=== PATIENT | female | born 1940 ===

== ENCOUNTER 2021-07-23 13:13 | Inpatient (IN) | payer MEDICARE ==
[~2021-07-23] VITALS: Ht 152.4 cm; Wt 72.7 kg
[2021-07-23] MEDS ORDERED: DOCU100C37 PO (14:04)
[2021-07-23] MEDS ORDERED: POLY17PO6 PO (14:04)
[2021-07-23] MEDS ORDERED: RT-ALBUINH IH (14:04)
[2021-07-23] MEDS ORDERED: GABA-486 PO (14:04)
[2021-07-23] MEDS ORDERED: LORA10TA7 PO (14:04)
[2021-07-23] MEDS ORDERED: CALC1TAB PO (14:04)
[2021-07-23] MEDS ORDERED: CHOL400C9 PO (14:04)
[2021-07-23] MEDS ORDERED: MOME17SP11 NSEACH (14:04)
[2021-07-23] MEDS ORDERED: LEVO125T6 PO (14:04)
[2021-07-23] MEDS ORDERED: LISI20TA26 PO (14:04)
[2021-07-23] MEDS ORDERED: SULF500T PO (14:04)
[2021-07-23] MEDS ORDERED: BUDE0.5A IH (14:04)
[2021-07-23] MEDS ORDERED: AMLO-251 PO (14:04)
[2021-07-23] MEDS ORDERED: TRAM50TA3 PO (14:04)
[2021-07-23] MEDS ORDERED: PANT40TA52 PO (14:04)
[2021-07-23] MEDS ORDERED: ALB0.5V INH (14:04)
[2021-07-23] MEDS ORDERED: VIT1CAPS44 PO (14:04)
[2021-07-23] MEDS ORDERED: CARB1DRO5 OU (14:04)
[2021-07-23] MEDS ORDERED: SENN-234 PO (14:04)
[2021-07-23] MEDS ORDERED: CITA10TA9 PO (14:04)
[2021-07-23] MEDS ORDERED: diphenhydrAMINE 25 MG TAB (BENADRYL) PO PRN (14:15)
[2021-07-23] MEDS ORDERED: FLEET ENEMA ADULT 1 EA BTL PR PRN (14:15)
[2021-07-23] MEDS ORDERED: DOCUSATE SODIUM 100 MG (COLACE) CAP PO PRN (14:15)
[2021-07-23] MEDS ORDERED: LACTULOSE SYRUP 10GM/15ML (ENULOSE) 30ML UDC PO PRN (14:15)
[2021-07-23] MEDS ORDERED: ONDANSETRON 4 MG (ZOFRAN) ORAL DISSOLVE TAB PO PRN (14:15)
[2021-07-23] MEDS ORDERED: ACETAMINOPHEN 500 MG TAB (TYLENOL) PO PRN (14:15)
[2021-07-23] MEDS ORDERED: guaiFENesin/CODEINE (ROBITUSSIN AC) 10ML UDC PO PRN (14:15)
[2021-07-23] MEDS ORDERED: ALPRAZolam 0.25 MG (XANAX) TAB PO PRN (14:15)
[2021-07-23] MEDS ORDERED: MELATONIN 3 MG TABLET PO PRN (14:15)
[2021-07-23] MEDS ORDERED: LOPERAMIDE 2 MG (IMODIUM) TABLET PO PRN (14:15)
[2021-07-23] MEDS ORDERED: BISACODYL 10 MG SUPP (DULCOLAX) PR PRN (14:15)
--- NOTE | 2021-07-23 15:43 | Physical Therapy Evaluation ---
PT Evaluation-General Medical Diagnosis Admission Date Jul 23, 2021 at 15:11 Medical Diagnosis: left ankle fx Onset Date: Jul 23, 2021 Therapy Diagnosis Therapy Diagnosis: impaired mobility, strength, endurance Weight Bear Status Left Lower Extremity: Left Weight Bearing/Tolerated WBAT when wearing the cam boot Referral Physician: Apoorva Castro DO Reason for Referral: Evaluation/Treatment Medical History Pertinent Medical History: HTN Reviewed History: Yes Social History Home: Single Level Current Living Status: Children Entry Into Home: Stairs Without Railing Patient has 2 steps on one entrance and about 5 on another Prior Prior Level of Function SCALE: Activities may be completed with or without assistive devices. 9-Pgayxqegua-vxllpwr completes the activity by him/herself with no assistance from a helper. 5-Set-up or Clean-up Assistance-helper sets up or cleans up; patient completes activity. [place] assists only prior to or following the activity. 4-Supervision or Touching Assistance-helper provides verbal cues and/or touching/steadying and/or contact guard assistance as patient completes activity. Assistance may be provided throughout the activity or intermittently. 3-Partial/Moderate Assistance-helper does LESS THAN HALF the effort. [place] lifts, holds or supports trunk or limbs, but provides less than half the effort. 2-Substantial/Maximal Assistance-helper does MORE THAN HALF the effort. [place] lifts or holds trunk or limbs and provides more than half the effort. 8-Gwodhhdzl-oxitmd does ALL the effort. Patient does none of the effort to complete the activity. Or, the assistance of 2 or more helpers is required for the patient to complete the activity. If activity was not attempted, code reason: 7-Patient Refused. 9-Not Applicable-not attempted and the patient did not perform the activity before the current illness, exacerbation or injury. 10-Not Attempted due to Environmental Limitations-(lack of equipment, weather restraints, etc.). 88-Not Attempted due to Medical Conditions or Safety Concerns. Bed Mobility: 6 Transfers (B,C,W/C): 6 Gait: 6 Stairs: 6 Indoor Mobility (Ambulation): Independent Stairs: Independent Patient used a SPC PT Evaluation-Current Subjective Patient in WC pre tx, agrees to PT, has 9/10 pain in left ankle, nurse notified. Pt/Family Goals to be independent at home Objective Patient Orientation: Person, Place, Situation cam boot ROM/Strength ROM Lower Extremities WNL, left ankle not tested Sensory Hearing: Functional Transfers Roll Left & Right (QC): 3 Sit to Lying (QC): 3 Lying to Sitting/Side of Bed(Q: 3 Sit to Stand (QC): 3 Chair/Wnv-fz-Pslfj Xfer(QC): 3 Toilet Transfer (QC): 3 Car Transfer (QC): 3 Patient performs rolling with min assist, supine to sit mod assist, sit to supine mod assist, sit <-> stand min assist, stand pivot transfer min assist, car transfer mod assist. Patient cannot perform a transfer wearing her shoe because she cannot tolerate any weight on her left foot and she cannot twist her foot to turn with the shoe on. She can do this wearing a hospital sock. Gait Walk 10 feet (QC): 88 Walk 50 ft with 2 Turns(QC): 88 Walk 150 ft (QC): 88 Walking 10ft/uneven surface-QC: 88 Wheelchair Training Wheel 50 ft with 2 turns (QC): 3 Wheel 150 ft (QC): 7 Type of Wheelchair: Manual Stairs 1 Step (curb) (QC): 88 4 Steps (QC): 88 12 Steps (QC): 88 Balance Sitting Static: Normal Sitting Dynamic: Normal Standing Static: Fair Standing Dynamic: Fair Picking up an Object (QC): 88 Treatment Toileted patient with assist from an OT who helped clean and get her brief on. Assessment/Needs Patient in bed post tx with nurse call, phone, tray, all needs met. Patient has impaired mobility, strength, endurance. Patient cannot ambulate at this time because she cannot bear weight on her left foot due to the pain. Rehab Potential: Guarded PT Short Term Goals Short Term Goals Time Frame: Jul 30, 2021 Roll Left & Right: 6 Sit to lyin Lying to sitting on side of be: 3 Sit to stand: 4 Chair/knx-ts-xyiix transfer: 4 Walk 10 feet: 3 PT Care Home Goals Senior Business Manager Goals PT Care Home Goals Time Frame: Aug 13, 2021 Roll Left & Right (QC): 6 Sit to Lying (QC): 6 Lying-Sitting on Side/Bed(QC): 6 Sit to Stand (QC): 4 Chair/Wlj-kq-Ikapb Xfer(QC): 4 Toilet Transfer (QC): 4 Car Transfer (QC): 4 Does the Patient Walk: Yes Walk 10 feet (QC): 4 Walk 50ft with 2 Turns (QC): 4 Walk 150 ft (QC): 88 Walking 10ft on Uneven Surface: 4 1 Step (curb) (QC): 4 4 Steps (QC): 4 12 Steps (QC): 88 Picking up an Object (QC): 4 Wheel 50 feet with 2 turns (QC: 9 Wheel 150 feet: 9 PT Plan Problem List Problem List: Activity Tolerance, Functional Strength, Safety, Balance, Gait, Transfer, Bed Mobility, ROM Treatment/Plan Treatment Plan: Continue Plan of Care Treatment Plan: Bed Mobility, Education, Functional Activity Dorothea, Functional Strength, Group Therapy, Gait, Safety, Therapeutic Exercise, Transfers Treatment Duration: Aug 13, 2021 Frequency: At least 5 of 7 days/Wk (IRF) Estimated Hrs Per Day: 1.5 hours per day Patient and/or Family Agrees t: Yes Safety Risks/Education Patient Education: Transfer Techniques, Reviewed Precautions, Correct Positioning, W/C Management, Safety Issues Teaching Recipient: Patient Teaching Methods: Demonstration, Discussion Response to Teaching: Reinforcement Needed Discharge Recommendations Plan Patient performed bed mobility and transfer training, balance and endurance training, functional strengthening, stair training, gait training, and education, to improve functional mobility and independence at home. Therapy Discharge Recommendati: Scheduled Assistance, Home & Family, Post Acute PT Time/GCodes Time In: 1511 Time Out: 1540 Total Billed Treatment Time: 29 Total Billed Treatment 1 visit VIDAL 15' FA 14' DAMIEN ANEDRSON PT Jul 23, 2021 15:43
--- NOTE | 2021-07-23 16:19 | PM&R Post Admission Assessment ---
PM&R Date of Visit: Jul 23, 2021 Time of Visit: 16:20 History of Present Illness Chief complaint: Left ankle fracture History present illness: This is an 81-year-old patient of Dr. 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 She uses a cane at home. Patient was placed in a posterior stirrup fiberglass splint and is nonweightbearing. She reports her bowels just moved today and she has no urinary complaints. Past Gybqkeh-Gxaugc-Korwgw Hx Past Med/Social Hx: Reviewed Nursing Past Med/Soc Hx, Reviewed and Corrections made Patient Social History Marrital Status: single Employed/Student: retired Smoking Status: Never a Smoker Past Medical History Surgeries: Orthopedic Respiratory: Pneumonia, Pulmonary Fibrosis (Lifetime non-smoker from environmental exposure of soldering at [employer] for 34 years) Cardiac: High Cholesterol, Hypertension Genitourinary: Bladder Infection, Renal Failure Musculoskeletal: Osteoporosis, Arthritis, Rheumatoid Arthritis Endocrine: Hypothyroidsim Prior Level of Function Bed Mobility: 6 Transfers: 6 Gait: 6 Stairs: 6 Indoor Mobility (Ambulation): Independent Stairs: Independent Current Level of Fuctioning Roll Left to Right: 3 Sit to Lyin Lying to Sitting/Side of Bed: 3 Sit to Stand: 3 Chair/Plk-hl-Gztwj Xfer: 3 Car Transfer: 3 Walk 10 feet: 88 Walk 50 ft with 2 Turns: 88 Walk 150 ft: 88 Walking 10ft on uneven surface: 88 Wheel 50 ft with 2 turns: 3 Wheel 150 ft: 7 Type of Wheelchair: Manual 1 Step (curb): 88 4 Steps: 88 12 Steps: 88 Picking up an Object: 88 PM&R Allergy/Meds/Data Review Allergies Coded Allergies: adhesive tape (Verified Allergy, Unknown, 07/23/21) latex (Verified Allergy, Unknown, 07/23/21) morphine (Verified Allergy, Unknown, 07/23/21) moxifloxacin (Verified Allergy, Unknown, 07/23/21) Home Medications Scheduled Amlodipine Besylate (Amlodipine Besylate), 10 MG PO DAILY, (Reported) Budesonide (Budesonide), 0.5 MG IH BID, (Reported) Calcium Carbonate/Vitamin D3 (Caltrate 600 + D Tablet), 1 EACH PO BID WITH MEALS, (Reported) Cholecalciferol (Vitamin D3) (Vitamin D3), 10 MCG PO DAILY, (Reported) Citalopram Hydrobromide (Citalopram HBr), 10 MG PO DAILY, (Reported) Docusate Sodium (Docusate Sodium), 100 MG PO BID, (Reported) Gabapentin (Gabapentin), 100 MG PO TID, (Reported) Levothyroxine Sodium (Levothyroxine Sodium), 125 MCG PO DAILY, (Reported) Lisinopril (Lisinopril), 20 MG PO BID, (Reported) Mometasone Furoate (Mometasone Furoate), 2 SPRAYS NSEACH DAILY, (Reported) Pantoprazole Sodium (Pantoprazole Sodium), 40 MG PO DAILY, (Reported) Polyethylene Glycol 3350 (Miralax), 17 GM PO DAILY, (Reported) Sennosides (Senna), 8.6 MG PO DAILY, (Reported) Sulfasalazine (Azulfidine), 500 MG PO BID, (Reported) Vit C/E/Zn/Coppr/Lutein/Zeaxan (Preservision Areds 2 Softgel), 1 EACH PO BID, (Reported) Scheduled PRN Albuterol Sulfate (Proair Hfa), 2 PUFF IH Q6H PRN for SHORTNESS OF BREATH, (Reported) Albuterol Sulfate (Albuterol Sulfate), 1.25 MG INH Q4H PRN for SHORTNESS OF BREATH, (Reported) Carboxymethylcellulose Sodium (Refresh Celluvisc), 1 DROP OU UD PRN for DRY EYES, (Reported) Loratadine (Loratadine), 10 MG PO DAILY PRN for ALLERGY SYMPTOMS, (Reported) Tramadol HCl (Tramadol HCl), 50 MG PO Q6H PRN for PAIN-MODERATE (5-7), (Reported) Current Medications Current Medications Reviewed Review of Systems Constitutional: see HPI EENTM: no symptoms reported Respiratory: short of breath Cardiovascular: no symptoms reported Gastrointestinal: no symptoms reported Genitourinary: no symptoms reported Musculoskeletal: back pain, joint pain Skin: no symptoms reported Psychiatric/Neurological: Emotional Problems All Other Systems Reviewed Negative Unless Noted: Yes Physical Exam Physical Exam Vital Signs Capillary Refill : Height, Weight, BMI Height: '" Weight: lbs. oz. kg; BMI Method: General Appearance: No Apparent Distress, WD/WN, Chronically ill, Thin, Other (Frail) Eyes: Bilateral Eye Normal Inspection, Bilateral Eye PERRL HEENT: PERRL/EOMI, Normal ENT Inspection, Pharynx Normal Neck: Full Range of Motion, Normal Inspection, Non Tender, Supple, Carotid Bruit Respiratory: Chest Non Tender, Lungs Clear, Normal Breath Sounds, No Accessory Muscle Use, No Respiratory Distress, Decreased Breath Sounds Cardiovascular: Regular Rate, Rhythm, No Edema, No Gallop, No JVD, No Murmur, Normal Peripheral Pulses Gastrointestinal: Normal Bowel Sounds, No Organomegaly, No Pulsatile Mass, Non Tender, Soft Back: Normal Inspection, No CVA Tenderness, No Vertebral Tenderness Extremity: Normal Capillary Refill, Normal Inspection, Normal Range of Motion, Non Tender, No Calf Tenderness, No Pedal Edema Neurologic/Psychiatric: Alert, Oriented x3, No Motor/Sensory Deficits, Normal Mood/Affect, automotive glass installer II-XII Norm as Tested, Abnormal Gait (Nonweightbearing on the left), Motor Weakness (Generalized decreased strength 4/5) Skin: Normal Color, Warm/Dry Lymphatic: No Adenopathy PM&R Medical Assessment & Plan REHAB/MEDICAL ASSESSMENT AND PLAN: REHAB IMPAIRMENT GROUP: Left ankle fracture nonweightbearing ETIOLOGIC DIAGNOSIS: Left ankle fracture nonweightbearing The comorbidities that impact the patients function and/or functional outcome by: Pulmonary fibrosis, osteoporosis, rheumatoid arthritis, advanced age REHAB PLAN: The patient is being admitted to our comprehensive inpatient rehabilitation facility and can tolerate the intensity of service consisting of at least: 180 minutes of therapy a day, 5 out of 7 days a week Rehab treatment will consist of: PT and OT will focus on the use of assistive devices in order to ambulate and increase independence in ADL's in order to return to independent living The patient/family has a good understanding of our discharge process and will be nefit from an interdisciplinary inpatient rehabilitation program. The patient has potential to make improvement and is in need of at least two of the following multidisciplinary therapies including but not limited to physical, occupational, speech, and prosthetics and orthotics. Additionally the patient will need services from respiratory, nutritional services, wound care, psychol ogy, etc. (Customize this to each patient). Given the patients complex condition and risk of further medical complications, rehabilitation services cannot be safely or effectively provided at a lower level of care such as a nursing home facility. BARRIERS TO DISCHARGE: Nonweightbearing on left ESTIMATED LOS: 14 days DISPOSITION: Home RELEVANT CHANGES SINCE PREADMISSION SCREENING: I have compared the patients medical and functional status at the time of the preadmission screening and there are: No changes PROGNOSIS: Fair REHABILITATION GOALS: 1. PT and OT will focus on the use of assistive devices in order to ambulate and increase independence in ADL's in order to return to independent living All the above goals were reviewed with the patient and he/she is in agreement. By signing this document, I acknowledge that I have personally performed a full physical examination on this patient within 24 hours of admission to this inpatient rehabilitation facility and have determined the patient to be able to tolerate the above course of treatment at an intensive level for a reasonable period of time. I will be completing a detailed individualized Plan of Care for this patient by day #4 of the patients stay based upon the Preadmission Screen, the Post-Admission Evaluation, and the therapy evaluations. Admission Dx/Comorbidities: (1) Ankle fracture, left ICD Codes: S82.892A - Other fracture of left lower leg, initial encounter for closed fracture (2) Pulmonary fibrosis ICD Codes: J84.10 - Pulmonary fibrosis, unspecified (3) Rheumatoid arthritis ICD Codes: M06.9 - Rheumatoid arthritis, unspecified (4) Hypothyroidism ICD Codes: E03.9 - Hypothyroidism, unspecified (5) Hypertension ICD Codes: I10 - Essential (primary) hypertension (6) Advanced age ICD Codes: R54 - Age-related physical debility (7) Frail elderly ICD Codes: R54 - Age-related physical debility (8) Risk for falls ICD Codes: Z91.81 - History of falling Assessment/Plan Assessment and Plan Assess & Plan/Chief Complaint Assessment: Left ankle fracture nonweightbearing Advanced age Pulmonary fibrosis 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 [employer] 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 lifetime non-smoker Hypothyroidism Rheumatoid arthritis Seasonal allergies History of GI bleed History pneumonia Osteoporosis Plan: Inpatient rehab protocol Bowel regimen Pain control KYLAH DELGADILLO DO Jul 23, 2021 16:19
[2021-07-23] MEDS ORDERED: RT-ALBUTEROL SULF 2.5 MG/3 ML PRE-MIX VIAL IH PRN (16:30)
[2021-07-23] MEDS ORDERED: LORATADINE (CLARITIN) 10 MG TAB PO PRN (16:30)
[2021-07-23] MEDS ORDERED: CARBOXYMETHYLCELLULOSE SODIUM OU PRN (16:30)
[2021-07-23] MEDS ORDERED: RT-ALBUTEROL SULF 2.5 MG/3 ML PRE-MIX VIAL INH PRN ×2 (16:30→17:35)
[2021-07-23 16:35] VITALS: BP 119/58
[2021-07-23] MEDS ORDERED: ARTIFICAL TEARS 0.4 ML UNIT DOSE (REFRESH PLUS) OU PRN (16:45)
[2021-07-23 17:25] VITALS: BP 119/58
[2021-07-23] MEDS: CALCIUM CARB + VIT D 600 MG (CALCARB + D) TAB PO SCH (17:41)
[2021-07-23] MEDS ORDERED: NON-FORMULARY MEDICATION 1 EA EA (Calcium Carbonate/Vitamin D3 (Caltrate 600 + D Tablet) 1 PO SCH (18:00)
[2021-07-23 20:00] VITALS: BP 114/71
[2021-07-23] MEDS ORDERED: SENNA W/DOCUSATE (SENOKOT S) TABLET PO SCH (21:00)
[2021-07-23] MEDS ORDERED: DOCUSATE SODIUM 100 MG (COLACE) CAP PO SCH (21:00)
[2021-07-23] MEDS ORDERED: polyethylene glycoL POWDER 17 GM (MIRALAX) PACK PO SCH (21:00)
[2021-07-23] MEDS: RT-BUDESONIDE NEBS 0.5 MG/2ML (PULMICORT) AMP IH SCH (21:16)
[2021-07-23] MEDS: RT-ALBUTEROL SULF 2.5 MG/3 ML PRE-MIX VIAL INH SCH (21:16)
[2021-07-23] MEDS: sulfaSALAzine 500 MG (AZULFIDINE) TAB PO SCH (21:36)
[2021-07-23] MEDS: lisINopril 20 MG (PRINIVIL) TABLET PO SCH (21:36)
[2021-07-23] MEDS: GABAPENTIN 100 MG (NEURONTIN) CAP PO SCH (21:36)
[2021-07-23] MEDS: DOCUSATE SODIUM 100 MG (COLACE) CAP PO SCH (21:36)
[2021-07-24] MEDS: RT-ALBUTEROL SULF 2.5 MG/3 ML PRE-MIX VIAL INH SCH ×4 (03:15→21:24)
[2021-07-24] MEDS: LEVOTHYROXINE 125 MCG (LEVOTHROID) TABLET PO SCH (06:32)
[2021-07-24 07:01] LABS: BASOPHILS % (AUTO) 0 % (0-10); EOSINOPHILS % (AUTO) 0 % (0-10); HEMATOCRIT 34 % (35-52); HEMOGLOBIN 11.1 g/dL (11.5-16.0); LYMPHOCYTES # (AUTO) 1.2 10^3/uL (1.0-4.0); LYMPHOCYTES % (AUTO) 25 % (12-44); MEAN CORPUSCULAR HEMOGLOBIN 31 pg (25-34); MEAN CORPUSCULAR HGB CONC 33 g/dL (32-36); MEAN CORPUSCULAR VOLUME 93 fL (80-99); MEAN PLATELET VOLUME 8.6 fL (9.0-12.2); MONOCYTES # (AUTO) 0.7 10^3/uL (0.0-1.0); MONOCYTES % (AUTO) 15 % (0-12); NEUTROPHILS # (AUTO) 2.8 10^3/uL (1.8-7.8); NEUTROPHILS % (AUTO) 60 % (42-75); PLATELET COUNT 194 10^3/uL (130-400); WHITE BLOOD COUNT 4.6 10^3/uL (4.3-11.0)
[2021-07-24 07:21] LABS: ALBUMIN 2.9 GM/DL (3.2-4.5); BILIRUBIN,TOTAL 0.5 MG/DL (0.1-1.0); CALCIUM 8.2 MG/DL (8.5-10.1); CREATININE SERUM 0.64 MG/DL (0.60-1.30); POTASSIUM 4.4 MMOL/L (3.6-5.0); TOTAL PROTEIN 5.8 GM/DL (6.4-8.2)
[2021-07-24 07:30] VITALS: BP 127/61
--- NOTE | 2021-07-24 08:34 | Occupational Therapy Eval ---
OT Evaluation-General/PLF Medical Diagnosis Admission Date Jul 23, 2021 at 15:11 Medical Diagnosis: left ankle fx Onset Date: Jul 23, 2021 Therapy Diagnosis Therapy Diagnosis: Impaired adls, iadls, mobility, transfers, balance, endurance, strength Precautions Precautions/Isolations: Fall Prevention, Standard Precautions Weight Bear Status LLE: WBAT with cam boot Referral Physician: Apoorva Castro DO Referral Reason: Evaluation/Treatment Medical History Pertinent Medical History: HTN Current History Pt admitted from [facility]. She reports she was trying to get up the steps of her porch when she slipped and fell resulting in L fibula fx. Pt is WBAT with cam boot. She verbalizes living with her son but he is unable to provide any physical assistance due to his own medical issues. Prior to fall, she was using a cane. She was indep with adls and has a capacity manager 1x/week that assists with laundry, cleaning, and sometimes meals. She no longer cooks and eats microwavable or simple meals. Reviewed History: Yes Social History Home: Single Level Current Living Status: Children Entry Into Home: Stairs Without Railing ADL-Prior Level of Function SCALE: Activities may be completed with or without assistive devices. 9-Jgovzzroqj-acsveda completes the activity by him/herself with no assistance from a helper. 5-Set-up or Clean-up Assistance-helper sets up or cleans up; patient completes activity. [place] assists only prior to or following the activity. 4-Supervision or Touching Assistance-helper provides verbal cues and/or touching/steadying and/or contact guard assistance as patient completes activ ity. Assistance may be provided throughout the activity or intermittently. 3-Partial/Moderate Assistance-helper does LESS THAN HALF the effort. [place] lifts, holds or supports trunk or limbs, but provides less than half the effort. 2-Substantial/Maximal Assistance-helper does MORE THAN HALF the effort. [place] lifts or holds trunk or limbs and provides more than half the effort. 7-Tbsymutxi-oaafmn does ALL the effort. Patient does none of the effort to complete the activity. Or, the assistance of 2 or more helpers is required for the patient to complete the activity. If activity was not attempted, code reason: 7-Patient Refused. 9-Not Applicable-not attempted and the patient did not perform the activity before the current illness, exacerbation or injury. 10-Not Attempted due to Environmental Limitations-(lack of equipment, weather restraints, etc.). 88-Not Attempted due to Medical Conditions or Safety Concerns. Self Care: Independent Functional Cognition: Independent DME/Equipment: Bath Chair, Grab Bars, Shower Drive Self: Yes OT Current Status Subjective Pt reports 9/10 with any movement. Initially reports cam boot too tight. OT assisted in loosening, pt reports feeling much better. Appearance Returned to supine in bed, all needs within reach. RN in room at end of session. Mental Status/Objective Patient Orientation: Person, Time, Situation Attachments: IV Current Upper Extremity ROM Impaired bilaterally. Pt reports due to arthritis and old rotator cuff injury. [place] shoulder AROM: ~45 degrees. ADL-Treatment Eating (QC): 5 Oral Hygiene (QC): 3 Shower/Bathe Self (QC): 3 Upper Body Dressing (QC): 3 Lower Body Dressing (QC): 3 On/Off Footwear (QC): 2 Toileting Hygiene (QC): 3 Pt resting in bed at therapist arrival, agreeable to eval. She verbalizes incontinence of urine secondary to being in too much pain to get to the commode. Supine>sit: Min a to transition LLE off edge of bed. Posterior pelvic tilt at EOB, difficulty sitting upright. She reports due to arthritic spine. Stand pivot from bed to commode with Min A. Pt shuffling/sliding R foot on floor due to increased pain in L foot when bearing weight (cam boot on). Kyphotic posture in standing. Extra time to manage clothing below hips with cue to alternate one hand on walker at a time. Continent BM. [place] care completed in sitting, min a for thoroughness in standing. Sponge bath performed sitting EOB. She was able to wash upper body, thighs, and down to R ankle without assist. Min a for balance as she stood to wash [place] area, single UE support on walker. Assist to wash backside and back of legs to ensure thorough cleaning from urine incontinence. Assist needed to fasten 1/5 clasps on bra due to inability to line up first clasp. (bra fastened in front). Due to impaired shoulder ROM, assist needed to pull shirt down in back, extra effort to bring overhead. She was able to bend at waist to thread BLE's into brief/pants, min-mod a for clothing management secondary to fatigue with prolong standing. Max a to don cam boot (prior to standing). Pt demonstrates difficulty with velcro straps due to weakness and arthritis. Modifications to straps will be beneficial in future sessions. With exertion, pt reports dizziness and SOA. Vitals checked, WNL. Assist to lift LLE into bed, dep x2 to supine scoot to HOB. Education OT Patient Education: Correct positioning, Energy conservation, Modified ADL techniques, Progress toward Goal/Update tx plan, Purpose of tx/functional activities, Reviewed precautions, Rehab process, Safety issues, Transfer techniques Teaching Recipient: Patient Teaching Methods: Demonstration, Discussion Response to Teaching: Verbalize Understanding, Return Demonstration, Reinforcement Needed OT Short Term Goals Short Term Goals Time Frame: Aug 04, 2021 Eatin Oral hygiene: 4 Toileting hygiene: 4 Shower/bathe self: 4 Upper body dressin Lower body dressin Putting on/taking off footwear: 3 OT Electric Motor Tester Assembler Goals Electric Motor Tester Assembler Goals Time Frame: Aug 14, 2021 Eating (QC): 5 Oral Hygiene (QC): 5 Toileting Hygiene (QC): 6 Shower/Bathe Self (QC): 5 Upper Body Dressing (QC): 5 Lower Body Dressing (QC): 5 On/Off Footwear (QC): 4 1=Demonstrate adherence to instructed precautions during ADL tasks. 2=Patient will verbalize/demonstrate understanding of assistive devices/modifications for ADL. 3=Patient will improve strength/tolerance for activity to enable patient to perform ADL's. OT Education/Plan Problem List/Assessment Assessment: Decreased Activ Tolerance, Decreased UE Strength, Impaired Coordination, Impaired Funct Balance, Impaired I ADL's, Impaired Self-Care Skills, Restricted Funct UE ROM Discharge Recommendations Plan/Recommendations: Continue POC Comment ongoing assessment Treatment Plan/Plan of Care Treatment,Training & Education: Yes Patient would benefit from OT for education, treatment and training to promote independence in ADL's, mobility, safety and/or upper extremity function for ADL's. Plan of Care: ADL Retraining, Functional Mobility, Group Exercise/Act as Ind, Orthotic Fitting/Training, UE Funct Exercise/Act Treatment Duration: Aug 14, 2021 Frequency: At least 5 of 7 days/Wk (IRF) Estimated Hrs Per Day: 1.5 hours per day Agreement: Yes Rehab Potential: Guarded Time/GCodes Start Time: 07:55 Stop Time: 09:25 Total Time Billed (hr/min): 90 Billed Treatment Time 1 visit EVM (10 min) ADL x5 (80 min) Chrissy Cutler OT Jul 24, 2021 08:34
[2021-07-24] MEDS ORDERED: NON-FORMULARY MEDICATION 1 EA EA (Cholecalciferol (Vitamin D3) (Vitamin D3) 10 MCG) PO SCH (09:00)
[2021-07-24] MEDS ORDERED: MOMETASONE FUROATE NSEACH SCH (09:00)
[2021-07-24] MEDS: CALCIUM CARB + VIT D 600 MG (CALCARB + D) TAB PO SCH ×2 (09:26→17:13)
[2021-07-24] MEDS: sulfaSALAzine 500 MG (AZULFIDINE) TAB PO SCH ×2 (09:26→21:33)
[2021-07-24] MEDS: lisINopril 20 MG (PRINIVIL) TABLET PO SCH ×2 (09:26→21:33)
[2021-07-24] MEDS: amLODIPine 10 MG (NORVASC) TAB PO SCH ×2 (09:26→09:42)
[2021-07-24] MEDS: VITAMIN D3 10 MCG (400 UNITS) TABLET PO SCH (09:26)
[2021-07-24] MEDS: DOCUSATE SODIUM 100 MG (COLACE) CAP PO SCH ×2 (09:26→21:33)
[2021-07-24] MEDS: GABAPENTIN 100 MG (NEURONTIN) CAP PO SCH ×3 (09:27→21:33)
[2021-07-24] MEDS: PANTOPRAZOLE 40 MG (PROTONIX) TAB PO SCH (09:27)
[2021-07-24] MEDS: FLUTICASONE NASAL SPRAY (FLONASE) 16 GM BTL NS SCH (09:29)
[2021-07-24 09:35] VITALS: BP 133/61
[2021-07-24] MEDS: RT-BUDESONIDE NEBS 0.5 MG/2ML (PULMICORT) AMP IH SCH ×2 (09:39→21:24)
[2021-07-24] MEDS: SENNOSIDES 8.6 MG (SENOKOT) TAB PO SCH (09:42)
[2021-07-24] MEDS: polyethylene glycoL POWDER 17 GM (MIRALAX) PACK PO SCH (09:42)
--- NOTE | 2021-07-24 10:14 | Physical Therapy Daily Note ---
PT Daily Note-Current Subjective Pt denies pain upon arrival. Pt receiving Breathing treatment, agreeable to PT. Pt coughing up phlegm due to breathing treatment per pt. Pt rates pain 5/10 (L) ankle with movement of (R) LE and (L) SAQ. Pt reports she got up to the toilet this am. Pt reports she did well. Pt requests commode during treatment. Mental Status Patient Orientation: Person, Place, Situation Transfers SCALE: Activities may be completed with or without assistive devices. 2-Njxkmzbdsq-tsigknk completes the activity by him/herself with no assistance from a helper. 5-Set-up or Clean-up Assistance-helper sets up or cleans up; patient completes activity. [place] assists only prior to or following the activity. 4-Supervision or Touching Assistance-helper provides verbal cues and/or touching/steadying and/or contact guard assistance as patient completes activity. Assistance may be provided throughout the activity or intermittently. 3-Partial/Moderate Assistance-helper does LESS THAN HALF the effort. [place] lifts, holds or supports trunk or limbs, but provides less than half the effort. 2-Substantial/Maximal Assistance-helper does MORE THAN HALF the effort. [place] lifts or holds trunk or limbs and provides more than half the effort. 4-Rdbolvhuy-heykge does ALL the effort. Patient does none of the effort to complete the activity. Or, the assistance of 2 or more helpers is required for the patient to complete the activity. If activity was not attempted, code reason: 7-Patient Refused. 9-Not Applicable-not attempted and the patient did not perform the activity before the current illness, exacerbation or injury. 10-Not Attempted due to Environmental Limitations-(lack of equipment, weather restraints, etc.). 88-Not Attempted due to Medical Conditions or Safety Concerns. SPT bed-> commode-> bed. SPT bed ->w/c->bed with CGA and vc's for sequencing. Weight Bearing Left Lower Extremity: Left Weight Bearing/Tolerated WBAT when wearing the cam boot Exercises Supine Ex: Bridging, Ankle pumps, Quad Set, Glut sets, Heel Slides, Short Arc Quads, Straight leg raise, Hip abd/add Supine Reps: 30 Seated Therapy Exercises: Long arc quads, Hip flexion Seated Reps: 30 Treatments Pt toileted at bedside commode requiring assist with donning and doffing pants. Pt wiped self. Pt practiced w/c mobility into bathroom. Pt brushed teeth and hair at sink from w/c. W/c mobility in common area x 200ft. Pt pushed to gym: pt stood at //bars 3 x 30sec with CGA. Pt back to bed with CGA. Pt transfered self into bed. (L) LE elevated on pilllow. PT WBAT for all standing. Pt with call light and all needs met. Assessment Current Status: Good Progress Pt demonstrates ability to SPT inching and turning on (R) foot, no steps. Pt WB AT (R) foot. Pain increased with activity but gabi well with rest breaks as needed. Pt resting with call light and all needs met. PT Short Term Goals Short Term Goals Time Frame: Jul 30, 2021 Roll Left & Right: 6 Sit to lyin Lying to sitting on side of be: 3 Sit to stand: 4 Chair/vtw-vp-jwfql transfer: 4 Walk 10 feet: 3 PT Washery Engineer Goals Washery Engineer Goals PT Washery Engineer Goals Time Frame: Aug 13, 2021 Roll Left & Right (QC): 6 Sit to Lying (QC): 6 Lying-Sitting on Side/Bed(QC): 6 Sit to Stand (QC): 4 Chair/Vpr-vp-Zbsbb Xfer(QC): 4 Toilet Transfer (QC): 4 Car Transfer (QC): 4 Does the Patient Walk: Yes Walk 10 feet (QC): 4 Walk 50ft with 2 Turns (QC): 4 Walk 150 ft (QC): 88 Walking 10ft on Uneven Surface: 4 1 Step (curb) (QC): 4 4 Steps (QC): 4 12 Steps (QC): 88 Picking up an Object (QC): 4 Wheel 50 feet with 2 turns (QC: 9 Wheel 150 feet: 9 PT Plan Treatment/Plan Treatment Plan: Continue Plan of Care Treatment Plan: Bed Mobility, Education, Functional Activity Dorothea, Functional Strength, Group Therapy, Gait, Safety, Therapeutic Exercise, Transfers Treatment Duration: Aug 13, 2021 Frequency: At least 5 of 7 days/Wk (IRF) Estimated Hrs Per Day: 1.5 hours per day Patient and/or Family Agrees t: Yes Time/GCodes Time In: 930 Time Out: 1100 Total Billed Treatment Time: 90 Total Billed Treatment 1, Ex x 30', FA x 45', w/c mobility x 15' [facility] Jul 24, 2021 10:14
--- NOTE | 2021-07-24 13:09 | Individualized Plan of Care ---
Individualized Plan of Care Rehab Nursing IPOC Order Admission Date Jul 23, 2021 at 15:11 Current Orders Orders Admission Order(Inpt,Obs,Sdc) (07/23/21 14:14) Vital Signs: Per Unit Policy ( ,16,00 (07/23/21 14:14) Dirk Jones (07/23/21 14:14) Sequential Compression Device (07/23/21 14:14) Riding Teacher-Inpt Rehab Con (07/23/21 14:14) Rehab Nursing Orders-Ipoc (07/23/21 14:14) Physical Therapy Rehab Orders (07/23/21 14:14) Occupational Therapy Rehab Ord (07/23/21 14:14) Speech Therapy Rehab Orders (07/23/21 14:14) Cbc With Automated Diff (07/24/21 06:00) Comprehensive Metabolic Panel (07/24/21 06:00) Precautions (Aru) (07/23/21 14:14) Rehab-Intensity Of Therapy (07/23/21 14:14) Initiate Admission Nursing Pro .admission (07/23/21 14:14) Alprazolam Tablet (Xanax Tablet) (07/23/21 14:15) Calcium Carbonate Chew Tablet (Antacid C (07/23/21 14:15) Diphenhydramine Tablet (Benadryl Tablet) (07/23/21 14:15) Docusate Sodium Capsule (Colace Capsule) (07/23/21 21:00) Docusate Sodium Capsule (Colace Capsule) (07/23/21 14:15) Bisacodyl Suppository (Dulcolax Supposit (07/23/21 14:15) Lactulose Oral Solution (Enulose Oral So (07/23/21 14:15) Na Phos/Na Biphos Enema (Fleet Enema [place] (07/23/21 14:15) Guaifenesin/Codeine Syrup (Robitussin Ac (07/23/21 14:15) Loperamide Tablet (Imodium Tablet) (07/23/21 14:15) Melatonin Tablet (Melatonin Tablet) (07/23/21 14:15) Polyethylene Glycol Powder Pkt (Miralax (07/23/21 21:00) Ondansetron Oral Dissolve Tab (Zofran (07/23/21 14:15) Senna S Tablet (Senokot S Tablet) (07/23/21 21:00) Acetaminophen Tablet (Tylenol Tablet) (07/23/21 14:15) Code/Resuscitation (07/23/21 14:14) Initiate Admission Nursing Pro .admission (07/23/21 14:14) Admission Arrival Bed Request (07/23/21 15:13) Acetaminophen Tablet/Caplet (Tylenol T (07/23/21 15:45) Patient Visit (07/23/21 ) Pt Eval Moderate Complexity (07/23/21 ) Functional Activities, Ea 15 (07/23/21 ) Albuterol Pre-Mix Nebs (Rt) (Proventil (07/23/21 16:30) Albuterol Pre-Mix Nebs (Rt) (Proventil (07/23/21 16:30) Amlodipine Tablet (Norvasc Tablet) (07/24/21 09:00) Budesonide Inhalation Solution (Pulmicor (07/23/21 21:00) Citalopram Tablet (Celexa Tablet) (07/24/21 09:00) Docusate Sodium Capsule (Colace Capsule) (07/23/21 21:00) Gabapentin Capsule/Tablet (Neurontin Cap (07/23/21 21:00) Levothyroxine Tablet (Synthroid Tablet) (07/24/21 06:30) Lisinopril Tablet (Zestril Tablet) (07/23/21 21:00) Loratadine Tablet (Claritin Tablet) (07/23/21 16:30) Pantoprazole Tablet (Protonix Tablet) (07/24/21 09:00) Polyethylene Glycol Powder Pkt (Miralax (07/24/21 09:00) Sennosides Tablet (Senokot Tablet) (07/24/21 09:00) Sulfasalazine Tablet (Azulfidine Tablet) (07/23/21 21:00) Rx-Tramadol Hcl (Rx-Ultram) (07/23/21 16:30) (Nf) Calcium Carbonate/Vitamin D3 (Caltr (07/23/21 18:00) (Nf) Carboxymethylcellulose Sodium (Refr (07/23/21 16:30) (Nf) Cholecalciferol (Vitamin D3) (Vitam (07/24/21 09:00) (Nf) Mometasone Furoate (07/24/21 09:00) (Nf) Vit C/E/Zn/Coppr/Lutein/Zeaxan (Pre (07/23/21 21:00) Svn Small Volume Nebulizer (07/23/21 16:17) Calcium Carbonate W/Vitamin D3 (Calcarb (07/23/21 18:00) Tramadol Tablet (Ultram Tablet) (07/23/21 16:30) Fluticasone Nasal [place] (Flonase Nasal S (07/24/21 09:00) Cholecalciferol Capsule/Tablet (Vitamin (07/24/21 09:00) Carboxymethylcell Ophth Soln (Refresh Pl (07/23/21 16:45) Mat Initiate Protocol (07/23/21 17:18) Albuterol Pre-Mix Nebs (Rt) (Proventil (07/23/21 21:00) Albuterol Pre-Mix Nebs (Rt) (Proventil (07/23/21 17:35) General/Regular (07/23/21 Dinner) Patient Visit (07/24/21 ) Exercise Therap, Ea 15 Min (07/24/21 ) Functional Activities, Ea 15 (07/24/21 ) Wheelchair Mgmt/Propulsn 15min (07/24/21 ) Loratadine Tablet (Claritin Tablet) (07/25/21 09:00) Albuterol Pre-Mix Nebs (Rt) (Proventil (07/25/21 09:00) Rehab Nursing Orders: Ongoing Assess. of Cognitive Status, Ongoing Assess. of Function Status, Bladder Management, Bladder Scan, Bladder Training, Bowel Management, Bowel Training, Disease Management & Educaiton, DVT Prophylaxis, Fall Prevention, Fluid/Electrolyte/Nutrition Mgmt, Infection Prevention, Medication Management & Education, Management of Risks & Complications, Management of Skin Intergrity, Nutrition Management, Pain Management, Patient/Family Support, Safety Management Intensity of Therapy to be met Patient to be seen: Min.3h per day/5 of 7d PT IPOC Problem List: Activity Tolerance, Functional Strength, Safety, Balance, Gait, Transfer, Bed Mobility, ROM Treatment Plan: Continue Plan of Care Bed Mobility, Education, Functional Activity Dorothea, Functional Strength, Group Therapy, Gait, Safety, Therapeutic Exercise, Transfers Treatment Duration: Aug 13, 2021 Frequency: At least 5 of 7 days/Wk (IRF) Estimated Hrs Per Day: 1.5 hours per day OT IPOC Problems: Decreased Activ Tolerance, Decreased UE Strength, Impaired Coordination, Impaired Funct Balance, Impaired I ADL's, Impaired Self-Care Skills, Restricted Funct UE ROM OT Treatment, Training and Edu: Yes Plan of Care: ADL Retraining, Functional Mobility, Group Exercise/Act as Ind, Orthotic Fitting/Training, UE Funct Exercise/Act Treatment Duration: Aug 14, 2021 Frequency: At least 5 of 7 days/Wk (IRF) Estimated Hrs Per Day: 1.[address] IPOC Speech Therapy Treatment Plan: Discontinue ST Treatment Duration: Jul 23, 2021 Frequency: Modified Program (IRF) Estimated Hrs Per Day: Other Riding Teacher/Case Mgmt Riding Teacher/Case Managemen: Discharge Planning Dietitian/Global Consumer [employer] Vice President Dietitian/Global Consumer Sector Vice President to monitor nutritional status and make changes and/or recommendations as needed and work with speech pathology on dietary upgrades as the occur. Physician IPOC Medical Issues being managed closely and that require the 24 hour availability of a physician: Recent fall with history of pulmonary fibrosis high risk for respiratory decompensation Medical Issues: Bowel/Bladder Function, DVT Prophylaxis, Falls Precautions, Flu id/Electrolyte/Nutrition Balance, Infection Protection, Pain Management, Weight Bearing Precautions Brief Synthesis of Preadmission Screen, Post-Admission Evaluation, and Therapy Evaluations: PT and OT will focus on use of assistive devices to manage weightbearing precautions in addition to helping regain independence in ADLs in order to return back to independent living Medical Prognosis: Good Anticipated Length of Stay: 10 days KYLAH DELGADILLO DO Jul 24, 2021 13:09
--- NOTE | 2021-07-24 13:09 | PM&R Progress Note ---
Subjective HPI/CC On Admission Date Seen by Provider: Jul 24, 2021 Time Seen by Provider: 13:15 Subjective/Events-last exam 07/24/2021: Patient doing very well Bowels are moving Change Claritin to daily since she takes it that way at home Pain is well controlled Participating in therapy Review of Systems General: Fatigue, Malaise Pulmonary: Dyspnea Musculoskeletal: leg pain Objective Exam Vital Signs Vital Signs Date Time Temp Pulse Resp B/P (MAP) Pulse Ox O2 Delivery O2 Flow Rate FiO2 07/24/21 21:24 91 Room Air 07/24/21 20:00 37.7 92 16 114/56 (75) 07/23/21 21:16 21 Capillary Refill : General Appearance: No Apparent Distress, WD/WN, Chronically ill, Thin, Other (Frail) HEENT: PERRL/EOMI, Normal ENT Inspection, Pharynx Normal Neck: Full Range of Motion, Normal Inspection, Non Tender, Supple, Carotid Bruit Respiratory: Chest Non Tender, Lungs Clear, Normal Breath Sounds, No Accessory Muscle Use, No Respiratory Distress, Decreased Breath Sounds Cardiovascular: Regular Rate, Rhythm, No Edema, No Gallop, No JVD, No Murmur, Normal Peripheral Pulses Gastrointestinal: Normal Bowel Sounds, No Organomegaly, No Pulsatile Mass, Non Tender, Soft Back: Normal Inspection, No CVA Tenderness, No Vertebral Tenderness Extremity: Normal Capillary Refill, Normal Inspection, Normal Range of Motion, Non Tender, No Calf Tenderness, No Pedal Edema Neurologic/Psychiatric: Alert, Oriented x3, No Motor/Sensory Deficits, Normal Mood/Affect, pattern maker programer II-XII Norm as Tested, Abnormal Gait (Nonweightbearing on the left), Motor Weakness (Generalized decreased strength 4/5) Skin: Normal Color, Warm/Dry Lymphatic: No Adenopathy Results/Procedures Lab Laboratory Tests 07/24/21 06:40 Patient resulted labs reviewed. FIM Transfers Therapy Code Descriptions/Definitions Functional [place] Measure: 0=Not Assessed/NA 4=Minimal Assistance 1=Total Assistance 5=Supervision or Setup 2=Maximal Assistance 6=Modified [place] 3=Moderate Assistance 7=Complete IndependenceSCALE: Activities may be completed with or without assistive devices. 2-Ioenbkydny-gwinzqw completes the activity by him/herself with no assistance from a helper. 5-Set-up or Clean-up Assistance-helper sets up or cleans up; patient completes activity. [place] assists only prior to or following the activity. 4-Supervision or Touching Assistance-helper provides verbal cues and/or touch ing/steadying and/or contact guard assistance as patient completes activity. Assistance may be provided throughout the activity or intermittently. 3-Partial/Moderate Assistance-helper does LESS THAN HALF the effort. [place] lifts, holds or supports trunk or limbs, but provides less than half the effort. 2-Substantial/Maximal Assistance-helper does MORE THAN HALF the effort. [place] lifts or holds trunk or limbs and provides more than half the effort. 8-Dkojqlzsx-tzkgap does ALL the effort. Patient does none of the effort to complete the activity. Or, the assistance of 2 or more helpers is required for the patient to complete the activity. If activity was not attempted, code reason: 7-Patient Refused. 9-Not Applicable-not attempted and the patient did not perform the activity bef ore the current illness, exacerbation or injury. 10-Not Attempted due to Environmental Limitations-(lack of equipment, weather restraints, etc.). 88-Not Attempted due to Medical Conditions or Safety Concerns. Roll Left to Right (QC): 3 Sit to Lying (QC): 3 Sit to Stand (QC): 3 Chair/Rfo-zx-Rekkm Xfer(QC): 3 Car Transfer (QC): 3 Gait Training Walk 10 feet (QC): 88 Walk 50 ft with 2 Turns(QC): 88 Walk 150 ft (QC): 88 Walking 10ft/uneven surface-QC: 88 Wheelchair Training Wheel 50 ft with 2 turns (QC): 3 Wheel 150 ft (QC): 7 Type of Wheelchair: Manual Stair Training 1 Step (curb) (QC): 88 4 Steps (QC): 88 12 Steps (QC): 88 Balance Picking up an Object (QC): 88 ADL-Treatment Eating (QC): 5 Oral Hygiene (QC): 3 Shower/Bathe Self (QC): 3 Upper Body Dressing (QC): 3 Lower Body Dressing (QC): 3 On/Off Footwear (QC): 2 Toileting Hygiene (QC): 3 Assessment/Plan Assessment and Plan Assess & Plan/Chief Complaint Assessment: Left ankle fracture nonweightbearing Advanced age Pulmonary fibrosis 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
[2021-07-24 20:00] VITALS: BP 114/56
[2021-07-25] MEDS: LEVOTHYROXINE 125 MCG (LEVOTHROID) TABLET PO SCH (06:29)
[2021-07-25 07:30] VITALS: BP 162/75
[2021-07-25] MEDS: PANTOPRAZOLE 40 MG (PROTONIX) TAB PO SCH ×3 (09:00→09:41)
[2021-07-25] MEDS: lisINopril 20 MG (PRINIVIL) TABLET PO SCH ×2 (09:03→21:09)
[2021-07-25] MEDS: CALCIUM CARB + VIT D 600 MG (CALCARB + D) TAB PO SCH ×2 (09:03→19:24)
[2021-07-25] MEDS: sulfaSALAzine 500 MG (AZULFIDINE) TAB PO SCH ×2 (09:03→21:09)
[2021-07-25] MEDS: GABAPENTIN 100 MG (NEURONTIN) CAP PO SCH ×3 (09:03→21:09)
[2021-07-25] MEDS: FLUTICASONE NASAL SPRAY (FLONASE) 16 GM BTL NS SCH (09:04)
[2021-07-25] MEDS: LORATADINE (CLARITIN) 10 MG TAB PO SCH (09:04)
[2021-07-25] MEDS: amLODIPine 10 MG (NORVASC) TAB PO SCH (09:04)
[2021-07-25] MEDS: VITAMIN D3 10 MCG (400 UNITS) TABLET PO SCH (09:08)
[2021-07-25] MEDS: DOCUSATE SODIUM 100 MG (COLACE) CAP PO SCH ×2 (09:11→21:10)
[2021-07-25] MEDS: polyethylene glycoL POWDER 17 GM (MIRALAX) PACK PO SCH (09:38)
[2021-07-25] MEDS: SENNOSIDES 8.6 MG (SENOKOT) TAB PO SCH (09:39)
[2021-07-25] MEDS: RT-ALBUTEROL SULF 2.5 MG/3 ML PRE-MIX VIAL INH SCH ×2 (09:59→22:49)
[2021-07-25] MEDS: RT-BUDESONIDE NEBS 0.5 MG/2ML (PULMICORT) AMP IH SCH ×2 (09:59→22:49)
--- NOTE | 2021-07-25 12:16 | PM&R Progress Note ---
Subjective HPI/CC On Admission Date Seen by Provider: Jul 25, 2021 Time Seen by Provider: 12:20 Subjective/Events-last exam 07/25/2021: Patient doing well Think she has a bladder infection Urinalysis and in and out cath ordered Transferring pretty well Pain is well controlled 07/24/2021: Patient doing very well Bowels are moving Change Claritin to daily since she takes it that way at home Pain is well controlled Participating in therapy Review of Systems General: Fatigue Genitourinary: Incontinence Objective Exam Vital Signs Vital Signs Date Time Temp Pulse Resp B/P (MAP) Pulse Ox O2 Delivery O2 Flow Rate FiO2 07/25/21 10:00 94 Room Air 07/25/21 07:30 37.2 76 20 162/75 (104) 07/23/21 21:16 21 Capillary Refill : General Appearance: No Apparent Distress, WD/WN, Chronically ill, Thin, Other (Frail) HEENT: PERRL/EOMI, Normal ENT Inspection, Pharynx Normal Neck: Full Range of Motion, Normal Inspection, Non Tender, Supple, Carotid Bruit Respiratory: Chest Non Tender, Lungs Clear, Normal Breath Sounds, No Accessory Muscle Use, No Respiratory Distress, Decreased Breath Sounds Cardiovascular: Regular Rate, Rhythm, No Edema, No Gallop, No JVD, No Murmur, Normal Peripheral Pulses Gastrointestinal: Normal Bowel Sounds, No Organomegaly, No Pulsatile Mass, Non Tender, Soft Back: Normal Inspection, No CVA Tenderness, No Vertebral Tenderness Extremity: Normal Capillary Refill, Normal Inspection, Normal Range of Motion, Non Tender, No Calf Tenderness, No Pedal Edema Neurologic/Psychiatric: Alert, Oriented x3, No Motor/Sensory Deficits, Normal Mood/Affect, medicine tech II-XII Norm as Tested, Abnormal Gait (Nonweightbearing on the left), Motor Weakness (Generalized decreased strength 4/5) Skin: Normal Color, Warm/Dry Lymphatic: No Adenopathy Results/Procedures Lab Patient resulted labs reviewed. FIM Transfers Therapy Code Descriptions/Definitions Functional [place] Measure: 0=Not Assessed/NA 4=Minimal Assistance 1=Total Assistance 5=Supervision or Setup 2=Maximal Assistance 6=Modified [place] 3=Moderate Assistance 7=Complete IndependenceSCALE: Activities may be completed with or without assistive devices. 9-Hqbbhixovm-ivqnzkt completes the activity by him/herself with no assistance from a helper. 5-Set-up or Clean-up Assistance-helper sets up or cleans up; patient completes activity. [place] assists only prior to or following the activity. 4-Supervision or Touching Assistance-helper provides verbal cues and/or anish giacomo/steadying and/or contact guard assistance as patient completes activity. Assistance may be provided throughout the activity or intermittently. 3-Partial/Moderate Assistance-helper does LESS THAN HALF the effort. [place] lifts, holds or supports trunk or limbs, but provides less than half the effort. 2-Substantial/Maximal Assistance-helper does MORE THAN HALF the effort. [place] lifts or holds trunk or limbs and provides more than half the effort. 2-Sedftofws-nghijj does ALL the effort. Patient does none of the effort to complete the activity. Or, the assistance of 2 or more helpers is required for the patient to complete the activity. If activity was not attempted, code reason: 7-Patient Refused. 9-Not Applicable-not attempted and the patient did not perform the activity before the current illness, exacerbation or injury. 10-Not Attempted due to Environmental Limitations-(lack of equipment, weather restraints, etc.). 88-Not Attempted due to Medical Conditions or Safety Concerns. Roll Left to Right (QC): 3 Sit to Lying (QC): 3 Sit to Stand (QC): 3 Chair/Hhc-hj-Wxepu Xfer(QC): 3 Car Transfer (QC): 3 Gait Training Walk 10 feet (QC): 88 Walk 50 ft with 2 Turns(QC): 88 Walk 150 ft (QC): 88 Walking 10ft/uneven surface-QC: 88 Wheelchair Training Wheel 50 ft with 2 turns (QC): 3 Wheel 150 ft (QC): 7 Type of Wheelchair: Manual Stair Training 1 Step (curb) (QC): 88 4 Steps (QC): 88 12 Steps (QC): 88 Balance Picking up an Object (QC): 88 ADL-Treatment Eating (QC): 5 Oral Hygiene (QC): 3 Shower/Bathe Self (QC): 3 Upper Body Dressing (QC): 3 Lower Body Dressing (QC): 3 On/Off Footwear (QC): 2 Toileting Hygiene (QC): 3 Assessment/Plan Assessment and Plan Assess & Plan/Chief Complaint Assessment: Left ankle fracture nonweightbearing Advanced age Pulmonary fibrosis 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
[2021-07-25 13:40] LABS: BILIRUBIN,URINE NEGATIVE (NEGATIVE); CLARITY,URINE CLEAR; COLOR,URINE YELLOW; GLUCOSE, URINE (UA) NEGATIVE (NEGATIVE); KETONES,URINE NEGATIVE (NEGATIVE); LEUKOCYTE ESTERASE ,URINE NEGATIVE (NEGATIVE); NITRITE,URINE NEGATIVE (NEGATIVE); PH,URINE 6.5 (5-9); PROTEIN,URINE NEGATIVE (NEGATIVE)
[2021-07-25 13:54] LABS: BACTERIA,URINE NEGATIVE /HPF; SQUAMOUS EPITHELIAL CELL,UR 0-2 /HPF; WBC,URINE 0-2 /HPF
[2021-07-25 19:52] VITALS: BP 143/61
[2021-07-26] MEDS: PANTOPRAZOLE 40 MG (PROTONIX) TAB PO SCH (05:36)
[2021-07-26] MEDS: LEVOTHYROXINE 125 MCG (LEVOTHROID) TABLET PO SCH (05:36)
--- NOTE | 2021-07-26 05:47 | PM&R Progress Note ---
Subjective HPI/CC On Admission Date Seen by Provider: Jul 26, 2021 Time Seen by Provider: 10:00 Subjective/Events-last exam 07/26/2021: Patient doing well Feels like her ears are muffled Otoscope exam revealed no significant abnormality Patient doing well otherwise Labs reviewed 07/25/2021: Patient doing well Think she has a bladder infection Urinalysis and in and out cath ordered Transferring pretty well Pain is well controlled 07/24/2021: Patient doing very well Bowels are moving Change Claritin to daily since she takes it that way at home Pain is well controlled Participating in therapy Review of Systems General: Fatigue, Malaise Musculoskeletal: leg pain Objective Exam Vital Signs Vital Signs Date Time Temp Pulse Resp B/P (MAP) Pulse Ox O2 Delivery O2 Flow Rate FiO2 07/26/21 20:00 Room Air 07/26/21 20:00 37.0 85 24 132/62 (85) 96 07/23/21 21:16 21 Capillary Refill : General Appearance: No Apparent Distress, WD/WN, Chronically ill, Thin, Other (Frail) HEENT: PERRL/EOMI, Normal ENT Inspection, Pharynx Normal Neck: Full Range of Motion, Normal Inspection, Non Tender, Supple, Carotid Bruit Respiratory: Chest Non Tender, Lungs Clear, Normal Breath Sounds, No Accessory Muscle Use, No Respiratory Distress, Decreased Breath Sounds Cardiovascular: Regular Rate, Rhythm, No Edema, No Gallop, No JVD, No Murmur, Normal Peripheral Pulses Gastrointestinal: Normal Bowel Sounds, No Organomegaly, No Pulsatile Mass, Non Tender, Soft Back: Normal Inspection, No CVA Tenderness, No Vertebral Tenderness Extremity: Normal Capillary Refill, Normal Inspection, Normal Range of Motion, Non Tender, No Calf Tenderness, No Pedal Edema Neurologic/Psychiatric: Alert, Oriented x3, No Motor/Sensory Deficits, Normal Mood/Affect, senior technical business analyst II-XII Norm as Tested, Abnormal Gait (Nonweightbearing on the left), Motor Weakness (Generalized decreased strength 4/5) Skin: Normal Color, Warm/Dry Lymphatic: No Adenopathy Results/Procedures Lab Laboratory Tests 07/26/21 06:41 Patient resulted labs reviewed. FIM Transfers Therapy Code Descriptions/Definitions Functional [place] Measure: 0=Not Assessed/NA 4=Minimal Assistance 1=Total Assistance 5=Supervision or Setup 2=Maximal Assistance 6=Modified [place] 3=Moderate Assistance 7=Complete IndependenceSCALE: Activities may be completed with or without assistive devices. 4-Ebrszhhwrq-bdjdqis completes the activity by him/herself with no assistance from a helper. 5-Set-up or Clean-up Assistance-helper sets up or cleans up; patient completes activity. [place] assists only prior to or following the activity. 4-Supervision or Touching Assistance-helper provides verbal cues and/or touching/steadying and/or contact guard assistance as patient completes activity. Assistance may be provided throughout the activity or intermittently. 3-Partial/Moderate Assistance-helper does LESS THAN HALF the effort. [place] lifts, holds or supports trunk or limbs, but provides less than half the effort. 2-Substantial/Maximal Assistance-helper does MORE THAN HALF the effort. [place] lifts or holds trunk or limbs and provides more than half the effort. 0-Pytigwaid-yxwhzq does ALL the effort. Patient does none of the effort to complete the activity. Or, the assistance of 2 or more helpers is required for the patient to complete the activity. If activity was not attempted, code reason: 7-Patient Refused. 9-Not Applicable-not attempted and the patient did not perform the activity before the current illness, exacerbation or injury. 10-Not Attempted due to Environmental Limitations-(lack of equipment, weather restraints, etc.). 88-Not Attempted due to Medical Conditions or Safety Concerns. Roll Left to Right (QC): 3 Sit to Lying (QC): 3 Sit to Stand (QC): 3 Chair/Xlv-wg-Bgjou Xfer(QC): 3 Car Transfer (QC): 3 Gait Training Walk 10 feet (QC): 88 Walk 50 ft with 2 Turns(QC): 88 Walk 150 ft (QC): 88 Walking 10ft/uneven surface-QC: 88 Wheelchair Training Wheel 50 ft with 2 turns (QC): 3 Wheel 150 ft (QC): 7 Type of Wheelchair: Manual Stair Training 1 Step (curb) (QC): 88 4 Steps (QC): 88 12 Steps (QC): 88 Balance Picking up an Object (QC): 88 ADL-Treatment Eating (QC): 5 Oral Hygiene (QC): 3 Shower/Bathe Self (QC): 3 Upper Body Dressing (QC): 3 Lower Body Dressing (QC): 3 On/Off Footwear (QC): 2 Toileting Hygiene (QC): 3 Assessment/Plan Assessment and Plan Assess & Plan/Chief Complaint Assessment: Left ankle fracture nonweightbearing Advanced age Pulmonary fibrosis 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 [employer] and [place] 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 lifetime non-smoker Hypothyroidism Rheumatoid arthritis Seasonal allergies History of GI bleed History pneumonia Osteoporosis Plan: Inpatient rehab protocol Bowel regimen Pain control 07/24/2021: Continue pain control Aggressive rehab 07/25/2021: Check urinalysis Supportive care Pain control 07/26/2021: Ear exam normal Aggressive therapy (1) Ankle fracture, left (2) Pulmonary fibrosis (3) Rheumatoid arthritis (4) Hypothyroidism (5) Hypertension (6) Advanced age (7) Frail elderly (8) Risk for falls KYLAH DELGADILLO DO Jul 26, 2021 05:47
[2021-07-26] MEDS: RT-BUDESONIDE NEBS 0.5 MG/2ML (PULMICORT) AMP IH SCH ×2 (06:55→18:36)
[2021-07-26] MEDS: RT-ALBUTEROL SULF 2.5 MG/3 ML PRE-MIX VIAL INH SCH ×2 (06:55→18:36)
[2021-07-26 07:00] LABS: BASOPHILS % (AUTO) 0 % (0-10); EOSINOPHILS # (AUTO) 0.2 10^3/uL (0.0-0.3); EOSINOPHILS % (AUTO) 3 % (0-10); HEMATOCRIT 36 % (35-52); HEMOGLOBIN 11.8 g/dL (11.5-16.0); LYMPHOCYTES # (AUTO) 1.2 10^3/uL (1.0-4.0); LYMPHOCYTES % (AUTO) 20 % (12-44); MEAN CORPUSCULAR HEMOGLOBIN 31 pg (25-34); MEAN CORPUSCULAR HGB CONC 33 g/dL (32-36); MEAN CORPUSCULAR VOLUME 92 fL (80-99); MEAN PLATELET VOLUME 8.2 fL (9.0-12.2); MONOCYTES # (AUTO) 0.8 10^3/uL (0.0-1.0); MONOCYTES % (AUTO) 13 % (0-12); NEUTROPHILS # (AUTO) 3.8 10^3/uL (1.8-7.8); NEUTROPHILS % (AUTO) 65 % (42-75); PLATELET COUNT 210 10^3/uL (130-400); WHITE BLOOD COUNT 5.9 10^3/uL (4.3-11.0)
[2021-07-26 07:23] LABS: BILIRUBIN,TOTAL 0.7 MG/DL (0.1-1.0); CALCIUM 8.7 MG/DL (8.5-10.1); CREATININE SERUM 0.68 MG/DL (0.60-1.30); POTASSIUM 4.4 MMOL/L (3.6-5.0); TOTAL PROTEIN 6.4 GM/DL (6.4-8.2)
[2021-07-26 08:00] VITALS: BP 121/58
[2021-07-26 08:40] VITALS: BP 119/72
[2021-07-26] MEDS: LORATADINE (CLARITIN) 10 MG TAB PO SCH (08:43)
[2021-07-26] MEDS: sulfaSALAzine 500 MG (AZULFIDINE) TAB PO SCH ×2 (08:43→20:11)
[2021-07-26] MEDS: SENNOSIDES 8.6 MG (SENOKOT) TAB PO SCH (08:44)
[2021-07-26] MEDS: CALCIUM CARB + VIT D 600 MG (CALCARB + D) TAB PO SCH ×2 (08:44→18:45)
[2021-07-26] MEDS: DOCUSATE SODIUM 100 MG (COLACE) CAP PO SCH ×2 (08:44→20:10)
[2021-07-26] MEDS: VITAMIN D3 10 MCG (400 UNITS) TABLET PO SCH (08:44)
[2021-07-26] MEDS: GABAPENTIN 100 MG (NEURONTIN) CAP PO SCH ×3 (08:44→20:11)
[2021-07-26] MEDS: lisINopril 20 MG (PRINIVIL) TABLET PO SCH ×2 (08:44→20:10)
[2021-07-26] MEDS: amLODIPine 10 MG (NORVASC) TAB PO SCH (08:44)
[2021-07-26] MEDS: ACETAMINOPHEN 325 MG TABLET PO PRN (08:46)
[2021-07-26] MEDS: FLUTICASONE NASAL SPRAY (FLONASE) 16 GM BTL NS SCH (08:51)
[2021-07-26] MEDS: polyethylene glycoL POWDER 17 GM (MIRALAX) PACK PO SCH (08:52)
--- NOTE | 2021-07-26 08:58 | Physical Therapy Daily Note ---
PT Daily Note-Current Subjective Pt. in bed upon entering and having breakfast which was brought late she says. Pt. explains her situation at home and that she has hired assistance but they really dont do a very good job. Pt c/o pain at 7-8/10 in left ankle/leg. Nursing was contacted for pain medication. Pt. remarks when with sitting EOB that the walker boot feels bound or restricted in several areas. The boot was half doffed and redonned twice for adjustment of these areas of c/o Pain Numeric Pain Scale: 8 Location: Left Location Body Site: Ankle Pain Description: Stabbing Mental Status Patient Orientation: Person, Place, Time, Situation, Normal For Age Attachments: Other-See Comments (walker boot left) Transfers SCALE: Activities may be completed with or without assistive devices. 2-Syrvmizeiz-bgsdecc completes the activity by him/herself with no assistance from a helper. 5-Set-up or Clean-up Assistance-helper sets up or cleans up; patient completes activity. [place] assists only prior to or following the activity. 4-Supervision or Touching Assistance-helper provides verbal cues and/or touching/steadying and/or contact guard assistance as patient completes activity. Assistance may be provided throughout the activity or intermittently. 3-Partial/Moderate Assistance-helper does LESS THAN HALF the effort. [place] lifts, holds or supports trunk or limbs, but provides less than half the effort. 2-Substantial/Maximal Assistance-helper does MORE THAN HALF the effort. [place] lifts or holds trunk or limbs and provides more than half the effort. 3-Kjqoqcazv-pknlau does ALL the effort. Patient does none of the effort to complete the activity. Or, the assistance of 2 or more helpers is required for the patient to complete the activity. If activity was not attempted, code reason: 7-Patient Refused. 9-Not Applicable-not attempted and the patient did not perform the activity before the current illness, exacerbation or injury. 10-Not Attempted due to Environmental Limitations-(lack of equipment, weather restraints, etc.). 88-Not Attempted due to Medical Conditions or Safety Concerns. Roll Left & Right (QC): 6 Lying to Sitting/Side of Bed(Q: 6 Sit to Stand (QC): 4 Chair/Xdt-zx-Thvfb Xfer(QC): 3 Weight Bearing Left Lower Extremity: Left Weight Bearing/Tolerated WBAT when wearing the cam boot Gait Training Does the Patient Walk?: Yes Gait Assistive Device: FWW pt. took only 3-4 scooting pre gait steps with FWW , cam boot and sock on right. Attempts were made to use pts shoe but she cannot scoot with it on and went back to use of socks for attempts at gait. Pt noted havihng difficulty getting any leverage on FWW as it was a bit tall, so shorter FWW was obtained and will be trialed at second Rx. Exercises Supine Ex: Ankle pumps Supine Reps: 10 Seated Therapy Exercises: Long arc quads (bilat) Seated Reps: 12 Treatments pregait wt shifting with FWW, pt. having great difficulty putting wt on FWW and relieving her LLE to take a step with right. Boot was readjusted to accommodate a c/o "bunching feeling " at lateral ankle and a sensation that her heel was not down in the boot well. After several failed trials to take a few steps , the recliner was scooted to pts bedside and SPT was done with mod to min assist. Assessment Current Status: Good Progress pt. is struggling with wt bearing and pain in left leg and ankle. Pt does give good effort and understands her situation PT Short Term Goals Short Term Goals Time Frame: Jul 30, 2021 Roll Left & Right: 6 Sit to lyin Lying to sitting on side of be: 3 Sit to stand: 4 Chair/eol-nc-hkxds transfer: 4 Walk 10 feet: 3 PT Long-Term Goals Long-Term Goals PT Raw Silk Grader Goals Time Frame: Aug 13, 2021 Roll Left & Right (QC): 6 Sit to Lying (QC): 6 Lying-Sitting on Side/Bed(QC): 6 Sit to Stand (QC): 4 Chair/Kyh-vt-Bhmnm Xfer(QC): 4 Toilet Transfer (QC): 4 Car Transfer (QC): 4 Does the Patient Walk: Yes Walk 10 feet (QC): 4 Walk 50ft with 2 Turns (QC): 4 Walk 150 ft (QC): 88 Walking 10ft on Uneven Surface: 4 1 Step (curb) (QC): 4 4 Steps (QC): 4 12 Steps (QC): 88 Picking up an Object (QC): 4 Wheel 50 feet with 2 turns (QC: 9 Wheel 150 feet: 9 PT Plan Treatment/Plan Treatment Plan: Continue Plan of Care Treatment Plan: Bed Mobility, Education, Functional Activity Dorothea, Functional Strength, Group Therapy, Gait, Safety, Therapeutic Exercise, Transfers Treatment Duration: Aug 13, 2021 Frequency: At least 5 of 7 days/Wk (IRF) Estimated Hrs Per Day: 1.5 hours per day Patient and/or Family Agrees t: Yes Safety Risks/Education Patient Education: Gait Training (pre giat activity), Correct Positioning, Disease Process, Safety Issues Teaching Recipient: Patient Teaching Methods: Demonstration, Discussion Response to Teaching: Verbalize Understanding, Return Demonstration, Reinforcement Needed Time/GCodes Time In: 800 Time Out: 900 Total Billed Treatment Time: 60 Total Billed Treatment 1,FA40m,GT20m GIGI MARIE COSMETOLOGY EDUCATOR Jul 26, 2021 08:58
[2021-07-26 09:02] VITALS: BP 119/72
--- NOTE | 2021-07-26 10:45 | ST Cognitive Linguistic Eval ---
Speech Evaluation-General Medical Diagnosis left ankle fx Onset Date: Jul 23, 2021 Therapy Diagnosis Therapy Diagnosis: Cognitive-communication Referral Referring Physician: Dr. Castro Medical History Pertinent Medical History: HTN Reviewed History: Yes Social History Current Living Status: Alone Speech PLF-Current Status Prior Level of Function Patient lives home alone where she has been independent with her needs. She has a son who is nearby, however due to health needs, he is unable to assist her much. Subjective Patient was pleasant and cooperative with the cognitive assessment. She was very concerned about getting her utilities paid that were due today. She states she has no one available who can assist her with her needs. Language Eval: Auditory Comprehends Simple Yes/No Ques: Functional Indent/Objects [place]: Functional Ident/Pics in Multiple [place]: Functional Follows 1-Step Commands: Functional Follows Complex Directions: Functional Follows General Conversations: Functional Language Eval: Verbal Language Completes Spontaneous Greeting: Functional Produces Auto, Serial Info: Functional Imitates Simple Words/Phrases: Functional Word Finding: Functional Requests Basic Needs: Functional States Basic Personal Info: Functional Expresses Complex Ideas: Functional Objective Cognitive Domain Attention: WNL Memory: WNL Problem Solving: Functional Executive Functions: WNL Visuospatial Skills: WNL Composite Severity Rating: WNL Clock Drawing Severity Rating: WNL Objective Formal/Standardized Tests [facility] Mental Status ([facility]) Results 27/30, within normal range of function Oral Motor/Speech Production Within Normal Limits Impression Patient is a pleasant 81 y/o female who was admitted to the ARU s/p ankle fracture due to a fall. She lives home alone and was independent prior to her fall. Patient was given the [facility] with a score of 27/30 obtained. Patient's score is within the normal range of function and does not indicate the need for further ST services. Speech Patient Assess Expression of Ideas/Wants: Expression (4) Understanding Verbal Content: Understands (4) Brief Interview-Mental Status: Yes Repetition of Three Words: Three (3) Temporal Orientation: Year: Correct (3) Temporal Orientation: Month: Accurate within 5 days(2) Temporal Orientation: Day: Correct (1) Recall : Wear to say "Sock": Yes, no cue required (2) Recall : Color: Yes, no cue required (2) Recall : Bed: Yes,after cueing (1) Memory/Recall Ability: Current season, That he or she is in a hsp/hsp unit Speech-Plan Patient/Family Goals Patient/Family Goals: Patient plans on returning to her home where she lives alone. She will need services to assist her with her health and needs. Treatment Plan Speech Therapy Treatment Plan: Discontinue ST Treatment Duration: Jul 23, 2021 Frequency: Modified Program (IRF) Estimated Hrs Per Day: Other Rehab Potential: Guarded Barriers to Learning: None identified Pt/Family Agrees to Plan: Yes Safety Risks/Education Teaching Recipient: Patient Teaching Methods: Discussion Response to Teaching: Verbalize Understanding Education Topics Provided: Safety within her room and communication of wants/needs. Time Speech Therapy Time In: 10:00 Speech Therapy Time Out: 10:30 Total Billed Time: 30 Billed Treatment Time 1, DIAN HOGUE [address] ST Jul 26, 2021 10:45
--- NOTE | 2021-07-26 11:43 | Progress Note ---
SOURAV CHARLES 07/26/21 1143: Progress Note 07/19/2021 - Presented to [facility] ED due to pain from her left ankle associated with a fall. 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 Diffuse osteopenia with degenerative changes was also noted. The Orthopedic plan for treatment was entered by BOY Fisher on 07/21/2021, which includes non-surgical treatment 1. CAM bootfrom splints and WBAT LLE 2. DVT prophylaxsis 3. [place] control 4. Regular Diet 5. PT and OT 6. Weight bearing status: WBAT LLE 7. Consult Case mngmt for assistance with discharge 07/23/2021 Patient was admitted to room 228 at [facility] 07/24/2021 PT&OT was started with patient and continues through 07/26/2021 APOORVA DELGADILLO DO 07/27/21 0521: Supervisory-Addendum Brief Verification & Attestation Participated in pt care: history, MDM, physical Personally performed: exam, history, MDM, supervision of care Care discussed with: Medical Student Procedures: n/a Results interpretation: Verified all documentation Verification and Attestation of Medical Student E/M Service A medical student performed and documented this service in my presence. I reviewed and verified all information documented by the medical student and made modifications to such information, when appropriate. I personally performed the physical exam and medical decision making. Apoorva Delgadillo Jul 27, 2021,05:20 SOURAV CHARLES Jul 26, 2021 11:43 APOORVA DELGADILLO DO Jul 27, 2021 05:21
--- NOTE | 2021-07-26 12:20 | Physical Therapy Daily Note ---
PT Daily Note-Current Subjective Co Rx PT OT secondary to poor activity tolerance and weakness. Pt. completing shower upon entry. Pt. expresses numerous times that she wants many details taken care of for her. PT and OT educate pt. that we hope to guide her toward indep with these tasks vs having them all done for her. ( Pt. wants someone to style her hair and apply lotions to areas she can reach) Pain Numeric Pain Scale: 5-Moderate Pain Location: Left Location Body Site: Ankle Pain Description: Ache Mental Status Patient Orientation: Normal For Age Transfers SCALE: Activities may be completed with or without assistive devices. 7-Cdtioxmehf-bszxujq completes the activity by him/herself with no assistance from a helper. 5-Set-up or Clean-up Assistance-helper sets up or cleans up; patient completes activity. [place] assists only prior to or following the activity. 4-Supervision or Touching Assistance-helper provides verbal cues and/or touching/steadying and/or contact guard assistance as patient completes activity. Assistance may be provided throughout the activity or intermittently. 3-Partial/Moderate Assistance-helper does LESS THAN HALF the effort. [place] lifts, holds or supports trunk or limbs, but provides less than half the effort. 2-Substantial/Maximal Assistance-helper does MORE THAN HALF the effort. [place] lifts or holds trunk or limbs and provides more than half the effort. 2-Vqzbufacb-oexple does ALL the effort. Patient does none of the effort to complete the activity. Or, the assistance of 2 or more helpers is required for the patient to complete the activity. If activity was not attempted, code reason: 7-Patient Refused. 9-Not Applicable-not attempted and the patient did not perform the activity before the current illness, exacerbation or injury. 10-Not Attempted due to Environmental Limitations-(lack of equipment, weather restraints, etc.). 88-Not Attempted due to Medical Conditions or Safety Concerns. SPT from shower to w/c PT guiding sit to stand wt bearing while OT instructs in drying and pulling pants and slacks up. pt. sat in w/c then moved closer to recliner sit to stand with min assist then more attempts to wt bear through hands on FWW and try clearing RLE off floor for pre gait. Pt. contd to shuffle/scoot Weight Bearing Left Lower Extremity: Left Weight Bearing/Tolerated WBAT when wearing the cam boot Gait Training Gait Assistive Device: FWW see above in TRFs for gait description Wheelchair Training Type of Wheelchair: Manual pt. required some education for brakes on w/c and lifting and managing her leg during w/c transport Exercises Supine Ex: Quad Set, Glut sets, Heel Slides, Straight leg raise Supine Reps: 12 Treatments PT OT co Rx for end of shower and TRFs to recliner as well s lunch set up and combing / drying hair (hairdryer) Assessment Current Status: Good Progress pt. needs encouraged to attempt to do things herself before requesting assist PT Short Term Goals Short Term Goals Time Frame: Jul 30, 2021 Roll Left & Right: 6 Sit to lyin Lying to sitting on side of be: 3 Sit to stand: 4 Chair/rqf-qd-dporw transfer: 4 Walk 10 feet: 3 PT Drupal Programmer Goals Prison Goals PT Drupal Programmer Goals Time Frame: Aug 13, 2021 Roll Left & Right (QC): 6 Sit to Lying (QC): 6 Lying-Sitting on Side/Bed(QC): 6 Sit to Stand (QC): 4 Chair/Rgu-cl-Giiew Xfer(QC): 4 Toilet Transfer (QC): 4 Car Transfer (QC): 4 Does the Patient Walk: Yes Walk 10 feet (QC): 4 Walk 50ft with 2 Turns (QC): 4 Walk 150 ft (QC): 88 Walking 10ft on Uneven Surface: 4 1 Step (curb) (QC): 4 4 Steps (QC): 4 12 Steps (QC): 88 Picking up an Object (QC): 4 Wheel 50 feet with 2 turns (QC: 9 Wheel 150 feet: 9 PT Plan Treatment/Plan Treatment Plan: Continue Plan of Care Treatment Plan: Bed Mobility, Education, Functional Activity Dorothea, Functional Strength, Group Therapy, Gait, Safety, Therapeutic Exercise, Transfers Treatment Duration: Aug 13, 2021 Frequency: At least 5 of 7 days/Wk (IRF) Estimated Hrs Per Day: 1.5 hours per day Patient and/or Family Agrees t: Yes Safety Risks/Education Patient Education: Transfer Techniques, Correct Positioning, Disease Process, Safety Issues Teaching Recipient: Patient Teaching Methods: Demonstration, Discussion Response to Teaching: Verbalize Understanding, Return Demonstration, Reinforcement Needed Time/GCodes Time In: 1135 Time Out: 1205 Total Billed Treatment Time: 30 Total Billed Treatment 1,FA30m GIGI MARIE TEXTILE BROKER Jul 26, 2021 12:20
--- NOTE | 2021-07-26 12:40 | Occupational Ther Daily Note ---
OT Current Status-Daily Note Subjective Pt sitting in recliner, alert. No c/o pain. Pt agrees to therapy. Mental Status/Objective Patient Orientation: Person, Place, Time, Situation Attachments: Other-See Comments (Colby hernandez) ADL-Treatment Pt agrees to shower. Pt sit->stand using FWW CGA from recliner. Pt pivot transfer to w/c using FWW for stabilization CGA. Pt transferred to shower bench using grabbars CGA from w/c. Self-limiting behavior noted, attempted to educate pt on working towards independence. PT/OT co-treat ([id number]), 2 clinicians required for skilled treatment to decrease fall risk, increase mobility, and activity tolerance for ADLs. PT focused on transfers and mobility while OT focused on ADL performance and safety. See PT notes on transfers. Pt engaged in combing hair and using blow dryer while seated in recliner. After session, Pt left with call light/phone within reach. All needs met in room. Therapy Code Descriptions/Definitions Functional [place] Measure: 0=Not Assessed/NA 4=Minimal Assistance 1=Total Assistance 5=Supervision or Setup 2=Maximal Assistance 6=Modified [place] 3=Moderate Assistance 7=Complete IndependenceSCALE: Activities may be completed with or without assistive devices. 3-Jyvujopirs-bepqsvy completes the activity by him/herself with no assistance from a helper. 5-Set-up or Clean-up Assistance-helper sets up or cleans up; patient completes activity. [place] assists only prior to or following the activity. 4-Supervision or Touching Assistance-helper provides verbal cues and/or touching/steadying and/or contact guard assistance as patient completes activity. Assistance may be provided throughout the activity or intermittently. 3-Partial/Moderate Assistance-helper does LESS THAN HALF the effort. [place] lifts, holds or supports trunk or limbs, but provides less than half the effort. 2-Substantial/Maximal Assistance-helper does MORE THAN HALF the effort. [place] lifts or holds trunk or limbs and provides more than half the effort. 6-Gtoauibwx-qxjops does ALL the effort. Patient does none of the effort to complete the activity. Or, the assistance of 2 or more helpers is required for the patient to complete the activity. If activity was not attempted, code reason: 7-Patient Refused. 9-Not Applicable-not attempted and the patient did not perform the activity before the current illness, exacerbation or injury. 10-Not Attempted due to Environmental Limitations-(lack of equipment, weather restraints, etc.). 88-Not Attempted due to Medical Conditions or Safety Concerns. Bathing Location: L Upper Leg, R Upper Leg, Chest, Abdomen Shower/Bathe Self (QC): 2 ( Pt able to bath B upper legs, chest and abdomen. Assist to bathe arms, buttocks, perineal area while standing CGA using grabbars for stability due to decreased UE ROM.) Upper Body Dressing (QC): 2 (Pt needs assist with donning UB clothing of brassierre and shirt while seated.) Lower Body Dressing (QC): 2 (Max A to thread brief and pants over ankles while seated, Max A to hike over hips while standing using grabbars for stability.) On/Off Footwear: 2 (Max A to don/dof sock while seated.) OT Short Term Goals Short Term Goals Time Frame: Aug 04, 2021 Eatin Oral hygiene: 4 Toileting hygiene: 4 Shower/bathe self: 4 Upper body dressin Lower body dressin Putting on/taking off footwear: 3 OT Detention Goals Detention Goals Time Frame: Aug 14, 2021 Eating (QC): 5 Oral Hygiene (QC): 5 Toileting Hygiene (QC): 6 Shower/Bathe Self (QC): 5 Upper Body Dressing (QC): 5 Lower Body Dressing (QC): 5 On/Off Footwear (QC): 4 1=Demonstrate adherence to instructed precautions during ADL tasks. 2=Patient will verbalize/demonstrate understanding of assistive devices/modifications for ADL. 3=Patient will improve strength/tolerance for activity to enable patient to perform ADL's. OT Education/Plan Problem List/Assessment Assessment: Decreased Activ Tolerance, Impaired Coordination, Impaired Funct Balance, Impaired Self-Care Skills, Restricted Funct UE ROM Discharge Recommendations Plan/Recommendations: Continue POC Treatment Plan/Plan of Care Patient would benefit from OT for education, treatment and training to promote independence in ADL's, mobility, safety and/or upper extremity function for ADL's. Plan of Care: ADL Retraining, Functional Mobility, Group Exercise/Act as Ind, Orthotic Fitting/Training, UE Funct Exercise/Act Treatment Duration: Aug 14, 2021 Frequency: At least 5 of 7 days/Wk (IRF) Estimated Hrs Per Day: 1.5 hours per day Agreement: Yes Rehab Potential: Guarded Time/GCodes Start Time: 11:00 Stop Time: 12:15 Total Time Billed (hr/min): 75 Billed Treatment Time 1 Visit- ADL 5 (75 min) Co-treat with PT (0127-2030) Individual ([id number], [id number]) SANTOS NOLASCO Jul 26, 2021 12:40
[2021-07-26 20:00] VITALS: BP 132/62
[2021-07-27] MEDS: LEVOTHYROXINE 125 MCG (LEVOTHROID) TABLET PO SCH (06:31)
[2021-07-27] MEDS: MULTIVIT W/MINERALS TAB (THERAGRAN M) PO SCH (06:31)
[2021-07-27] MEDS: PANTOPRAZOLE 40 MG (PROTONIX) TAB PO SCH (06:31)
[2021-07-27] MEDS: ENOXAPARIN 40 MG/0.4 ML (LOVENOX) SYR SC SCH (06:31)
[2021-07-27] MEDS: RT-ALBUTEROL SULF 2.5 MG/3 ML PRE-MIX VIAL INH SCH ×2 (07:02→20:09)
[2021-07-27] MEDS: RT-BUDESONIDE NEBS 0.5 MG/2ML (PULMICORT) AMP IH SCH ×2 (07:03→20:09)
[2021-07-27 07:34] VITALS: BP 156/70
[2021-07-27] MEDS: SENNOSIDES 8.6 MG (SENOKOT) TAB PO SCH (08:20)
[2021-07-27] MEDS: GABAPENTIN 100 MG (NEURONTIN) CAP PO SCH ×3 (08:20→21:00)
[2021-07-27] MEDS: VITAMIN D3 10 MCG (400 UNITS) TABLET PO SCH (08:20)
[2021-07-27] MEDS: LORATADINE (CLARITIN) 10 MG TAB PO SCH (08:20)
[2021-07-27] MEDS: polyethylene glycoL POWDER 17 GM (MIRALAX) PACK PO SCH (08:20)
[2021-07-27] MEDS: DOCUSATE SODIUM 100 MG (COLACE) CAP PO SCH ×2 (08:20→21:00)
[2021-07-27] MEDS: CALCIUM CARB + VIT D 600 MG (CALCARB + D) TAB PO SCH ×2 (08:20→17:04)
[2021-07-27] MEDS: sulfaSALAzine 500 MG (AZULFIDINE) TAB PO SCH ×2 (08:21→20:59)
[2021-07-27] MEDS: lisINopril 20 MG (PRINIVIL) TABLET PO SCH ×2 (08:21→21:00)
[2021-07-27] MEDS: amLODIPine 10 MG (NORVASC) TAB PO SCH (08:21)
[2021-07-27] MEDS: FLUTICASONE NASAL SPRAY (FLONASE) 16 GM BTL NS SCH (08:22)
[2021-07-27 08:23] VITALS: BP 117/57
--- NOTE | 2021-07-27 08:55 | PM&R Progress Note ---
Subjective HPI/CC On Admission Date Seen by Provider: Jul 27, 2021 Time Seen by Provider: 08:40 Subjective/Events-last exam 07/27/2021: Pt doing well No major issues Lisinopril given but not Norvasc due to hypotension Med alert will be needed when she goes home 07/26/2021: Patient doing well Feels like her ears are muffled Otoscope exam revealed no significant abnormality Patient doing well otherwise Labs reviewed 07/25/2021: Patient doing well Think she has a bladder infection Urinalysis and in and out cath ordered Transferring pretty well Pain is well controlled 07/24/2021: Patient doing very well Bowels are moving Change Claritin to daily since she takes it that way at home Pain is well controlled Participating in therapy Review of Systems General: Fatigue, Malaise Musculoskeletal: leg pain Objective Exam Vital Signs Vital Signs Date Time Temp Pulse Resp B/P (MAP) Pulse Ox O2 Delivery O2 Flow Rate FiO2 07/27/21 21:03 Room Air 07/27/21 20:09 97 07/27/21 20:00 35.6 80 18 114/59 (77) 07/23/21 21:16 21 Capillary Refill : General Appearance: No Apparent Distress, WD/WN, Chronically ill, Thin, Other (Frail) HEENT: PERRL/EOMI, Normal ENT Inspection, Pharynx Normal Neck: Full Range of Motion, Normal Inspection, Non Tender, Supple, Carotid Bruit Respiratory: Chest Non Tender, Lungs Clear, Normal Breath Sounds, No Accessory Muscle Use, No Respiratory Distress, Decreased Breath Sounds Cardiovascular: Regular Rate, Rhythm, No Edema, No Gallop, No JVD, No Murmur, Normal Peripheral Pulses Gastrointestinal: Normal Bowel Sounds, No Organomegaly, No Pulsatile Mass, Non Tender, Soft Back: Normal Inspection, No CVA Tenderness, No Vertebral Tenderness Extremity: Normal Capillary Refill, Normal Inspection, Normal Range of Motion, Non Tender, No Calf Tenderness, No Pedal Edema Neurologic/Psychiatric: Alert, Oriented x3, No Motor/Sensory Deficits, Normal M ood/Affect, harness builder II-XII Norm as Tested, Abnormal Gait (Nonweightbearing on the left), Motor Weakness (Generalized decreased strength 4/5) Skin: Normal Color, Warm/Dry Lymphatic: No Adenopathy Results/Procedures Lab Patient resulted labs reviewed. FIM Transfers Therapy Code Descriptions/Definitions Functional [place] Measure: 0=Not Assessed/NA 4=Minimal Assistance 1=Total Assistance 5=Supervision or Setup 2=Maximal Assistance 6=Modified [place] 3=Moderate Assistance 7=Complete IndependenceSCALE: Activities may be completed with or without assistive devices. 1-Ydqnkwwtng-juwencb completes the activity by him/herself with no assistance from a helper. 5-Set-up or Clean-up Assistance-helper sets up or cleans up; patient completes activity. [place] assists only prior to or following the activity. 4-Supervision or Touching Assistance-helper provides verbal cues and/or touching/steadying and/or contact guard assistance as patient completes activity. Assistance may be provided throughout the activity or intermittently. 3-Partial/Moderate Assistance-helper does LESS THAN HALF the effort. [place] lifts, holds or supports trunk or limbs, but provides less than half the effort. 2-Substantial/Maximal Assistance-helper does MORE THAN HALF the effort. [place] lifts or holds trunk or limbs and provides more than half the effort. 9-Gbscpovhs-zxuqgu does ALL the effort. Patient does none of the effort to complete the activity. Or, the assistance of 2 or more helpers is required for the patient to complete the activity. If activity was not attempted, code reason: 7-Patient Refused. 9-Not Applicable-not attempted and the patient did not perform the activity before the current illness, exacerbation or injury. 10-Not Attempted due to Environmental Limitations-(lack of equipment, weather restraints, etc.). 88-Not Attempted due to Medical Conditions or Safety Concerns. Roll Left to Right (QC): 6 Sit to Lying (QC): 3 Sit to Stand (QC): 4 Chair/Ktu-af-Ebhqf Xfer(QC): 3 Car Transfer (QC): 3 Gait Training Does the Patient Walk?: Yes Walk 10 feet (QC): 88 Walk 50 ft with 2 Turns(QC): 88 Walk 150 ft (QC): 88 Walking 10ft/uneven surface-QC: 88 Gait Assistive Device: FWW Wheelchair Training Wheel 50 ft with 2 turns (QC): 3 Wheel 150 ft (QC): 7 Type of Wheelchair: Manual Stair Training 1 Step (curb) (QC): 88 4 Steps (QC): 88 12 Steps (QC): 88 Balance Picking up an Object (QC): 88 ADL-Treatment Eating (QC): 5 Oral Hygiene (QC): 3 Bathing Location: L Upper Leg, R Upper Leg, Chest, Abdomen Shower/Bathe Self (QC): 2 ( Pt able to bath B upper legs, chest and abdomen. Assist to bathe arms, buttocks, perineal area while standing CGA using grabbars for stability due to decreased UE ROM.) Upper Body Dressing (QC): 2 (Pt needs assist with donning UB clothing of brassierre and shirt while seated.) Lower Body Dressing (QC): 2 (Max A to thread brief and pants over ankles while seated, Max A to hike over hips while standing using grabbars for stability.) On/Off Footwear (QC): 2 (Max A to don/dof sock while seated.) Toileting Hygiene (QC): 3 Assessment/Plan Assessment and Plan Assess & Plan/Chief Complaint Assessment: Left ankle fracture nonweightbearing Advanced age Pulmonary fibrosis 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
[2021-07-27] MEDS: DICLOFENAC 1% GEL 100 GM (VOLTAREN) TUBE TOP SCH ×4 (09:21→21:00)
--- NOTE | 2021-07-27 10:00 | Occupational Ther Daily Note ---
OT Current Status-Daily Note Subjective Pt supine in bed, alert. No c/o pain. Pt agrees to therapy. Mental Status/Objective Patient Orientation: Person, Place, Time, Situation Attachments: Other-See Comments (Colby hernandez) ADL-Treatment Session 1 ([id number]) Pt refused to change clothing. Pt EOB sit->stand CGA using FWW for stability, transfer to w/c using FWW for stability CGA. Pt propelled to bathroom sink. Pt required assist to set up oral care and turn on faucet due to self limiting. Pt brushed hair and applied hair spray with supplies gathered. Pt transferred to toilet using grabbars and BSC over toilet for stability CGA. Pt required assist to hike pants over hips, completed hygiene by self while seated on BSC over toilet. Pt transferred from w/c to recliner CGA using FWW for support. After session, pt sitting in recliner with phone/call light within reach. All needs met in room. Pt exhibits self limiting behaviors. Therapy Code Descriptions/Definitions Functional [place] Measure: 0=Not Assessed/NA 4=Minimal Assistance 1=Total Assistance 5=Supervision or Setup 2=Maximal Assistance 6=Modified [place] 3=Moderate Assistance 7=Complete IndependenceSCALE: Activities may be completed with or without assistive devices. 4-[place]-jlfjtwj completes the activity by him/herself with no assistance from a helper. 5-Set-up or Clean-up Assistance-helper sets up or cleans up; patient completes activity. [place] assists only prior to or following the activity. 4-Supervision or Touching Assistance-helper provides verbal cues and/or touching/steadying and/or contact guard assistance as patient completes activity. Assistance may be provided throughout the activity or intermittently. 3-Partial/Moderate Assistance-helper does LESS THAN HALF the effort. [place] lifts, holds or supports trunk or limbs, but provides less than half the effort. 2-Substantial/Maximal Assistance-helper does MORE THAN HALF the effort. [place] lifts or holds trunk or limbs and provides more than half the effort. 1-Mtozacwkz-vqhqog does ALL the effort. Patient does none of the effort to complete the activity. Or, the assistance of 2 or more helpers is required for the patient to complete the activity. If activity was not attempted, code reason: 7-Patient Refused. 9-Not Applicable-not attempted and the patient did not perform the activity before the current illness, exacerbation or injury. 10-Not Attempted due to Environmental Limitations-(lack of equipment, weather restraints, etc.). 88-Not Attempted due to Medical Conditions or Safety Concerns. Oral Hygiene (QC): 5 (Set up) Toileting Hygiene (QC): 2 (Pt required assist managing clothing. ) Toilet Transfer (QC): 4 (CGA) Other Treatment Session 2- ([id number]) Pt participated in therapeutic exercise using yellow theraband (light) for resistance to increase B UE strength and activity tolerance for ADLs. Skilled instruction for correct technique for theraband exercises. Pt completed B bicep curls 10 reps 2 sets, B tricep curls 10 reps, and B external rotation 10 reps, pt fatigues quickly and modified amount of exercises completed. After session, pt seated in recliner with call light/phone within reach and all needs met in room. Education OT Patient Education: Exercise program Teaching Recipient: Patient Teaching Methods: Demonstration, Handout, Discussion Response to Teaching: Verbalize Understanding, Return Demonstration, Reinforcement Needed OT Short Term Goals Short Term Goals Time Frame: Aug 04, 2021 Eatin Oral hygiene: 4 Toileting hygiene: 4 Shower/bathe self: 4 Upper body dressin Lower body dressin Putting on/taking off footwear: 3 OT Tax Assistant Goals Alf Goals Time Frame: Aug 14, 2021 Eating (QC): 5 Oral Hygiene (QC): 5 Toileting Hygiene (QC): 6 Shower/Bathe Self (QC): 5 Upper Body Dressing (QC): 5 Lower Body Dressing (QC): 5 On/Off Footwear (QC): 4 1=Demonstrate adherence to instructed precautions during ADL tasks. 2=Patient will verbalize/demonstrate understanding of assistive devices/modifications for ADL. 3=Patient will improve strength/tolerance for activity to enable patient to perform ADL's. OT Education/Plan Problem List/Assessment Assessment: Decreased Safety Aware, Decreased UE Strength, Impaired Funct Balance, Impaired Self-Care Skills, Restricted Funct UE ROM Discharge Recommendations Plan/Recommendations: Continue POC Treatment Plan/Plan of Care Patient would benefit from OT for education, treatment and training to promote independence in ADL's, mobility, safety and/or upper extremity function for ADL's. Plan of Care: ADL Retraining, Functional Mobility, Group Exercise/Act as Ind, Orthotic Fitting/Training, UE Funct Exercise/Act Treatment Duration: Aug 14, 2021 Frequency: At least 5 of 7 days/Wk (IRF) Estimated Hrs Per Day: 1.5 hours per day Agreement: Yes Rehab Potential: Guarded Time/GCodes Start Time: 09:00 (1100) Stop Time: 10:00 (1130) Total Time Billed (hr/min): 90 Billed Treatment Time 1 Visit- ([id number]) ADL 4 (60 min) 1 Visit- ([id number]) EX 2 (30 min) SANTOS NOLASCO Jul 27, 2021 10:00
--- NOTE | 2021-07-27 11:51 | Physical Therapy Daily Note ---
PT Daily Note-Current Subjective Pt sitting in recliner upon arrival. Pt reports pain in L distal ankle and asked for boot and LOIS wrap to be removed for short time. Pain Numeric Pain Scale: 6 Location: Left, Distal Location Body Site: Ankle Pain Description: Ache, Tightness Mental Status Patient Orientation: Person, Place, Time, Situation Attachments: Other-See Comments (CAM boot and LOIS wrap for L LE) Transfers SCALE: Activities may be completed with or without assistive devices. 5-Necicfplhs-nirkzkx completes the activity by him/herself with no assistance from a helper. 5-Set-up or Clean-up Assistance-helper sets up or cleans up; patient completes activity. [place] assists only prior to or following the activity. 4-Supervision or Touching Assistance-helper provides verbal cues and/or touching/steadying and/or contact guard assistance as patient completes activity. Assistance may be provided throughout the activity or intermittently. 3-Partial/Moderate Assistance-helper does LESS THAN HALF the effort. [place] lifts, holds or supports trunk or limbs, but provides less than half the effort. 2-Substantial/Maximal Assistance-helper does MORE THAN HALF the effort. [place] lifts or holds trunk or limbs and provides more than half the effort. 2-Mwswbmuvs-wswoyc does ALL the effort. Patient does none of the effort to complete the activity. Or, the assistance of 2 or more helpers is required for the patient to complete the activity. If activity was not attempted, code reason: 7-Patient Refused. 9-Not Applicable-not attempted and the patient did not perform the activity before the current illness, exacerbation or injury. 10-Not Attempted due to Environmental Limitations-(lack of equipment, weather restraints, etc.). 88-Not Attempted due to Medical Conditions or Safety Concerns. Weight Bearing Left Lower Extremity: Left Weight Bearing/Tolerated WBAT when wearing the cam boot Exercises Supine Ex: Ankle pumps, Quad Set, Glut sets, Straight leg raise, Hip abd/add Supine Reps: 15 (2 sets of 15 reps on all but GS & AB/ADD) Treatments Pt asked for boot and LOIS wrap to be removed and lotion applied. TECHNOLOGIST DEVELOPMENT complied and pt reported pain decrease w/LOIS wrap removed. Pt completes Supine EX (see EX section). Pt rests at end of tx with all needs met, call light in hand. LOIS wrap and boot left off until OT arrives for 2nd session, OT advised. Assessment Current Status: Fair Progress Pt tolerated tx well after LOIS wrap and boot were removed. TECHNOLOGIST DEVELOPMENT & Nurse advised pt of importance of prevention of DVT and how compression garments or SCDs help. PT Short Term Goals Short Term Goals Time Frame: Jul 30, 2021 Roll Left & Right: 6 Sit to lyin Lying to sitting on side of be: 3 Sit to stand: 4 Chair/fbl-da-gxphg transfer: 4 Walk 10 feet: 3 PT Gore Stitcher Goals Mcc Goals PT Mcc Goals Time Frame: Aug 13, 2021 Roll Left & Right (QC): 6 Sit to Lying (QC): 6 Lying-Sitting on Side/Bed(QC): 6 Sit to Stand (QC): 4 Chair/Cxa-vq-Fljfd Xfer(QC): 4 Toilet Transfer (QC): 4 Car Transfer (QC): 4 Does the Patient Walk: Yes Walk 10 feet (QC): 4 Walk 50ft with 2 Turns (QC): 4 Walk 150 ft (QC): 88 Walking 10ft on Uneven Surface: 4 1 Step (curb) (QC): 4 4 Steps (QC): 4 12 Steps (QC): 88 Picking up an Object (QC): 4 Wheel 50 feet with 2 turns (QC: 9 Wheel 150 feet: 9 PT Plan Problem List Problem List: Activity Tolerance, Functional Strength Treatment/Plan Treatment Plan: Continue Plan of Care Treatment Plan: Bed Mobility, Education, Functional Activity [place], Functional Strength, Group Therapy, Gait, Safety, Therapeutic Exercise, Transfers Treatment Duration: Aug 13, 2021 Frequency: At least 5 of 7 days/Wk (IRF) Estimated Hrs Per Day: 1.5 hours per day Patient and/or Family Agrees t: Yes Safety Risks/Education Patient Education: Correct Positioning, Disease Process Teaching Recipient: Patient Teaching Methods: Discussion Response to Teaching: Verbalize Understanding Time/GCodes Time In: 1000 Time Out: 1045 Total Billed Treatment Time: 45 Total Billed Treatment 1, FA (15m) & EX x2 (30m) JEFF GUSTAFSON TECHNOLOGIST DEVELOPMENT Jul 27, 2021 11:51
--- NOTE | 2021-07-27 13:40 | Physical Therapy Daily Note ---
PT Daily Note-Current Subjective Pt sitting in recliner upon arrival. Pt agrees to PT and asks to use BSC to start tx. Pain Location: Left Location Body Site: Ankle Pain Description: Ache, Tightness Mental Status Patient Orientation: Person, Place, Situation Attachments: Other-See Comments (L LE ) Transfers SCALE: Activities may be completed with or without assistive devices. 2-Trhelhumav-mtgwzrj completes the activity by him/herself with no assistance from a helper. 5-Set-up or Clean-up Assistance-helper sets up or cleans up; patient completes activity. [place] assists only prior to or following the activity. 4-Supervision or Touching Assistance-helper provides verbal cues and/or touching/steadying and/or contact guard assistance as patient completes activity. Assistance may be provided throughout the activity or intermittently. 3-Partial/Moderate Assistance-helper does LESS THAN HALF the effort. [place] lifts, holds or supports trunk or limbs, but provides less than half the effort. 2-Substantial/Maximal Assistance-helper does MORE THAN HALF the effort. [place] lifts or holds trunk or limbs and provides more than half the effort. 4-Rykhwvhtb-dhngrg does ALL the effort. Patient does none of the effort to complete the activity. Or, the assistance of 2 or more helpers is required for the patient to complete the activity. If activity was not attempted, code reason: 7-Patient Refused. 9-Not Applicable-not attempted and the patient did not perform the activity before the current illness, exacerbation or injury. 10-Not Attempted due to Environmental Limitations-(lack of equipment, weather restraints, etc.). 88-Not Attempted due to Medical Conditions or Safety Concerns. Sit to Stand (QC): 3 Toilet Transfer (QC): 3 Weight Bearing Left Lower Extremity: Left Weight Bearing/Tolerated WBAT when wearing the cam boot Gait Training Does the Patient Walk?: Yes Distance: 2' Gait Persons Needed: 1 Gait Assistive Device: FWW Pt is nervous about WB through L LE and even with encouragement pt declines to advance further. Pt walks at TTWB. Wheelchair Training Does the Pt Use a Wheelchair?: Yes Wheel 50 ft with 2 turns (QC): 5 Wheel 150 ft (QC): 5 Type of Wheelchair: Manual Treatments TF to standing and SPT to BSC. ANALYSIS CONSULTANT assists with tomasa care and donning collins ef/pants. Pt TF to [facility] to amb in hallway. Pt attempts 2' then returns to [facility]. Pt propels [facility] in hallway with a couple RB before returning to room. Pt returns to recliner to rest with all needs met, call light in hand. Assessment Current Status: Fair Progress Pt self limits and needs encouragement to push self for progress. PT Short Term Goals Short Term Goals Time Frame: Jul 30, 2021 Roll Left & Right: 6 Sit to lyin Lying to sitting on side of be: 3 Sit to stand: 4 Chair/esz-he-ufzbd transfer: 4 Walk 10 feet: 3 PT Fpc Goals Fpc Goals PT Fpc Goals Time Frame: Aug 13, 2021 Roll Left & Right (QC): 6 Sit to Lying (QC): 6 Lying-Sitting on Side/Bed(QC): 6 Sit to Stand (QC): 4 Chair/Zwy-nh-Mudhn Xfer(QC): 4 Toilet Transfer (QC): 4 Car Transfer (QC): 4 Does the Patient Walk: Yes Walk 10 feet (QC): 4 Walk 50ft with 2 Turns (QC): 4 Walk 150 ft (QC): 88 Walking 10ft on Uneven Surface: 4 1 Step (curb) (QC): 4 4 Steps (QC): 4 12 Steps (QC): 88 Picking up an Object (QC): 4 Wheel 50 feet with 2 turns (QC: 9 Wheel 150 feet: 9 PT Plan Problem List Problem List: Activity Tolerance, Functional Strength, Gait, Transfer Treatment/Plan Treatment Plan: Continue Plan of Care Treatment Plan: Bed Mobility, Education, Functional Activity Dorothea, Functional Strength, Group Therapy, Gait, Safety, Therapeutic Exercise, Transfers Treatment Duration: Aug 13, 2021 Frequency: At least 5 of 7 days/Wk (IRF) Estimated Hrs Per Day: 1.5 hours per day Patient and/or Family Agrees t: Yes Safety Risks/Education Patient Education: Gait Training, Transfer Techniques, Correct Positioning Teaching Recipient: Patient Teaching Methods: Demonstration, Discussion Response to Teaching: Verbalize Understanding, Reinforcement Needed Time/GCodes Time In: 1300 Time Out: 1345 Total Billed Treatment Time: 45 Total Billed Treatment 1, FA (20m), WC (15m) & GT (10m) JEFF GUSTAFSON ANALYSIS CONSULTANT Jul 27, 2021 13:40
[2021-07-27 20:00] VITALS: BP 114/59
[2021-07-28] MEDS: LEVOTHYROXINE 125 MCG (LEVOTHROID) TABLET PO SCH (06:28)
[2021-07-28] MEDS: PANTOPRAZOLE 40 MG (PROTONIX) TAB PO SCH (06:28)
[2021-07-28] MEDS: MULTIVIT W/MINERALS TAB (THERAGRAN M) PO SCH (06:28)
[2021-07-28] MEDS: ENOXAPARIN 40 MG/0.4 ML (LOVENOX) SYR SC SCH (06:28)
--- NOTE | 2021-07-28 07:00 | PM&R Progress Note ---
Subjective HPI/CC On Admission Date Seen by Provider: Jul 28, 2021 Time Seen by Provider: 11:45 Subjective/Events-last exam 07/28/21: Pt doing really well Incontinence will require urology consult Pt doing very well but self limiting 07/27/2021: Pt doing well No major issues Lisinopril given but not Norvasc due to hypotension Med alert will be needed when she goes home 07/26/2021: Patient doing well Feels like her ears are muffled Otoscope exam revealed no significant abnormality Patient doing well otherwise Labs reviewed 07/25/2021: Patient doing well Think she has a bladder infection Urinalysis and in and out cath ordered Transferring pretty well Pain is well controlled 07/24/2021: Patient doing very well Bowels are moving Change Claritin to daily since she takes it that way at home Pain is well controlled Participating in therapy Review of Systems General: Fatigue, Malaise Musculoskeletal: back pain, leg pain Objective Exam Vital Signs Vital Signs Date Time Temp Pulse Resp B/P (MAP) Pulse Ox O2 Delivery O2 Flow Rate FiO2 07/28/21 21:00 Room Air 07/28/21 20:48 94 07/28/21 20:34 36.9 07/28/21 20:00 75 20 143/65 (91) 07/23/21 21:16 21 Capillary Refill : General Appearance: No Apparent Distress, WD/WN, Chronically ill, Thin, Other (Frail) HEENT: PERRL/EOMI, Normal ENT Inspection, Pharynx Normal Neck: Full Range of Motion, Normal Inspection, Non Tender, Supple, Carotid Bruit Respiratory: Chest Non Tender, Lungs Clear, Normal Breath Sounds, No Accessory Muscle Use, No Respiratory Distress, Decreased Breath Sounds Cardiovascular: Regular Rate, Rhythm, No Edema, No Gallop, No JVD, No Murmur, Normal Peripheral Pulses Gastrointestinal: Normal Bowel Sounds, No Organomegaly, No Pulsatile Mass, Non Tender, Soft Back: Normal Inspection, No CVA Tenderness, No Vertebral Tenderness Extremity: Normal Capillary Refill, Normal Inspection, Normal Range of Motion, Non Tender, No Calf Tenderness, No Pedal Edema Neurologic/Psychiatric: Alert, Oriented x3, No Motor/Sensory Deficits, Normal Mood/Affect, biofuels processing technician II-XII Norm as Tested, Abnormal Gait (Nonweightbearing on the left), Motor Weakness (Generalized decreased strength 4/5) Skin: Normal Color, Warm/Dry Lymphatic: No Adenopathy Results/Procedures Lab Patient resulted labs reviewed. FIM Transfers Therapy Code Descriptions/Definitions Functional [place] Measure: 0=Not Assessed/NA 4=Minimal Assistance 1=Total Assistance 5=Supervision or Setup 2=Maximal Assistance 6=Modified [place] 3=Moderate Assistance 7=Complete IndependenceSCALE: Activities may be completed with or without assistive devices. 2-Cxcldjfwzo-rjfdhlx completes the activity by him/herself with no assistance from a helper. 5-Set-up or Clean-up Assistance-helper sets up or cleans up; patient completes activity. [place] assists only prior to or following the activity. 4-Supervision or Touching Assistance-helper provides verbal cues and/or touching/steadying and/or contact guard assistance as patient completes activity. Assistance may be provided throughout the activity or intermittently. 3-Partial/Moderate Assistance-helper does LESS THAN HALF the effort. [place] lifts, holds or supports trunk or limbs, but provides less than half the effort. 2-Substantial/Maximal Assistance-helper does MORE THAN HALF the effort. [place] lifts or holds trunk or limbs and provides more than half the effort. 8-Tselldbvz-spoozt does ALL the effort. Patient does none of the effort to complete the activity. Or, the assistance of 2 or more helpers is required for the patient to complete the activity. If activity was not attempted, code reason: 7-Patient Refused. 9-Not Applicable-not attempted and the patient did not perform the activity bef ore the current illness, exacerbation or injury. 10-Not Attempted due to Environmental Limitations-(lack of equipment, weather r estraints, etc.). 88-Not Attempted due to Medical Conditions or Safety Concerns. Roll Left to Right (QC): 6 Sit to Lying (QC): 3 Sit to Stand (QC): 3 Chair/Ugk-yk-Kkpwm Xfer(QC): 3 Car Transfer (QC): 3 Gait Training Does the Patient Walk?: Yes Distance: 2' Walk 10 feet (QC): 88 Walk 50 ft with 2 Turns(QC): 88 Walk 150 ft (QC): 88 Walking 10ft/uneven surface-QC: 88 Gait Persons Needed: 1 Gait Assistive Device: FWW Wheelchair Training Does the Pt Use a Wheelchair?: Yes Wheel 50 ft with 2 turns (QC): 5 Wheel 150 ft (QC): 5 Type of Wheelchair: Manual Stair Training 1 Step (curb) (QC): 88 4 Steps (QC): 88 12 Steps (QC): 88 Balance Picking up an Object (QC): 88 ADL-Treatment Eating (QC): 5 Oral Hygiene (QC): 5 (Set up) Bathing Location: L Upper Leg, R Upper Leg, Chest, Abdomen Shower/Bathe Self (QC): 2 ( Pt able to bath B upper legs, chest and abdomen. Assist to bathe arms, buttocks, perineal area while standing CGA using grabbars for stability due to decreased UE ROM.) Upper Body Dressing (QC): 2 (Pt needs assist with donning UB clothing of brassierre and shirt while seated.) Lower Body Dressing (QC): 2 (Max A to thread brief and pants over ankles while seated, Max A to hike over hips while standing using grabbars for stability.) On/Off Footwear (QC): 2 (Max A to don/dof sock while seated.) Toileting Hygiene (QC): 2 (Pt required assist managing clothing. 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 lifetime non-smoker Hypothyroidism Rheumatoid arthritis Seasonal allergies History of GI bleed History pneumonia Osteoporosis Plan: Inpatient rehab protocol Bowel regimen Pain control 07/24/2021: Continue pain control Aggressive rehab 07/25/2021: Check urinalysis Supportive care Pain control 07/26/2021: Ear exam normal Aggressive therapy 07/27/2021: Supportive care Pain control 07/28/21: Supportive care Pain control (1) Ankle fracture, left (2) Pulmonary fibrosis (3) Rheumatoid arthritis (4) Hypothyroidism (5) Hypertension (6) Advanced age (7) Frail elderly (8) Risk for falls KYLAH DELGADILLO DO Jul 28, 2021 07:00
[2021-07-28] MEDS: SENNOSIDES 8.6 MG (SENOKOT) TAB PO SCH (07:24)
[2021-07-28] MEDS: polyethylene glycoL POWDER 17 GM (MIRALAX) PACK PO SCH (07:24)
[2021-07-28] MEDS: DOCUSATE SODIUM 100 MG (COLACE) CAP PO SCH ×2 (07:24→20:01)
[2021-07-28] MEDS: amLODIPine 10 MG (NORVASC) TAB PO SCH (07:26)
[2021-07-28] MEDS: RT-BUDESONIDE NEBS 0.5 MG/2ML (PULMICORT) AMP IH SCH ×2 (07:41→20:48)
[2021-07-28] MEDS: RT-ALBUTEROL SULF 2.5 MG/3 ML PRE-MIX VIAL INH SCH ×2 (07:42→20:48)
[2021-07-28 08:00] VITALS: BP 117/59
[2021-07-28] MEDS: lisINopril 20 MG (PRINIVIL) TABLET PO SCH ×2 (08:13→20:01)
[2021-07-28] MEDS: VITAMIN D3 10 MCG (400 UNITS) TABLET PO SCH (08:13)
[2021-07-28] MEDS: sulfaSALAzine 500 MG (AZULFIDINE) TAB PO SCH ×2 (08:14→20:01)
[2021-07-28] MEDS: GABAPENTIN 100 MG (NEURONTIN) CAP PO SCH ×3 (08:14→20:01)
[2021-07-28] MEDS: LORATADINE (CLARITIN) 10 MG TAB PO SCH (08:14)
[2021-07-28] MEDS: DICLOFENAC 1% GEL 100 GM (VOLTAREN) TUBE TOP SCH ×4 (08:15→20:04)
[2021-07-28] MEDS: CALCIUM CARB + VIT D 600 MG (CALCARB + D) TAB PO SCH ×2 (08:15→17:12)
[2021-07-28] MEDS: FLUTICASONE NASAL SPRAY (FLONASE) 16 GM BTL NS SCH (08:15)
--- NOTE | 2021-07-28 09:19 | Physical Therapy Daily Note ---
PT Daily Note-Current Subjective Pt. agrees to Rx. Has had her breakfast and is finishing up some bills and paperwork. Requests BSC and states she has been having problems with incont and urgency. Pt. expresses hesitance to try wt bearing on affected limb and also expresses that she has new pain in the right hip which she says she fell on originally Pain Numeric Pain Scale: 7 Location: Left Location Body Site: Ankle Pain Description: Ache Appearance right hip area where pt c/o pain was observed with no discoloration or swelling. Mental Status Patient Orientation: Person, Place, Time, Situation, Normal For Age Attachments: Other-See Comments (boot L ankle) Transfers SCALE: Activities may be completed with or without assistive devices. 8-Zdpdaulplu-lzlbrlr completes the activity by him/herself with no assistance from a helper. 5-Set-up or Clean-up Assistance-helper sets up or cleans up; patient completes activity. [place] assists only prior to or following the activity. 4-Supervision or Touching Assistance-helper provides verbal cues and/or touching/steadying and/or contact guard assistance as patient completes activ ity. Assistance may be provided throughout the activity or intermittently. 3-Partial/Moderate Assistance-helper does LESS THAN HALF the effort. [place] lifts, holds or supports trunk or limbs, but provides less than half the effort. 2-Substantial/Maximal Assistance-helper does MORE THAN HALF the effort. [place] lifts or holds trunk or limbs and provides more than half the effort. 4-Bhvpyaych-qfffcl does ALL the effort. Patient does none of the effort to complete the activity. Or, the assistance of 2 or more helpers is required for the patient to complete the activity. If activity was not attempted, code reason: 7-Patient Refused. 9-Not Applicable-not attempted and the patient did not perform the activity before the current illness, exacerbation or injury. 10-Not Attempted due to Environmental Limitations-(lack of equipment, weather restraints, etc.). 88-Not Attempted due to Medical Conditions or Safety Concerns. Roll Left & Right (QC): 6 Lying to Sitting/Side of Bed(Q: 6 Sit to Stand (QC): 5 Chair/Zor-pr-Galfr Xfer(QC): 4 Toilet Transfer (QC): 4 many SPTs BSC to w/c and w/c to chair etc moving both directions with CGA to min assist Weight Bearing Left Lower Extremity: Left Weight Bearing/Tolerated WBAT when wearing the cam boot Gait Training Does the Patient Walk?: Yes Gait Persons Needed: 1 Gait Assistive Device: Parallel Bars initial trial on // bars with good success walking approx 7 feet with min assist and step by step wt bearing instruction on hands and sequence. Pt. was encouraged by her progress but began c/o pain in her right hip/SI area. This was addressed with rest from gait and ice applied to the area which pt. states helps the discomfort Wheelchair Training Does the Pt Use a Wheelchair?: Yes Wheel 50 ft with 2 turns (QC): 5 Wheel 150 ft (QC): 5 Type of Wheelchair: Manual needs help only with leg rest on off Exercises Seated Therapy Exercises: Ankle pumps, Sit to stand, Long arc quads Seated Reps: 15 NuStep Minutes: 10 NuStep Workload: 1 Treatments Much time in Rx spent on BSC TRFs , assist doffing and donning clean brief and SPT left and right to w/c. as well as gait in // bars and nustep which pt. found very helpful Assessment Current Status: Good Progress pt. made progress in // bars with gait as she actually lifted right foot from floor clearing it to advance it. Pt. was more motivated and seemed encouraged by the Nustep stating it felt like walking sitting down and felt it helped her PT Short Term Goals Short Term Goals Time Frame: Jul 30, 2021 Roll Left & Right: 6 Sit to lyin Lying to sitting on side of be: 3 Sit to stand: 4 Chair/wqi-ce-xoihw transfer: 4 Walk 10 feet: 3 PT Production Staff Worker Goals Production Staff Worker Goals PT Production Staff Worker Goals Time Frame: Aug 13, 2021 Roll Left & Right (QC): 6 Sit to Lying (QC): 6 Lying-Sitting on Side/Bed(QC): 6 Sit to Stand (QC): 4 Chair/Ull-ds-Udabg Xfer(QC): 4 Toilet Transfer (QC): 4 Car Transfer (QC): 4 Does the Patient Walk: Yes Walk 10 feet (QC): 4 Walk 50ft with 2 Turns (QC): 4 Walk 150 ft (QC): 88 Walking 10ft on Uneven Surface: 4 1 Step (curb) (QC): 4 4 Steps (QC): 4 12 Steps (QC): 88 Picking up an Object (QC): 4 Wheel 50 feet with 2 turns (QC: 9 Wheel 150 feet: 9 PT Plan Treatment/Plan Treatment Plan: Continue Plan of Care Treatment Plan: Bed Mobility, Education, Functional Activity Dorothea, Functional Strength, Group Therapy, Gait, Safety, Therapeutic Exercise, Transfers Treatment Duration: Aug 13, 2021 Frequency: At least 5 of 7 days/Wk (IRF) Estimated Hrs Per Day: 1.5 hours per day Patient and/or Family Agrees t: Yes Safety Risks/Education Patient Education: Gait Training, Transfer Techniques, Correct Positioning, W/C Management, Disease Process, Safety Issues Teaching Recipient: Patient Teaching Methods: Demonstration, Discussion Response to Teaching: Verbalize Understanding, Return Demonstration, Reinforcement Needed Time/GCodes Time In: 800 Time Out: 900 Total Billed Treatment Time: 60 Total Billed Treatment 1,FA15m,GT15m,WC15m,EX15m GIGI MARIE CANDY BAR ATTENDANT Jul 28, 2021 09:19
--- NOTE | 2021-07-28 12:46 | Occupational Ther Daily Note ---
OT Current Status-Daily Note Subjective Pt sitting in recliner, alert. No c/o pain. Pt agrees to therapy. Mental Status/Objective Patient Orientation: Person, Place, Time, Situation Attachments: Other-See Comments (Cam Boot) ADL-Treatment Pt agrees to shower. Pt transfer recliner->w/c using FWW for stability CGA. Pt propelled to sink for oral care. Pt demonstrates self limiting behavior throughout session. Pt transfer w/c<-> shower bench CGA using grabbars for stability. After session, pt sitting in recliner with phone/call light within reach. All needs met in room. Therapy Code Descriptions/Definitions Functional [place] Measure: 0=Not Assessed/NA 4=Minimal Assistance 1=Total Assistance 5=Supervision or Setup 2=Maximal Assistance 6=Modified [place] 3=Moderate Assistance 7=Complete IndependenceSCALE: Activities may be completed with or without assistive devices. 8-Wcfisndgrx-dukrwaq completes the activity by him/herself with no assistance from a helper. 5-Set-up or Clean-up Assistance-helper sets up or cleans up; patient completes activity. [place] assists only prior to or following the activity. 4-Supervision or Touching Assistance-helper provides verbal cues and/or touching/steadying and/or contact guard assistance as patient completes activity. Assistance may be provided throughout the activity or intermittently. 3-Partial/Moderate Assistance-helper does LESS THAN HALF the effort. [place] lifts, holds or supports trunk or limbs, but provides less than half the effort. 2-Substantial/Maximal Assistance-helper does MORE THAN HALF the effort. [place] lifts or holds trunk or limbs and provides more than half the effort. 8-Fxtrlvfgz-xqhamc does ALL the effort. Patient does none of the effort to complete the activity. Or, the assistance of 2 or more helpers is required for the patient to complete the activity. If activity was not attempted, code reason: 7-Patient Refused. 9-Not Applicable-not attempted and the patient did not perform the activity before the current illness, exacerbation or injury. 10-Not Attempted due to Environmental Limitations-(lack of equipment, weather restraints, etc.). 88-Not Attempted due to Medical Conditions or Safety Concerns. Oral Hygiene (QC): 5 (Pt inconsistent with setting up task due to self limiting behavior.) Bathing Location: L Arm, R Arm, L Upper Leg, R Upper Leg, L Lower Leg (including foot) (Due to CAM boot pt unable to wash), Chest, Abdomen, Buttocks, Perineal Area Shower/Bathe Self (QC): 3 (Pt cleansed all areas except lower legs/feet while seated on shower bench. Assist given to cleanse lower legs and feet due to cam boot and low activity tolerance.) Upper Body Dressing (QC): 5 (Pt don/doff shirt with supplies gathered while seated.) Lower Body Dressing (QC): 2 (Pt Min A threading over ankles and cam boot while seated, Min A hiking pants over hips while standing using grabbars for stability.) On/Off Footwear: 2 (Max A don/doffing R sock while seated due to low activity tolerance. Max A for CAM boot.) Toileting Hygiene (QC): 3 (Pt required Min assist hiking pants over hips while standing using grabbars for stability. Pt able to cleanse self while seated on BSC over toilet.) Toilet Transfer (QC): 4 (CGA from w/c to BSC over toilet using grabbars for stability) OT Short Term Goals Short Term Goals Time Frame: Aug 04, 2021 Eatin Oral hygiene: 4 Toileting hygiene: 4 Shower/bathe self: 4 Upper body dressin Lower body dressin Putting on/taking off footwear: 3 OT Mcc Goals Mcc Goals Time Frame: Aug 14, 2021 Eating (QC): 5 Oral Hygiene (QC): 5 Toileting Hygiene (QC): 6 Shower/Bathe Self (QC): 5 Upper Body Dressing (QC): 5 Lower Body Dressing (QC): 5 On/Off Footwear (QC): 4 1=Demonstrate adherence to instructed precautions during ADL tasks. 2=Patient will verbalize/demonstrate understanding of assistive devices/modifications for ADL. 3=Patient will improve strength/tolerance for activity to enable patient to perform ADL's. OT Education/Plan Problem List/Assessment Assessment: Decreased Activ Tolerance, Impaired Funct Balance, Impaired Self- Care Skills, Restricted Funct UE ROM Discharge Recommendations Plan/Recommendations: Continue POC Treatment Plan/Plan of Care Patient would benefit from OT for education, treatment and training to promote independence in ADL's, mobility, safety and/or upper extremity function for ADL's. Plan of Care: ADL Retraining, Functional Mobility, Group Exercise/Act as Ind, Orthotic Fitting/Training, UE Funct Exercise/Act Treatment Duration: Aug 14, 2021 Frequency: At least 5 of 7 days/Wk (IRF) Estimated Hrs Per Day: 1.5 hours per day Agreement: Yes Rehab Potential: Guarded Time/GCodes Start Time: 09:00 Stop Time: 10:30 Total Time Billed (hr/min): 90 Billed Treatment Time 1 Visit- ADL 6 (90 min) SANTOS NOLASCO Jul 28, 2021 12:46
--- NOTE | 2021-07-28 13:42 | Physical Therapy Daily Note ---
PT Daily Note-Current Subjective Pt. agrees to Rx. States she needs to use BSC . During Rx pt. c/o pain back pain that escalated with activity to 10/10 level. Pt. requested ice pack, pain meds ad voltaren cream to back. Nurse assisted with these requests Pain Numeric Pain Scale: 10-Worst Possible Pain Location: Medial Location Body Site: Back Pain Description: Stabbing Mental Status Patient Orientation: Normal For Age Attachments: Other-See Comments (boot left) Transfers SCALE: Activities may be completed with or without assistive devices. 1-Zfhrjrmekc-zyxjgny completes the activity by him/herself with no assistance from a helper. 5-Set-up or Clean-up Assistance-helper sets up or cleans up; patient completes activity. [place] assists only prior to or following the activity. 4-Supervision or Touching Assistance-helper provides verbal cues and/or touching/steadying and/or contact guard assistance as patient completes activity. Assistance may be provided throughout the activity or intermittently. 3-Partial/Moderate Assistance-helper does LESS THAN HALF the effort. [place] lifts, holds or supports trunk or limbs, but provides less than half the effort. 2-Substantial/Maximal Assistance-helper does MORE THAN HALF the effort. [place] lifts or holds trunk or limbs and provides more than half the effort. 9-Dgdizkimy-mmkepn does ALL the effort. Patient does none of the effort to complete the activity. Or, the assistance of 2 or more helpers is required for the patient to complete the activity. If activity was not attempted, code reason: 7-Patient Refused. 9-Not Applicable-not attempted and the patient did not perform the activity before the current illness, exacerbation or injury. 10-Not Attempted due to Environmental Limitations-(lack of equipment, weather restraints, etc.). 88-Not Attempted due to Medical Conditions or Safety Concerns. Roll Left & Right (QC): 6 Sit to Lying (QC): 4 Sit to Stand (QC): 4 Chair/Bjn-kd-Ivhtv Xfer(QC): 4 Toilet Transfer (QC): 4 Weight Bearing Left Lower Extremity: Left Weight Bearing/Tolerated WBAT when wearing the cam boot Gait Training Gait Assistive Device: Parallel Bars pt. was taken to gym via w/c to attempt gait as in AM Rx but was only able to take 3 steps when she declined further Rx secondary to low back pain. pt. was transported back to room , assisted min assist to bed and ice pack was applied to low back. pillows for comfort and call valdez etc Exercises Seated Therapy Exercises: Ankle pumps, Sit to stand, Long arc quads Seated Reps: 8 Assessment Current Status: Good Progress pain limits Rx this PM PT Short Term Goals Short Term Goals Time Frame: Jul 30, 2021 Roll Left & Right: 6 Sit to lyin Lying to sitting on side of be: 3 Sit to stand: 4 Chair/yhf-bo-zyczn transfer: 4 Walk 10 feet: 3 PT Customs Broker Goals Customs Broker Goals PT Customs Broker Goals Time Frame: Aug 13, 2021 Roll Left & Right (QC): 6 Sit to Lying (QC): 6 Lying-Sitting on Side/Bed(QC): 6 Sit to Stand (QC): 4 Chair/Zjm-ge-Hrkqq Xfer(QC): 4 Toilet Transfer (QC): 4 Car Transfer (QC): 4 Does the Patient Walk: Yes Walk 10 feet (QC): 4 Walk 50ft with 2 Turns (QC): 4 Walk 150 ft (QC): 88 Walking 10ft on Uneven Surface: 4 1 Step (curb) (QC): 4 4 Steps (QC): 4 12 Steps (QC): 88 Picking up an Object (QC): 4 Wheel 50 feet with 2 turns (QC: 9 Wheel 150 feet: 9 PT Plan Treatment/Plan Treatment Plan: Continue Plan of Care Treatment Plan: Bed Mobility, Education, Functional Activity Dorothea, Functional Strength, Group Therapy, Gait, Safety, Therapeutic Exercise, Transfers Treatment Duration: Aug 13, 2021 Frequency: At least 5 of 7 days/Wk (IRF) Estimated Hrs Per Day: 1.5 hours per day Patient and/or Family Agrees t: Yes Safety Risks/Education Patient Education: Gait Training, Transfer Techniques, Correct Positioning, Disease Process, Safety Issues Teaching Recipient: Patient Teaching Methods: Demonstration, Discussion Response to Teaching: Verbalize Understanding, Return Demonstration, Reinforcement Needed Time/GCodes Time In: 1300 Time Out: 1330 Total Billed Treatment Time: 30 Total Billed Treatment 1,FA30m GIGI MARIE ELECTROSTATIC POWDER COATING TECHNICIAN Jul 28, 2021 13:42
--- NOTE | 2021-07-28 14:19 | CONSULTATION REPORT ---
DATE OF SERVICE: 07/28/2021 ATTENDING PHYSICIAN: Dr. Castro. SUMMARY: After reviewing the patient's record and interviewing her, this is an 81-year-old pleasant lady that was admitted after a left ankle fracture for rehab and she was complaining of urinary incontinence and mostly in the form of urgency incontinence, mild stress incontinence. She wears a pad or two a day. This started 6 months ago. Back in the late , she had a hysterectomy and bladder suspension and was doing well after that until recently started wetting. She denies any voiding symptoms otherwise and is not on any treatment for it. I reviewed her admission history and physical and there was no change. IMPRESSION: Wet overactive bladder. PLAN: 1. Check postvoid residual. 2. Start her on Detrol-LA 4 mg daily. We will manage accordingly. She was also complaining of her vagina to be stenotic, so we will go ahead and start her on Premarin vaginal cream half a gram at bedtime for now. Later on, if she needs a workup, we will do it after she is discharged home and does not respond to the treatment. Job ID: [id number] DocumentID: [id number] Dictated Date: 07/28/2021 13:22:26 Vegetable I Farmworker Date: 07/28/2021 14:18:07 Dictated By: HIGINIO MOY MD
[2021-07-28 20:00] VITALS: BP 143/65
[2021-07-28] MEDS: TOLTERODINE LA 4 MG (DETROL) CAP PO SCH (20:01)
[2021-07-28] MEDS: ESTROGENS CONJ. CREAM 30 GM (PREMARIN) TUBE VG SCH (20:02)
[2021-07-29] MEDS: PANTOPRAZOLE 40 MG (PROTONIX) TAB PO SCH (06:17)
[2021-07-29] MEDS: LEVOTHYROXINE 125 MCG (LEVOTHROID) TABLET PO SCH (06:17)
[2021-07-29] MEDS: MULTIVIT W/MINERALS TAB (THERAGRAN M) PO SCH (06:18)
[2021-07-29] MEDS: ENOXAPARIN 40 MG/0.4 ML (LOVENOX) SYR SC SCH (06:18)
[2021-07-29 07:29] VITALS: BP 131/62
--- NOTE | 2021-07-29 08:38 | Progress Note - Urology ---
Progress Note-Urology Progress Notes/Assess & Plan Progress/Assessment & Plan DETROL LA HELPING. NO AE Final Diagnosis WET OAB HIGINIO MOY MD Jul 29, 2021 08:38
[2021-07-29] MEDS: RT-BUDESONIDE NEBS 0.5 MG/2ML (PULMICORT) AMP IH SCH ×2 (08:55→21:10)
[2021-07-29] MEDS: RT-ALBUTEROL SULF 2.5 MG/3 ML PRE-MIX VIAL INH SCH ×2 (08:56→21:10)
--- NOTE | 2021-07-29 09:36 | Occupational Ther Daily Note ---
OT Current Status-Daily Note Subjective Pt sitting on BSC in room. Pt is alert, report of pain in lower back, ointment applied to area. Nrsg notified. Pt agrees to therapy. Mental Status/Objective Patient Orientation: Person, Place, Time, Situation Attachments: Other-See Comments (L CAM boot) ADL-Treatment Pt declined shower. Rested to use BSC. BSC<-->w/c using FWW for stability CGA. Pt unsteady during transfer due to leg length discrepancy from CAM boot. Pt propelled w/c to therapy gym taking multiple breaks due to low activity tolerance. Therapy Code Descriptions/Definitions Functional [place] Measure: 0=Not Assessed/NA 4=Minimal Assistance 1=Total Assistance 5=Supervision or Setup 2=Maximal Assistance 6=Modified [place] 3=Moderate Assistance 7=Complete IndependenceSCALE: Activities may be completed with or without assistive devices. 5-Ncknjmddbi-flozgvh completes the activity by him/herself with no assistance from a helper. 5-Set-up or Clean-up Assistance-helper sets up or cleans up; patient completes activity. [place] assists only prior to or following the activity. 4-Supervision or Touching Assistance-helper provides verbal cues and/or touching/steadying and/or contact guard assistance as patient completes activity. Assistance may be provided throughout the activity or intermittently. 3-Partial/Moderate Assistance-helper does LESS THAN HALF the effort. [place] lifts, holds or supports trunk or limbs, but provides less than half the effort. 2-Substantial/Maximal Assistance-helper does MORE THAN HALF the effort. [place] lifts or holds trunk or limbs and provides more than half the effort. 3-Sbvbbqpob-xhemyq does ALL the effort. Patient does none of the effort to complete the activity. Or, the assistance of 2 or more helpers is required for the patient to complete the activity. If activity was not attempted, code reason: 7-Patient Refused. 9-Not Applicable-not attempted and the patient did not perform the activity before the current illness, exacerbation or injury. 10-Not Attempted due to Environmental Limitations-(lack of equipment, weather restraints, etc.). 88-Not Attempted due to Medical Conditions or Safety Concerns. Oral Hygiene (QC): 5 (Pt rinsed dentures while seated on BSC, supplies gathered.) Toileting Hygiene (QC): 3 (Min A to hike LB dressing over hips while using FWW for stability when standing. Pt able to complete hygiene with supplies gathered while seated on BSC.) Toilet Transfer (QC): 4 (CGA ) Other Treatment Pt completed arm bike for 8 min with minimal resistance to strengthen B UE and increase activity tolerance for ADL tasks, recovery breaks x3 during exercises. PT/OT co-treated ([id number]), 2 clinicians required for skilled treatment to increase activity tolerance, strengthen LE/UE, and functional mobility. PT focused on LE strengthening while OT focused on B UE strengthening and increasing activity tolerance. Pt completed 1 set of B UE exercises and then began to discuss about pain in back and previous medical issues with back. Medical student making rounds and asking questions of pt's pain. Discussed how to decrease pt's leg length discrepancy that is caused by the CAM boot. See PT notes on mobility and LE strengthening. After session, pt left in care of PT. OT Short Term Goals Short Term Goals Time Frame: Aug 04, 2021 Eatin Oral hygiene: 4 Toileting hygiene: 4 Shower/bathe self: 4 Upper body dressin Lower body dressin Putting on/taking off footwear: 3 OT Fluorescent Solution Mixer Goals Nursing Home Goals Time Frame: Aug 14, 2021 Eating (QC): 5 Oral Hygiene (QC): 5 Toileting Hygiene (QC): 6 Shower/Bathe Self (QC): 5 Upper Body Dressing (QC): 5 Lower Body Dressing (QC): 5 On/Off Footwear (QC): 4 1=Demonstrate adherence to instructed precautions during ADL tasks. 2=Patient will verbalize/demonstrate understanding of assistive devices/modifications for ADL. 3=Patient will improve strength/tolerance for activity to enable patient to perform ADL's. OT Education/Plan Problem List/Assessment Assessment: Decreased Activ Tolerance, Decreased UE Strength, Impaired Funct Balance, Impaired Self-Care Skills, Restricted Funct UE ROM Discharge Recommendations Plan/Recommendations: Continue POC Treatment Plan/Plan of Care Patient would benefit from OT for education, treatment and training to promote independence in ADL's, mobility, safety and/or upper extremity function for ADL's. Plan of Care: ADL Retraining, Functional Mobility, Group Exercise/Act as Ind, Orthotic Fitting/Training, UE Funct Exercise/Act Treatment Duration: Aug 14, 2021 Frequency: At least 5 of 7 days/Wk (IRF) Estimated Hrs Per Day: 1.5 hours per day Agreement: Yes Rehab Potential: Guarded Time/GCodes Start Time: 08:30 Stop Time: 09:30 Total Time Billed (hr/min): 60 Billed Treatment Time 1 Visit- ADL 2 (30 min) FA 2 (30 min) [place] with PT [id number] individual 0830- 0900 SANTOS NOLASCO Jul 29, 2021 09:36
--- NOTE | 2021-07-29 09:56 | Physical Therapy Daily Note ---
PT Daily Note-Current Subjective PT OT co Rx 30 min secondary to low activity tolerance and high pain level c/o with TRFs and attempts at gait. Pt. , this BIOLOGY FACULTY MEMBER as well as CASAREZ concur that the height difference in patients LEs adds to her LBP reji in wt bearing. Pt. agrees to trials of stance with attempts to even the surface by layering items under RLE/foot. Pt. feels the more even surface helped decrease the pain however we need a boot or shoe approx the height of the standing surface that was created with folded blankets etc Pt. c/o back pain at 8/10 with activity Pain Numeric Pain Scale: 7 Location: Medial Location Body Site: Back Pain Description: Ache Mental Status Patient Orientation: Normal For Age Attachments: Other-See Comments (boot LLE) Transfers SCALE: Activities may be completed with or without assistive devices. 6-Salvbfkntu-hjkkvwe completes the activity by him/herself with no assistance from a helper. 5-Set-up or Clean-up Assistance-helper sets up or cleans up; patient completes activity. [place] assists only prior to or following the activity. 4-Supervision or Touching Assistance-helper provides verbal cues and/or touching /steadying and/or contact guard assistance as patient completes activity. Assistance may be provided throughout the activity or intermittently. 3-Partial/Moderate Assistance-helper does LESS THAN HALF the effort. [place] lifts, holds or supports trunk or limbs, but provides less than half the effort. 2-Substantial/Maximal Assistance-helper does MORE THAN HALF the effort. [place] lifts or holds trunk or limbs and provides more than half the effort. 3-Xzjamiffy-yvcgtk does ALL the effort. Patient does none of the effort to complete the activity. Or, the assistance of 2 or more helpers is required for the patient to complete the activity. If activity was not attempted, code reason: 7-Patient Refused. 9-Not Applicable-not attempted and the patient did not perform the activity before the current illness, exacerbation or injury. 10-Not Attempted due to Environmental Limitations-(lack of equipment, weather restraints, etc.). 88-Not Attempted due to Medical Conditions or Safety Concerns. Sit to Stand (QC): 4 Chair/Kmg-tj-Wchyc Xfer(QC): 4 Weight Bearing Left Lower Extremity: Left Weight Bearing/Tolerated WBAT when wearing the cam boot Gait Training Gait Assistive Device: FWW attempted gait in // bars with immediate increased LBP c/o so this was discontinued Exercises Seated Therapy Exercises: Ankle pumps, Sit to stand, Long arc quads, Hip flexion, Hip abd/add Seated Reps: 10 some seated UE ther ex coordinating with OT Treatments PT OT co Rx secondary to poor act gabi and confab of pain relief methods Assessment Current Status: Fair Progress limited by pain with upright activity PT Short Term Goals Short Term Goals Time Frame: Jul 30, 2021 Roll Left & Right: 6 Sit to lyin Lying to sitting on side of be: 3 Sit to stand: 4 Chair/pjy-qg-kpjfn transfer: 4 Walk 10 feet: 3 PT Jail Goals Cell Changer Goals PT Jail Goals Time Frame: Aug 13, 2021 Roll Left & Right (QC): 6 Sit to Lying (QC): 6 Lying-Sitting on Side/Bed(QC): 6 Sit to Stand (QC): 4 Chair/Hyj-pk-Uldzb Xfer(QC): 4 Toilet Transfer (QC): 4 Car Transfer (QC): 4 Does the Patient Walk: Yes Walk 10 feet (QC): 4 Walk 50ft with 2 Turns (QC): 4 Walk 150 ft (QC): 88 Walking 10ft on Uneven Surface: 4 1 Step (curb) (QC): 4 4 Steps (QC): 4 12 Steps (QC): 88 Picking up an Object (QC): 4 Wheel 50 feet with 2 turns (QC: 9 Wheel 150 feet: 9 PT Plan Treatment/Plan Treatment Plan: Continue Plan of Care Treatment Plan: Bed Mobility, Education, Functional Activity Dorothea, Functional Strength, Group Therapy, Gait, Safety, Therapeutic Exercise, Transfers Treatment Duration: Aug 13, 2021 Frequency: At least 5 of 7 days/Wk (IRF) Estimated Hrs Per Day: 1.5 hours per day Patient and/or Family Agrees t: Yes Safety Risks/Education Patient Education: Transfer Techniques, Correct Positioning, Disease Process, Safety Issues Teaching Recipient: Patient Teaching Methods: Demonstration, Discussion Response to Teaching: Verbalize Understanding, Return Demonstration, Reinforcement Needed Time/GCodes Time In: 900 Time Out: 1000 Total Billed Treatment Time: 60 Total Billed Treatment 1, EX10m,FA50m (PT OT co Rx [phone]) GIGI MARIE BIOLOGY FACULTY MEMBER Jul 29, 2021 09:56
[2021-07-29] MEDS: polyethylene glycoL POWDER 17 GM (MIRALAX) PACK PO SCH (10:09)
[2021-07-29] MEDS: CALCIUM CARB + VIT D 600 MG (CALCARB + D) TAB PO SCH ×2 (10:09→18:15)
[2021-07-29] MEDS: VITAMIN D3 10 MCG (400 UNITS) TABLET PO SCH (10:09)
[2021-07-29] MEDS: LORATADINE (CLARITIN) 10 MG TAB PO SCH (10:09)
[2021-07-29] MEDS: DOCUSATE SODIUM 100 MG (COLACE) CAP PO SCH ×2 (10:09→21:39)
[2021-07-29] MEDS: sulfaSALAzine 500 MG (AZULFIDINE) TAB PO SCH ×2 (10:09→21:39)
[2021-07-29] MEDS: lisINopril 20 MG (PRINIVIL) TABLET PO SCH ×2 (10:09→21:39)
[2021-07-29] MEDS: SENNOSIDES 8.6 MG (SENOKOT) TAB PO SCH (10:09)
[2021-07-29] MEDS: DICLOFENAC 1% GEL 100 GM (VOLTAREN) TUBE TOP SCH ×4 (10:10→21:40)
[2021-07-29 10:31] VITALS: BP 140/87
[2021-07-29] MEDS: amLODIPine 10 MG (NORVASC) TAB PO SCH (10:31)
[2021-07-29] MEDS: GABAPENTIN 100 MG (NEURONTIN) CAP PO SCH ×3 (10:31→21:39)
[2021-07-29] MEDS: FLUTICASONE NASAL SPRAY (FLONASE) 16 GM BTL NS SCH (10:32)
--- NOTE | 2021-07-29 11:18 | PM&R Progress Note ---
Subjective HPI/CC On Admission Date Seen by Provider: Jul 29, 2021 Time Seen by Provider: 11:15 Subjective/Events-last exam 07/29/2021: Patient doing well Having a lot of pain in her back after therapy She did report compression fractures 6 weeks ago so we will get x-rays K pad and diclofenac gel will be considered Patient very well may require senior living placement due to now limiting back pain and left leg issue Patient did say they did discuss kyphoplasty at that time 07/28/21: Pt doing really well Incontinence will require urology consult Pt doing very well but self limiting 07/27/2021: Pt doing well No major issues Lisinopril given but not Norvasc due to hypotension Med alert will be needed when she goes home 07/26/2021: Patient doing well Feels like her ears are muffled Otoscope exam revealed no significant abnormality Patient doing well otherwise Labs reviewed 07/25/2021: Patient doing well Think she has a bladder infection Urinalysis and in and out cath ordered Transferring pretty well Pain is well controlled 07/24/2021: Patient doing very well Bowels are moving Change Claritin to daily since she takes it that way at home Pain is well controlled Participating in therapy Review of Systems General: Fatigue, Malaise Musculoskeletal: back pain, leg pain Objective Exam Vital Signs Vital Signs Date Time Temp Pulse Resp B/P (MAP) Pulse Ox O2 Delivery O2 Flow Rate FiO2 07/29/21 21:11 96 Room Air 07/29/21 20:00 37.0 76 16 108/56 (73) Capillary Refill : General Appearance: No Apparent Distress, WD/WN, Chronically ill, Thin, Other (Frail) HEENT: PERRL/EOMI, Normal ENT Inspection, Pharynx Normal Neck: Full Range of Motion, Normal Inspection, Non Tender, Supple, Carotid Bruit Respiratory: Chest Non Tender, Lungs Clear, Normal Breath Sounds, No Accessory Muscle Use, No Respiratory Distress, Decreased Breath Sounds Cardiovascular: Regular Rate, Rhythm, No Edema, No Gallop, No JVD, No Murmur, Normal Peripheral Pulses Gastrointestinal: Normal Bowel Sounds, No Organomegaly, No Pulsatile Mass, Non Tender, Soft Back: Normal Inspection, No CVA Tenderness, No Vertebral Tenderness Extremity: Normal Capillary Refill, Normal Inspection, Normal Range of Motion, Non Tender, No Calf Tenderness, No Pedal Edema Neurologic/Psychiatric: Alert, Oriented x3, No Motor/Sensory Deficits, Normal Mood/Affect, nurse manager II-XII Norm as Tested, Abnormal Gait (Nonweightbearing on the left), Motor Weakness (Generalized decreased strength 4/5) Skin: Normal Color, Warm/Dry Lymphatic: No Adenopathy Results/Procedures Lab Patient resulted labs reviewed. FIM Transfers Therapy Code Descriptions/Definitions Functional [place] Measure: 0=Not Assessed/NA 4=Minimal Assistance 1=Total Assistance 5=Supervision or Setup 2=Maximal Assistance 6=Modified [place] 3=Moderate Assistance 7=Complete IndependenceSCALE: Activities may be completed with or without assistive devices. 8-Huyvyffcnj-msarhvw completes the activity by him/herself with no assistance from a helper. 5-Set-up or Clean-up Assistance-helper sets up or cleans up; patient completes activity. [place] assists only prior to or following the activity. 4-Supervision or Touching Assistance-helper provides verbal cues and/or touching/steadying and/or contact guard assistance as patient completes activity. Assistance may be provided throughout the activity or intermittently. 3-Partial/Moderate Assistance-helper does LESS THAN HALF the effort. [place] lifts, holds or supports trunk or limbs, but provides less than half the effort. 2-Substantial/Maximal Assistance-helper does MORE THAN HALF the effort. [place] lifts or holds trunk or limbs and provides more than half the effort. 0-Lcmgsuwzk-wulfrs does ALL the effort. Patient does none of the effort to complete the activity. Or, the assistance of 2 or more helpers is required for the patient to complete the activity. If activity was not attempted, code reason: 7-Patient Refused. 9-Not Applicable-not attempted and the patient did not perform the activity before the current illness, exacerbation or injury. 10-Not Attempted due to Environmental Limitations-(lack of equipment, weather restraints, etc.). 88-Not Attempted due to Medical Conditions or Safety Concerns. Roll Left to Right (QC): 6 Sit to Lying (QC): 4 Sit to Stand (QC): 4 Chair/Drk-cg-Hpqrg Xfer(QC): 4 Car Transfer (QC): 3 Gait Training Does the Patient Walk?: Yes Distance: 2' Walk 10 feet (QC): 88 Walk 50 ft with 2 Turns(QC): 88 Walk 150 ft (QC): 88 Walking 10ft/uneven surface-QC: 88 Gait Persons Needed: 1 Gait Assistive Device: FWW Wheelchair Training Does the Pt Use a Wheelchair?: Yes Wheel 50 ft with 2 turns (QC): 5 Wheel 150 ft (QC): 5 Type of Wheelchair: Manual Stair Training 1 Step (curb) (QC): 88 4 Steps (QC): 88 12 Steps (QC): 88 Balance Picking up an Object (QC): 88 ADL-Treatment Eating (QC): 5 Oral Hygiene (QC): 5 (Pt rinsed dentures while seated on BSC, supplies gathered.) Bathing Location: L Arm, R Arm, L Upper Leg, R Upper Leg, L Lower Leg (including foot) (Due to CAM boot pt unable to wash), Chest, Abdomen, Buttocks, Perineal Area Shower/Bathe Self (QC): 3 (Pt cleansed all areas except lower legs/feet while seated on shower bench. Assist given to cleanse lower legs and feet due to cam boot and low activity tolerance.) Upper Body Dressing (QC): 5 (Pt don/doff shirt with supplies gathered while seated.) Lower Body Dressing (QC): 2 (Pt Min A threading over ankles and cam boot while seated, Min A hiking pants over hips while standing using grabbars for stabil ity.) On/Off Footwear (QC): 2 (Max A don/doffing R sock while seated due to low activity tolerance. 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 lifetime non-smoker Hypothyroidism Rheumatoid arthritis Seasonal allergies History of GI bleed History pneumonia Osteoporosis Recent compression fractures and new x-rays could confirm acute on chronic fractures Plan: Inpatient rehab protocol Bowel regimen Pain control 07/24/2021: Continue pain control Aggressive rehab 07/25/2021: Check urinalysis Supportive care Pain control 07/26/2021: Ear exam normal Aggressive therapy 07/27/2021: Supportive care Pain control 07/28/21: Supportive care Pain control 07/29/2021: Spine x-rays reviewed Slow recovery (1) Ankle fracture, left (2) Pulmonary fibrosis (3) Rheumatoid arthritis (4) Hypothyroidism (5) Hypertension (6) Advanced age (7) Frail elderly (8) Risk for falls KYLAH DELGADILLO DO Jul 29, 2021 11:18
--- NOTE | 2021-07-29 12:10 | Diagnostic Imaging Report ---
INDICATION: Injury, back pain. FINDINGS: There is reciprocal S-type thoracolumbar scoliotic curvature, convex to the right, in the mid T spine. There is predominantly superior endplate compression deformity of T12 of uncertain acuity. The remaining thoracic statures are unremarkable. There is elevation to the right hemidiaphragm. No appreciable pleural fluid or pneumothorax. IMPRESSION: Reciprocal scoliosis, spondylosis, and an acuity-indeterminate T12 likely osteoporotic compression fracture. If this correlates with the level of pain, follow-up with MRI through that level recommended to see if marrow edema is present and if this would be a candidate for kyphoplasty treatment. Dictated by: Dictated on workstation # [id number]
--- NOTE | 2021-07-29 12:12 | Diagnostic Imaging Report ---
INDICATION: Injury, with back pain. COMPARISON: No relevant comparison. FINDINGS: There is T12 predominantly superior endplate wedge compression deformity of uncertain acuity; correlate with the level of pain. As warranted, MRI through that level would be recommended if treatment such as kyphoplasty would be considered for a recent edematous fracture. The lumbar vertebral bodies themselves are maintained. There is leftward convexity degenerative rotoscoliotic curvature. Radiographically, the bone mineral density appears diminished, and underlying osteoporosis is suspected. IMPRESSION: Acuity-indeterminate T12 likely osteoporotic compression. Consider MRI if this corresponds to the level of pain. There is degenerative rotoscoliotic curvature as a chronic finding. Dictated by: Dictated on workstation # [id number]
[2021-07-29] MEDS ORDERED: AMLO-250 PO (13:30)
[2021-07-29] MEDS ORDERED: FLUT9.9S NSEACH (13:31)
--- NOTE | 2021-07-29 14:25 | Therapy Group Daily Note ---
Therapy Daily Group Note Patient Education Topic Other List Below Exercises LE Seated Exercise, UE Exercise Session Ratio (pt:therapist): 4:1 Goal of Session: Education on AZU Expectations, UE/LE Strengthing, Safety with Transfers, Use of Adaptive Equipment Goal Met for this Session: Yes Pt Benefit of Group: Contributions to Others, F/U Use of Strategies @Home, Increased Functional Safety, Increased Functional Strength, Improved Cognition, Recognition of Peers, Socialization Other/Notes Pt transported via w/c to [facility] for OT group. Group consisted of introductions(name, place living, random questions), socialization, seated B UE/LE exercises lead by therapist/peers and educational topics of bed mobility, use of hospital bed and tub transfers (SC,tub transfer bench). Pt introduced self appropriately and actively listened to peers. Pt able to complete B UE exercises, limited AROM with B LE's. Pt acknowledged understanding of educational topics by actively listening and nodding head in affirmation. After session, pt sitting in recliner with call light/phone in reach. All needs met in room. Start Time: 13:00 Stop Time: 14:00 Total Billed Treatment Time: 60 Total Billed Treatment 1-GRP SANTOS NOLASCO Jul 29, 2021 14:25
[2021-07-29 20:00] VITALS: BP 108/56
[2021-07-29] MEDS: TOLTERODINE LA 4 MG (DETROL) CAP PO SCH (21:39)
[2021-07-29] MEDS: ESTROGENS CONJ. CREAM 30 GM (PREMARIN) TUBE VG SCH (21:40)
--- NOTE | 2021-07-30 05:56 | PM&R Progress Note ---
Subjective HPI/CC On Admission Date Seen by Provider: Jul 30, 2021 Time Seen by Provider: 11:30 Subjective/Events-last exam 07/30/21: Patient feels better Moving more Back pain is less Told her compression fractures are still present and likely her increased activity has flared her old fractures No issues 07/29/2021: Patient doing well Having a lot of pain in her back after therapy She did report compression fractures 6 weeks ago so we will get x-rays K pad and diclofenac gel will be considered Patient very well may require detention placement due to now limiting back pain and left leg issue Patient did say they did discuss kyphoplasty at that time 07/28/21: Pt doing really well Incontinence will require urology consult Pt doing very well but self limiting 07/27/2021: Pt doing well No major issues Lisinopril given but not Norvasc due to hypotension Med alert will be needed when she goes home 07/26/2021: Patient doing well Feels like her ears are muffled Otoscope exam revealed no significant abnormality Patient doing well otherwise Labs reviewed 07/25/2021: Patient doing well Think she has a bladder infection Urinalysis and in and out cath ordered Transferring pretty well Pain is well controlled 07/24/2021: Patient doing very well Bowels are moving Change Claritin to daily since she takes it that way at home Pain is well controlled Participating in therapy Review of Systems General: Fatigue, Malaise Musculoskeletal: back pain, leg pain Objective Exam Vital Signs Vital Signs Date Time Temp Pulse Resp B/P (MAP) Pulse Ox O2 Delivery O2 Flow Rate FiO2 07/30/21 20:34 37.2 75 25 137/69 (91) 95 Room Air 07/30/21 11:06 21 Capillary Refill : General Appearance: No Apparent Distress, WD/WN, Chronically ill, Thin, Other (Frail) HEENT: PERRL/EOMI, Normal ENT Inspection, Pharynx Normal Neck: Full Range of Motion, Normal Inspection, Non Tender, Supple, Carotid Bruit Respiratory: Chest Non Tender, Lungs Clear, Normal Breath Sounds, No Accessory Muscle Use, No Respiratory Distress, Decreased Breath Sounds Cardiovascular: Regular Rate, Rhythm, No Edema, No Gallop, No JVD, No Murmur, Normal Peripheral Pulses Gastrointestinal: Normal Bowel Sounds, No Organomegaly, No Pulsatile Mass, Non Tender, Soft Back: Normal Inspection, No CVA Tenderness, No Vertebral Tenderness Extremity: Normal Capillary Refill, Normal Inspection, Normal Range of Motion, Non Tender, No Calf Tenderness, No Pedal Edema Neurologic/Psychiatric: Alert, Oriented x3, No Motor/Sensory Deficits, Normal Mood/Affect, nursing informatics clinical analyst II-XII Norm as Tested, Abnormal Gait (Nonweightbearing on the left), Motor Weakness (Generalized decreased strength 4/5) Skin: Normal Color, Warm/Dry Lymphatic: No Adenopathy Results/Procedures Lab Patient resulted labs reviewed. FIM Transfers Therapy Code Descriptions/Definitions Functional [place] Measure: 0=Not Assessed/NA 4=Minimal Assistance 1=Total Assistance 5=Supervision or Setup 2=Maximal Assistance 6=Modified [place] 3=Moderate Assistance 7=Complete IndependenceSCALE: Activities may be completed with or without assistive devices. 5-Blbsnwdymz-vnwgccz completes the activity by him/herself with no assistance from a helper. 5-Set-up or Clean-up Assistance-helper sets up or cleans up; patient completes activity. [place] assists only prior to or following the activity. 4-Supervision or Touching Assistance-helper provides verbal cues and/or touching/steadying and/or contact guard assistance as patient completes activity. Assistance may be provided throughout the activity or intermittently. 3-Partial/Moderate Assistance-helper does LESS THAN HALF the effort. [place] lifts, holds or supports trunk or limbs, but provides less than half the effort. 2-Substantial/Maximal Assistance-helper does MORE THAN HALF the effort. [place] lifts or holds trunk or limbs and provides more than half the effort. 5-Lwoujkwob-olyyeh does ALL the effort. Patient does none of the effort to complete the activity. Or, the assistance of 2 or more helpers is required for the patient to complete the activity. If activity was not attempted, code reason: 7-Patient Refused. 9-Not Applicable-not attempted and the patient did not perform the activity before the current illness, exacerbation or injury. 10-Not Attempted due to Environmental Limitations-(lack of equipment, weather restraints, etc.). 88-Not Attempted due to Medical Conditions or Safety Concerns. Roll Left to Right (QC): 6 Sit to Lying (QC): 4 Sit to Stand (QC): 4 Chair/Yas-ix-Kfgry Xfer(QC): 4 Car Transfer (QC): 3 Gait Training Does the Patient Walk?: Yes Distance: 2' Walk 10 feet (QC): 88 Walk 50 ft with 2 Turns(QC): 88 Walk 150 ft (QC): 88 Walking 10ft/uneven surface-QC: 88 Gait Persons Needed: 1 Gait Assistive Device: FWW Wheelchair Training Does the Pt Use a Wheelchair?: Yes Wheel 50 ft with 2 turns (QC): 5 Wheel 150 ft (QC): 5 Type of Wheelchair: Manual Stair Training 1 Step (curb) (QC): 88 4 Steps (QC): 88 12 Steps (QC): 88 Balance Picking up an Object (QC): 88 ADL-Treatment Eating (QC): 5 Oral Hygiene (QC): 5 (Pt rinsed dentures while seated on BSC, supplies gathered.) Bathing Location: L Arm, R Arm, L Upper Leg, R Upper Leg, L Lower Leg (including foot) (Due to CAM boot pt unable to wash), Chest, Abdomen, Buttocks, Perineal Area Shower/Bathe Self (QC): 3 (Pt cleansed all areas except lower legs/feet while seated on shower bench. Assist given to cleanse lower legs and feet due to cam boot and low activity tolerance.) Upper Body Dressing (QC): 5 (Pt don/doff shirt with supplies gathered while seated.) Lower Body Dressing (QC): 2 (Pt Min A threading over ankles and cam boot while seated, Min A hiking pants over hips while standing using grabbars for stability.) On/Off Footwear (QC): 2 (Max A don/doffing R sock while seated due to low activity tolerance. Max A for CAM boot.) Toileting Hygiene (QC): 3 (Min A to hike LB dressing over hips while using FWW for stability when standing. 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 lifetime non-smoker Hypothyroidism Rheumatoid arthritis Seasonal allergies History of GI bleed History pneumonia Osteoporosis Recent compression fractures and new x-rays could confirm acute on chronic fractures Plan: Inpatient rehab protocol Bowel regimen Pain control 07/24/2021: Continue pain control Aggressive rehab 07/25/2021: Check urinalysis Supportive care Pain control 07/26/2021: Ear exam normal Aggressive therapy 07/27/2021: Supportive care Pain control 07/28/21: Supportive care Pain control 07/29/2021: Spine x-rays reviewed Slow recovery 07/30/21: Monitor pain Kpad Diclofenac gel (1) Ankle fracture, left (2) Pulmonary fibrosis (3) Rheumatoid arthritis (4) Hypothyroidism (5) Hypertension (6) Advanced age (7) Frail elderly (8) Risk for falls KYLHA DELGADILLO DO Jul 30, 2021 05:56
[2021-07-30] MEDS: LEVOTHYROXINE 125 MCG (LEVOTHROID) TABLET PO SCH (06:43)
[2021-07-30] MEDS: MULTIVIT W/MINERALS TAB (THERAGRAN M) PO SCH (06:43)
[2021-07-30] MEDS: PANTOPRAZOLE 40 MG (PROTONIX) TAB PO SCH (06:43)
[2021-07-30] MEDS: ENOXAPARIN 40 MG/0.4 ML (LOVENOX) SYR SC SCH (06:44)
--- NOTE | 2021-07-30 07:46 | Progress Note - Urology ---
Progress Note-Urology Progress Notes/Assess & Plan Progress/Assessment & Plan CONTINUES WELL ON DETROL LA AND PREMARIN VAG CREAM KEEP ON THEM BUT DECREASE CREAM TO TWICE A WEEK ON MONDAY Final Diagnosis INCONTINENCE AND OAB HIGINIO MOY MD Jul 30, 2021 07:45
[2021-07-30] MEDS: polyethylene glycoL POWDER 17 GM (MIRALAX) PACK PO SCH (07:52)
[2021-07-30] MEDS: DOCUSATE SODIUM 100 MG (COLACE) CAP PO SCH ×2 (07:52→20:34)
[2021-07-30] MEDS: LORATADINE (CLARITIN) 10 MG TAB PO SCH (07:52)
[2021-07-30] MEDS: GABAPENTIN 100 MG (NEURONTIN) CAP PO SCH ×3 (07:52→20:29)
[2021-07-30] MEDS: sulfaSALAzine 500 MG (AZULFIDINE) TAB PO SCH ×2 (07:53→20:28)
[2021-07-30] MEDS: SENNOSIDES 8.6 MG (SENOKOT) TAB PO SCH (07:53)
[2021-07-30] MEDS: lisINopril 20 MG (PRINIVIL) TABLET PO SCH ×2 (07:53→20:34)
[2021-07-30] MEDS: DICLOFENAC 1% GEL 100 GM (VOLTAREN) TUBE TOP SCH ×4 (07:53→20:29)
[2021-07-30] MEDS: amLODIPine 10 MG (NORVASC) TAB PO SCH (07:53)
[2021-07-30] MEDS: VITAMIN D3 10 MCG (400 UNITS) TABLET PO SCH (07:53)
[2021-07-30] MEDS: FLUTICASONE NASAL SPRAY (FLONASE) 16 GM BTL NS SCH (07:54)
[2021-07-30] MEDS: CALCIUM CARB + VIT D 600 MG (CALCARB + D) TAB PO SCH ×2 (07:54→17:55)
[2021-07-30 07:57] VITALS: BP 116/55
[2021-07-30] MEDS: RT-BUDESONIDE NEBS 0.5 MG/2ML (PULMICORT) AMP IH SCH ×2 (09:51→21:35)
[2021-07-30] MEDS: RT-ALBUTEROL SULF 2.5 MG/3 ML PRE-MIX VIAL INH SCH (09:51)
--- NOTE | 2021-07-30 09:58 | Physical Therapy Daily Note ---
PT Daily Note-Current Subjective Patient in recliner pre tx, agrees to PT after some encouragement, nurse aide has to get patient dressed because she doesn't want a male to help her. Has unrated pain in pelvis and low back. Appearance Patient in recliner post tx with nurse call, phone, tray, all needs met. Mental Status Patient Orientation: Person, Place, Situation Transfers SCALE: Activities may be completed with or without assistive devices. 2-Fgwetrriva-rnedeqs completes the activity by him/herself with no assistance from a helper. 5-Set-up or Clean-up Assistance-helper sets up or cleans up; patient completes activity. [place] assists only prior to or following the activity. 4-Supervision or Touching Assistance-helper provides verbal cues and/or touching /steadying and/or contact guard assistance as patient completes activity. Assistance may be provided throughout the activity or intermittently. 3-Partial/Moderate Assistance-helper does LESS THAN HALF the effort. [place] lifts, holds or supports trunk or limbs, but provides less than half the effort. 2-Substantial/Maximal Assistance-helper does MORE THAN HALF the effort. [place] lifts or holds trunk or limbs and provides more than half the effort. 3-Cwepzsxej-lpnhmg does ALL the effort. Patient does none of the effort to complete the activity. Or, the assistance of 2 or more helpers is required for the patient to complete the activity. If activity was not attempted, code reason: 7-Patient Refused. 9-Not Applicable-not attempted and the patient did not perform the activity before the current illness, exacerbation or injury. 10-Not Attempted due to Environmental Limitations-(lack of equipment, weather restraints, etc.). 88-Not Attempted due to Medical Conditions or Safety Concerns. Sit to Stand (QC): 3 Chair/Spr-ar-Efjua Xfer(QC): 4 Min assist for sit to stand, patient continues despite cues to pivot on right foot and slide it across the floor to perform transfers. Weight Bearing Left Lower Extremity: Left Weight Bearing/Tolerated WBAT when wearing the cam boot Gait Training Distance: 3'x3 Gait Assistive Device: Parallel Bars CGA, patient encouraged to clear right foot and start taking real steps, she does 3 steps each side x3, rest breaks between Wheelchair Training Does the Pt Use a Wheelchair?: Yes Wheel 50 ft with 2 turns (QC): 4 Wheel 150 ft (QC): 4 Type of Wheelchair: Manual 150'x2 Exercises NuStep Minutes: 10 NuStep Workload: 5 Treatments transfers, ambulation, functional strengthening, WC mobility Assessment Current Status: Fair Progress patient is actually taking some steps now but needs to be ambulating with a walker. PT Short Term Goals Short Term Goals Time Frame: Jul 30, 2021 Roll Left & Right: 6 Sit to lyin Lying to sitting on side of be: 3 Sit to stand: 4 Chair/wvs-vw-hihqe transfer: 4 Walk 10 feet: 3 PT Mechanical Research Engineer Goals [facility] Goals PT Mechanical Research Engineer Goals Time Frame: Aug 13, 2021 Roll Left & Right (QC): 6 Sit to Lying (QC): 6 Lying-Sitting on Side/Bed(QC): 6 Sit to Stand (QC): 4 Chair/Gpa-cv-Eqopo Xfer(QC): 4 Toilet Transfer (QC): 4 Car Transfer (QC): 4 Does the Patient Walk: Yes Walk 10 feet (QC): 4 Walk 50ft with 2 Turns (QC): 4 Walk 150 ft (QC): 88 Walking 10ft on Uneven Surface: 4 1 Step (curb) (QC): 4 4 Steps (QC): 4 12 Steps (QC): 88 Picking up an Object (QC): 4 Wheel 50 feet with 2 turns (QC: 9 Wheel 150 feet: 9 PT Plan Problem List Problem List: Activity Tolerance, Functional Strength, Safety, Balance, Gait, Transfer, Bed Mobility, ROM Treatment/Plan Treatment Plan: Continue Plan of Care Treatment Plan: Bed Mobility, Education, Functional Activity Dorothea, Functional Strength, Group Therapy, Gait, Safety, Therapeutic Exercise, Transfers Treatment Duration: Aug 13, 2021 Frequency: At least 5 of 7 days/Wk (IRF) Estimated Hrs Per Day: 1.5 hours per day Patient and/or Family Agrees t: Yes Safety Risks/Education Patient Education: Gait Training, Transfer Techniques, Correct Positioning, W/C Management, Safety Issues Teaching Recipient: Patient Teaching Methods: Demonstration, Discussion Response to Teaching: Reinforcement Needed Time/GCodes Time In: 0900 Time Out: 1000 Total Billed Treatment Time: 60 Total Billed Treatment 1 visit EX 10' FA 50' DAMIEN ANDERSON PT Jul 30, 2021 09:58
--- NOTE | 2021-07-30 12:22 | Occupational Ther Daily Note ---
OT Current Status-Daily Note Subjective Pt sitting in recliner, alert. Pt complained of minor back pain. Pt agrees to therapy. Mental Status/Objective Patient Orientation: Person, Place, Time, Situation Attachments: Other-See Comments (Colby hernandez) ADL-Treatment Pt agrees to shower. Min A transferring recliner->w/c using FWW for stability due to low activity tolerance. Pt propelled to toilet. VC given to set brakes on w/c, Min A to pivot transfer from w/c <->toilet using grabbars for stability. Pt CGA for w/c <->shower bench using grabbars for stability. After session, pt left in recliner with call light/phone within reach. All needs met in room. Therapy Code Descriptions/Definitions Functional [place] Measure: 0=Not Assessed/NA 4=Minimal Assistance 1=Total Assistance 5=Supervision or Setup 2=Maximal Assistance 6=Modified [place] 3=Moderate Assistance 7=Complete IndependenceSCALE: Activities may be completed with or without assistive devices. 4-Upoujkyqvk-luxfkbx completes the activity by him/herself with no assistance from a helper. 5-Set-up or Clean-up Assistance-helper sets up or cleans up; patient completes activity. [place] assists only prior to or following the activity. 4-Supervision or Touching Assistance-helper provides verbal cues and/or touching/steadying and/or contact guard assistance as patient completes activity. Assistance may be provided throughout the activity or intermittently. 3-Partial/Moderate Assistance-helper does LESS THAN HALF the effort. [place] lifts, holds or supports trunk or limbs, but provides less than half the effort. 2-Substantial/Maximal Assistance-helper does MORE THAN HALF the effort. [place] lifts or holds trunk or limbs and provides more than half the effort. 3-Pufitrdlw-ehgmjx does ALL the effort. Patient does none of the effort to complete the activity. Or, the assistance of 2 or more helpers is required for the patient to complete the activity. If activity was not attempted, code reason: 7-Patient Refused. 9-Not Applicable-not attempted and the patient did not perform the activity before the current illness, exacerbation or injury. 10-Not Attempted due to Environmental Limitations-(lack of equipment, weather restraints, etc.). 88-Not Attempted due to Medical Conditions or Safety Concerns. Eating (QC): 5 (Pt required set up in opening containers due to self limiting behaviors, able to eat using regular utensils.) Oral Hygiene (QC): 5 (Supplies gathered then pt able to complete by self sitting at sink.) Bathing Location: L Arm, R Arm, L Upper Leg, R Upper Leg, L Lower Leg (including foot) (unable to wash because of CAM), R Lower Leg (including foot), Chest, Abdomen, Buttocks, Perineal Area Shower/Bathe Self (QC): 5 (After set up, pt sitting on shower bench using hand held shower, grabbars. CAM boot covered for shower.) Upper Body Dressing (QC): 5 (Set up) Lower Body Dressing (QC): 2 (Assist to thread over ankles while seated due to CAM boot assist to hike over hips in standing using grabbars for stability. ) On/Off Footwear: 2 (Max A don/doffing R sock and shoe due to self limiting behavior. ) Toileting Hygiene (QC): 3 (Min A managing clothing, pt able to cleanse tomasa area/buttock in sitting.) Toilet Transfer (QC): 3 (Min A using grabbars for stability) OT Short Term Goals Short Term Goals Time Frame: Aug 04, 2021 Eatin Oral hygiene: 4 Toileting hygiene: 4 Shower/bathe self: 4 Upper body dressin Lower body dressin Putting on/taking off footwear: 3 OT Cargo Service Agent Goals Cargo Service Agent Goals Time Frame: Aug 14, 2021 Eating (QC): 5 Oral Hygiene (QC): 5 Toileting Hygiene (QC): 6 Shower/Bathe Self (QC): 5 Upper Body Dressing (QC): 5 Lower Body Dressing (QC): 5 On/Off Footwear (QC): 4 1=Demonstrate adherence to instructed precautions during ADL tasks. 2=Patient will verbalize/demonstrate understanding of assistive devices/modifications for ADL. 3=Patient will improve strength/tolerance for activity to enable patient to perform ADL's. OT Education/Plan Problem List/Assessment Assessment: Decreased Activ Tolerance, Decreased Safety Aware, Impaired Funct Balance, Impaired Self-Care Skills Discharge Recommendations Plan/Recommendations: Continue POC Treatment Plan/Plan of Care Patient would benefit from OT for education, treatment and training to promote independence in ADL's, mobility, safety and/or upper extremity function for ADL's. Plan of Care: ADL Retraining, Functional Mobility, Group Exercise/Act as Ind, Orthotic Fitting/Training, UE Funct Exercise/Act Treatment Duration: Aug 14, 2021 Frequency: At least 5 of 7 days/Wk (IRF) Estimated Hrs Per Day: 1.5 hours per day Agreement: Yes Rehab Potential: Guarded Time/GCodes Start Time: 11:00 Stop Time: 12:30 Total Time Billed (hr/min): 90 Billed Treatment Time 1 Visit- ADL 6 (90 min) SANTOS NOLASCO Jul 30, 2021 12:22
[2021-07-30] MEDS ORDERED: RT-ALBUTEROL SULF 2.5 MG/3 ML PRE-MIX VIAL INH PRN (13:00)
--- NOTE | 2021-07-30 13:31 | Physical Therapy Daily Note ---
PT Daily Note-Current Subjective Patient in recliner pre tx, agrees to PT, has 10/10 low back pain with activity, nurse notified. Appearance Patient in recliner post tx with nurse call, phone, tray, all needs met. Mental Status Patient Orientation: Person, Place, Situation Transfers SCALE: Activities may be completed with or without assistive devices. 1-Xnprsgehcd-wnoibba completes the activity by him/herself with no assistance from a helper. 5-Set-up or Clean-up Assistance-helper sets up or cleans up; patient completes activity. [place] assists only prior to or following the activity. 4-Supervision or Touching Assistance-helper provides verbal cues and/or touching/steadying and/or contact guard assistance as patient completes activity. Assistance may be provided throughout the activity or intermittently. 3-Partial/Moderate Assistance-helper does LESS THAN HALF the effort. [place] lifts, holds or supports trunk or limbs, but provides less than half the effort. 2-Substantial/Maximal Assistance-helper does MORE THAN HALF the effort. [place] lifts or holds trunk or limbs and provides more than half the effort. 9-Bbyncfpcl-dxzgzz does ALL the effort. Patient does none of the effort to complete the activity. Or, the assistance of 2 or more helpers is required for the patient to complete the activity. If activity was not attempted, code reason: 7-Patient Refused. 9-Not Applicable-not attempted and the patient did not perform the activity before the current illness, exacerbation or injury. 10-Not Attempted due to Environmental Limitations-(lack of equipment, weather restraints, etc.). 88-Not Attempted due to Medical Conditions or Safety Concerns. Sit to Stand (QC): 3 Chair/Pid-js-Wvmbv Xfer(QC): 4 Weight Bearing Left Lower Extremity: Left Weight Bearing/Tolerated WBAT when wearing the cam boot Gait Training Patient took 4 steps in the parallel bars but back pain became too much to continue with that per patient Wheelchair Training Does the Pt Use a Wheelchair?: Yes Wheel 50 ft with 2 turns (QC): 4 Type of Wheelchair: Manual 120'x2 Exercises Seated Therapy Exercises: Ankle pumps (on RLE, toe flex/ext on left side), Long arc quads, Hip flexion, Hip abd/add (with ball and RTB) Treatments LE strengthening, ambulation, WC mobility, transfers Assessment Current Status: Poor Progress more low back pain PT Short Term Goals Short Term Goals Time Frame: Jul 30, 2021 Roll Left & Right: 6 Sit to lyin Lying to sitting on side of be: 3 Sit to stand: 4 Chair/svz-bd-dchee transfer: 4 Walk 10 feet: 3 PT Halfway Goals Halfway Goals PT Halfway Goals Time Frame: Aug 13, 2021 Roll Left & Right (QC): 6 Sit to Lying (QC): 6 Lying-Sitting on Side/Bed(QC): 6 Sit to Stand (QC): 4 Chair/Fid-wi-Kenfe Xfer(QC): 4 Toilet Transfer (QC): 4 Car Transfer (QC): 4 Does the Patient Walk: Yes Walk 10 feet (QC): 4 Walk 50ft with 2 Turns (QC): 4 Walk 150 ft (QC): 88 Walking 10ft on Uneven Surface: 4 1 Step (curb) (QC): 4 4 Steps (QC): 4 12 Steps (QC): 88 Picking up an Object (QC): 4 Wheel 50 feet with 2 turns (QC: 9 Wheel 150 feet: 9 PT Plan Problem List Problem List: Activity Tolerance, Functional Strength, Safety, Balance, Gait, Transfer, Bed Mobility, ROM Treatment/Plan Treatment Plan: Continue Plan of Care Treatment Plan: Bed Mobility, Education, Functional Activity Dorothea, Functional Strength, Group Therapy, Gait, Safety, Therapeutic Exercise, Transfers Treatment Duration: Aug 13, 2021 Frequency: At least 5 of 7 days/Wk (IRF) Estimated Hrs Per Day: 1.5 hours per day Patient and/or Family Agrees t: Yes Safety Risks/Education Patient Education: Transfer Techniques, Correct Positioning, W/C Management, Safety Issues Teaching Recipient: Patient Teaching Methods: Demonstration, Discussion Response to Teaching: Reinforcement Needed Time/GCodes Time In: 1300 Time Out: 1330 Total Billed Treatment Time: 30 Total Billed Treatment 1 visit EX 15' FA 15' DAMIEN ANDERSON PT Jul 30, 2021 13:31
[2021-07-30] MEDS: TOLTERODINE LA 4 MG (DETROL) CAP PO SCH (20:28)
[2021-07-30] MEDS: CALCIUM CARBONATE 500 MG (TUMS) TAB.CHEW PO PRN (20:28)
[2021-07-30] MEDS: ESTROGENS CONJ. CREAM 30 GM (PREMARIN) TUBE VG SCH (20:29)
[2021-07-30 20:34] VITALS: BP 137/69
[2021-07-31] MEDS: MULTIVIT W/MINERALS TAB (THERAGRAN M) PO SCH (06:54)
[2021-07-31] MEDS: ENOXAPARIN 40 MG/0.4 ML (LOVENOX) SYR SC SCH (06:55)
[2021-07-31] MEDS: PANTOPRAZOLE 40 MG (PROTONIX) TAB PO SCH (06:55)
[2021-07-31] MEDS: LEVOTHYROXINE 125 MCG (LEVOTHROID) TABLET PO SCH (06:55)
[2021-07-31 07:30] VITALS: BP 133/63
[2021-07-31] MEDS: SENNOSIDES 8.6 MG (SENOKOT) TAB PO SCH (08:22)
[2021-07-31] MEDS: VITAMIN D3 10 MCG (400 UNITS) TABLET PO SCH (08:23)
[2021-07-31] MEDS: CALCIUM CARB + VIT D 600 MG (CALCARB + D) TAB PO SCH ×2 (08:23→17:04)
[2021-07-31] MEDS: DOCUSATE SODIUM 100 MG (COLACE) CAP PO SCH ×2 (08:23→20:56)
[2021-07-31] MEDS: GABAPENTIN 100 MG (NEURONTIN) CAP PO SCH ×3 (08:23→20:56)
[2021-07-31] MEDS: LORATADINE (CLARITIN) 10 MG TAB PO SCH (08:23)
[2021-07-31] MEDS: lisINopril 20 MG (PRINIVIL) TABLET PO SCH ×2 (08:23→21:05)
[2021-07-31] MEDS: sulfaSALAzine 500 MG (AZULFIDINE) TAB PO SCH ×2 (08:23→20:56)
[2021-07-31] MEDS: FLUTICASONE NASAL SPRAY (FLONASE) 16 GM BTL NS SCH (08:24)
[2021-07-31] MEDS: polyethylene glycoL POWDER 17 GM (MIRALAX) PACK PO SCH (08:24)
[2021-07-31] MEDS: amLODIPine 10 MG (NORVASC) TAB PO SCH (08:24)
[2021-07-31] MEDS: DICLOFENAC 1% GEL 100 GM (VOLTAREN) TUBE TOP SCH ×4 (08:25→20:58)
[2021-07-31] MEDS: RT-BUDESONIDE NEBS 0.5 MG/2ML (PULMICORT) AMP IH SCH ×2 (10:02→19:17)
--- NOTE | 2021-07-31 10:02 | Physical Therapy Daily Note ---
PT Daily Note-Current Subjective Pt laying Supine in bed upon arrival. Pt reluctantly agrees to PT. Pain Location: Lower Location Body Site: Back Pain Description: Ache, Tightness Comment: Reports but doesn't rate Mental Status Patient Orientation: Person, Confused, Place Attachments: Other-See Comments (CAM boot for L LE) Transfers SCALE: Activities may be completed with or without assistive devices. 7-Ljvqzwxaha-ltyyetk completes the activity by him/herself with no assistance from a helper. 5-Set-up or Clean-up Assistance-helper sets up or cleans up; patient completes activity. [place] assists only prior to or following the activity. 4-Supervision or Touching Assistance-helper provides verbal cues and/or touching/steadying and/or contact guard assistance as patient completes activity. Assistance may be provided throughout the activity or intermittently. 3-Partial/Moderate Assistance-helper does LESS THAN HALF the effort. [place] lifts, holds or supports trunk or limbs, but provides less than half the effort. 2-Substantial/Maximal Assistance-helper does MORE THAN HALF the effort. [place] lifts or holds trunk or limbs and provides more than half the effort. 4-Pkhoilnqo-yiyhfa does ALL the effort. Patient does none of the effort to complete the activity. Or, the assistance of 2 or more helpers is required for the patient to complete the activity. If activity was not attempted, code reason: 7-Patient Refused. 9-Not Applicable-not attempted and the patient did not perform the activity before the current illness, exacerbation or injury. 10-Not Attempted due to Environmental Limitations-(lack of equipment, weather restraints, etc.). 88-Not Attempted due to Medical Conditions or Safety Concerns. Lying to Sitting/Side of Bed(Q: 5 Sit to Stand (QC): 4 Chair/Jnm-yx-Nzqek Xfer(QC): 4 Weight Bearing Left Lower Extremity: Left Weight Bearing/Tolerated WBAT when wearing the cam boot Gait Training Does the Patient Walk?: Yes Distance: 2' Gait Persons Needed: 1 Gait Assistive Device: FWW Treatments TF to EOB then SPT to BSC. After using BSC, pt able to complete pericare. Pt stands and able to don brief and pants. Pt attempts ambulation but reports too much pain in back as CAM boot is higher then R foot and not able to WBAT to advance R foot. Pt transfers to recliner and is repositioned to comfort. Pt reports fatigue. All needs met, call light in hand. Assessment Current Status: Poor Progress Pt self limits but also reports pain limiting ambulation. PT Short Term Goals Short Term Goals Time Frame: Jul 30, 2021 Roll Left & Right: 6 Sit to lyin Lying to sitting on side of be: 3 Sit to stand: 4 Chair/mey-kp-mvlcu transfer: 4 Walk 10 feet: 3 PT Jail Goals Hem Inspector Goals PT Hem Inspector Goals Time Frame: Aug 13, 2021 Roll Left & Right (QC): 6 Sit to Lying (QC): 6 Lying-Sitting on Side/Bed(QC): 6 Sit to Stand (QC): 4 Chair/Vwj-xw-Ropyg Xfer(QC): 4 Toilet Transfer (QC): 4 Car Transfer (QC): 4 Does the Patient Walk: Yes Walk 10 feet (QC): 4 Walk 50ft with 2 Turns (QC): 4 Walk 150 ft (QC): 88 Walking 10ft on Uneven Surface: 4 1 Step (curb) (QC): 4 4 Steps (QC): 4 12 Steps (QC): 88 Picking up an Object (QC): 4 Wheel 50 feet with 2 turns (QC: 9 Wheel 150 feet: 9 PT Plan Problem List Problem List: Activity Tolerance, Functional Strength, Gait Treatment/Plan Treatment Plan: Continue Plan of Care Treatment Plan: Bed Mobility, Education, Functional Activity [place], Functional Strength, Group Therapy, Gait, Safety, Therapeutic Exercise, Transfers Treatment Duration: Aug 13, 2021 Frequency: At least 5 of 7 days/Wk (IRF) Estimated Hrs Per Day: 1.5 hours per day Patient and/or Family Agrees t: Yes Safety Risks/Education Patient Education: Gait Training, Correct Positioning Teaching Recipient: Patient Teaching Methods: Discussion Response to Teaching: Reinforcement Needed Time/GCodes Time In: 900 Time Out: 935 Total Billed Treatment Time: 35 Total Billed Treatment 1, FA (20m) & GT (15m) JEFF GUSTAFSON CASTING MACHINE OPERATOR HELPER Jul 31, 2021 10:02
--- NOTE | 2021-07-31 10:59 | PM&R Progress Note ---
Subjective HPI/CC On Admission Date Seen by Provider: Jul 31, 2021 Time Seen by Provider: 11:00 Subjective/Events-last exam 07/31/21: No major issues Pain reported "everywhere" Kyphoplasty not an option since she is mobilizing well 07/30/21: Patient feels better Moving more Back pain is less Told her compression fractures are still present and likely her increased activity has flared her old fractures No issues 07/29/2021: Patient doing well Having a lot of pain in her back after therapy She did report compression fractures 6 weeks ago so we will get x-rays K pad and diclofenac gel will be considered Patient very well may require intermediate placement due to now limiting back pain and left leg issue Patient did say they did discuss kyphoplasty at that time 07/28/21: Pt doing really well Incontinence will require urology consult Pt doing very well but self limiting 07/27/2021: Pt doing well No major issues Lisinopril given but not Norvasc due to hypotension Med alert will be needed when she goes home 07/26/2021: Patient doing well Feels like her ears are muffled Otoscope exam revealed no significant abnormality Patient doing well otherwise Labs reviewed 07/25/2021: Patient doing well Think she has a bladder infection Urinalysis and in and out cath ordered Transferring pretty well Pain is well controlled 07/24/2021: Patient doing very well Bowels are moving Change Claritin to daily since she takes it that way at home Pain is well controlled Participating in therapy Review of Systems General: Fatigue, Malaise Musculoskeletal: back pain, hand pain, leg pain, foot pain Objective Exam Vital Signs Vital Signs Date Time Temp Pulse Resp B/P (MAP) Pulse Ox O2 Delivery O2 Flow Rate FiO2 08/01/21 07:19 36.8 75 20 131/64 (86) 93 Room Air 07/30/21 11:06 21 Capillary Refill : General Appearance: No Apparent Distress, WD/WN, Chronically ill, Thin, Other (Frail) HEENT: PERRL/EOMI, Normal ENT Inspection, Pharynx Normal Neck: Full Range of Motion, Normal Inspection, Non Tender, Supple, Carotid Bruit Respiratory: Chest Non Tender, Lungs Clear, Normal Breath Sounds, No Accessory Muscle Use, No Respiratory Distress, Decreased Breath Sounds Cardiovascular: Regular Rate, Rhythm, No Edema, No Gallop, No JVD, No Murmur, Normal Peripheral Pulses Gastrointestinal: Normal Bowel Sounds, No Organomegaly, No Pulsatile Mass, Non Tender, Soft Back: Normal Inspection, No CVA Tenderness, No Vertebral Tenderness Extremity: Normal Capillary Refill, Normal Inspection, Normal Range of Motion, Non Tender, No Calf Tenderness, No Pedal Edema Neurologic/Psychiatric: Alert, Oriented x3, No Motor/Sensory Deficits, Normal Mood/Affect, country singer II-XII Norm as Tested, Abnormal Gait (Nonweightbearing on the left), Motor Weakness (Generalized decreased strength 4/5) Skin: Normal Color, Warm/Dry Lymphatic: No Adenopathy Results/Procedures Lab Patient resulted labs reviewed. FIM Transfers Therapy Code Descriptions/Definitions Functional [place] Measure: 0=Not Assessed/NA 4=Minimal Assistance 1=Total Assistance 5=Supervision or Setup 2=Maximal Assistance 6=Modified [place] 3=Moderate Assistance 7=Complete IndependenceSCALE: Activities may be completed with or without assistive devices. 8-Alrrnvtqlc-gsghsvo completes the activity by him/herself with no assistance from a helper. 5-Set-up or Clean-up Assistance-helper sets up or cleans up; patient completes activity. [place] assists only prior to or following the activity. 4-Supervision or Touching Assistance-helper provides verbal cues and/or touching/steadying and/or contact guard assistance as patient completes activi ty. Assistance may be provided throughout the activity or intermittently. 3-Partial/Moderate Assistance-helper does LESS THAN HALF the effort. [place] lifts, holds or supports trunk or limbs, but provides less than half the effort. 2-Substantial/Maximal Assistance-helper does MORE THAN HALF the effort. [place] lifts or holds trunk or limbs and provides more than half the effort. 1-Kkewqzevo-drqvsz does ALL the effort. Patient does none of the effort to complete the activity. Or, the assistance of 2 or more helpers is required for the patient to complete the activity. If activity was not attempted, code reason: 7-Patient Refused. 9-Not Applicable-not attempted and the patient did not perform the activity before the current illness, exacerbation or injury. 10-Not Attempted due to Environmental Limitations-(lack of equipment, weather restraints, etc.). 88-Not Attempted due to Medical Conditions or Safety Concerns. Roll Left to Right (QC): 6 Sit to Lying (QC): 4 Sit to Stand (QC): 4 Chair/Uqb-by-Demnb Xfer(QC): 4 Car Transfer (QC): 3 Gait Training Does the Patient Walk?: Yes Distance: 2' Walk 10 feet (QC): 88 Walk 50 ft with 2 Turns(QC): 88 Walk 150 ft (QC): 88 Walking 10ft/uneven surface-QC: 88 Gait Persons Needed: 1 Gait Assistive Device: FWW Wheelchair Training Does the Pt Use a Wheelchair?: Yes Wheel 50 ft with 2 turns (QC): 4 Wheel 150 ft (QC): 4 Type of Wheelchair: Manual Stair Training 1 Step (curb) (QC): 88 4 Steps (QC): 88 12 Steps (QC): 88 Balance Picking up an Object (QC): 88 ADL-Treatment Eating (QC): 5 (Pt required set up in opening containers due to self limiting behaviors, able to eat using regular utensils.) Oral Hygiene (QC): 5 (Supplies gathered then pt able to complete by self sittin g at sink.) Bathing Location: L Arm, R Arm, L Upper Leg, R Upper Leg, L Lower Leg (including foot) (unable to wash because of CAM), R Lower Leg (including foot), Chest, Abdomen, Buttocks, Perineal Area Shower/Bathe Self (QC): 5 (After set up, pt sitting on shower bench using hand held shower, grabbars. CAM boot covered for shower.) Upper Body Dressing (QC): 5 (Set up) Lower Body Dressing (QC): 2 (Assist to thread over ankles while seated due to CAM boot assist to hike over hips in standing using grabbars for stability. ) On/Off Footwear (QC): 2 (Max A don/doffing R sock and shoe due to self limiting behavior. 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 lifetime non-smoker Hypothyroidism Rheumatoid arthritis Seasonal allergies History of GI bleed History pneumonia Osteoporosis Recent compression fractures and new x-rays could confirm acute on chronic fractures Plan: Inpatient rehab protocol Bowel regimen Pain control 07/24/2021: Continue pain control Aggressive rehab 07/25/2021: Check urinalysis Supportive care Pain control 07/26/2021: Ear exam normal Aggressive therapy 07/27/2021: Supportive care Pain control 07/28/21: Supportive care Pain control 07/29/2021: Spine x-rays reviewed Slow recovery 07/30/21: Monitor pain Kpad Diclofenac gel 07/31/21: Monitor closely Pain management (1) Ankle fracture, left (2) Pulmonary fibrosis (3) Rheumatoid arthritis (4) Hypothyroidism (5) Hypertension (6) Advanced age (7) Frail elderly (8) Risk for falls KYLAH DELGADILLO DO Jul 31, 2021 10:59
[2021-07-31] MEDS: ACETAMINOPHEN 325 MG TABLET PO PRN (17:04)
[2021-07-31 19:30] VITALS: BP 122/58
[2021-07-31] MEDS: TOLTERODINE LA 4 MG (DETROL) CAP PO SCH (20:56)
[2021-07-31] MEDS: ESTROGENS CONJ. CREAM 30 GM (PREMARIN) TUBE VG SCH (20:57)
[2021-08-01] MEDS: ENOXAPARIN 40 MG/0.4 ML (LOVENOX) SYR SC SCH (06:38)
[2021-08-01] MEDS: PANTOPRAZOLE 40 MG (PROTONIX) TAB PO SCH (06:38)
[2021-08-01] MEDS: LEVOTHYROXINE 125 MCG (LEVOTHROID) TABLET PO SCH (06:38)
[2021-08-01] MEDS: MULTIVIT W/MINERALS TAB (THERAGRAN M) PO SCH (06:38)
[2021-08-01] MEDS: RT-BUDESONIDE NEBS 0.5 MG/2ML (PULMICORT) AMP IH SCH ×2 (07:08→21:03)
[2021-08-01 07:19] VITALS: BP 131/64
--- NOTE | 2021-08-01 07:45 | PM&R Progress Note ---
Subjective HPI/CC On Admission Date Seen by Provider: Aug 01, 2021 Time Seen by Provider: 14:45 Subjective/Events-last exam 08/01/21: Patient doing well No new pain issues Talked about kyphoplasty again her request Checked meds and labs 07/31/21: No major issues Pain reported "everywhere" Kyphoplasty not an option since she is mobilizing well 07/30/21: Patient feels better Moving more Back pain is less Told her compression fractures are still present and likely her increased activity has flared her old fractures No issues 07/29/2021: Patient doing well Having a lot of pain in her back after therapy She did report compression fractures 6 weeks ago so we will get x-rays K pad and diclofenac gel will be considered Patient very well may require fci placement due to now limiting back pa in and left leg issue Patient did say they did discuss kyphoplasty at that time 07/28/21: Pt doing really well Incontinence will require urology consult Pt doing very well but self limiting 07/27/2021: Pt doing well No major issues Lisinopril given but not Norvasc due to hypotension Med alert will be needed when she goes home 07/26/2021: Patient doing well Feels like her ears are muffled Otoscope exam revealed no significant abnormality Patient doing well otherwise Labs reviewed 07/25/2021: Patient doing well Think she has a bladder infection Urinalysis and in and out cath ordered Transferring pretty well Pain is well controlled 07/24/2021: Patient doing very well Bowels are moving Change Claritin to daily since she takes it that way at home Pain is well controlled Participating in therapy Review of Systems General: Fatigue, Malaise Musculoskeletal: back pain, leg pain Objective Exam Vital Signs Vital Signs Date Time Temp Pulse Resp B/P (MAP) Pulse Ox O2 Delivery O2 Flow Rate FiO2 08/01/21 21:03 96 Room Air 08/01/21 20:12 37.0 71 20 120/59 (79) 07/30/21 11:06 21 Capillary Refill : General Appearance: No Apparent Distress, WD/WN, Chronically ill, Thin, Other (Frail) HEENT: PERRL/EOMI, Normal ENT Inspection, Pharynx Normal Neck: Full Range of Motion, Normal Inspection, Non Tender, Supple, Carotid Bruit Respiratory: Chest Non Tender, Lungs Clear, Normal Breath Sounds, No Accessory Muscle Use, No Respiratory Distress, Decreased Breath Sounds Cardiovascular: Regular Rate, Rhythm, No Edema, No Gallop, No JVD, No Murmur, Normal Peripheral Pulses Gastrointestinal: Normal Bowel Sounds, No Organomegaly, No Pulsatile Mass, Non Tender, Soft Back: Normal Inspection, No CVA Tenderness, No Vertebral Tenderness Extremity: Normal Capillary Refill, Normal Inspection, Normal Range of Motion, Non Tender, No Calf Tenderness, No Pedal Edema Neurologic/Psychiatric: Alert, Oriented x3, No Motor/Sensory Deficits, Normal Mood/Affect, microbiology coordinator II-XII Norm as Tested, Abnormal Gait (Nonweightbearing on the left), Motor Weakness (Generalized decreased strength 4/5) Skin: Normal Color, Warm/Dry Lymphatic: No Adenopathy Results/Procedures Lab Patient resulted labs reviewed. FIM Transfers Therapy Code Descriptions/Definitions Functional [place] Measure: 0=Not Assessed/NA 4=Minimal Assistance 1=Total Assistance 5=Supervision or Setup 2=Maximal Assistance 6=Modified [place] 3=Moderate Assistance 7=Complete IndependenceSCALE: Activities may be completed with or without assistive devices. 4-Vzzordnqev-kjbmvmz completes the activity by him/herself with no assistance from a helper. 5-Set-up or Clean-up Assistance-helper sets up or cleans up; patient completes activity. [place] assists only prior to or following the activity. 4-Supervision or Touching Assistance-helper provides verbal cues and/or touching/steadying and/or contact guard assistance as patient completes activity. Assistance may be provided throughout the activity or intermittently. 3-Partial/Moderate Assistance-helper does LESS THAN HALF the effort. [place] lifts, holds or supports trunk or limbs, but provides less than half the effort. 2-Substantial/Maximal Assistance-helper does MORE THAN HALF the effort. [place] lifts or holds trunk or limbs and provides more than half the effort. 6-Rvqtjaogq-kbjefe does ALL the effort. Patient does none of the effort to complete the activity. Or, the assistance of 2 or more helpers is required for the patient to complete the activity. If activity was not attempted, code reason: 7-Patient Refused. 9-Not Applicable-not attempted and the patient did not perform the activity before the current illness, exacerbation or injury. 10-Not Attempted due to Environmental Limitations-(lack of equipment, weather restraints, etc.). 88-Not Attempted due to Medical Conditions or Safety Concerns. Roll Left to Right (QC): 6 Sit to Lying (QC): 4 Sit to Stand (QC): 4 Chair/Est-nu-Geghy Xfer(QC): 4 Car Transfer (QC): 3 Gait Training Does the Patient Walk?: Yes Distance: 2' Walk 10 feet (QC): 88 Walk 50 ft with 2 Turns(QC): 88 Walk 150 ft (QC): 88 Walking 10ft/uneven surface-QC: 88 Gait Persons Needed: 1 Gait Assistive Device: FWW Wheelchair Training Does the Pt Use a Wheelchair?: Yes Wheel 50 ft with 2 turns (QC): 4 Wheel 150 ft (QC): 4 Type of Wheelchair: Manual Stair Training 1 Step (curb) (QC): 88 4 Steps (QC): 88 12 Steps (QC): 88 Balance Picking up an Object (QC): 88 ADL-Treatment Eating (QC): 5 (Pt required set up in opening containers due to self limiting behaviors, able to eat using regular utensils.) Oral Hygiene (QC): 5 (Supplies gathered then pt able to complete by self sitting at sink.) Bathing Location: L Arm, R Arm, L Upper Leg, R Upper Leg, L Lower Leg (including foot) (unable to wash because of CAM), R Lower Leg (including foot), Chest, Abdomen, Buttocks, Perineal Area Shower/Bathe Self (QC): 5 (After set up, pt sitting on shower bench using hand held shower, grabbars. CAM boot covered for shower.) Upper Body Dressing (QC): 5 (Set up) Lower Body Dressing (QC): 2 (Assist to thread over ankles while seated due to CAM boot assist to hike over hips in standing using grabbars for stability. ) On/Off Footwear (QC): 2 (Max A don/doffing R sock and shoe due to self limiting behavior. 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 lifetime non-smoker Hypothyroidism Rheumatoid arthritis Seasonal allergies History of GI bleed History pneumonia Osteoporosis Recent compression fractures and new x-rays could confirm acute on chronic fractures Plan: Inpatient rehab protocol Bowel regimen Pain control 07/24/2021: Continue pain control Aggressive rehab 07/25/2021: Check urinalysis Supportive care Pain control 07/26/2021: Ear exam normal Aggressive therapy 07/27/2021: Supportive care Pain control 07/28/21: Supportive care Pain control 07/29/2021: Spine x-rays reviewed Slow recovery 07/30/21: Monitor pain Kpad Diclofenac gel 07/31/21: Monitor closely Pain management 08/01/21: Improved transfers Monitor closely (1) Ankle fracture, left (2) Pulmonary fibrosis (3) Rheumatoid arthritis (4) Hypothyroidism (5) Hypertension (6) Advanced age (7) Frail elderly (8) Risk for falls KYLAH DELGADILLO DO Aug 01, 2021 07:45
[2021-08-01] MEDS: SENNOSIDES 8.6 MG (SENOKOT) TAB PO SCH (07:50)
[2021-08-01] MEDS: sulfaSALAzine 500 MG (AZULFIDINE) TAB PO SCH ×2 (07:50→20:16)
[2021-08-01] MEDS: VITAMIN D3 10 MCG (400 UNITS) TABLET PO SCH (07:50)
[2021-08-01] MEDS: GABAPENTIN 100 MG (NEURONTIN) CAP PO SCH ×3 (07:50→20:16)
[2021-08-01] MEDS: lisINopril 20 MG (PRINIVIL) TABLET PO SCH ×2 (07:50→20:17)
[2021-08-01] MEDS: DOCUSATE SODIUM 100 MG (COLACE) CAP PO SCH ×2 (07:50→19:25)
[2021-08-01] MEDS: CALCIUM CARB + VIT D 600 MG (CALCARB + D) TAB PO SCH ×2 (07:50→17:00)
[2021-08-01] MEDS: LORATADINE (CLARITIN) 10 MG TAB PO SCH (07:50)
[2021-08-01] MEDS: polyethylene glycoL POWDER 17 GM (MIRALAX) PACK PO SCH (07:52)
[2021-08-01] MEDS: amLODIPine 10 MG (NORVASC) TAB PO SCH (07:52)
[2021-08-01] MEDS: FLUTICASONE NASAL SPRAY (FLONASE) 16 GM BTL NS SCH (07:52)
[2021-08-01] MEDS: DICLOFENAC 1% GEL 100 GM (VOLTAREN) TUBE TOP SCH ×4 (07:52→20:18)
[2021-08-01 20:12] VITALS: BP 120/59
[2021-08-01] MEDS: TOLTERODINE LA 4 MG (DETROL) CAP PO SCH (20:16)
[2021-08-01] MEDS: ESTROGENS CONJ. CREAM 30 GM (PREMARIN) TUBE VG SCH (20:21)
[2021-08-02 05:50] LABS: BASOPHILS % (AUTO) 0 % (0-10); EOSINOPHILS % (AUTO) 0 % (0-10); HEMATOCRIT 34 % (35-52); HEMOGLOBIN 11.2 g/dL (11.5-16.0); LYMPHOCYTES % (AUTO) 22 % (12-44); MEAN CORPUSCULAR HEMOGLOBIN 30 pg (25-34); MEAN CORPUSCULAR HGB CONC 33 g/dL (32-36); MEAN CORPUSCULAR VOLUME 93 fL (80-99); MEAN PLATELET VOLUME 8.2 fL (9.0-12.2); MONOCYTES # (AUTO) 0.7 10^3/uL (0.0-1.0); MONOCYTES % (AUTO) 15 % (0-12); NEUTROPHILS # (AUTO) 2.8 10^3/uL (1.8-7.8); NEUTROPHILS % (AUTO) 62 % (42-75); PLATELET COUNT 272 10^3/uL (130-400); WHITE BLOOD COUNT 4.5 10^3/uL (4.3-11.0)
[2021-08-02 06:03] LABS: ALBUMIN 3.1 GM/DL (3.2-4.5); POTASSIUM 4.9 MMOL/L (3.6-5.0)
[2021-08-02 06:04] LABS: CALCIUM 8.4 MG/DL (8.5-10.1)
[2021-08-02 06:06] LABS: TOTAL PROTEIN 6.2 GM/DL (6.4-8.2)
[2021-08-02 06:07] LABS: BILIRUBIN,TOTAL 0.3 MG/DL (0.1-1.0)
[2021-08-02 06:09] LABS: CREATININE SERUM 0.71 MG/DL (0.60-1.30)
[2021-08-02] MEDS: LEVOTHYROXINE 125 MCG (LEVOTHROID) TABLET PO SCH (06:15)
[2021-08-02] MEDS: ENOXAPARIN 40 MG/0.4 ML (LOVENOX) SYR SC SCH (06:16)
[2021-08-02] MEDS: MULTIVIT W/MINERALS TAB (THERAGRAN M) PO SCH (06:16)
[2021-08-02] MEDS: PANTOPRAZOLE 40 MG (PROTONIX) TAB PO SCH (06:16)
--- NOTE | 2021-08-02 06:44 | PM&R Progress Note ---
Subjective HPI/CC On Admission Date Seen by Provider: Aug 02, 2021 Time Seen by Provider: 09:00 Subjective/Events-last exam 08/02/2021: No major issues Pain is pretty well controlled Crackles from pulmonary fibrosis noted Nebulizer treatments ordered prn Checked meds and labs 08/01/21: Patient doing well No new pain issues Talked about kyphoplasty again her request Checked meds and labs 07/31/21: No major issues Pain reported "everywhere" Kyphoplasty not an option since she is mobilizing well 07/30/21: Patient feels better Moving more Back pain is less Told her compression fractures are still present and likely her increased activity has flared her old fractures No issues 07/29/2021: Patient doing well Having a lot of pain in her back after therapy She did report compression fractures 6 weeks ago so we will get x-rays K pad and diclofenac gel will be considered Patient very well may require chcf placement due to now limiting back pain and left leg issue Patient did say they did discuss kyphoplasty at that time 07/28/21: Pt doing really well Incontinence will require urology consult Pt doing very well but self limiting 07/27/2021: Pt doing well No major issues Lisinopril given but not Norvasc due to hypotension Med alert will be needed when she goes home 07/26/2021: Patient doing well Feels like her ears are muffled Otoscope exam revealed no significant abnormality Patient doing well otherwise Labs reviewed 07/25/2021: Patient doing well Think she has a bladder infection Urinalysis and in and out cath ordered Transferring pretty well Pain is well controlled 07/24/2021: Patient doing very well Bowels are moving Change Claritin to daily since she takes it that way at home Pain is well controlled Participating in therapy Review of Systems General: Fatigue, Malaise Pulmonary: Dyspnea Musculoskeletal: back pain, leg pain Objective Exam Vital Signs Vital Signs Date Time Temp Pulse Resp B/P (MAP) Pulse Ox O2 Delivery O2 Flow Rate FiO2 08/02/21 21:30 Room Air 08/02/21 20:42 36.8 78 19 128/60 (82) 93 07/30/21 11:06 21 Capillary Refill : General Appearance: No Apparent Distress, WD/WN, Chronically ill, Thin, Other (Frail) HEENT: PERRL/EOMI, Normal ENT Inspection, Pharynx Normal Neck: Full Range of Motion, Normal Inspection, Non Tender, Supple, Carotid Bruit Respiratory: Chest Non Tender, Lungs Clear, Normal Breath Sounds, No Accessory Muscle Use, No Respiratory Distress, Decreased Breath Sounds Cardiovascular: Regular Rate, Rhythm, No Edema, No Gallop, No JVD, No Murmur, Normal Peripheral Pulses Gastrointestinal: Normal Bowel Sounds, No Organomegaly, No Pulsatile Mass, Non Tender, Soft Back: Normal Inspection, No CVA Tenderness, No Vertebral Tenderness Extremity: Normal Capillary Refill, Normal Inspection, Normal Range of Motion, Non Tender, No Calf Tenderness, No Pedal Edema Neurologic/Psychiatric: Alert, Oriented x3, No Motor/Sensory Deficits, Normal Mood/Affect, patternmaker all around II-XII Norm as Tested, Abnormal Gait (Nonweightbearing on the left), Motor Weakness (Generalized decreased strength 4/5) Skin: Normal Color, Warm/Dry Lymphatic: No Adenopathy Results/Procedures Lab Laboratory Tests 08/02/21 05:25 Patient resulted labs reviewed. FIM Transfers Therapy Code Descriptions/Definitions Functional [place] Measure: 0=Not Assessed/NA 4=Minimal Assistance 1=Total Assistance 5=Supervision or Setup 2=Maximal Assistance 6=Modified [place] 3=Moderate Assistance 7=Complete IndependenceSCALE: Activities may be completed with or without assistive devices. 8-Pscybhliqq-ahhwzex completes the activity by him/herself with no assistance from a helper. 5-Set-up or Clean-up Assistance-helper sets up or cleans up; patient completes activity. [place] assists only prior to or following the activity. 4-Supervision or Touching Assistance-helper provides verbal cues and/or to uching/steadying and/or contact guard assistance as patient completes activity. Assistance may be provided throughout the activity or intermittently. 3-Partial/Moderate Assistance-helper does LESS THAN HALF the effort. [place] lifts, holds or supports trunk or limbs, but provides less than half the effort. 2-Substantial/Maximal Assistance-helper does MORE THAN HALF the effort. [place] lifts or holds trunk or limbs and provides more than half the effort. 0-Ckmsjfcwu-eeoxpm does ALL the effort. Patient does none of the effort to complete the activity. Or, the assistance of 2 or more helpers is required for the patient to complete the activity. If activity was not attempted, code reason: 7-Patient Refused. 9-Not Applicable-not attempted and the patient did not perform the activity before the current illness, exacerbation or injury. 10-Not Attempted due to Environmental Limitations-(lack of equipment, weather restraints, etc.). 88-Not Attempted due to Medical Conditions or Safety Concerns. Roll Left to Right (QC): 6 Sit to Lying (QC): 4 Sit to Stand (QC): 4 Chair/Wuk-zn-Tdoeu Xfer(QC): 4 Car Transfer (QC): 3 Gait Training Does the Patient Walk?: Yes Distance: 2' Walk 10 feet (QC): 88 Walk 50 ft with 2 Turns(QC): 88 Walk 150 ft (QC): 88 Walking 10ft/uneven surface-QC: 88 Gait Persons Needed: 1 Gait Assistive Device: FWW Wheelchair Training Does the Pt Use a Wheelchair?: Yes Wheel 50 ft with 2 turns (QC): 4 Wheel 150 ft (QC): 4 Type of Wheelchair: Manual Stair Training 1 Step (curb) (QC): 88 4 Steps (QC): 88 12 Steps (QC): 88 Balance Picking up an Object (QC): 88 ADL-Treatment Eating (QC): 5 (Pt required set up in opening containers due to self limiting behaviors, able to eat using regular utensils.) Oral Hygiene (QC): 5 (Supplies gathered then pt able to complete by self sitting at sink.) Bathing Location: L Arm, R Arm, L Upper Leg, R Upper Leg, L Lower Leg (including foot) (unable to wash because of CAM), R Lower Leg (including foot), Chest, Abdomen, Buttocks, Perineal Area Shower/Bathe Self (QC): 5 (After set up, pt sitting on shower bench using hand held shower, grabbars. CAM boot covered for shower.) Upper Body Dressing (QC): 5 (Set up) Lower Body Dressing (QC): 2 (Assist to thread over ankles while seated due to CAM boot assist to hike over hips in standing using grabbars for stability. ) On/Off Footwear (QC): 2 (Max A don/doffing R sock and shoe due to self limiting behavior. 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 Conject 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 lifetime non-smoker Hypothyroidism Rheumatoid arthritis Seasonal allergies History of GI bleed History pneumonia Osteoporosis Recent compression fractures and new x-rays could confirm acute on chronic fractures Plan: Inpatient rehab protocol Bowel regimen Pain control 07/24/2021: Continue pain control Aggressive rehab 07/25/2021: Check urinalysis Supportive care Pain control 07/26/2021: Ear exam normal Aggressive therapy 07/27/2021: Supportive care Pain control 07/28/21: Supportive care Pain control 07/29/2021: Spine x-rays reviewed Slow recovery 07/30/21: Monitor pain Kpad Diclofenac gel 07/31/21: Monitor closely Pain management 08/01/21: Improved transfers Monitor closely 08/02/2021: Improved status Evaluate disposition (1) Ankle fracture, left (2) Pulmonary fibrosis (3) Rheumatoid arthritis (4) Hypothyroidism (5) Hypertension (6) Advanced age (7) Frail elderly (8) Risk for falls KYLAH DELGADILLO DO Aug 02, 2021 06:44
[2021-08-02 07:34] VITALS: BP 131/62
[2021-08-02] MEDS: CALCIUM CARB + VIT D 600 MG (CALCARB + D) TAB PO SCH ×2 (07:53→17:11)
[2021-08-02] MEDS: GABAPENTIN 100 MG (NEURONTIN) CAP PO SCH ×3 (07:53→21:25)
[2021-08-02] MEDS: sulfaSALAzine 500 MG (AZULFIDINE) TAB PO SCH ×2 (07:53→21:25)
[2021-08-02] MEDS: amLODIPine 10 MG (NORVASC) TAB PO SCH (07:53)
[2021-08-02] MEDS: DOCUSATE SODIUM 100 MG (COLACE) CAP PO SCH ×2 (07:53→21:25)
[2021-08-02] MEDS: VITAMIN D3 10 MCG (400 UNITS) TABLET PO SCH (07:53)
[2021-08-02] MEDS: DICLOFENAC 1% GEL 100 GM (VOLTAREN) TUBE TOP SCH ×4 (07:53→21:26)
[2021-08-02] MEDS: LORATADINE (CLARITIN) 10 MG TAB PO SCH (07:53)
[2021-08-02] MEDS: lisINopril 20 MG (PRINIVIL) TABLET PO SCH ×2 (07:53→21:25)
[2021-08-02] MEDS: FLUTICASONE NASAL SPRAY (FLONASE) 16 GM BTL NS SCH (07:54)
[2021-08-02] MEDS: SENNOSIDES 8.6 MG (SENOKOT) TAB PO SCH (08:08)
[2021-08-02] MEDS: polyethylene glycoL POWDER 17 GM (MIRALAX) PACK PO SCH (08:08)
--- NOTE | 2021-08-02 09:10 | Progress Note - Urology ---
Progress Note-Urology Progress Notes/Assess & Plan Progress/Assessment & Plan STABLE STEWART. PLAN DECREASE PREMARIN VAG CREAM TO 3 TIMES A WEEK Final Diagnosis INCONTINENCE, OAB, AND VAGINITIS HIGINIO MOY MD Aug 02, 2021 09:10
--- NOTE | 2021-08-02 09:11 | Progress Note - Urology ---
Progress Note-Urology Progress Notes/Assess & Plan Progress/Assessment & Plan PLEASE KEEP PATIENT ON DETROL LA 4 DAILY WHEN DISCHARGED. WE WILL SEE PRN Final Diagnosis INCONTINENCE HIGINIO MOY MD Aug 02, 2021 09:11
[2021-08-02] MEDS: RT-BUDESONIDE NEBS 0.5 MG/2ML (PULMICORT) AMP IH SCH ×2 (10:18→18:29)
--- NOTE | 2021-08-02 12:18 | Occupational Ther Daily Note ---
OT Current Status-Daily Note Subjective Pt EOB eating breakfast. Reports minor back pain. Nrsg administered medication. Pt agrees to therapy. Mental Status/Objective Patient Orientation: Person, Place, Time, Situation Attachments: Other-See Comments (CAM) ADL-Treatment Pt agrees to shower. EOB->w/c with FWW for stability CGA. Pt w/c<->shower bench using grabbars CGA. CAM boot covered during shower. Assist given to don R sock due to time constraints. After sssion, pt seated in recliner with call light/phone within reach. All needs met in room. Therapy Code Descriptions/Definitions Functional [place] Measure: 0=Not Assessed/NA 4=Minimal Assistance 1=Total Assistance 5=Supervision or Setup 2=Maximal Assistance 6=Modified [place] 3=Moderate Assistance 7=Complete IndependenceSCALE: Activities may be completed with or without assistive devices. 6-Gazosviqhr-fzqaahs completes the activity by him/herself with no assistance fr om a helper. 5-Set-up or Clean-up Assistance-helper sets up or cleans up; patient completes activity. [place] assists only prior to or following the activity. 4-Supervision or Touching Assistance-helper provides verbal cues and/or touching/steadying and/or contact guard assistance as patient completes activity. Assistance may be provided throughout the activity or intermittently. 3-Partial/Moderate Assistance-helper does LESS THAN HALF the effort. [place] lifts, holds or supports trunk or limbs, but provides less than half the effort. 2-Substantial/Maximal Assistance-helper does MORE THAN HALF the effort. [place] lifts or holds trunk or limbs and provides more than half the effort. 5-Iizlvxugi-yzbtgr does ALL the effort. Patient does none of the effort to complete the activity. Or, the assistance of 2 or more helpers is required for the patient to complete the activity. If activity was not attempted, code reason: 7-Patient Refused. 9-Not Applicable-not attempted and the patient did not perform the activity before the current illness, exacerbation or injury. 10-Not Attempted due to Environmental Limitations-(lack of equipment, weather restraints, etc.). 88-Not Attempted due to Medical Conditions or Safety Concerns. Eating (QC): 6 (Pt opens containers and uses regular utensils by self.) Oral Hygiene (QC): 6 (Pt completes seated in w/c by sink by self.) Bathing Location: L Arm, R Arm, L Upper Leg, R Upper Leg, R Lower Leg (including foot), Chest, Abdomen, Buttocks, Perineal Area Shower/Bathe Self (QC): 5 (Pt completes all but lower L leg, due to CAM boot, with LHS and handheld shower with set up on turning water on.) Upper Body Dressing (QC): 5 (Pt able to don/dof UB clothing with supplies gathered.) Lower Body Dressing (QC): 3 (Pt threads over right foot, assist for threading over CAM while seated. Pt able to pull pants up and hike over hips using grabbars while standing CGA.) Toileting Hygiene (QC): 4 (Pt able to manage clothing while standing using grabbars for stability CGA, and complete cleansing tomasa area and buttock while seated.) Toilet Transfer (QC): 4 (CGA) OT Short Term Goals Short Term Goals Time Frame: Aug 04, 2021 Eatin Oral hygiene: 4 Toileting hygiene: 4 Shower/bathe self: 4 Upper body dressin Lower body dressin Putting on/taking off footwear: 3 OT Hvac Sales Engineer Goals Hvac Sales Engineer Goals Time Frame: Aug 14, 2021 Eating (QC): 5 Oral Hygiene (QC): 5 Toileting Hygiene (QC): 6 Shower/Bathe Self (QC): 5 Upper Body Dressing (QC): 5 Lower Body Dressing (QC): 5 On/Off Footwear (QC): 4 1=Demonstrate adherence to instructed precautions during ADL tasks. 2=Patient will verbalize/demonstrate understanding of assistive devices/modifications for ADL. 3=Patient will improve strength/tolerance for activity to enable patient to perform ADL's. OT Education/Plan Problem List/Assessment Assessment: Decreased Activ Tolerance, Impaired Funct Balance, Impaired Self- Care Skills Discharge Recommendations Plan/Recommendations: Continue POC Treatment Plan/Plan of Care Patient would benefit from OT for education, treatment and training to promote independence in ADL's, mobility, safety and/or upper extremity function for ADL's. Plan of Care: ADL Retraining, Functional Mobility, Group Exercise/Act as Ind, Orthotic Fitting/Training, UE Funct Exercise/Act Treatment Duration: Aug 14, 2021 Frequency: At least 5 of 7 days/Wk (IRF) Estimated Hrs Per Day: 1.5 hours per day Agreement: Yes Rehab Potential: Guarded Time/GCodes Start Time: 07:30 Stop Time: 09:00 Total Time Billed (hr/min): 90 Billed Treatment Time 1 visit-ADL 6 (90 min) SANTOS NOLASCO Aug 02, 2021 12:18
--- NOTE | 2021-08-02 12:24 | Physical Therapy Daily Note ---
PT Daily Note-Current Subjective Pt sitting in recliner upon arrival. Pt agrees to PT. Pain Location: Lower Location Body Site: Back Pain Description: Ache Comment: Reports back pain but doesn't rate Mental Status Patient Orientation: Person, Place, Time, Situation Attachments: Other-See Comments (CAM boot) Transfers SCALE: Activities may be completed with or without assistive devices. 9-Yextishslj-mpkdvpf completes the activity by him/herself with no assistance from a helper. 5-Set-up or Clean-up Assistance-helper sets up or cleans up; patient completes activity. [place] assists only prior to or following the activity. 4-Supervision or Touching Assistance-helper provides verbal cues and/or touching/steadying and/or contact guard assistance as patient completes activity. Assistance may be provided throughout the activity or intermittently. 3-Partial/Moderate Assistance-helper does LESS THAN HALF the effort. [place] lifts, holds or supports trunk or limbs, but provides less than half the effort. 2-Substantial/Maximal Assistance-helper does MORE THAN HALF the effort. [place] lifts or holds trunk or limbs and provides more than half the effort. 4-Wnxraboif-fouuop does ALL the effort. Patient does none of the effort to complete the activity. Or, the assistance of 2 or more helpers is required for the patient to complete the activity. If activity was not attempted, code reason: 7-Patient Refused. 9-Not Applicable-not attempted and the patient did not perform the activity before the current illness, exacerbation or injury. 10-Not Attempted due to Environmental Limitations-(lack of equipment, weather restraints, etc.). 88-Not Attempted due to Medical Conditions or Safety Concerns. Sit to Stand (QC): 4 Weight Bearing Left Lower Extremity: Left Weight Bearing/Tolerated WBAT when wearing the cam boot Gait Training Does the Patient Walk?: Yes Distance: 5' Gait Persons Needed: 1 Gait Assistive Device: FWW VC for advancing FWW before stepping forward to avoid walking against FWW as well as hand placement on FWW but pt doesn't comply reporting it is more comfortable to walk as she is. Wheelchair Training Does the Pt Use a Wheelchair?: Yes Wheel 50 ft with 2 turns (QC): 5 Wheel 150 ft (QC): 5 Type of Wheelchair: Manual Exercises Supine Ex: Ankle pumps, Quad Set, Glut sets, Heel Slides, Straight leg raise, Hip abd/add Supine Reps: 15 Seated Therapy Exercises: Ankle pumps, Long arc quads, Hip flexion, Glut set Seated Reps: 10 Treatments [id number]: Pt completes Supine & Seated EX with RB as needed. Pt then transfers to standing using FWW. Pt amb. ~ 5' then asks to transfer to [facility] due to pain in back. Pt propels [facility] in hallway before taking RB. Pt returns to room to rest in recliner with all needs met, call light in hand. Pt asks for CAM boot and LOIS wrap off for short time while sitting in recliner. Nurse is notified. [id number]: Pt completed Supine & Seated Ex w/2# ankle weight for resistance. Pt takes RB as needed. Pt repositioned to comfort. All needs met, call light in hand. Assessment Current Status: Fair Progress [id number]: Pt self limits due to pain in back. Pt is WBAT but won't WB for than PWB to advance R LE. [id number]: Back pain again limits participation in EX. PT Short Term Goals Short Term Goals Time Frame: Jul 30, 2021 Roll Left & Right: 6 Sit to lyin Lying to sitting on side of be: 3 Sit to stand: 4 Chair/zvh-rm-qqzoz transfer: 4 Walk 10 feet: 3 PT Flat Bed Operator Goals Senior Care Goals PT Senior Care Goals Time Frame: Aug 13, 2021 Roll Left & Right (QC): 6 Sit to Lying (QC): 6 Lying-Sitting on Side/Bed(QC): 6 Sit to Stand (QC): 4 Chair/Acv-ds-Kgkfi Xfer(QC): 4 Toilet Transfer (QC): 4 Car Transfer (QC): 4 Does the Patient Walk: Yes Walk 10 feet (QC): 4 Walk 50ft with 2 Turns (QC): 4 Walk 150 ft (QC): 88 Walking 10ft on Uneven Surface: 4 1 Step (curb) (QC): 4 4 Steps (QC): 4 12 Steps (QC): 88 Picking up an Object (QC): 4 Wheel 50 feet with 2 turns (QC: 9 Wheel 150 feet: 9 PT Plan Problem List Problem List: Activity Tolerance, Functional Strength, Safety, Balance, Gait Treatment/Plan Treatment Plan: Continue Plan of Care Treatment Plan: Bed Mobility, Education, Functional Activity Dorothea, Functional Strength, Group Therapy, Gait, Safety, Therapeutic Exercise, Transfers Treatment Duration: Aug 13, 2021 Frequency: At least 5 of 7 days/Wk (IRF) Estimated Hrs Per Day: 1.5 hours per day Patient and/or Family Agrees t: Yes Safety Risks/Education Patient Education: Gait Training, Transfer Techniques, Correct Positioning, W/C Management, Safety Issues Teaching Recipient: Patient Teaching Methods: Discussion Response to Teaching: Verbalize Understanding, Reinforcement Needed Time/GCodes Time In: 1045 Time Out: 1145 Total Billed Treatment Time: 60 Total Billed Treatment [id number]: 1, [facility] x2 (25m), EX (20m) & FA (15m) [id number]: 1, EX x2 (30m) JEFF GUSTAFSON CORN BREEDER Aug 02, 2021 12:23
[2021-08-02 13:36] VITALS: BP 131/62
[2021-08-02 20:42] VITALS: BP 128/60
[2021-08-02] MEDS: TOLTERODINE LA 4 MG (DETROL) CAP PO SCH (21:25)
[2021-08-03] MEDS: LEVOTHYROXINE 125 MCG (LEVOTHROID) TABLET PO SCH (06:18)
[2021-08-03] MEDS: MULTIVIT W/MINERALS TAB (THERAGRAN M) PO SCH (06:18)
[2021-08-03] MEDS: ENOXAPARIN 40 MG/0.4 ML (LOVENOX) SYR SC SCH (06:18)
[2021-08-03] MEDS: PANTOPRAZOLE 40 MG (PROTONIX) TAB PO SCH (06:18)
[2021-08-03 07:32] VITALS: BP 141/63
[2021-08-03] MEDS: GABAPENTIN 100 MG (NEURONTIN) CAP PO SCH ×3 (08:14→20:51)
[2021-08-03] MEDS: DOCUSATE SODIUM 100 MG (COLACE) CAP PO SCH ×2 (08:14→20:51)
[2021-08-03] MEDS: DICLOFENAC 1% GEL 100 GM (VOLTAREN) TUBE TOP SCH ×4 (08:14→20:52)
[2021-08-03] MEDS: CALCIUM CARB + VIT D 600 MG (CALCARB + D) TAB PO SCH ×2 (08:14→18:08)
[2021-08-03] MEDS: amLODIPine 10 MG (NORVASC) TAB PO SCH (08:15)
[2021-08-03] MEDS: VITAMIN D3 10 MCG (400 UNITS) TABLET PO SCH (08:15)
[2021-08-03] MEDS: lisINopril 20 MG (PRINIVIL) TABLET PO SCH ×2 (08:15→20:58)
[2021-08-03] MEDS: LORATADINE (CLARITIN) 10 MG TAB PO SCH (08:15)
[2021-08-03] MEDS: SENNOSIDES 8.6 MG (SENOKOT) TAB PO SCH (08:15)
[2021-08-03] MEDS: sulfaSALAzine 500 MG (AZULFIDINE) TAB PO SCH ×2 (08:15→20:51)
[2021-08-03] MEDS: FLUTICASONE NASAL SPRAY (FLONASE) 16 GM BTL NS SCH (08:16)
--- NOTE | 2021-08-03 08:52 | PM&R Progress Note ---
Subjective HPI/CC On Admission Date Seen by Provider: Aug 03, 2021 Time Seen by Provider: 08:50 Subjective/Events-last exam 08/03/2021: Pt doing very well Podiatry consult requested Constipation will be resolved 08/02/2021: No major issues Pain is pretty well controlled Crackles from pulmonary fibrosis noted Nebulizer treatments ordered prn Checked meds and labs 08/01/21: Patient doing well No new pain issues Talked about kyphoplasty again her request Checked meds and labs 07/31/21: No major issues Pain reported "everywhere" Kyphoplasty not an option since she is mobilizing well 07/30/21: Patient feels better Moving more Back pain is less Told her compression fractures are still present and likely her increased activity has flared her old fractures No issues 07/29/2021: Patient doing well Having a lot of pain in her back after therapy She did report compression fractures 6 weeks ago so we will get x-rays K pad and diclofenac gel will be considered Patient very well may require retirement placement due to now limiting back pain and left leg issue Patient did say they did discuss kyphoplasty at that time 07/28/21: Pt doing really well Incontinence will require urology consult Pt doing very well but self limiting 07/27/2021: Pt doing well No major issues Lisinopril given but not Norvasc due to hypotension Med alert will be needed when she goes home 07/26/2021: Patient doing well Feels like her ears are muffled Otoscope exam revealed no significant abnormality Patient doing well otherwise Labs reviewed 07/25/2021: Patient doing well Think she has a bladder infection Urinalysis and in and out cath ordered Transferring pretty well Pain is well controlled 07/24/2021: Patient doing very well Bowels are moving Change Claritin to daily since she takes it that way at home Pain is well controlled Participating in therapy Review of Systems General: Fatigue, Malaise Gastrointestinal: Constipation Musculoskeletal: foot pain Objective Exam Vital Signs Vital Signs Date Time Temp Pulse Resp B/P (MAP) Pulse Ox O2 Delivery O2 Flow Rate FiO2 08/03/21 21:15 Room Air 08/03/21 20:15 37.0 76 20 126/78 (94) 92 07/30/21 11:06 21 Capillary Refill : General Appearance: No Apparent Distress, WD/WN, Chronically ill, Thin, Other (Frail) HEENT: PERRL/EOMI, Normal ENT Inspection, Pharynx Normal Neck: Full Range of Motion, Normal Inspection, Non Tender, Supple, Carotid Bruit Respiratory: Chest Non Tender, Lungs Clear, Normal Breath Sounds, No Accessory Muscle Use, No Respiratory Distress, Decreased Breath Sounds Cardiovascular: Regular Rate, Rhythm, No Edema, No Gallop, No JVD, No Murmur, Normal Peripheral Pulses Gastrointestinal: Normal Bowel Sounds, No Organomegaly, No Pulsatile Mass, Non Tender, Soft Back: Normal Inspection, No CVA Tenderness, No Vertebral Tenderness Extremity: Normal Capillary Refill, Normal Inspection, Normal Range of Motion, Non Tender, No Calf Tenderness, No Pedal Edema Neurologic/Psychiatric: Alert, Oriented x3, No Motor/Sensory Deficits, Normal Mood/Affect, carbonizer tester II-XII Norm as Tested, Abnormal Gait (Nonweightbearing on the left), Motor Weakness (Generalized decreased strength 4/5) Skin: Normal Color, Warm/Dry Lymphatic: No Adenopathy Results/Procedures Lab Patient resulted labs reviewed. FIM Transfers Therapy Code Descriptions/Definitions Functional [place] Measure: 0=Not Assessed/NA 4=Minimal Assistance 1=Total Assistance 5=Supervision or Setup 2=Maximal Assistance 6=Modified [place] 3=Moderate Assistance 7=Complete IndependenceSCALE: Activities may be completed with or without assistive devices. 0-Onpiuesavu-cetmjds completes the activity by him/herself with no assistance from a helper. 5-Set-up or Clean-up Assistance-helper sets up or cleans up; patient completes activity. [place] assists only prior to or following the activity. 4-Supervision or Touching Assistance-helper provides verbal cues and/or touching/steadying and/or contact guard assistance as patient completes activity. Assistance may be provided throughout the activity or intermittently. 3-Partial/Moderate Assistance-helper does LESS THAN HALF the effort. [place] lifts, holds or supports trunk or limbs, but provides less than half the effort. 2-Substantial/Maximal Assistance-helper does MORE THAN HALF the effort. [place] lifts or holds trunk or limbs and provides more than half the effort. 4-Yzteemhzk-xeajbw does ALL the effort. Patient does none of the effort to complete the activity. Or, the assistance of 2 or more helpers is required for the patient to complete the activity. If activity was not attempted, code reason: 7-Patient Refused. 9-Not Applicable-not attempted and the patient did not perform the activity before the current illness, exacerbation or injury. 10-Not Attempted due to Environmental Limitations-(lack of equipment, weather restraints, etc.). 88-Not Attempted due to Medical Conditions or Safety Concerns. Roll Left to Right (QC): 6 Sit to Lying (QC): 4 Sit to Stand (QC): 4 Chair/Wfb-zs-Gtsal Xfer(QC): 4 Car Transfer (QC): 3 Gait Training Does the Patient Walk?: Yes Distance: 5' Walk 10 feet (QC): 88 Walk 50 ft with 2 Turns(QC): 88 Walk 150 ft (QC): 88 Walking 10ft/uneven surface-QC: 88 Gait Persons Needed: 1 Gait Assistive Device: FWW Wheelchair Training Does the Pt Use a Wheelchair?: Yes Wheel 50 ft with 2 turns (QC): 5 Wheel 150 ft (QC): 5 Type of Wheelchair: Manual Stair Training 1 Step (curb) (QC): 88 4 Steps (QC): 88 12 Steps (QC): 88 Balance Picking up an Object (QC): 88 ADL-Treatment Eating (QC): 6 (Pt opens containers and uses regular utensils by self.) Oral Hygiene (QC): 6 (Pt completes seated in w/c by sink by self.) Bathing Location: L Arm, R Arm, L Upper Leg, R Upper Leg, R Lower Leg (including foot), Chest, Abdomen, Buttocks, Perineal Area Shower/Bathe Self (QC): 5 (Pt completes all but lower L leg, due to CAM boot, with LHS and handheld shower with set up on turning water on.) Upper Body Dressing (QC): 5 (Pt able to don/dof UB clothing with supplies gathered.) Lower Body Dressing (QC): 3 (Pt threads over right foot, assist for threading over CAM while seated. Pt able to pull pants up and hike over hips using grabbars while standing CGA.) Toileting Hygiene (QC): 4 (Pt able to manage clothing while standing using grabbars for stability CGA, and complete cleansing tomasa area and buttock while seated.) Toilet Transfer (QC): 4 (CGA) Assessment/Plan Assessment and Plan Assess & Plan/Chief Complaint Assessment: Left ankle fracture nonweightbearing Advanced age Pulmonary fibrosis 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 in[employer] and [employer] 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 lifetime non-smoker Hypothyroidism Rheumatoid arthritis Seasonal allergies History of GI bleed History pneumonia Osteoporosis Recent compression fractures and new x-rays could confirm acute on chronic fractures Plan: Inpatient rehab protocol Bowel regimen Pain control 07/24/2021: Continue pain control Aggressive rehab 07/25/2021: Check urinalysis Supportive care Pain control 07/26/2021: Ear exam normal Aggressive therapy 07/27/2021: Supportive care Pain control 07/28/21: Supportive care Pain control 07/29/2021: Spine x-rays reviewed Slow recovery 07/30/21: Monitor pain Kpad Diclofenac gel 07/31/21: Monitor closely Pain management 08/01/21: Improved transfers Monitor closely 08/02/2021: Improved status Evaluate disposition 08/03/2021: Supportive care Podiatry consult Constipation management (1) Ankle fracture, left (2) Pulmonary fibrosis (3) Rheumatoid arthritis (4) Hypothyroidism (5) Hypertension (6) Advanced age (7) Frail elderly (8) Risk for falls KYLAH DELGADILLO DO Aug 03, 2021 08:52
[2021-08-03] MEDS: polyethylene glycoL POWDER 17 GM (MIRALAX) PACK PO SCH (09:29)
--- NOTE | 2021-08-03 09:57 | Progress Note - Urology ---
Progress Note-Urology Progress Notes/Assess & Plan Progress/Assessment & Plan STATUS QUO STEWART Final Diagnosis INCONTINENCE, OAB, AND VAGINITIS HIGINIO MOY MD Aug 03, 2021 09:57
--- NOTE | 2021-08-03 09:58 | Occupational Ther Daily Note ---
OT Current Status-Daily Note Subjective Pt supine in bed. 4/10 pain reported in back and side. Nrsg notified and medication given. Pt agrees to therapy. Mental Status/Objective Patient Orientation: Person, Place, Time, Situation Attachments: Other-See Comments (CAM) ADL-Treatment Pt EOB->BSC using FWW CGA. After toileting, Pt propelled in w/c to bathroom sink to do oral care/grooming. Skilled instruction given on use of dressing stick and sock aide with pt demonstrating good return on skilled instruction. w/c<->BSC over toilet CGA using grabbars for stability. Pt able to manage clothing and cleanse buttocks by self. After session, pt sitting in w/c with phone/call light within reach. All needs met. Therapy Code Descriptions/Definitions Functional [place] Measure: 0=Not Assessed/NA 4=Minimal Assistance 1=Total Assistance 5=Supervision or Setup 2=Maximal Assistance 6=Modified [place] 3=Moderate Assistance 7=Complete IndependenceSCALE: Activities may be completed with or without assistive devices. 5-Ankuzknumr-dclsbak completes the activity by him/herself with no assistance from a helper. 5-Set-up or Clean-up Assistance-helper sets up or cleans up; patient completes activity. [place] assists only prior to or following the activity. 4-Supervision or Touching Assistance-helper provides verbal cues and/or touching/steadying and/or contact guard assistance as patient completes activity. Assistance may be provided throughout the activity or intermittently. 3-Partial/Moderate Assistance-helper does LESS THAN HALF the effort. [place] lifts, holds or supports trunk or limbs, but provides less than half the effort. 2-Substantial/Maximal Assistance-helper does MORE THAN HALF the effort. [place] lifts or holds trunk or limbs and provides more than half the effort. 0-Bvmqzhgoe-jxadkg does ALL the effort. Patient does none of the effort to complete the activity. Or, the assistance of 2 or more helpers is required for the patient to complete the activity. If activity was not attempted, code reason: 7-Patient Refused. 9-Not Applicable-not attempted and the patient did not perform the activity before the current illness, exacerbation or injury. 10-Not Attempted due to Environmental Limitations-(lack of equipment, weather restraints, etc.). 88-Not Attempted due to Medical Conditions or Safety Concerns. Oral Hygiene (QC): 5 (Set up, pt needed water turned on to complete oral care/grooming.) Toileting Hygiene (QC): 5 (Pt manages clothing, cleansing done with supplies gathered for BSC near bed.) Toilet Transfer (QC): 4 (CGA using FWW for stability to transfer from EOB to BSC.) Other Treatment Pt propelled to therapy gym to participate in therapeutic exercise to strengthen B UE and increase activity tolerance. 1 lb hand weights were used for B bicep curls 15 sets x2 reps, B internal rotation 15 sets x2 reps, and modified shoulder flexion to 45* 10 sets x2 reps. Pt propelled back to bathroom in room. Education OT Patient Education: Use of adapted equipment Teaching Recipient: Patient Teaching Methods: Demonstration, Discussion Response to Teaching: Verbalize Understanding, Return Demonstration OT Short Term Goals Short Term Goals Time Frame: Aug 04, 2021 Eatin Oral hygiene: 4 Toileting hygiene: 4 Shower/bathe self: 4 Upper body dressin Lower body dressin Putting on/taking off footwear: 3 OT Workers Compensation Claims Supervisor Goals [facility] Goals Time Frame: Aug 14, 2021 Eating (QC): 5 Oral Hygiene (QC): 5 Toileting Hygiene (QC): 6 Shower/Bathe Self (QC): 5 Upper Body Dressing (QC): 5 Lower Body Dressing (QC): 5 On/Off Footwear (QC): 4 1=Demonstrate adherence to instructed precautions during ADL tasks. 2=Patient will verbalize/demonstrate understanding of assistive devices/modifications for ADL. 3=Patient will improve strength/tolerance for activity to enable patient to perform ADL's. OT Education/Plan Problem List/Assessment Assessment: Decreased Activ Tolerance, Decreased UE Strength, Impaired Funct Balance, Impaired Self-Care Skills Discharge Recommendations Plan/Recommendations: Continue POC Treatment Plan/Plan of Care Patient would benefit from OT for education, treatment and training to promote independence in ADL's, mobility, safety and/or upper extremity function for ADL's. Plan of Care: ADL Retraining, Functional Mobility, Group Exercise/Act as Ind, Orthotic Fitting/Training, UE Funct Exercise/Act Treatment Duration: Aug 14, 2021 Frequency: At least 5 of 7 days/Wk (IRF) Estimated Hrs Per Day: 1.5 hours per day Agreement: Yes Rehab Potential: Guarded Time/GCodes Start Time: 07:30 Stop Time: 09:00 Total Time Billed (hr/min): 90 Billed Treatment Time 1 Visit-ADL 4 ( 60 min) EX 1 (15 min) FA 1 (15 min) SANTOS NOLASCO Aug 03, 2021 09:58
[2021-08-03] MEDS: RT-BUDESONIDE NEBS 0.5 MG/2ML (PULMICORT) AMP IH SCH (10:03)
--- NOTE | 2021-08-03 11:01 | Physical Therapy Daily Note ---
PT Daily Note-Current Subjective Pt sitting in [facility] in room upon arrival. Pt agrees to PT. Pain Location: Lower Location Body Site: Back Pain Description: Ache Comment: Reports buy doesn't rate pain in low back w/walking Mental Status Patient Orientation: Person, Place, Situation Transfers SCALE: Activities may be completed with or without assistive devices. 5-Rsfhnjmhrx-dlsiasl completes the activity by him/herself with no assistance from a helper. 5-Set-up or Clean-up Assistance-helper sets up or cleans up; patient completes activity. [place] assists only prior to or following the activity. 4-Supervision or Touching Assistance-helper provides verbal cues and/or touching/steadying and/or contact guard assistance as patient completes activity. Assistance may be provided throughout the activity or intermittently. 3-Partial/Moderate Assistance-helper does LESS THAN HALF the effort. [place] lifts, holds or supports trunk or limbs, but provides less than half the effort. 2-Substantial/Maximal Assistance-helper does MORE THAN HALF the effort. [place] lifts or holds trunk or limbs and provides more than half the effort. 9-Hvbokniiq-fplwkw does ALL the effort. Patient does none of the effort to complete the activity. Or, the assistance of 2 or more helpers is required for the patient to complete the activity. If activity was not attempted, code reason: 7-Patient Refused. 9-Not Applicable-not attempted and the patient did not perform the activity before the current illness, exacerbation or injury. 10-Not Attempted due to Environmental Limitations-(lack of equipment, weather restraints, etc.). 88-Not Attempted due to Medical Conditions or Safety Concerns. Sit to Stand (QC): 4 Toilet Transfer (QC): 4 Weight Bearing Left Lower Extremity: Left Weight Bearing/Tolerated WBAT when wearing the cam boot Gait Training Does the Patient Walk?: Yes Distance: 2' Gait Persons Needed: 1 Gait Assistive Device: FWW Wheelchair Training Does the Pt Use a Wheelchair?: Yes Wheel 50 ft with 2 turns (QC): 5 Wheel 150 ft (QC): 5 Type of Wheelchair: Manual Exercises Seated Therapy Exercises: Ankle pumps, Long arc quads, Hip flexion, Hip abd/add, Glut set Seated Reps: 10 NuStep Minutes: 15 NuStep Workload: 4 Treatments Propelled [facility] in hallway & to Therapy Gym. Pt completes Seated EX then uses N uStep for 15m at WL 4. Pt takes RB before attempting amb. Pt is only able to amb. 2' before stating it is too difficult to walk and needs to sit. Pt propels WCH in hallway and returns to room t o rest in recliner. All needs met, call light in hand. Assessment Current Status: Poor Progress Pt self limits due to pain in low back. PT Short Term Goals Short Term Goals Time Frame: Jul 30, 2021 Roll Left & Right: 6 Sit to lyin Lying to sitting on side of be: 3 Sit to stand: 4 Chair/wjx-pl-dakvb transfer: 4 Walk 10 feet: 3 PT [place] Goals [facility] Goals PT [place] Goals Time Frame: Aug 13, 2021 Roll Left & Right (QC): 6 Sit to Lying (QC): 6 Lying-Sitting on Side/Bed(QC): 6 Sit to Stand (QC): 4 Chair/Qvc-ly-Essrr Xfer(QC): 4 Toilet Transfer (QC): 4 Car Transfer (QC): 4 Does the Patient Walk: Yes Walk 10 feet (QC): 4 Walk 50ft with 2 Turns (QC): 4 Walk 150 ft (QC): 88 Walking 10ft on Uneven Surface: 4 1 Step (curb) (QC): 4 4 Steps (QC): 4 12 Steps (QC): 88 Picking up an Object (QC): 4 Wheel 50 feet with 2 turns (QC: 9 Wheel 150 feet: 9 PT Plan Problem List Problem List: Activity Tolerance, Functional Strength, Safety, Gait Treatment/Plan Treatment Plan: Continue Plan of Care Treatment Plan: Bed Mobility, Education, Functional Activity [place]othe[place], Functional Strength, Group Therapy, Gait, Safety, Therapeutic Exercise, Transfers Treatment Duration: Aug 13, 2021 Frequency: At least 5 of 7 days/Wk (IRF) Estimated Hrs Per Day: 1.5 hours per day Patient and/or Family Agrees t: Yes Safety Risks/Education Patient Education: Gait Training, Correct Positioning, Safety Issues Teaching Recipient: Patient Teaching Methods: Discussion Response to Teaching: Reinforcement Needed Time/GCodes Time In: 900 Time Out: 1000 Total Billed Treatment Time: 60 Total Billed Treatment 1, EX x2 (30m), WCH (15m) & FA (15m) JEFF GUSTAFSON BIAS CUTTING MACHINE OPERATOR VERTICAL Aug 03, 2021 11:01
--- NOTE | 2021-08-03 15:35 | Physical Therapy Daily Note ---
PT Daily Note-Current Subjective Pt sitting in recliner upon arrival. Pt agrees to PT. COAL GETTER highly encourages pt to push self reji. with ambulation to show pt is capable vs alternative of SNF. Pain Location: Lower Location Body Site: Back Pain Description: Ache Comment: Reports but doesn't rate low back and ankle pain while walking Mental Status Patient Orientation: Person, Place, Situation Attachments: Other-See Comments (CAM boot on L LE) Transfers SCALE: Activities may be completed with or without assistive devices. 1-Wgladiqqcc-vfsurvm completes the activity by him/herself with no assistance from a helper. 5-Set-up or Clean-up Assistance-helper sets up or cleans up; patient completes activity. [place] assists only prior to or following the activity. 4-Supervision or Touching Assistance-helper provides verbal cues and/or touching/steadying and/or contact guard assistance as patient completes activity. Assistance may be provided throughout the activity or intermittently. 3-Partial/Moderate Assistance-helper does LESS THAN HALF the effort. [place] lifts, holds or supports trunk or limbs, but provides less than half the effort. 2-Substantial/Maximal Assistance-helper does MORE THAN HALF the effort. [place] lifts or holds trunk or limbs and provides more than half the effort. 4-Byzkcvqfm-hrativ does ALL the effort. Patient does none of the effort to complete the activity. Or, the assistance of 2 or more helpers is required for the patient to complete the activity. If activity was not attempted, code reason: 7-Patient Refused. 9-Not Applicable-not attempted and the patient did not perform the activity before the current illness, exacerbation or injury. 10-Not Attempted due to Environmental Limitations-(lack of equipment, weather restraints, etc.). 88-Not Attempted due to Medical Conditions or Safety Concerns. Sit to Stand (QC): 4 Toilet Transfer (QC): 4 Weight Bearing Left Lower Extremity: Left Weight Bearing/Tolerated WBAT when wearing the cam boot Gait Training Does the Patient Walk?: Yes Distance: 20' Walk 10 feet (QC): 4 Gait Persons Needed: 1 Gait Assistive Device: FWW After encouragement from COAL GETTER, pt WB more like WBAT instead of previous TTWB. Pt is able to walk farther but still reports pain in low back and L ankle. Wheelchair Training Does the Pt Use a Wheelchair?: Yes Wheel 50 ft with 2 turns (QC): 5 Wheel 150 ft (QC): 5 Type of Wheelchair: Manual Treatments TF to standing and amb. short distance before stating she needs to use BSC bef ore having an accident. Pt uses BSC then amb. into hallway. Pt reports pain and needing to sit to rest. Pt propels WCH in hallway then returns to room to rest in recliner. All needs met, call light in hand. Assessment Current Status: Fair Progress Pt still reports pain with ambulation and needs increased amount of encouragement to push self with walking. PT Short Term Goals Short Term Goals Time Frame: Jul 30, 2021 Roll Left & Right: 6 Sit to lyin Lying to sitting on side of be: 3 Sit to stand: 4 Chair/slv-ox-psvql transfer: 4 Walk 10 feet: 3 PT Rotoformer Backtender Goals [facility] Goals PT Rotoformer Backtender Goals Time Frame: Aug 13, 2021 Roll Left & Right (QC): 6 Sit to Lying (QC): 6 Lying-Sitting on Side/Bed(QC): 6 Sit to Stand (QC): 4 Chair/Edu-da-Jvowy Xfer(QC): 4 Toilet Transfer (QC): 4 Car Transfer (QC): 4 Does the Patient Walk: Yes Walk 10 feet (QC): 4 Walk 50ft with 2 Turns (QC): 4 Walk 150 ft (QC): 88 Walking 10ft on Uneven Surface: 4 1 Step (curb) (QC): 4 4 Steps (QC): 4 12 Steps (QC): 88 Picking up an Object (QC): 4 Wheel 50 feet with 2 turns (QC: 9 Wheel 150 feet: 9 PT Plan Problem List Problem List: Activity Tolerance, Functional Strength, Gait Treatment/Plan Treatment Plan: Continue Plan of Care Treatment Plan: Bed Mobility, Education, Functional Activity [place], Functional Strength, Group Therapy, Gait, Safety, Therapeutic Exercise, Transfers Treatment Duration: Aug 13, 2021 Frequency: At least 5 of 7 days/Wk (IRF) Estimated Hrs Per Day: 1.5 hours per day Patient and/or Family Agrees t: Yes Safety Risks/Education Patient Education: Gait Training, Correct Positioning, Safety Issues Teaching Recipient: Patient Teaching Methods: Discussion Response to Teaching: Reinforcement Needed Time/GCodes Time In: 1300 Time Out: 1330 Total Billed Treatment Time: 30 Total Billed Treatment 1, GT (15m) & FA (15m) JEFF GUSTAFSON COAL GETTER Aug 03, 2021 15:35
--- NOTE | 2021-08-03 17:31 | Podiatry Progress Note ---
Standard Progress Note Progress Notes/Assess & Plan Date Seen by a Provider: Aug 03, 2021 Time Seen by a Provider: 17:30 Progress/Assessment & Plan Consultation dictated. Foot care given. Final Diagnosis Peripheral Neuropathy, Onychomycosis, Onychocryptosis, Hallux Valgus, [place], CAITLYN RUIZ DPM Aug 03, 2021 17:31
--- NOTE | 2021-08-03 18:42 | CONSULTATION REPORT ---
DATE OF SERVICE: 08/03/2021 REASON FOR CONSULTATION: Ingrown toenails and multiple foot problems. HISTORY OF PRESENT ILLNESS: The patient is an 81-year-old patient was admitted secondary to rehabilitation after a left ankle fracture, apparently she fell on 07/19/2021 and turned her left ankle. She is apparently not a candidate for surgical intervention and she has been trying to ambulate with a walking boot. Because of the limb length discrepancy with a walking boot, it is causing significant discomfort associated with her hips and back. She is also having issue with the right foot, apparently she slipped and stubbed her right forefoot today as well. The pain has subsided at this point and she reports no open wound. PAST MEDICAL HISTORY: Includes various orthopedic surgeries including a neurectomy and bone removal from the left forefoot, history of pneumonia, pulmonary fibrosis, hypercholesterolemia, hypertension, bladder infection, renal failure, osteoporosis, rheumatoid arthritis and hypothyroidism. ALLERGIES: SHE IS ALLERGIC TO ADHESIVE TAPE, LATEX, MORPHINE AND MOXIFLOXACIN. PHYSICAL EXAMINATION: LOWER EXTREMITY: The patient has 2/4 dorsalis pedis pulse, 2/4 posterior tibial pulse bilaterally. Cap refill time is less than 3 seconds to the hallux bilaterally. She has edema noted to lower extremity, left worse than right, especially around the ankle. NEUROLOGIC: The patient has intact protective sensation with 10 gram monofilament wire examination bilaterally. Diminished vibratory sensation to the forefoot bilaterally. INTEGUMENTARY: The patient has thick yellow dystrophic toenails are right 1 to 5 and left x1 to 5 digits. There is incurvated borders noted to the hallux toenail, left has just at the medial border and on the right, it is the medial and lateral borders. No erythema, edema or gross signs of bacterial infection at this time. Hyperkeratotic lesions are noted to the plantar aspect of the right first toe as well as the left first metatarsal head area. No open wounds, no gross signs of bacterial infection. MUSCULOSKELETAL FINDINGS: The patient has lateral deviation to the right hallux with contracted toes 2 through 5 on the right. She also has foreshortened to the left fourth digit presumably due to orthopedic surgical intervention. The patient does not have a significant limb length discrepancy while sit in the chair, however, when she is ambulatory with the Cam walker or orthopedic walking boot. ASSESSMENT: 1. Idiopathic neuropathy. 2. Onychomycosis. 3. Onychocryptosis bilateral hallux. 4. Hammer digit syndrome. 5. Hallux valgus, right. 6. History of contusion, right foot. 7. Hyperkeratotic lesion. PLAN: Various treatment options were discussed with the patient today. The patient's toenails were debrided today manually mechanically, Betadine applied. Since there were no gross signs of bacterial infection, I do not feel that being aggressive with an ingrown toenail as appropriate at this time. She is welcome to follow up in my clinic as necessary. Her hyperkeratotic lesions were debrided in the same location as described above. Betadine applied. I highly recommend the patient utilize an even up foot assistance on the right lower extremity to make it even between the right and left lower extremity when she is utilizing her Cam walker. The even up is a device that will adhere to her current shoe gear and I gave her the opportunity to ambulate with the hips on the same plane and less chance of hip or back discomfort. However, her ambulation of course is up to her primary care physician as well as her orthopedic surgeon. Job ID: [id number] DocumentID: [id number] Dictated Date: 08/03/2021 17:38:23 Exchange Clerk Date: 08/03/2021 18:42:06 Dictated By: CAITLYN PERRY DPM
[2021-08-03 20:15] VITALS: BP 126/78
[2021-08-03] MEDS: TOLTERODINE LA 4 MG (DETROL) CAP PO SCH (20:51)
[2021-08-03] MEDS: CALCIUM CARBONATE 500 MG (TUMS) TAB.CHEW PO PRN (20:58)
[2021-08-04] MEDS: LEVOTHYROXINE 125 MCG (LEVOTHROID) TABLET PO SCH (05:43)
[2021-08-04] MEDS: ENOXAPARIN 40 MG/0.4 ML (LOVENOX) SYR SC SCH (05:43)
[2021-08-04] MEDS: MULTIVIT W/MINERALS TAB (THERAGRAN M) PO SCH (05:43)
[2021-08-04] MEDS: PANTOPRAZOLE 40 MG (PROTONIX) TAB PO SCH (05:43)
--- NOTE | 2021-08-04 07:33 | Occupational Ther Daily Note ---
OT Current Status-Daily Note Subjective Pt sitting on BSC by bed. Pt complained of pain in R foot under toes. Swelling noted on bottom of foot by toes. Nrsg notified. Pt agrees to therapy. Mental Status/Objective Patient Orientation: Person, Place, Time, Situation Attachments: Other-See Comments (L CAM boot) ADL-Treatment Pt Min A BSC->EOB using FWW for stability. Pt eating breakfast EOB, agrees to sponge bath. Pt sitting EOB to complete sponge bath. Pt cleansed UB, tomasa area, and upper legs. Pt Max A to cleanse lower legs and buttocks. Pt performed oral care EOB after supplies gathered. Pt required Mod A x2 sit->supine in bed. Pt assisted to adjust CAM boot. After session, pt laying supine in bed with phone/call light in reach. All needs met in room. Pt required extended time due to self limiting behaviors. Per pt request to wear hospital gown due to no clean clothing. Son is bringing clothing today. Therapy Code Descriptions/Definitions Functional [place] Measure: 0=Not Assessed/NA 4=Minimal Assistance 1=Total Assistance 5=Supervision or Setup 2=Maximal Assistance 6=Modified [place] 3=Moderate Assistance 7=Complete IndependenceSCALE: Activities may be completed with or without assistive devices. 6-Ospsynookk-cipxqqd completes the activity by him/herself with no assistance from a helper. 5-Set-up or Clean-up Assistance-helper sets up or cleans up; patient completes activity. [place] assists only prior to or following the activity. 4-Supervision or Touching Assistance-helper provides verbal cues and/or touching/steadying and/or contact guard assistance as patient completes activity. Assistance may be provided throughout the activity or intermittently. 3-Partial/Moderate Assistance-helper does LESS THAN HALF the effort. [place] lifts, holds or supports trunk or limbs, but provides less than half the effort. 2-Substantial/Maximal Assistance-helper does MORE THAN HALF the effort. [place] lifts or holds trunk or limbs and provides more than half the effort. 7-Urdtmigfm-opyvqk does ALL the effort. Patient does none of the effort to complete the activity. Or, the assistance of 2 or more helpers is required for the patient to complete the activity. If activity was not attempted, code reason: 7-Patient Refused. 9-Not Applicable-not attempted and the patient did not perform the activity befo re the current illness, exacerbation or injury. 10-Not Attempted due to Environmental Limitations-(lack of equipment, weather re straints, etc.). 88-Not Attempted due to Medical Conditions or Safety Concerns. Eating (QC): 6 (Pt able to open containers and use regular utensils.) Oral Hygiene (QC): 5 (Set up) Bathing Location: L Arm, R Arm, L Upper Leg, R Upper Leg, Chest, Abdomen, Perineal Area On/Off Footwear: 2 (Max A don/dof sock.) Toileting Hygiene (QC): 5 (Set up ) OT Short Term Goals Short Term Goals Time Frame: Aug 04, 2021 Eatin Oral hygiene: 4 Toileting hygiene: 4 Shower/bathe self: 4 Upper body dressin Lower body dressin Putting on/taking off footwear: 3 OT Hand Mica Plate Layer Goals Group Home Goals Time Frame: Aug 14, 2021 Eating (QC): 5 Oral Hygiene (QC): 5 Toileting Hygiene (QC): 6 Shower/Bathe Self (QC): 5 Upper Body Dressing (QC): 5 Lower Body Dressing (QC): 5 On/Off Footwear (QC): 4 1=Demonstrate adherence to instructed precautions during ADL tasks. 2=Patient will verbalize/demonstrate understanding of assistive devices/modifications for ADL. 3=Patient will improve strength/tolerance for activity to enable patient to perf orm ADL's. OT Education/Plan Problem List/Assessment Assessment: Decreased Activ Tolerance, Impaired Funct Balance, Impaired Self- Care Skills Discharge Recommendations Plan/Recommendations: Continue POC Treatment Plan/Plan of Care Patient would benefit from OT for education, treatment and training to promote independence in ADL's, mobility, safety and/or upper extremity function for ADL's. Plan of Care: ADL Retraining, Functional Mobility, Group Exercise/Act as Ind, Orthotic Fitting/Training, UE Funct Exercise/Act Treatment Duration: Aug 14, 2021 Frequency: At least 5 of 7 days/Wk (IRF) Estimated Hrs Per Day: 1.5 hours per day Agreement: Yes Rehab Potential: Guarded Time/GCodes Start Time: 07:00 Stop Time: 08:30 Total Time Billed (hr/min): 90 Billed Treatment Time 1 Visit- ADL 6 (90 min) SANTOS NOLASCO Aug 04, 2021 07:33
[2021-08-04 07:41] VITALS: BP 130/69
[2021-08-04] MEDS: lisINopril 20 MG (PRINIVIL) TABLET PO SCH ×3 (08:08→21:10)
[2021-08-04] MEDS: LORATADINE (CLARITIN) 10 MG TAB PO SCH (08:08)
[2021-08-04] MEDS: CALCIUM CARB + VIT D 600 MG (CALCARB + D) TAB PO SCH ×2 (08:08→17:22)
[2021-08-04] MEDS: sulfaSALAzine 500 MG (AZULFIDINE) TAB PO SCH ×2 (08:08→20:57)
[2021-08-04] MEDS: VITAMIN D3 10 MCG (400 UNITS) TABLET PO SCH (08:08)
[2021-08-04] MEDS: polyethylene glycoL POWDER 17 GM (MIRALAX) PACK PO SCH (08:08)
[2021-08-04] MEDS: DOCUSATE SODIUM 100 MG (COLACE) CAP PO SCH ×2 (08:08→20:58)
[2021-08-04] MEDS: GABAPENTIN 100 MG (NEURONTIN) CAP PO SCH ×3 (08:08→20:58)
[2021-08-04] MEDS: SENNOSIDES 8.6 MG (SENOKOT) TAB PO SCH (08:08)
[2021-08-04] MEDS: amLODIPine 10 MG (NORVASC) TAB PO SCH (08:08)
[2021-08-04] MEDS: DICLOFENAC 1% GEL 100 GM (VOLTAREN) TUBE TOP SCH ×4 (08:09→20:58)
[2021-08-04] MEDS: FLUTICASONE NASAL SPRAY (FLONASE) 16 GM BTL NS SCH (08:09)
--- NOTE | 2021-08-04 10:04 | Physical Therapy Daily Note ---
PT Daily Note-Current Subjective Pt sitting up in bed upon arrival. Pt agree to PT but reports pain in bottom of foot below toes. Pain Location Body Site: Foot Pain Description: Ache, Tightness Mental Status Patient Orientation: Person, Place, Situation Attachments: Other-See Comments (CAM boot for L LE and Level Up Shoe for R LE) Transfers SCALE: Activities may be completed with or without assistive devices. 8-Ykjajlpvnt-kjitngx completes the activity by him/herself with no assistance from a helper. 5-Set-up or Clean-up Assistance-helper sets up or cleans up; patient completes activity. [place] assists only prior to or following the activity. 4-Supervision or Touching Assistance-helper provides verbal cues and/or touching/steadying and/or contact guard assistance as patient completes activity. Assistance may be provided throughout the activity or intermittently. 3-Partial/Moderate Assistance-helper does LESS THAN HALF the effort. [place] lifts, holds or supports trunk or limbs, but provides less than half the effort. 2-Substantial/Maximal Assistance-helper does MORE THAN HALF the effort. [place] lifts or holds trunk or limbs and provides more than half the effort. 6-Mnwxwrkjg-ikrkgq does ALL the effort. Patient does none of the effort to complete the activity. Or, the assistance of 2 or more helpers is required for the patient to complete the activity. If activity was not attempted, code reason: 7-Patient Refused. 9-Not Applicable-not attempted and the patient did not perform the activity before the current illness, exacerbation or injury. 10-Not Attempted due to Environmental Limitations-(lack of equipment, weather restraints, etc.). 88-Not Attempted due to Medical Conditions or Safety Concerns. Sit to Stand (QC): 4 Toilet Transfer (QC): 4 Weight Bearing Left Lower Extremity: Left Weight Bearing/Tolerated WBAT when wearing the cam boot Gait Training Does the Patient Walk?: Yes Distance: 50' Walk 10 feet (QC): 4 Walk 50 ft with 2 Turns(QC): 4 Gait Persons Needed: 1 Gait Assistive Device: FWW Pt takes 3 RBs for fatigue and discomfort with walking. Level Up shoe does feel better and looks more comfortable when walking. Wheelchair Training Does the Pt Use a Wheelchair?: Yes Wheel 50 ft with 2 turns (QC): 5 Wheel 150 ft (QC): 5 Type of Wheelchair: Manual Treatments TF from Supine to EOB to BSC. Pt dresses then amb. in room before taking RB. Pt amb. in hallway taking a couple RB as needed. Pt reports fatigue and pain so pt then propels WCH in hallway before returning to room to rest in recliner. All needs met, call light in hand. Assessment Current Status: Fair Progress Pt improves with distance walking but continues to need motivation to participate. PT Short Term Goals Short Term Goals Time Frame: Jul 30, 2021 Roll Left & Right: 6 Sit to lyin Lying to sitting on side of be: 3 Sit to stand: 4 Chair/txy-ht-yiaty transfer: 4 Walk 10 feet: 3 PT Mcfp Goals Crane Rigger Goals PT Mcfp Goals Time Frame: Aug 13, 2021 Roll Left & Right (QC): 6 Sit to Lying (QC): 6 Lying-Sitting on Side/Bed(QC): 6 Sit to Stand (QC): 4 Chair/Kif-tv-Geyrx Xfer(QC): 4 Toilet Transfer (QC): 4 Car Transfer (QC): 4 Does the Patient Walk: Yes Walk 10 feet (QC): 4 Walk 50ft with 2 Turns (QC): 4 Walk 150 ft (QC): 88 Walking 10ft on Uneven Surface: 4 1 Step (curb) (QC): 4 4 Steps (QC): 4 12 Steps (QC): 88 Picking up an Object (QC): 4 Wheel 50 feet with 2 turns (QC: 9 Wheel 150 feet: 9 PT Plan Problem List Problem List: Activity Tolerance, Functional Strength, Gait Treatment/Plan Treatment Plan: Continue Plan of Care Treatment Plan: Bed Mobility, Education, Functional Activity [place], Functional Strength, Group Therapy, Gait, Safety, Therapeutic Exercise, Transfers Treatment Duration: Aug 13, 2021 Frequency: At least 5 of 7 days/Wk (IRF) Estimated Hrs Per Day: 1.5 hours per day Patient and/or Family Agrees t: Yes Safety Risks/Education Patient Education: Gait Training, Correct Positioning Teaching Recipient: Patient Teaching Methods: Discussion Response to Teaching: Reinforcement Needed Time/GCodes Time In: 900 Time Out: 1000 Total Billed Treatment Time: 60 Total Billed Treatment 1, FA x2 (30m) & GT x2 (30m) JEFF GUSTAFSON LOANS CONSULTANT Aug 04, 2021 10:04
--- NOTE | 2021-08-04 12:31 | PM&R Progress Note ---
Subjective HPI/CC On Admission Date Seen by Provider: Aug 04, 2021 Time Seen by Provider: 12:00 Subjective/Events-last exam 08/04/2021: Pt doing well Dr. Stokes donated the shoe to help her right foot Very somatic Has a new complaint every day Needs to either go home with son or go to a residential 08/03/2021: Pt doing very well Podiatry consult requested Constipation will be resolved 08/02/2021: No major issues Pain is pretty well controlled Crackles from pulmonary fibrosis noted Nebulizer treatments ordered prn Checked meds and labs 08/01/21: Patient doing well No new pain issues Talked about kyphoplasty again her request Checked meds and labs 07/31/21: No major issues Pain reported "everywhere" Kyphoplasty not an option since she is mobilizing well 07/30/21: Patient feels better Moving more Back pain is less Told her compression fractures are still present and likely her increased activity has flared her old fractures No issues 07/29/2021: Patient doing well Having a lot of pain in her back after therapy She did report compression fractures 6 weeks ago so we will get x-rays K pad and diclofenac gel will be considered Patient very well may require residential placement due to now limiting back pain and left leg issue Patient did say they did discuss kyphoplasty at that time 07/28/21: Pt doing really well Incontinence will require urology consult Pt doing very well but self limiting 07/27/2021: Pt doing well No major issues Lisinopril given but not Norvasc due to hypotension Med alert will be needed when she goes home 07/26/2021: Patient doing well Feels like her ears are muffled Otoscope exam revealed no significant abnormality Patient doing well otherwise Labs reviewed 07/25/2021: Patient doing well Think she has a bladder infection Urinalysis and in and out cath ordered Transferring pretty well Pain is well controlled 07/24/2021: Patient doing very well Bowels are moving Change Claritin to daily since she takes it that way at home Pain is well controlled Participating in therapy Review of Systems General: Fatigue, Malaise Musculoskeletal: arm pain, back pain, leg pain, foot pain Objective Exam Vital Signs Vital Signs Date Time Temp Pulse Resp B/P (MAP) Pulse Ox O2 Delivery O2 Flow Rate FiO2 08/04/21 21:18 Room Air 08/04/21 20:42 92 08/04/21 20:00 37.2 76 20 117/52 (73) 07/30/21 11:06 21 Capillary Refill : General Appearance: No Apparent Distress, WD/WN, Chronically ill, Thin, Other (Frail) HEENT: PERRL/EOMI, Normal ENT Inspection, Pharynx Normal Neck: Full Range of Motion, Normal Inspection, Non Tender, Supple, Carotid Bruit Respiratory: Chest Non Tender, Lungs Clear, Normal Breath Sounds, No Accessory Muscle Use, No Respiratory Distress, Decreased Breath Sounds Cardiovascular: Regular Rate, Rhythm, No Edema, No Gallop, No JVD, No Murmur, Normal Peripheral Pulses Gastrointestinal: Normal Bowel Sounds, No Organomegaly, No Pulsatile Mass, Non Tender, Soft Back: Normal Inspection, No CVA Tenderness, No Vertebral Tenderness Extremity: Normal Capillary Refill, Normal Inspection, Normal Range of Motion, Non Tender, No Calf Tenderness, No Pedal Edema Neurologic/Psychiatric: Alert, Oriented x3, No Motor/Sensory Deficits, Normal Mood/Affect, manager laundry II-XII Norm as Tested, Abnormal Gait (Nonweightbearing on the left), Motor Weakness (Generalized decreased strength 4/5) Skin: Normal Color, Warm/Dry Lymphatic: No Adenopathy Results/Procedures Lab Patient resulted labs reviewed. FIM Transfers Therapy Code Descriptions/Definitions Functional [place] Measure: 0=Not Assessed/NA 4=Minimal Assistance 1=Total Assistance 5=Supervision or Setup 2=Maximal Assistance 6=Modified [place] 3=Moderate Assistance 7=Complete IndependenceSCALE: Activities may be completed with or without assistive devices. 1-Qkikddtrsy-gebsmlu completes the activity by him/herself with no assistance from a helper. 5-Set-up or Clean-up Assistance-helper sets up or cleans up; patient completes activity. [place] assists only prior to or following the activity. 4-Supervision or Touching Assistance-helper provides verbal cues and/or touching/steadying and/or contact guard assistance as patient completes activity. Assistance may be provided throughout the activity or intermittently. 3-Partial/Moderate Assistance-helper does LESS THAN HALF the effort. [place] lifts, holds or supports trunk or limbs, but provides less than half the effort. 2-Substantial/Maximal Assistance-helper does MORE THAN HALF the effort. [place] lifts or holds trunk or limbs and provides more than half the effort. 0-Ununpvcbp-dmgoub does ALL the effort. Patient does none of the effort to complete the activity. Or, the assistance of 2 or more helpers is required for the patient to complete the activity. If activity was not attempted, code reason: 7-Patient Refused. 9-Not Applicable-not attempted and the patient did not perform the activity before the current illness, exacerbation or injury. 10-Not Attempted due to Environmental Limitations-(lack of equipment, weather restraints, etc.). 88-Not Attempted due to Medical Conditions or Safety Concerns. Roll Left to Right (QC): 6 Sit to Lying (QC): 4 Sit to Stand (QC): 4 Chair/Xuu-ey-Skxpn Xfer(QC): 4 Car Transfer (QC): 3 Gait Training Does the Patient Walk?: Yes Distance: 50' Walk 10 feet (QC): 4 Walk 50 ft with 2 Turns(QC): 4 Walk 150 ft (QC): 88 Walking 10ft/uneven surface-QC: 88 Gait Persons Needed: 1 Gait Assistive Device: FWW Wheelchair Training Does the Pt Use a Wheelchair?: Yes Wheel 50 ft with 2 turns (QC): 5 Wheel 150 ft (QC): 5 Type of Wheelchair: Manual Stair Training 1 Step (curb) (QC): 88 4 Steps (QC): 88 12 Steps (QC): 88 Balance Picking up an Object (QC): 88 ADL-Treatment Eating (QC): 6 (Pt able to open containers and use regular utensils.) Oral Hygiene (QC): 5 (Set up) Bathing Location: L Arm, R Arm, L Upper Leg, R Upper Leg, Chest, Abdomen, Perineal Area Shower/Bathe Self (QC): 5 (Pt completes all but lower L leg, due to CAM boot, with LHS and handheld shower with set up on turning water on.) Upper Body Dressing (QC): 5 (Pt able to don/dof UB clothing with supplies gathered.) Lower Body Dressing (QC): 3 (Pt threads over right foot, assist for threading over CAM while seated. 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 lifetime non-smoker Hypothyroidism Rheumatoid arthritis Seasonal allergies History of GI bleed History pneumonia Osteoporosis Recent compression fractures and new x-rays could confirm acute on chronic frac tures Somatic complaints Plan: Inpatient rehab protocol Bowel regimen Pain control 07/24/2021: Continue pain control Aggressive rehab 07/25/2021: Check urinalysis Supportive care Pain control 07/26/2021: Ear exam normal Aggressive therapy 07/27/2021: Supportive care Pain control 07/28/21: Supportive care Pain control 07/29/2021: Spine x-rays reviewed Slow recovery 07/30/21: Monitor pain Kpad Diclofenac gel 07/31/21: Monitor closely Pain management 08/01/21: Improved transfers Monitor closely 08/02/2021: Improved status Evaluate disposition 08/03/2021: Supportive care Podiatry consult Constipation management 08/04/2021: Appreciate Dr. Stokes Somatic complaints Needs residential or go home with son (1) Ankle fracture, left (2) Pulmonary fibrosis (3) Rheumatoid arthritis (4) Hypothyroidism (5) Hypertension (6) Advanced age (7) Frail elderly (8) Risk for falls KYLAH DELGADILLO DO Aug 04, 2021 12:31
--- NOTE | 2021-08-04 14:33 | Therapy Group Daily Note ---
Therapy Daily Group Note Patient Education Topic Other List Below Exercises LE Seated Exercise, UE Exercise Session Ratio (pt:therapist): 7:2 Goal of Session: Education on ARU Expectations, Memory Strategies, UE/LE Strengthing Goal Met for this Session: Yes Pt Benefit of Group: Contributions to Others, F/U Use of Strategies @Home, Increased Functional Safety, Increased Functional Strength, Improved Cognition, Recognition of Peers, Socialization Other/Notes Pt transported via w/c to [facility] for OT/PT group. Group consisted of introductions (name, place living, childhood memory), socialization, B UE/LE seated exercises, educational topics of ARU description/expectations and memory. Pt introduced self appropriately and actively listened to peers. Pt able to complete B UE/LE WFL with minimal modifications due to medical issues. Pt acknowledged understanding of educational topics by nodding affirmative and giving own personal strategies. After session, pt lying in bed with call light/phone in reach. All needs met in room. Start Time: 13:00 Stop Time: 14:00 Total Billed Treatment Time: 60 Total Billed Treatment 1-GRP SANTOS NOLASCO Aug 04, 2021 14:33
[2021-08-04 20:00] VITALS: BP 117/52
[2021-08-04] MEDS: RT-BUDESONIDE NEBS 0.5 MG/2ML (PULMICORT) AMP IH SCH (20:42)
[2021-08-04] MEDS: TOLTERODINE LA 4 MG (DETROL) CAP PO SCH (20:58)
[2021-08-04] MEDS: ESTROGENS CONJ. CREAM 30 GM (PREMARIN) TUBE VG SCH (20:59)
[2021-08-05] MEDS: ENOXAPARIN 40 MG/0.4 ML (LOVENOX) SYR SC SCH (06:05)
[2021-08-05] MEDS: MULTIVIT W/MINERALS TAB (THERAGRAN M) PO SCH (06:05)
[2021-08-05] MEDS: PANTOPRAZOLE 40 MG (PROTONIX) TAB PO SCH (06:05)
[2021-08-05] MEDS: LEVOTHYROXINE 125 MCG (LEVOTHROID) TABLET PO SCH (06:05)
--- NOTE | 2021-08-05 07:21 | Occupational Ther Daily Note ---
OT Current Status-Daily Note Subjective Pt lying supine in bed, alert. No c/o pain. Pt agrees to therapy. Mental Status/Objective Patient Orientation: Person, Place, Time, Situation Attachments: Other-See Comments (SUZY mataot) ADL-Treatment Nrsg assisting pt with toileting, pt on bedpan supine in bed. Pt supine in bed with HOB raised eating breakfast. Pt opens containers and uses regular utensils. Pt refuses shower, requests to have shower tomorrow. Pt laying supine in bed with HOB raised to eat breakfast. Pt EOB, Max A donning CAM boot and shoe. EOB- >w/c using FWW for stability CGA, propelled to bathroom to do grooming/oral care. Pt able to complete byself, turning water on byself. W/c<->BSC over toilet CGA. Pt able to manage clothing using grabbars and FWW for stability, cleanses self after toileting. Pt w/c->recliner using FWW for stability CGA. Pt took increased time to complete all tasks due to self limiting behaviors. After session, pt in recliner with call light/phone within reach. All needs met in room. Therapy Code Descriptions/Definitions Functional [place] Measure: 0=Not Assessed/NA 4=Minimal Assistance 1=Total Assistance 5=Supervision or Setup 2=Maximal Assistance 6=Modified [place] 3=Moderate Assistance 7=Complete IndependenceSCALE: Activities may be completed with or without assistive devices. 1-Rcwxgeeddg-sjnukzs completes the activity by him/herself with no assistance from a helper. 5-Set-up or Clean-up Assistance-helper sets up or cleans up; patient completes activity. [place] assists only prior to or following the activity. 4-Supervision or Touching Assistance-helper provides verbal cues and/or touching/steadying and/or contact guard assistance as patient completes activity. Assistance may be provided throughout the activity or intermittently. 3-Partial/Moderate Assistance-helper does LESS THAN HALF the effort. [place] lifts, holds or supports trunk or limbs, but provides less than half the effort. 2-Substantial/Maximal Assistance-helper does MORE THAN HALF the effort. [place] lifts or holds trunk or limbs and provides more than half the effort. 9-Oshaowvec-qdafvx does ALL the effort. Patient does none of the effort to complete the activity. Or, the assistance of 2 or more helpers is required for the patient to complete the activity. If activity was not attempted, code reason: 7-Patient Refused. 9-Not Applicable-not attempted and the patient did not perform the activity before the current illness, exacerbation or injury. 10-Not Attempted due to Environmental Limitations-(lack of equipment, weather restraints, etc.). 88-Not Attempted due to Medical Conditions or Safety Concerns. Oral Hygiene (QC): 6 (Pt able to complete by self seated in w/c at sink.) On/Off Footwear: 2 (Pt Max A in donning CAM boot and shoe.) Toilet Transfer (QC): 4 (CGA) OT Short Term Goals Short Term Goals Time Frame: Aug 04, 2021 Eatin Oral hygiene: 4 Toileting hygiene: 4 Shower/bathe self: 4 Upper body dressin Lower body dressin Putting on/taking off footwear: 3 OT Senior Living Goals Bag Tester Goals Time Frame: Aug 14, 2021 Eating (QC): 5 Oral Hygiene (QC): 5 Toileting Hygiene (QC): 6 Shower/Bathe Self (QC): 5 Upper Body Dressing (QC): 5 Lower Body Dressing (QC): 5 On/Off Footwear (QC): 4 1=Demonstrate adherence to instructed precautions during ADL tasks. 2=Patient will verbalize/demonstrate understanding of assistive devices/modifications for ADL. 3=Patient will improve strength/tolerance for activity to enable patient to perform ADL's. OT Education/Plan Problem List/Assessment Assessment: Decreased Activ Tolerance, Impaired Funct Balance, Impaired Self- Care Skills Discharge Recommendations Plan/Recommendations: Continue POC Treatment Plan/Plan of Care Patient would benefit from OT for education, treatment and training to promote independence in ADL's, mobility, safety and/or upper extremity function for ADL's. Plan of Care: ADL Retraining, Functional Mobility, Group Exercise/Act as Ind, Orthotic Fitting/Training, UE Funct Exercise/Act Treatment Duration: Aug 14, 2021 Frequency: At least 5 of 7 days/Wk (IRF) Estimated Hrs Per Day: 1.5 hours per day Agreement: Yes Rehab Potential: Guarded Time/GCodes Start Time: 07:00 Stop Time: 08:30 Total Time Billed (hr/min): 90 Billed Treatment Time 1 Visit- ADL6 (90 min) SANTOS NOLASCO Aug 05, 2021 07:21
[2021-08-05 07:58] VITALS: BP 147/69
[2021-08-05] MEDS: CALCIUM CARB + VIT D 600 MG (CALCARB + D) TAB PO SCH ×2 (09:07→17:28)
[2021-08-05] MEDS: VITAMIN D3 10 MCG (400 UNITS) TABLET PO SCH (09:07)
[2021-08-05] MEDS: sulfaSALAzine 500 MG (AZULFIDINE) TAB PO SCH ×2 (09:08→21:03)
[2021-08-05] MEDS: lisINopril 20 MG (PRINIVIL) TABLET PO SCH ×2 (09:08→21:03)
[2021-08-05] MEDS: LORATADINE (CLARITIN) 10 MG TAB PO SCH (09:09)
[2021-08-05] MEDS: GABAPENTIN 100 MG (NEURONTIN) CAP PO SCH ×3 (09:09→21:03)
[2021-08-05] MEDS: amLODIPine 10 MG (NORVASC) TAB PO SCH (09:09)
[2021-08-05] MEDS: polyethylene glycoL POWDER 17 GM (MIRALAX) PACK PO SCH (09:13)
[2021-08-05 09:16] VITALS: BP 146/68
[2021-08-05] MEDS: FLUTICASONE NASAL SPRAY (FLONASE) 16 GM BTL NS SCH (09:16)
[2021-08-05] MEDS: DOCUSATE SODIUM 100 MG (COLACE) CAP PO SCH ×2 (09:20→21:25)
[2021-08-05] MEDS: SENNOSIDES 8.6 MG (SENOKOT) TAB PO SCH (09:20)
[2021-08-05] MEDS: DICLOFENAC 1% GEL 100 GM (VOLTAREN) TUBE TOP SCH ×4 (09:22→21:03)
[2021-08-05] MEDS: RT-BUDESONIDE NEBS 0.5 MG/2ML (PULMICORT) AMP IH SCH ×2 (09:55→20:22)
--- NOTE | 2021-08-05 10:03 | Progress Note - Urology ---
Progress Note-Urology Progress Notes/Assess & Plan Progress/Assessment & Plan CONTINUES WELL ON [place] LA. TOLERATES IT WELL. HAPPY. KEEP ON IT. SEE PRN Final Diagnosis INCONTINENCE (IMPROVED) HIGINIO MOY MD Aug 05, 2021 10:03
--- NOTE | 2021-08-05 12:01 | Physical Therapy Daily Note ---
PT Daily Note-Current Subjective Pt. agrees to Rx. Comments that she has really found that the "evenup" shoe lift has really helped her but she still suffers from some foot and toe pain on the right foot and needs a bunionectomy etc. Pt. c/o pain in low back area at 6/10 reji in supine position and was unable to relieve this in side lying left or ri ght. Pt. was given massage to low back at PSIS , lumbar and sacral area . After which pt. states all the pain is relieved Pain Numeric Pain Scale: 6 Location: Medial Location Body Site: Back Pain Description: Ache Mental Status Patient Orientation: Normal For Age Attachments: Other-See Comments (evenup shoe lift device) Transfers SCALE: Activities may be completed with or without assistive devices. 8-Hntfnjlzed-bpdgfgi completes the activity by him/herself with no assistance from a helper. 5-Set-up or Clean-up Assistance-helper sets up or cleans up; patient completes activity. [place] assists only prior to or following the activity. 4-Supervision or Touching Assistance-helper provides verbal cues and/or touching/steadying and/or contact guard assistance as patient completes activity. Assistance may be provided throughout the activity or intermittently. 3-Partial/Moderate Assistance-helper does LESS THAN HALF the effort. [place] lifts, holds or supports trunk or limbs, but provides less than half the effort. 2-Substantial/Maximal Assistance-helper does MORE THAN HALF the effort. [place] lifts or holds trunk or limbs and provides more than half the effort. 2-Wvjjggdxi-ytmgmu does ALL the effort. Patient does none of the effort to complete the activity. Or, the assistance of 2 or more helpers is required for the patient to complete the activity. If activity was not attempted, code reason: 7-Patient Refused. 9-Not Applicable-not attempted and the patient did not perform the activity before the current illness, exacerbation or injury. 10-Not Attempted due to Environmental Limitations-(lack of equipment, weather restraints, etc.). 88-Not Attempted due to Medical Conditions or Safety Concerns. Roll Left & Right (QC): 5 Sit to Lying (QC): 4 Lying to Sitting/Side of Bed(Q: 4 Sit to Stand (QC): 4 Chair/Mcp-yx-[place] Xfer(QC): 4 seat level of pts w/c was raised using folded blanket , pt commented and it was noted that she had easier time sit to stand with this modification. Weight Bearing Left Lower Extremity: Left Weight Bearing/Tolerated WBAT when wearing the cam boot Gait Training Does the Patient Walk?: Yes Walk 10 feet (QC): 5 Walk 50 ft with 2 Turns(QC): 5 Gait Persons Needed: 1 Gait Assistive Device: FWW pt. ambulated 75ft, 15 ft with FWW improved gait pattern but pt. had pain after this mainly in her low back and needed to rest. It is worth noting that even with use of evenup device there is still a leg length difference that may add to pts low back pain c/o Exercises Seated Therapy Exercises: Ankle pumps, Sit to stand, Long arc quads, Hip abd/add Seated Reps: 12 Treatments pt.c/o low back pain which greatly limited supine therex. To get relief pt had to sit at EOB. In sitting pt. requested massage and this was done with effluerage mod pressure to PSIS and lumbo sacral area for 10m. Pt. remarked she had great relief. This was followed by moist hot pack while pt was in recliner after Rx. Assessment Current Status: Good Progress arthritic pain in various body parts limits pts function PT Short Term Goals Short Term Goals Time Frame: Jul 30, 2021 Roll Left & Right: 6 Sit to lyin Lying to sitting on side of be: 3 Sit to stand: 4 Chair/mzf-qt-xewdy transfer: 4 Walk 10 feet: 3 PT Community Marketing Coordinator Goals Community Marketing Coordinator Goals PT Community Marketing Coordinator Goals Time Frame: Aug 13, 2021 Roll Left & Right (QC): 6 Sit to Lying (QC): 6 Lying-Sitting on Side/Bed(QC): 6 Sit to Stand (QC): 4 Chair/Sgm-yx-Ucwnn Xfer(QC): 4 Toilet Transfer (QC): 4 Car Transfer (QC): 4 Does the Patient Walk: Yes Walk 10 feet (QC): 4 Walk 50ft with 2 Turns (QC): 4 Walk 150 ft (QC): 88 Walking 10ft on Uneven Surface: 4 1 Step (curb) (QC): 4 4 Steps (QC): 4 12 Steps (QC): 88 Picking up an Object (QC): 4 Wheel 50 feet with 2 turns (QC: 9 Wheel 150 feet: 9 PT Plan Treatment/Plan Treatment Plan: Continue Plan of Care Treatment Plan: Bed Mobility, Education, Functional Activity Dorothea, Functional Strength, Group Therapy, Gait, Safety, Therapeutic Exercise, Transfers Treatment Duration: Aug 13, 2021 Frequency: At least 5 of 7 days/Wk (IRF) Estimated Hrs Per Day: 1.5 hours per day Patient and/or Family Agrees t: Yes Safety Risks/Education Patient Education: Gait Training, Transfer Techniques, Correct Positioning, Disease Process, Safety Issues Teaching Recipient: Patient Teaching Methods: Demonstration, Discussion Response to Teaching: Verbalize Understanding, Return Demonstration, Reinforcement Needed Time/GCodes Time In: 1100 Time Out: 1200 Total Billed Treatment Time: 60 Total Billed Treatment 1,EX10m,Mass 15m,GT20m,FA15m GIGI MARIE PROTOZOOLOGIST Aug 05, 2021 12:01
--- NOTE | 2021-08-05 12:22 | PM&R Progress Note ---
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 Stokes donated the shoe to help her right foot Very somatic Has a new complaint every day Needs to either go home with son or go to a senior living 08/03/2021: Pt doing very well Podiatry consult requested Constipation will be resolved 08/02/2021: No major issues Pain is pretty well controlled Crackles from pulmonary fibrosis noted Nebulizer treatments ordered prn Checked meds and labs 08/01/21: Patient doing well No new pain issues Talked about kyphoplasty again her request Checked meds and labs 07/31/21: No major issues Pain reported "everywhere" Kyphoplasty not an option since she is mobilizing well 07/30/21: Patient feels better Moving more Back pain is less Told her compression fractures are still present and likely her increased activity has flared her old fractures No issues 07/29/2021: Patient doing well Having a lot of pain in her back after therapy She did report compression fractures 6 weeks ago so we will get x-rays K pad and diclofenac gel will be considered Patient very well may require senior living placement due to now limiting back pain and left leg issue Patient did say they did discuss kyphoplasty at that time 07/28/21: Pt doing really well Incontinence will require urology consult Pt doing very well but self limiting 07/27/2021: Pt doing well No major issues Lisinopril given but not Norvasc due to hypotension Med alert will be needed when she goes home 07/26/2021: Patient doing well Feels like her ears are muffled Otoscope exam revealed no significant abnormality Patient doing well otherwise Labs reviewed 07/25/2021: Patient doing well Think she has a bladder infection Urinalysis and in and out cath ordered Transferring pretty well Pain is well controlled 07/24/2021: Patient doing very well Bowels are moving Change Claritin to daily since she takes it that way at home Pain is well controlled Participating in therapy Review of Systems General: Fatigue, Malaise Musculoskeletal: leg pain Objective Exam Vital Signs Vital Signs Date Time Temp Pulse Resp B/P (MAP) Pulse Ox O2 Delivery O2 Flow Rate FiO2 08/05/21 21:00 Room Air 08/05/21 20:22 92 08/05/21 20:00 36.4 76 20 147/69 (95) Capillary Refill : General Appearance: No Apparent Distress, WD/WN, Chronically ill, Thin, Other (Frail) HEENT: PERRL/EOMI, Normal ENT Inspection, Pharynx Normal Neck: Full Range of Motion, Normal Inspection, Non Tender, Supple, Carotid Bruit Respiratory: Chest Non Tender, Lungs Clear, Normal Breath Sounds, No Accessory Muscle Use, No Respiratory Distress, Decreased Breath Sounds Cardiovascular: Regular Rate, Rhythm, No Edema, No Gallop, No JVD, No Murmur, Normal Peripheral Pulses Gastrointestinal: Normal Bowel Sounds, No Organomegaly, No Pulsatile Mass, Non Tender, Soft Back: Normal Inspection, No CVA Tenderness, No Vertebral Tenderness Extremity: Normal Capillary Refill, Normal Inspection, Normal Range of Motion, Non Tender, No Calf Tenderness, No Pedal Edema Neurologic/Psychiatric: Alert, Oriented x3, No Motor/Sensory Deficits, Normal Mood/Affect, mis manager II-XII Norm as Tested, Abnormal Gait (Nonweightbearing on the left), Motor Weakness (Generalized decreased strength 4/5) Skin: Normal Color, Warm/Dry Lymphatic: No Adenopathy Results/Procedures Lab Patient resulted labs reviewed. FIM Transfers Therapy Code Descriptions/Definitions Functional [place] Measure: 0=Not Assessed/NA 4=Minimal Assistance 1=Total Assistance 5=Supervision or Setup 2=Maximal Assistance 6=Modified [place] 3=Moderate Assistance 7=Complete IndependenceSCALE: Activities may be completed with or without assistive devices. 3-Egpyverlpp-wixslrk completes the activity by him/herself with no assistance from a helper. 5-Set-up or Clean-up Assistance-helper sets up or cleans up; patient completes activity. [place] assists only prior to or following the activity. 4-Supervision or Touching Assistance-helper provides verbal cues and/or touching/steadying and/or contact guard assistance as patient completes activity. Assistance may be provided throughout the activity or intermittently. 3-Partial/Moderate Assistance-helper does LESS THAN HALF the effort. [place] lifts, holds or supports trunk or limbs, but provides less than half the effort. 2-Substantial/Maximal Assistance-helper does MORE THAN HALF the effort. [place] lifts or holds trunk or limbs and provides more than half the effort. 5-Covpyuldt-ercyfr does ALL the effort. Patient does none of the effort to complete the activity. Or, the assistance of 2 or more helpers is required for the patient to complete the activity. If activity was not attempted, code reason: 7-Patient Refused. 9-Not Applicable-not attempted and the patient did not perform the activity before the current illness, exacerbation or injury. 10-Not Attempted due to Environmental Limitations-(lack of equipment, weather restraints, etc.). 88-Not Attempted due to Medical Conditions or Safety Concerns. Roll Left to Right (QC): 5 Sit to Lying (QC): 4 Sit to Stand (QC): 4 Chair/Nle-ns-Roptl Xfer(QC): 4 Car Transfer (QC): 3 Gait Training Does the Patient Walk?: Yes Distance: 50' Walk 10 feet (QC): 5 Walk 50 ft with 2 Turns(QC): 5 Walk 150 ft (QC): 88 Walking 10ft/uneven surface-QC: 88 Gait Persons Needed: 1 Gait Assistive Device: FWW Wheelchair Training Does the Pt Use a Wheelchair?: Yes Wheel 50 ft with 2 turns (QC): 5 Wheel 150 ft (QC): 5 Type of Wheelchair: Manual Stair Training 1 Step (curb) (QC): 88 4 Steps (QC): 88 12 Steps (QC): 88 Balance Picking up an Object (QC): 88 ADL-Treatment Eating (QC): 6 (Pt able to open containers and use regular utensils.) Oral Hygiene (QC): 5 (Set up) Bathing Location: L Arm, R Arm, L Upper Leg, R Upper Leg, Chest, Abdomen, Perineal Area Shower/Bathe Self (QC): 5 (Pt completes all but lower L leg, due to CAM boot, with LHS and handheld shower with set up on turning water on.) Upper Body Dressing (QC): 5 (Pt able to don/dof UB clothing with supplies gath ered.) Lower Body Dressing (QC): 3 (Pt threads over right foot, assist for threading over CAM while seated. Pt able to pull pants up and hike over hips using grabbars while standing CGA.) On/Off Footwear (QC): 2 (Max A don/dof sock.) Toileting Hygiene (QC): 5 (Set up ) Toilet Transfer (QC): 4 (CGA using FWW for stability to transfer from EOB [place] 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 Code Fever and DestinationRX 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 lifetime non-smoker Hypothyroidism Rheumatoid arthritis Seasonal allergies History of GI bleed History pneumonia Osteoporosis Recent compression fractures and new x-rays could confirm acute on chronic fractures Somatic complaints Plan: Inpatient rehab protocol Bowel regimen Pain control 07/24/2021: Continue pain control Aggressive rehab 07/25/2021: Check urinalysis Supportive care Pain control 07/26/2021: Ear exam normal Aggressive therapy 07/27/2021: Supportive care Pain control 07/28/21: Supportive care Pain control 07/29/2021: Spine x-rays reviewed Slow recovery 07/30/21: Monitor pain Kpad Diclofenac gel 07/31/21: Monitor closely Pain management 08/01/21: Improved transfers Monitor closely 08/02/2021: Improved status Evaluate disposition 08/03/2021: Supportive care Podiatry consult Constipation management 08/04/2021: Appreciate Dr. Stokes Somatic complaints Needs senior living or go home with son 08/05/2021: Monitor somatic complaints Supportive care (1) Ankle fracture, left (2) Pulmonary fibrosis (3) Rheumatoid arthritis (4) Hypothyroidism (5) Hypertension (6) Advanced age (7) Frail elderly (8) Risk for falls KYLAH DELGADILLO DO Aug 05, 2021 12:22
[2021-08-05] MEDS ORDERED: ACETAMINOPHEN 500 MG TAB (TYLENOL) PO PRN (14:15)
[2021-08-05] MEDS ORDERED: ACETAMINOPHEN 325 MG TABLET PO PRN (14:15)
--- NOTE | 2021-08-05 14:50 | Physical Therapy Daily Note ---
PT Daily Note-Current Subjective Pt. states she needs to go to bathroom but doesnt feel like she can walk in to the bathroom and wants to use the BSC near her chair. Pt. rates her pain in her right foot bunion painat 6/10 Pain Numeric Pain Scale: 6 Location: Right Location Body Site: Foot Pain Description: Pressure Mental Status Patient Orientation: Normal For Age Attachments: Other-See Comments (boot left and evenup device right) Transfers SCALE: Activities may be completed with or without assistive devices. 9-Ihgkmrmich-geugokp completes the activity by him/herself with no assistance from a helper. 5-Set-up or Clean-up Assistance-helper sets up or cleans up; patient completes activity. [place] assists only prior to or following the activity. 4-Supervision or Touching Assistance-helper provides verbal cues and/or touching/steadying and/or contact guard assistance as patient completes ac tivity. Assistance may be provided throughout the activity or intermittently. 3-Partial/Moderate Assistance-helper does LESS THAN HALF the effort. [place] lifts, holds or supports trunk or limbs, but provides less than half the effort. 2-Substantial/Maximal Assistance-helper does MORE THAN HALF the effort. [place] lifts or holds trunk or limbs and provides more than half the effort. 9-Vztcygyko-wsvsko does ALL the effort. Patient does none of the effort to complete the activity. Or, the assistance of 2 or more helpers is required for the patient to complete the activity. If activity was not attempted, code reason: 7-Patient Refused. 9-Not Applicable-not attempted and the patient did not perform the activity before the current illness, exacerbation or injury. 10-Not Attempted due to Environmental Limitations-(lack of equipment, weather restraints, etc.). 88-Not Attempted due to Medical Conditions or Safety Concerns. SPT recliner to [facility] with min assist there and back, pt. managed clothes and clean up indep. Weight Bearing Left Lower Extremity: Left Weight Bearing/Tolerated WBAT when wearing the cam boot Exercises Seated Therapy Exercises: Ankle pumps, Sit to stand, Long arc quads, Hip flexion, Hip abd/add Seated Reps: 15 Treatments MHP to low back in recliner for 10m per pt. request, mild heat Assessment Current Status: Good Progress right foot discomfort limiting pts tolerance for gait this pm PT Short Term Goals Short Term Goals Time Frame: Jul 30, 2021 Roll Left & Right: 6 Sit to lyin Lying to sitting on side of be: 3 Sit to stand: 4 Chair/jcy-yj-wfpar transfer: 4 Walk 10 feet: 3 PT [facility] Goals [facility] Goals PT Cattle Trader Goals Time Frame: Aug 13, 2021 Roll Left & Right (QC): 6 Sit to Lying (QC): 6 Lying-Sitting on Side/Bed(QC): 6 Sit to Stand (QC): 4 Chair/Hii-ic-Pvoar Xfer(QC): 4 Toilet Transfer (QC): 4 Car Transfer (QC): 4 Does the Patient Walk: Yes Walk 10 feet (QC): 4 Walk 50ft with 2 Turns (QC): 4 Walk 150 ft (QC): 88 Walking 10ft on Uneven Surface: 4 1 Step (curb) (QC): 4 4 Steps (QC): 4 12 Steps (QC): 88 Picking up an Object (QC): 4 Wheel 50 feet with 2 turns (QC: 9 Wheel 150 feet: 9 PT Plan Treatment/Plan Treatment Plan: Continue Plan of Care Treatment Plan: Bed Mobility, Education, Functional Activity Dorothea, Functional Strength, Group Therapy, Gait, Safety, Therapeutic Exercise, Transfers Treatment Duration: Aug 13, 2021 Frequency: At least 5 of 7 days/Wk (IRF) Estimated Hrs Per Day: 1.5 hours per day Patient and/or Family Agrees t: Yes Safety Risks/Education Patient Education: Transfer Techniques, Correct Positioning, Disease Process, Safety Issues Teaching Recipient: Patient Response to Teaching: Reinforcement Needed Time/GCodes Time In: 1415 Time Out: 1445 Total Billed Treatment Time: 30 Total Billed Treatment 1,FA20m,EX10m GIGI MARIE COLOR DIPPER Aug 05, 2021 14:50
[2021-08-05 20:00] VITALS: BP 147/69
[2021-08-05] MEDS: TOLTERODINE LA 4 MG (DETROL) CAP PO SCH (21:03)
[2021-08-05] MEDS: ARTIFICAL TEARS 0.4 ML UNIT DOSE (REFRESH PLUS) OU SCH (21:04)
[2021-08-06] MEDS: MULTIVIT W/MINERALS TAB (THERAGRAN M) PO SCH (06:03)
[2021-08-06] MEDS: ENOXAPARIN 40 MG/0.4 ML (LOVENOX) SYR SC SCH (06:03)
[2021-08-06] MEDS: PANTOPRAZOLE 40 MG (PROTONIX) TAB PO SCH (06:03)
[2021-08-06] MEDS: LEVOTHYROXINE 125 MCG (LEVOTHROID) TABLET PO SCH (06:03)
[2021-08-06 08:00] VITALS: BP 142/67
[2021-08-06] MEDS: CALCIUM CARB + VIT D 600 MG (CALCARB + D) TAB PO SCH ×2 (08:17→17:10)
[2021-08-06] MEDS: lisINopril 20 MG (PRINIVIL) TABLET PO SCH ×2 (08:17→21:30)
[2021-08-06] MEDS: sulfaSALAzine 500 MG (AZULFIDINE) TAB PO SCH ×2 (08:18→21:30)
[2021-08-06] MEDS: VITAMIN D3 10 MCG (400 UNITS) TABLET PO SCH (08:18)
[2021-08-06] MEDS: GABAPENTIN 100 MG (NEURONTIN) CAP PO SCH ×3 (08:18→21:30)
[2021-08-06] MEDS: SENNOSIDES 8.6 MG (SENOKOT) TAB PO SCH (08:18)
[2021-08-06] MEDS: LORATADINE (CLARITIN) 10 MG TAB PO SCH (08:18)
[2021-08-06] MEDS: DOCUSATE SODIUM 100 MG (COLACE) CAP PO SCH ×2 (08:18→21:30)
[2021-08-06] MEDS: polyethylene glycoL POWDER 17 GM (MIRALAX) PACK PO SCH (08:19)
[2021-08-06] MEDS: amLODIPine 10 MG (NORVASC) TAB PO SCH (08:19)
[2021-08-06] MEDS: DICLOFENAC 1% GEL 100 GM (VOLTAREN) TUBE TOP SCH ×4 (08:20→21:35)
[2021-08-06] MEDS: FLUTICASONE NASAL SPRAY (FLONASE) 16 GM BTL NS SCH (08:20)
[2021-08-06] MEDS: ARTIFICAL TEARS 0.4 ML UNIT DOSE (REFRESH PLUS) OU SCH ×2 (08:21→21:29)
[2021-08-06] MEDS: RT-BUDESONIDE NEBS 0.5 MG/2ML (PULMICORT) AMP IH SCH ×2 (09:26→18:30)
--- NOTE | 2021-08-06 11:09 | Occupational Ther Daily Note ---
OT Current Status-Daily Note Subjective Pt sitting in recliner, alert. No c/o pain. Pt agrees to therapy. Mental Status/Objective Patient Orientation: Person, Place, Time, Situation Attachments: Other-See Comments (CAM) ADL-Treatment Pt agrees to shower. Pt dons shoe by self while seated in recliner. Sit->w/c using FWW for stability CGA, propels to BSC over toilet. Pt w/c<->BSC over toilet CGA. Pt w/c<->shower bench CGA. CAM boot covered before shower. Pt assisted with UB/LB dressing due to time constraints. Pt engaged in g rooming/oral care while seated in w/c, turns on/off water at sink by self.. Pt takes extended time engaging in ADLs due to self limiting behaviors. After session, pt in recliner with call light/phone within reach and all needs met. Therapy Code Descriptions/Definitions Functional [place] Measure: 0=Not Assessed/NA 4=Minimal Assistance 1=Total Assistance 5=Supervision or Setup 2=Maximal Assistance 6=Modified [place] 3=Moderate Assistance 7=Complete IndependenceSCALE: Activities may be completed with or without assistive devices. 9-Yjnvedbllm-shhmkjm completes the activity by him/herself with no assistance from a helper. 5-Set-up or Clean-up Assistance-helper sets up or cleans up; patient completes activity. [place] assists only prior to or following the activity. 4-Supervision or Touching Assistance-helper provides verbal cues and/or touching/steadying and/or contact guard assistance as patient completes activity. Assistance may be provided throughout the activity or intermittently. 3-Partial/Moderate Assistance-helper does LESS THAN HALF the effort. [place] lifts, holds or supports trunk or limbs, but provides less than half the effort. 2-Substantial/Maximal Assistance-helper does MORE THAN HALF the effort. [place] lifts or holds trunk or limbs and provides more than half the effort. 3-Husyidqty-szjnzn does ALL the effort. Patient does none of the effort to complete the activity. Or, the assistance of 2 or more helpers is required for the patient to complete the activity. If activity was not attempted, code reason: 7-Patient Refused. 9-Not Applicable-not attempted and the patient did not perform the activity before the current illness, exacerbation or injury. 10-Not Attempted due to Environmental Limitations-(lack of equipment, weather restraints, etc.). 88-Not Attempted due to Medical Conditions or Safety Concerns. Oral Hygiene (QC): 6 (Pt able to complete by self.) Bathing Location: L Arm, R Arm, L Upper Leg, R Upper Leg, L Lower Leg (including foot), R Lower Leg (including foot), Chest, Abdomen, Buttocks, Perineal Area Shower/Bathe Self (QC): 5 (Set up) Toileting Hygiene (QC): 4 (CGA with clothing management, pt able to cleanse self.) Toilet Transfer (QC): 4 (CGA) OT Short Term Goals Short Term Goals Time Frame: Aug 04, 2021 Eatin Oral hygiene: 4 Toileting hygiene: 4 Shower/bathe self: 4 Upper body dressin Lower body dressin Putting on/taking off footwear: 3 OT [facility] Goals Executive Secretary Social Welfare Goals Time Frame: Aug 14, 2021 Eating (QC): 5 Oral Hygiene (QC): 5 Toileting Hygiene (QC): 6 Shower/Bathe Self (QC): 5 Upper Body Dressing (QC): 5 Lower Body Dressing (QC): 5 On/Off Footwear (QC): 4 1=Demonstrate adherence to instructed precautions during ADL tasks. 2=Patient will verbalize/demonstrate understanding of assistive devices/modifications for ADL. 3=Patient will improve strength/tolerance for activity to enable patient to perform ADL's. OT Education/Plan Problem List/Assessment Assessment: Decreased Activ Tolerance, Impaired Funct Balance, Impaired Self- Care Skills Discharge Recommendations Plan/Recommendations: Continue POC Treatment Plan/Plan of Care Patient would benefit from OT for education, treatment and training to promote independence in ADL's, mobility, safety and/or upper extremity function for ADL's. Plan of Care: ADL Retraining, Functional Mobility, Group Exercise/Act as Ind, Orthotic Fitting/Training, UE Funct Exercise/Act Treatment Duration: Aug 14, 2021 Frequency: At least 5 of 7 days/Wk (IRF) Estimated Hrs Per Day: 1.5 hours per day Agreement: Yes Rehab Potential: Guarded Time/GCodes Start Time: 10:00 Stop Time: 11:00 Total Time Billed (hr/min): 60 Billed Treatment Time 1 Visit- ADL 4 (60 min) SANTOS NOLASCO Aug 06, 2021 11:09
--- NOTE | 2021-08-06 11:59 | Physical Therapy Daily Note ---
PT Daily Note-Current Subjective Pt. up in recliner and states she cannot get up for gait bc her boot for left foot is wet from shower and is now drying . Pt. c/o her right foot is painful and some numbness in toes and she it has kept her from being mobile this morning. Pt. agrees to chair seated exercise and supine in recliner exercise. Pain Numeric Pain Scale: 3 Location: Right Location Body Site: Foot (and toes) Pain Description: Ache, Pressure Mental Status Patient Orientation: Normal For Age Transfers SCALE: Activities may be completed with or without assistive devices. 4-Lxpjjjkizv-ufnkzim completes the activity by him/herself with no assistance from a helper. 5-Set-up or Clean-up Assistance-helper sets up or cleans up; patient completes activity. [place] assists only prior to or following the activity. 4-Supervision or Touching Assistance-helper provides verbal cues and/or touching/steadying and/or contact guard assistance as patient completes activity. Assistance may be provided throughout the activity or intermittently. 3-Partial/Moderate Assistance-helper does LESS THAN HALF the effort. [place] lifts, holds or supports trunk or limbs, but provides less than half the effort. 2-Substantial/Maximal Assistance-helper does MORE THAN HALF the effort. [place] lifts or holds trunk or limbs and provides more than half the effort. 0-Captcbuvl-mdsnjq does ALL the effort. Patient does none of the effort to c omplete the activity. Or, the assistance of 2 or more helpers is required for the patient to complete the activity. If activity was not attempted, code reason: 7-Patient Refused. 9-Not Applicable-not attempted and the patient did not perform the activity before the current illness, exacerbation or injury. 10-Not Attempted due to Environmental Limitations-(lack of equipment, weather restraints, etc.). 88-Not Attempted due to Medical Conditions or Safety Concerns. pt. with chair flat demonstrated ability to lay head of chair back and use R LE to push herself up in the chair well. Weight Bearing Left Lower Extremity: Left Weight Bearing/Tolerated WBAT when wearing the cam boot Gait Training pt.declined gait as her left foot boot was wet, being dried Exercises Supine Ex: Ankle pumps, Quad Set, Glut sets, Heel Slides, Short Arc Quads, Scooting, Straight leg raise, Hip abd/add Supine Reps: 15 Seated Therapy Exercises: Ankle pumps, Long arc quads, Hip flexion, Hip abd/add Seated Reps: 15 Treatments gentle joint mobilization to met heads and PIP and DP of right foot /toes , ma ssage gentle efflluerage of foot arch and heel with pt. remarking on much pain relief Assessment Current Status: Good Progress hoping for increased gait tolerance and less pain with wt bearing R foot when we attempt gait in PM. Pt. indicates less pain after Rx PT Short Term Goals Short Term Goals Time Frame: Jul 30, 2021 Roll Left & Right: 6 Sit to lyin Lying to sitting on side of be: 3 Sit to stand: 4 Chair/rve-jk-frvnn transfer: 4 Walk 10 feet: 3 PT Senior Living Goals Senior Living Goals [facility] Goals Time Frame: Aug 13, 2021 Roll Left & Right (QC): 6 Sit to Lying (QC): 6 Lying-Sitting on Side/Bed(QC): 6 Sit to Stand (QC): 4 Chair/Fwv-gk-Yrecq Xfer(QC): 4 Toilet Transfer (QC): 4 Car Transfer (QC): 4 Does the Patient Walk: Yes Walk 10 feet (QC): 4 Walk 50ft with 2 Turns (QC): 4 Walk 150 ft (QC): 88 Walking 10ft on Uneven Surface: 4 1 Step (curb) (QC): 4 4 Steps (QC): 4 12 Steps (QC): 88 Picking up an Object (QC): 4 Wheel 50 feet with 2 turns (QC: 9 Wheel 150 feet: 9 PT Plan Treatment/Plan Treatment Plan: Continue Plan of Care Treatment Plan: Bed Mobility, Education, Functional Activity Dorothea, Functional Strength, Group Therapy, Gait, Safety, Therapeutic Exercise, Transfers Treatment Duration: Aug 13, 2021 Frequency: At least 5 of 7 days/Wk (IRF) Estimated Hrs Per Day: 1.5 hours per day Patient and/or Family Agrees t: Yes Safety Risks/Education Patient Education: Correct Positioning, Disease Process, Safety Issues Teaching Recipient: Patient Response to Teaching: Reinforcement Needed Time/GCodes Time In: 1100 Time Out: 1200 Total Billed Treatment Time: 60 Total Billed Treatment 1,jxen14y,EX30m,FA10m GIGI MARIE FLYING SHEAR OPERATOR Aug 06, 2021 11:59
[2021-08-06] MEDS ORDERED: SALIVA STIMULANT MOUTH SPRAY (BIOTENE) 1.5 OZ MM PRN (12:30)
--- NOTE | 2021-08-06 13:21 | PM&R Progress Note ---
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 Stokes donated the shoe to help her right foot Very somatic Has a new complaint every day Needs to either go home with son or go to a long term 08/03/2021: Pt doing very well Podiatry consult requested Constipation will be resolved 08/02/2021: No major issues Pain is pretty well controlled Crackles from pulmonary fibrosis noted Nebulizer treatments ordered prn Checked meds and labs 08/01/21: Patient doing well No new pain issues Talked about kyphoplasty again her request Checked meds and labs 07/31/21: No major issues Pain reported "everywhere" Kyphoplasty not an option since she is mobilizing well 07/30/21: Patient feels better Moving more Back pain is less Told her compression fractures are still present and likely her increased activity has flared her old fractures No issues 07/29/2021: Patient doing well Having a lot of pain in her back after therapy She did report compression fractures 6 weeks ago so we will get x-rays K pad and diclofenac gel will be considered Patient very well may require long term placement due to now limiting back pain and left leg issue Patient did say they did discuss kyphoplasty at that time 07/28/21: Pt doing really well Incontinence will require urology consult Pt doing very well but self limiting 07/27/2021: Pt doing well No major issues Lisinopril given but not Norvasc due to hypotension Med alert will be needed when she goes home 07/26/2021: Patient doing well Feels like her ears are muffled Otoscope exam revealed no significant abnormality Patient doing well otherwise Labs reviewed 07/25/2021: Patient doing well Think she has a bladder infection Urinalysis and in and out cath ordered Transferring pretty well Pain is well controlled 07/24/2021: Patient doing very well Bowels are moving Change Claritin to daily since she takes it that way at home Pain is well controlled Participating in therapy Review of Systems General: Fatigue, Malaise Musculoskeletal: leg pain, foot pain Objective Exam Vital Signs Vital Signs Date Time Temp Pulse Resp B/P (MAP) Pulse Ox O2 Delivery O2 Flow Rate FiO2 08/06/21 21:35 Room Air 08/06/21 19:27 36.6 80 18 126/77 (93) 96 Capillary Refill : General Appearance: No Apparent Distress, WD/WN, Chronically ill, Thin, Other (Frail) HEENT: PERRL/EOMI, Normal ENT Inspection, Pharynx Normal Neck: Full Range of Motion, Normal Inspection, Non Tender, Supple, Carotid Bruit Respiratory: Chest Non Tender, Lungs Clear, Normal Breath Sounds, No Accessory Muscle Use, No Respiratory Distress, Decreased Breath Sounds Cardiovascular: Regular Rate, Rhythm, No Edema, No Gallop, No JVD, No Murmur, Normal Peripheral Pulses Gastrointestinal: Normal Bowel Sounds, No Organomegaly, No Pulsatile Mass, Non Tender, Soft Back: Normal Inspection, No CVA Tenderness, No Vertebral Tenderness Extremity: Normal Capillary Refill, Normal Inspection, Normal Range of Motion, Non Tender, No Calf Tenderness, No Pedal Edema Neurologic/Psychiatric: Alert, Oriented x3, No Motor/Sensory Deficits, Normal Mood/Affect, vegetable loader II-XII Norm as Tested, Abnormal Gait (Nonweightbearing on the left), Motor Weakness (Generalized decreased strength 4/5) Skin: Normal Color, Warm/Dry Lymphatic: No Adenopathy Results/Procedures Lab Patient resulted labs reviewed. FIM Transfers Therapy Code Descriptions/Definitions Functional [place] Measure: 0=Not Assessed/NA 4=Minimal Assistance 1=Total Assistance 5=Supervision or Setup 2=Maximal Assistance 6=Modified [place] 3=Moderate Assistance 7=Complete IndependenceSCALE: Activities may be completed with or without assistive devices. 3-Fguuphusoe-gpajcai completes the activity by him/herself with no assistance from a helper. 5-Set-up or Clean-up Assistance-helper sets up or cleans up; patient completes activity. [place] assists only prior to or following the activity. 4-Supervision or Touching Assistance-helper provides verbal cues and/or touching/steadying and/or contact guard assistance as patient completes activity. Assistance may be provided throughout the activity or intermittently. 3-Partial/Moderate Assistance-helper does LESS THAN HALF the effort. [place] lifts, holds or supports trunk or limbs, but provides less than half the effort. 2-Substantial/Maximal Assistance-helper does MORE THAN HALF the effort. [place] lifts or holds trunk or limbs and provides more than half the effort. 4-Enjdmdzts-zamdbz does ALL the effort. Patient does none of the effort to complete the activity. Or, the assistance of 2 or more helpers is required for the patient to complete the activity. If activity was not attempted, code reason: 7-Patient Refused. 9-Not Applicable-not attempted and the patient did not perform the activity b efore the current illness, exacerbation or injury. 10-Not Attempted due to Environmental Limitations-(lack of equipment, weather restraints, etc.). 88-Not Attempted due to Medical Conditions or Safety Concerns. Roll Left to Right (QC): 5 Sit to Lying (QC): 4 Sit to Stand (QC): 4 Chair/Irk-em-Zyxqc Xfer(QC): 4 Car Transfer (QC): 3 Gait Training Does the Patient Walk?: Yes Distance: 50' Walk 10 feet (QC): 5 Walk 50 ft with 2 Turns(QC): 5 Walk 150 ft (QC): 88 Walking 10ft/uneven surface-QC: 88 Gait Persons Needed: 1 Gait Assistive Device: FWW Wheelchair Training Does the Pt Use a Wheelchair?: Yes Wheel 50 ft with 2 turns (QC): 5 Wheel 150 ft (QC): 5 Type of Wheelchair: Manual Stair Training 1 Step (curb) (QC): 88 4 Steps (QC): 88 12 Steps (QC): 88 Balance Picking up an Object (QC): 88 ADL-Treatment Eating (QC): 6 (Pt able to open containers and use regular utensils.) Oral Hygiene (QC): 6 (Pt able to complete by self.) Bathing Location: L Arm, R Arm, L Upper Leg, R Upper Leg, L Lower Leg (including foot), R Lower Leg (including foot), Chest, Abdomen, Buttocks, Per ineal Area Shower/Bathe Self (QC): 5 (Set up) Upper Body Dressing (QC): 5 (Pt able to don/dof UB clothing with supplies gathered.) Lower Body Dressing (QC): 3 (Pt threads over right foot, assist for threading over CAM while seated. 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 lifetime non-smoker Hypothyroidism Rheumatoid arthritis Seasonal allergies History of GI bleed History pneumonia Osteoporosis Recent compression fractures and new x-rays could confirm acute on chronic fractures Somatic complaints Plan: Inpatient rehab protocol Bowel regimen Pain control 07/24/2021: Continue pain control Aggressive rehab 07/25/2021: Check urinalysis Supportive care Pain control 07/26/2021: Ear exam normal Aggressive therapy 07/27/2021: Supportive care Pain control 07/28/21: Supportive care Pain control 07/29/2021: Spine x-rays reviewed Slow recovery 07/30/21: Monitor pain Kpad Diclofenac gel 07/31/21: Monitor closely Pain management 08/01/21: Improved transfers Monitor closely 08/02/2021: Improved status Evaluate disposition 08/03/2021: Supportive care Podiatry consult Constipation management 08/04/2021: Appreciate Dr. Stokes Somatic complaints Needs long term or go home with son 08/05/2021: Monitor somatic complaints Supportive care 08/06/21: Monitor pain (1) Ankle fracture, left (2) Pulmonary fibrosis (3) Rheumatoid arthritis (4) Hypothyroidism (5) Hypertension (6) Advanced age (7) Frail elderly (8) Risk for falls KYLAH DELGADILLO DO Aug 06, 2021 13:21
--- NOTE | 2021-08-06 14:34 | Therapy Group Daily Note ---
Therapy Daily Group Note Patient Education Topic Fall Prevention, Home Safety, Other List Below (balance) Exercises LE Seated Exercise, UE Exercise Session Ratio (pt:therapist): 4:1 Goal of Session: Education on ARU Expectations, Home Safety Strategies, UE/LE Strengthing, Safety with Transfers, Other (list) (balance) Goal Met for this Session: Yes Pt Benefit of Group: Contributions to Others, F/U Use of Strategies @Home, Increased Functional Safety, Increased Functional Strength, Improved Cognition, Recognition of Peers, Socialization Other/Notes Pt ambulated using FWW to ARU commons are for OT/PT group. Group consisted of introductions(name, place living, favorite Thanksgiving dessert), socialization, pt led B UE/LE seated exercises, and educational topics (balance, fall prevention, ARU description/expectations). Pt introduced self appropriately and actively listened to peers. Pt able to complete pt led B UE/LE exercises with modifications due to medical issues. Pt acknowledged understanding of educational topics by giving own personal strategies and affirmative gestures. After session, pt lying in bed with call light/phone in reach. All needs met in room. Start Time: 13:00 Stop Time: 14:00 Total Billed Treatment Time: 60 Total Billed Treatment 1-GRP SANTOS NOLASCO Aug 06, 2021 14:34
[2021-08-06 19:27] VITALS: BP 126/77
[2021-08-06] MEDS: TOLTERODINE LA 4 MG (DETROL) CAP PO SCH (21:31)
[2021-08-06] MEDS: ESTROGENS CONJ. CREAM 30 GM (PREMARIN) TUBE VG SCH (21:36)
[2021-08-07] MEDS: ENOXAPARIN 40 MG/0.4 ML (LOVENOX) SYR SC SCH (06:37)
[2021-08-07] MEDS: MULTIVIT W/MINERALS TAB (THERAGRAN M) PO SCH (06:37)
[2021-08-07] MEDS: LEVOTHYROXINE 125 MCG (LEVOTHROID) TABLET PO SCH (06:37)
[2021-08-07] MEDS: PANTOPRAZOLE 40 MG (PROTONIX) TAB PO SCH (06:37)
[2021-08-07 07:30] VITALS: BP 143/73
[2021-08-07] MEDS: RT-BUDESONIDE NEBS 0.5 MG/2ML (PULMICORT) AMP IH SCH ×2 (07:53→20:55)
[2021-08-07] MEDS: polyethylene glycoL POWDER 17 GM (MIRALAX) PACK PO SCH (08:23)
[2021-08-07] MEDS: DOCUSATE SODIUM 100 MG (COLACE) CAP PO SCH ×2 (08:25→21:21)
[2021-08-07] MEDS: SENNOSIDES 8.6 MG (SENOKOT) TAB PO SCH (08:25)
[2021-08-07] MEDS: GABAPENTIN 100 MG (NEURONTIN) CAP PO SCH ×3 (08:25→21:20)
[2021-08-07] MEDS: VITAMIN D3 10 MCG (400 UNITS) TABLET PO SCH (08:26)
[2021-08-07] MEDS: amLODIPine 10 MG (NORVASC) TAB PO SCH (08:26)
[2021-08-07] MEDS: lisINopril 20 MG (PRINIVIL) TABLET PO SCH ×2 (08:26→21:21)
[2021-08-07] MEDS: LORATADINE (CLARITIN) 10 MG TAB PO SCH (08:26)
[2021-08-07] MEDS: CALCIUM CARB + VIT D 600 MG (CALCARB + D) TAB PO SCH ×2 (08:26→17:37)
[2021-08-07] MEDS: sulfaSALAzine 500 MG (AZULFIDINE) TAB PO SCH ×2 (08:26→21:20)
[2021-08-07] MEDS: ARTIFICAL TEARS 0.4 ML UNIT DOSE (REFRESH PLUS) OU SCH ×2 (08:27→21:19)
[2021-08-07] MEDS: FLUTICASONE NASAL SPRAY (FLONASE) 16 GM BTL NS SCH (08:27)
[2021-08-07] MEDS: DICLOFENAC 1% GEL 100 GM (VOLTAREN) TUBE TOP SCH ×4 (08:28→21:21)
--- NOTE | 2021-08-07 10:11 | Physical Therapy Daily Note ---
PT Daily Note-Current Subjective States that she is doing okay. Transfers SCALE: Activities may be completed with or without assistive devices. 9-Ruuqikgsjs-evrvooi completes the activity by him/herself with no assistance from a helper. 5-Set-up or Clean-up Assistance-helper sets up or cleans up; patient completes a ctivity. [place] assists only prior to or following the activity. 4-Supervision or Touching Assistance-helper provides verbal cues and/or touching/steadying and/or contact guard assistance as patient completes activity. Assistance may be provided throughout the activity or intermittently. 3-Partial/Moderate Assistance-helper does LESS THAN HALF the effort. [place] lifts, holds or supports trunk or limbs, but provides less than half the effort. 2-Substantial/Maximal Assistance-helper does MORE THAN HALF the effort. [place] lifts or holds trunk or limbs and provides more than half the effort. 6-Vvipqjzsj-vukaim does ALL the effort. Patient does none of the effort to complete the activity. Or, the assistance of 2 or more helpers is required for the patient to complete the activity. If activity was not attempted, code reason: 7-Patient Refused. 9-Not Applicable-not attempted and the patient did not perform the activity before the current illness, exacerbation or injury. 10-Not Attempted due to Environmental Limitations-(lack of equipment, weather restraints, etc.). 88-Not Attempted due to Medical Conditions or Safety Concerns. Weight Bearing Left Lower Extremity: Left Weight Bearing/Tolerated WBAT when wearing the cam boot Gait Training Distance: 50' x 2 Gait Persons Needed: 1 Gait Assistive Device: FWW Treatments Voltaren gel applied to patient's back and toe's per patient request. Assessment Current Status: Excellent Progress Patient did well with gait. PT Short Term Goals Short Term Goals Time Frame: Jul 30, 2021 Roll Left & Right: 6 Sit to lyin Lying to sitting on side of be: 3 Sit to stand: 4 Chair/jbe-ae-lenyq transfer: 4 Walk 10 feet: 3 PT Coat Maker Goals Coat Maker Goals PT Coat Maker Goals Time Frame: Aug 13, 2021 Roll Left & Right (QC): 6 Sit to Lying (QC): 6 Lying-Sitting on Side/Bed(QC): 6 Sit to Stand (QC): 4 Chair/Ebt-au-Nbsdo Xfer(QC): 4 Toilet Transfer (QC): 4 Car Transfer (QC): 4 Does the Patient Walk: Yes Walk 10 feet (QC): 4 Walk 50ft with 2 Turns (QC): 4 Walk 150 ft (QC): 88 Walking 10ft on Uneven Surface: 4 1 Step (curb) (QC): 4 4 Steps (QC): 4 12 Steps (QC): 88 Picking up an Object (QC): 4 Wheel 50 feet with 2 turns (QC: 9 Wheel 150 feet: 9 PT Plan Treatment/Plan Treatment Plan: Continue Plan of Care Treatment Plan: Bed Mobility, Education, Functional Activity Dorothea, Functional Strength, Group Therapy, Gait, Safety, Therapeutic Exercise, Transfers Treatment Duration: Aug 13, 2021 Frequency: At least 5 of 7 days/Wk (IRF) Estimated Hrs Per Day: 1.5 hours per day Patient and/or Family Agrees t: Yes Time/GCodes Time In: 0955 Time Out: 1005 Total Billed Treatment Time: 10 Total Billed Treatment 1, EX x 10' JANINE ALFORD PT Aug 07, 2021 10:11
--- NOTE | 2021-08-07 11:46 | PM&R Progress Note ---
Subjective HPI/CC On Admission Date Seen by Provider: Aug 07, 2021 Time Seen by Provider: 12:00 Subjective/Events-last exam 08/07/2021: Patient does not have many problems today Issues with discharge She is moving around a lot better and she thinks she may be able to go home I explained to her advantage plan rarely provides skilled benefits after maintaining inpatient rehab stay 08/06/21: Patient doing well No complaints today Going home with son appears to not be an option Skilled care likely will be required unsure of advantage plan coverage and they will likely deny 08/05/2021: Patient doing well Had me discuss kyphoplasty again and this is been discussed 6 times already 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 Stokes donated the shoe to help her right foot Very somatic Has a new complaint every day Needs to either go home with son or go to a correction 08/03/2021: Pt doing very well Podiatry consult requested Constipation will be resolved 08/02/2021: No major issues Pain is pretty well controlled Crackles from pulmonary fibrosis noted Nebulizer treatments ordered prn Checked meds and labs 08/01/21: Patient doing well No new pain issues Talked about kyphoplasty again her request Checked meds and labs 07/31/21: No major issues Pain reported "everywhere" Kyphoplasty not an option since she is mobilizing well 07/30/21: Patient feels better Moving more Back pain is less Told her compression fractures are still present and likely her increased activity has flared her old fractures No issues 07/29/2021: Patient doing well Having a lot of pain in her back after therapy She did report compression fractures 6 weeks ago so we will get x-rays K pad and diclofenac gel will be considered Patient very well may require correction placement due to now limiting back pain and left leg issue Patient did say they did discuss kyphoplasty at that time 07/28/21: Pt doing really well Incontinence will require urology consult Pt doing very well but self limiting 07/27/2021: Pt doing well No major issues Lisinopril given but not Norvasc due to hypotension Med alert will be needed when she goes home 07/26/2021: Patient doing well Feels like her ears are muffled Otoscope exam revealed no significant abnormality Patient doing well otherwise Labs reviewed 07/25/2021: Patient doing well Think she has a bladder infection Urinalysis and in and out cath ordered Transferring pretty well Pain is well controlled 07/24/2021: Patient doing very well Bowels are moving Change Claritin to daily since she takes it that way at home Pain is well controlled Participating in therapy Review of Systems General: Fatigue, Malaise Neurological: Weakness Objective Exam Vital Signs Vital Signs Date Time Temp Pulse Resp B/P (MAP) Pulse Ox O2 Delivery O2 Flow Rate FiO2 08/07/21 21:20 93 Room Air 08/07/21 20:23 36.4 94 16 103/65 (78) Capillary Refill : General Appearance: No Apparent Distress, WD/WN, Chronically ill, Thin, Other (Frail) HEENT: PERRL/EOMI, Normal ENT Inspection, Pharynx Normal Neck: Full Range of Motion, Normal Inspection, Non Tender, Supple, Carotid Bruit Respiratory: Chest Non Tender, Lungs Clear, Normal Breath Sounds, No Accessory Muscle Use, No Respiratory Distress, Decreased Breath Sounds Cardiovascular: Regular Rate, Rhythm, No Edema, No Gallop, No JVD, No Murmur, Normal Peripheral Pulses Gastrointestinal: Normal Bowel Sounds, No Organomegaly, No Pulsatile Mass, Non Tender, Soft Back: Normal Inspection, No CVA Tenderness, No Vertebral Tenderness Extremity: Normal Capillary Refill, Normal Inspection, Normal Range of Motion, Non Tender, No Calf Tenderness, No Pedal Edema Neurologic/Psychiatric: Alert, Oriented x3, No Motor/Sensory Deficits, Normal Mood/Affect, keeper head II-XII Norm as Tested, Abnormal Gait (Nonweightbearing on the left), Motor Weakness (Generalized decreased strength 4/5) Skin: Normal Color, Warm/Dry Lymphatic: No Adenopathy Results/Procedures Lab Patient resulted labs reviewed. FIM Transfers Therapy Code Descriptions/Definitions Functional [place] Measure: 0=Not Assessed/NA 4=Minimal Assistance 1=Total Assistance 5=Supervision or Setup 2=Maximal Assistance 6=Modified [place] 3=Moderate Assistance 7=Complete IndependenceSCALE: Activities may be completed with or without assistive devices. 2-Ycysycrxau-lzmrlov completes the activity by him/herself with no assistance from a helper. 5-Set-up or Clean-up Assistance-helper sets up or cleans up; patient completes activity. [place] assists only prior to or following the activity. 4-Supervision or Touching Assistance-helper provides verbal cues and/or touching/steadying and/or contact guard assistance as patient completes activity. Assistance may be provided throughout the activity or intermittently. 3-Partial/Moderate Assistance-helper does LESS THAN HALF the effort. [place] lifts, holds or supports trunk or limbs, but provides less than half the effort. 2-Substantial/Maximal Assistance-helper does MORE THAN HALF the effort. [place] lifts or holds trunk or limbs and provides more than half the effort. 0-Hunzbwcij-miakis does ALL the effort. Patient does none of the effort to complete the activity. Or, the assistance of 2 or more helpers is required for the patient to complete the activity. If activity was not attempted, code reason: 7-Patient Refused. 9-Not Applicable-not attempted and the patient did not perform the activity before the current illness, exacerbation or injury. 10-Not Attempted due to Environmental Limitations-(lack of equipment, weather restraints, etc.). 88-Not Attempted due to Medical Conditions or Safety Concerns. Roll Left to Right (QC): 5 Sit to Lying (QC): 4 Sit to Stand (QC): 4 Chair/Whs-mo-Binqh Xfer(QC): 4 Car Transfer (QC): 3 Gait Training Does the Patient Walk?: Yes Distance: 50' x 2 Walk 10 feet (QC): 5 Walk 50 ft with 2 Turns(QC): 5 Walk 150 ft (QC): 88 Walking 10ft/uneven surface-QC: 88 Gait Persons Needed: 1 Gait Assistive Device: FWW Wheelchair Training Does the Pt Use a Wheelchair?: Yes Wheel 50 ft with 2 turns (QC): 5 Wheel 150 ft (QC): 5 Type of Wheelchair: Manual Stair Training 1 Step (curb) (QC): 88 4 Steps (QC): 88 12 Steps (QC): 88 Balance Picking up an Object (QC): 88 ADL-Treatment Eating (QC): 6 (Pt able to open containers and use regular utensils.) Oral Hygiene (QC): 6 (Pt able to complete by self.) Bathing Location: L Arm, R Arm, L Upper Leg, R Upper Leg, L Lower Leg (including foot), R Lower Leg (including foot), Chest, Abdomen, Buttocks, Perineal Area Shower/Bathe Self (QC): 5 (Set up) Upper Body Dressing (QC): 5 (Pt able to don/dof UB clothing with supplies gathered.) Lower Body Dressing (QC): 3 (Pt threads over right foot, assist for threading over CAM while seated. 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 lifetime non-smoker Hypothyroidism Rheumatoid arthritis Seasonal allergies History of GI bleed History pneumonia Osteoporosis Recent compression fractures and new x-rays could confirm acute on chronic fractures Somatic complaints Plan: Inpatient rehab protocol Bowel regimen Pain control 07/24/2021: Continue pain control Aggressive rehab 07/25/2021: Check urinalysis Supportive care Pain control 07/26/2021: Ear exam normal Aggressive therapy 07/27/2021: Supportive care Pain control 07/28/21: Supportive care Pain control 07/29/2021: Spine x-rays reviewed Slow recovery 07/30/21: Monitor pain Kpad Diclofenac gel 07/31/21: Monitor closely Pain management 08/01/21: Improved transfers Monitor closely 08/02/2021: Improved status Evaluate disposition 08/03/2021: Supportive care Podiatry consult Constipation management 08/04/2021: Appreciate Dr. Stokes Somatic complaints Needs correction or go home with son 08/05/2021: Monitor somatic complaints Supportive care 08/06/21: Monitor pain 08/07/2020: Pain control (1) Ankle fracture, left (2) Pulmonary fibrosis (3) Rheumatoid arthritis (4) Hypothyroidism (5) Hypertension (6) Advanced age (7) Frail elderly (8) Risk for falls KYLAH DELGADILLO DO Aug 07, 2021 11:46
[2021-08-07 20:23] VITALS: BP 103/65
[2021-08-07] MEDS: TOLTERODINE LA 4 MG (DETROL) CAP PO SCH (21:20)
[2021-08-07] MEDS: CALCIUM CARBONATE 500 MG (TUMS) TAB.CHEW PO PRN (22:33)
[2021-08-08] MEDS: LEVOTHYROXINE 125 MCG (LEVOTHROID) TABLET PO SCH (06:47)
[2021-08-08] MEDS: ENOXAPARIN 40 MG/0.4 ML (LOVENOX) SYR SC SCH (06:47)
[2021-08-08] MEDS: PANTOPRAZOLE 40 MG (PROTONIX) TAB PO SCH (06:47)
[2021-08-08] MEDS: MULTIVIT W/MINERALS TAB (THERAGRAN M) PO SCH (06:47)
[2021-08-08] MEDS: RT-BUDESONIDE NEBS 0.5 MG/2ML (PULMICORT) AMP IH SCH ×2 (07:24→19:12)
[2021-08-08 07:27] VITALS: BP 103/65
[2021-08-08 07:30] VITALS: BP 134/64
[2021-08-08] MEDS: sulfaSALAzine 500 MG (AZULFIDINE) TAB PO SCH ×2 (08:59→21:17)
[2021-08-08] MEDS: CALCIUM CARB + VIT D 600 MG (CALCARB + D) TAB PO SCH ×2 (08:59→17:15)
[2021-08-08] MEDS: lisINopril 20 MG (PRINIVIL) TABLET PO SCH ×2 (08:59→21:19)
[2021-08-08] MEDS: GABAPENTIN 100 MG (NEURONTIN) CAP PO SCH ×3 (09:00→21:19)
[2021-08-08] MEDS: VITAMIN D3 10 MCG (400 UNITS) TABLET PO SCH (09:00)
[2021-08-08] MEDS: DOCUSATE SODIUM 100 MG (COLACE) CAP PO SCH ×2 (09:00→21:19)
[2021-08-08] MEDS: SENNOSIDES 8.6 MG (SENOKOT) TAB PO SCH (09:00)
[2021-08-08] MEDS: ARTIFICAL TEARS 0.4 ML UNIT DOSE (REFRESH PLUS) OU SCH ×2 (09:06→21:17)
[2021-08-08] MEDS: FLUTICASONE NASAL SPRAY (FLONASE) 16 GM BTL NS SCH (09:06)
[2021-08-08] MEDS: amLODIPine 10 MG (NORVASC) TAB PO SCH (09:07)
[2021-08-08] MEDS: polyethylene glycoL POWDER 17 GM (MIRALAX) PACK PO SCH (09:07)
[2021-08-08] MEDS: DICLOFENAC 1% GEL 100 GM (VOLTAREN) TUBE TOP SCH ×4 (09:08→21:25)
[2021-08-08] MEDS: LORATADINE (CLARITIN) 10 MG TAB PO SCH (09:08)
--- NOTE | 2021-08-08 11:42 | PM&R Progress Note ---
Subjective HPI/CC On Admission Date Seen by Provider: Aug 08, 2021 Time Seen by Provider: 11:45 Subjective/Events-last exam 08/08/2021: No major issues Holding Norvasc due to diastolic less than 60 Denies pain 08/07/2021: Patient does not have many problems today Issues with discharge She is moving around a lot better and she thinks she may be able to go home I explained to her advantage plan rarely provides skilled benefits after maintaining inpatient rehab stay 08/06/21: Patient doing well No complaints today Going home with son appears to not be an option Skilled care likely will be required unsure of advantage plan coverage and they will likely deny 08/05/2021: Patient doing well Had me discuss kyphoplasty again and this is been discussed 6 times already 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 Stokes donated the shoe to help her right foot Very somatic Has a new complaint every day Needs to either go home with son or go to a longterm 08/03/2021: Pt doing very well Podiatry consult requested Constipation will be resolved 08/02/2021: No major issues Pain is pretty well controlled Crackles from pulmonary fibrosis noted Nebulizer treatments ordered prn Checked meds and labs 08/01/21: Patient doing well No new pain issues Talked about kyphoplasty again her request Checked meds and labs 07/31/21: No major issues Pain reported "everywhere" Kyphoplasty not an option since she is mobilizing well 07/30/21: Patient feels better Moving more Back pain is less Told her compression fractures are still present and likely her increased activity has flared her old fractures No issues 07/29/2021: Patient doing well Having a lot of pain in her back after therapy She did report compression fractures 6 weeks ago so we will get x-rays K pad and diclofenac gel will be considered Patient very well may require longterm placement due to now limiting back pain and left leg issue Patient did say they did discuss kyphoplasty at that time 07/28/21: Pt doing really well Incontinence will require urology consult Pt doing very well but self limiting 07/27/2021: Pt doing well No major issues Lisinopril given but not Norvasc due to hypotension Med alert will be needed when she goes home 07/26/2021: Patient doing well Feels like her ears are muffled Otoscope exam revealed no significant abnormality Patient doing well otherwise Labs reviewed 07/25/2021: Patient doing well Think she has a bladder infection Urinalysis and in and out cath ordered Transferring pretty well Pain is well controlled 07/24/2021: Patient doing very well Bowels are moving Change Claritin to daily since she takes it that way at home Pain is well controlled Participating in therapy Review of Systems General: Fatigue, Malaise Objective Exam Vital Signs Vital Signs Date Time Temp Pulse Resp B/P (MAP) Pulse Ox O2 Delivery O2 Flow Rate FiO2 08/08/21 19:12 94 Room Air 08/08/21 19:09 36.3 82 16 150/70 (96) 08/08/21 07:27 21 Capillary Refill : General Appearance: No Apparent Distress, WD/WN, Chronically ill, Thin, Other (Frail) HEENT: PERRL/EOMI, Normal ENT Inspection, Pharynx Normal Neck: Full Range of Motion, Normal Inspection, Non Tender, Supple, Carotid Bruit Respiratory: Chest Non Tender, Lungs Clear, Normal Breath Sounds, No Accessory Muscle Use, No Respiratory Distress, Decreased Breath Sounds Cardiovascular: Regular Rate, Rhythm, No Edema, No Gallop, No JVD, No Murmur, Normal Peripheral Pulses Gastrointestinal: Normal Bowel Sounds, No Organomegaly, No Pulsatile Mass, Non Tender, Soft Back: Normal Inspection, No CVA Tenderness, No Vertebral Tenderness Extremity: Normal Capillary Refill, Normal Inspection, Normal Range of Motion, Non Tender, No Calf Tenderness, No Pedal Edema Neurologic/Psychiatric: Alert, Oriented x3, No Motor/Sensory Deficits, Normal Mood/Affect, wound care physician II-XII Norm as Tested, Abnormal Gait (Nonweightbearing on the left), Motor Weakness (Generalized decreased strength 4/5) Skin: Normal Color, Warm/Dry Lymphatic: No Adenopathy Results/Procedures Lab Patient resulted labs reviewed. FIM Transfers Therapy Code Descriptions/Definitions Functional [place] Measure: 0=Not Assessed/NA 4=Minimal Assistance 1=Total Assistance 5=Supervision or Setup 2=Maximal Assistance 6=Modified [place] 3=Moderate Assistance 7=Complete IndependenceSCALE: Activities may be completed with or without assistive devices. 4-Odwoogoavx-wbqrtnx completes the activity by him/herself with no assistance from a helper. 5-Set-up or Clean-up Assistance-helper sets up or cleans up; patient completes activity. [place] assists only prior to or following the activity. 4-Supervision or Touching Assistance-helper provides verbal cues and/or touching/steadying and/or contact guard assistance as patient completes activity. Assistance may be provided throughout the activity or intermittently. 3-Partial/Moderate Assistance-helper does LESS THAN HALF the effort. [place] lifts, holds or supports trunk or limbs, but provides less than half the effort. 2-Substantial/Maximal Assistance-helper does MORE THAN HALF the effort. [place] lifts or holds trunk or limbs and provides more than half the effort. 0-Aeckzhjxc-lixsew does ALL the effort. Patient does none of the effort to complete the activity. Or, the assistance of 2 or more helpers is required for the patient to complete the activity. If activity was not attempted, code reason: 7-Patient Refused. 9-Not Applicable-not attempted and the patient did not perform the activity before the current illness, exacerbation or injury. 10-Not Attempted due to Environmental Limitations-(lack of equipment, weather restraints, etc.). 88-Not Attempted due to Medical Conditions or Safety Concerns. Roll Left to Right (QC): 5 Sit to Lying (QC): 4 Sit to Stand (QC): 4 Chair/Vhi-fv-Wrttn Xfer(QC): 4 Car Transfer (QC): 3 Gait Training Does the Patient Walk?: Yes Distance: 50' x 2 Walk 10 feet (QC): 5 Walk 50 ft with 2 Turns(QC): 5 Walk 150 ft (QC): 88 Walking 10ft/uneven surface-QC: 88 Gait Persons Needed: 1 Gait Assistive Device: FWW Wheelchair Training Does the Pt Use a Wheelchair?: Yes Wheel 50 ft with 2 turns (QC): 5 Wheel 150 ft (QC): 5 Type of Wheelchair: Manual Stair Training 1 Step (curb) (QC): 88 4 Steps (QC): 88 12 Steps (QC): 88 Balance Picking up an Object (QC): 88 ADL-Treatment Eating (QC): 6 (Pt able to open containers and use regular utensils.) Oral Hygiene (QC): 6 (Pt able to complete by self.) Bathing Location: L Arm, R Arm, L Upper Leg, R Upper Leg, L Lower Leg (including foot), R Lower Leg (including foot), Chest, Abdomen, Buttocks, Perineal Area Shower/Bathe Self (QC): 5 (Set up) Upper Body Dressing (QC): 5 (Pt able to don/dof UB clothing with supplies gathered.) Lower Body Dressing (QC): 3 (Pt threads over right foot, assist for threading over CAM while seated. 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 lifetime non-smoker Hypothyroidism Rheumatoid arthritis Seasonal allergies History of GI bleed History pneumonia Osteoporosis Recent compression fractures and new x-rays could confirm acute on chronic fractures Somatic complaints Plan: Inpatient rehab protocol Bowel regimen Pain control 07/24/2021: Continue pain control Aggressive rehab 07/25/2021: Check urinalysis Supportive care Pain control 07/26/2021: Ear exam normal Aggressive therapy 07/27/2021: Supportive care Pain control 07/28/21: Supportive care Pain control 07/29/2021: Spine x-rays reviewed Slow recovery 07/30/21: Monitor pain Kpad Diclofenac gel 07/31/21: Monitor closely Pain management 08/01/21: Improved transfers Monitor closely 08/02/2021: Improved status Evaluate disposition 08/03/2021: Supportive care Podiatry consult Constipation management 08/04/2021: Appreciate Dr. Stokes Somatic complaints Needs longterm or go home with son 08/05/2021: Monitor somatic complaints Supportive care 08/06/21: Monitor pain 08/07/2020: Pain control 08/08/2021 Supportive care (1) Ankle fracture, left (2) Pulmonary fibrosis (3) Rheumatoid arthritis (4) Hypothyroidism (5) Hypertension (6) Advanced age (7) Frail elderly (8) Risk for falls KYLAH DELGADILLO DO Aug 08, 2021 11:41
[2021-08-08 19:09] VITALS: BP 150/70
[2021-08-08] MEDS: TOLTERODINE LA 4 MG (DETROL) CAP PO SCH (21:19)
[2021-08-09] MEDS ORDERED: DICL100G13 TOP (05:24)
[2021-08-09] MEDS ORDERED: TRM50T PO (05:24)
[2021-08-09] MEDS ORDERED: TOLTA4 PO (05:24)
--- NOTE | 2021-08-09 05:26 | D/C HH Face to Face Order ---
D/C Face to Face Orders Reconcile Patient Problems Problems Reviewed?: Yes Instructions for Patient Via [facility], Patient Instructions/FollowUp: PCP 2 weeks Physician to follow Patient: PCP Discharge Diet for Home: No Restrictions Patient Problems: Left ankle fracture Patient Data-Allergies,Ht & Wt Patient Allergies: Coded Allergies: adhesive tape (Verified Allergy, Unknown, 07/23/21) latex (Verified Allergy, Unknown, 07/23/21) morphine (Verified Allergy, Unknown, 07/23/21) moxifloxacin (Verified Allergy, Unknown, 07/23/21) Home Health Need/Face to Face Date of Face to Face: Aug 09, 2021 Clinical Findings: Instability, Muscle weakness, Non or partial weight bearing I have seen Pt [id number]: Yes Discharged To: Home Diagnosis/Conditions: Left ankle fracture Patient is Homebound due to: Abi fall risk due to instabilty, Muscle weakness, Non-weight bearing Homebound Status Due to the above stated illness, injury or surgical procedure (medical condition or diagnosis) and associated clinical findings, the patient is homebound because of his/her inability to leave home except with aid of a supportive device and/or person AND leaving the home requires a considerable and taxing effort or is medically contraindicated. Pt req the following assistanc: Walker Home Health Nursing Orders Home Health Services Order: Nursing Services, [facility]-Evaluate & Treat, Physical Therapy-Evaluate & Treat Certify Stmt I certify that this patient is under my care and that I, a nurse practitioner or a physician; a butcher assistant working with me, had a face to face encounter that - meets the physician face to face encounter requirements with this patient as luisito ed. KYLAH DELGADILLO DO Aug 09, 2021 05:26
--- NOTE | 2021-08-09 05:38 | Discharge Summary ---
Diagnosis/Chief Complaint Date of Admission Jul 23, 2021 at 15:11 Date of Discharge Discharge Date: Aug 09, 2021 Discharge Summary Discharge Physical Examination Allergies: Coded Allergies: adhesive tape (Verified Allergy, Unknown, 07/23/21) latex (Verified Allergy, Unknown, 07/23/21) morphine (Verified Allergy, Unknown, 07/23/21) moxifloxacin (Verified Allergy, Unknown, 07/23/21) Vitals & I&Os Vital Signs Date Time Temp Pulse Resp B/P (MAP) Pulse Ox O2 Delivery O2 Flow Rate FiO2 08/09/21 20:02 36.9 81 16 103/73 (83) 96 Room Air 08/08/21 07:27 21 Hospital Course Labs (last 24 hrs) Laboratory Tests 07/24/21 06:40: White Blood Count 4.6, Red Blood Count 3.62L, Hemoglobin 11.1L, Hematocrit 34L, Mean Corpuscular Volume 93, Mean Corpuscular Hemoglobin 31, Mean Corpuscular Hemoglobin Concent 33, Red Cell Distribution Width 13.5, Platelet Count 194, Sully n Platelet Volume 8.6L, Immature Granulocyte % (Auto) 0, Neutrophils (%) (Auto) 60, Lymphocytes (%) (Auto) 25, Monocytes (%) (Auto) 15H, Eosinophils (%) (Auto) 0, Basophils (%) (Auto) 0, Neutrophils # (Auto) 2.8, Lymphocytes # (Auto) 1.2, Monocytes # (Auto) 0.7, Eosinophils # (Auto) 0.0, Basophils # (Auto) 0.0, Immature Granulocyte # (Auto) 0.0, Sodium Level 136, Potassium Level 4.4, Chloride Level 104, Carbon Dioxide Level 23, Anion Gap 9, Blood Urea Nitrogen 16, Creatinine 0.64, Estimat Glomerular Filtration Rate 89, BUN/Creatinine Ratio 25, Glucose Level 90, Calcium Level 8.2L, Corrected Calcium 9.1, Total Bilirubin 0.5, Aspartate Amino Transf (AST/SGOT) 23, Alanine Aminotransferase (ALT/SGPT) 10, Alkaline Phosphatase 60, Total Protein 5.8L, Albumin 2.9L 07/25/21 12:50: Urine Color YELLOW, Urine Clarity CLEAR, Urine pH 6.5, Urine Specific [place] 1.010L, Urine Protein NEGATIVE, Urine Glucose (UA) NEGATIVE, Urine Ketones NEGATIVE, Urine Nitrite NEGATIVE, Urine Bilirubin NEGATIVE, Urine Urobilinogen 0.2, Urine Leukocyte Esterase NEGATIVE, Urine RBC (Auto) NEGATIVE, Urine RBC NONE, Urine WBC 0-2, Urine Squamous Epithelial Cells 0-2, Urine Crystals NONE, Urine Bacteria NEGATIVE, Urine Casts NONE, Urine Mucus NEGATIVE, Urine Culture Indicated NO 07/26/21 06:41: White Blood Count 5.9, Red Blood Count 3.84, Hemoglobin 11.8, Hematocrit 36, Mean Corpuscular Volume 92, Mean Corpuscular Hemoglobin 31, Mean Corpuscular Hemoglobin Concent 33, Red Cell Distribution Width 13.3, Platelet Count 210, Mean Platelet Volume 8.2L, Immature Granulocyte % (Auto) 0, Neutrophils (%) (Auto) 65, Lymphocytes (%) (Auto) 20, Monocytes (%) (Auto) 13H, Eosinophils (%) (Auto) 3, Basophils (%) (Auto) 0, Neutrophils # (Auto) 3.8, Lymphocytes # (Auto) 1.2, Monocytes # (Auto) 0.8, Eosinophils # (Auto) 0.2, Basophils # (Auto) 0.0, Immature Granulocyte # (Auto) 0.0, Sodium Level 136, Potassium Level 4.4, Chloride Level 101, Carbon Dioxide Level 24, Anion Gap 11, Blood Urea Nitrogen 18, Creatinine 0.68, Estimat Glomerular Filtration Rate 83, BUN/Creatinine Ratio 26, Glucose Level 93, Calcium Level 8.7, Corrected Calcium 9.5, Total Bilirubin 0.7, Aspartate Amino Transf (AST/SGOT) 25, Alanine Aminotransferase (ALT/SGPT) 13, Alkaline Phosphatase 59, Total Protein 6.4, Albumin 3.0L 08/02/21 05:25: White Blood Count 4.5, Red Blood Count 3.68L, Hemoglobin 11.2L, Hematocrit 34L, Mean Corpuscular Volume 93, Mean Corpuscular Hemoglobin 30, Mean Corpuscular Hemoglobin Concent 33, Red Cell Distribution Width 12.8, Platelet Count 272, Mean Platelet Volume 8.2L, Immature Granulocyte % (Auto) 0, Neutrophils (%) (Auto) 62, Lymphocytes (%) (Auto) 22, Monocytes (%) (Auto) 15H, Eosinophils (%) (Auto) 0, Basophils (%) (Auto) 0, Neutrophils # (Auto) 2.8, Lymphocytes # (Auto) 1.0, Monocytes # (Auto) 0.7, Eosinophils # (Auto) 0.0, Basophils # (Auto) 0.0, Immature Granulocyte # (Auto) 0.0, Sodium Level 133L, Potassium Level 4.9, Chloride Level 101, Carbon Dioxide Level 22, Anion Gap 10, Blood Urea Nitrogen 21H, Creatinine 0.71, Estimat Glomerular Filtration Rate 79, BUN/Creatinine Ratio 30, Glucose Level 83, Calcium Level 8.4L, Corrected Calcium 9.1, Total Bilirubin 0.3, Aspartate Amino Transf (AST/SGOT) 26, Alanine Aminotransferase (ALT/SGPT) 15, Alkaline Phosphatase 72, Total Protein 6.2L, Albumin 3.1L 08/09/21 05:30: White Blood Count 4.2L, Red Blood Count 3.96, Hemoglobin 12.1, Hematocrit 37, Mean Corpuscular Volume 94, Mean Corpuscular Hemoglobin 31, Mean Corpuscular Hemoglobin Concent 32, Red Cell Distribution Width 13.2, Platelet Count 273, Mean Platelet Volume 8.1L, Immature Granulocyte % (Auto) 1, Neutrophils (%) (Auto) 54, Lymphocytes (%) (Auto) 29, Monocytes (%) (Auto) 16H, Eosinophils (%) (Auto) 0, Basophils (%) (Auto) 1, Neutrophils # (Auto) 2.3, Lymphocytes # (Auto) 1.2, Monocytes # (Auto) 0.7, Eosinophils # (Auto) 0.0, Basophils # (Auto) 0.0, Immature Granulocyte # (Auto) 0.0, Sodium Level 135, Potassium Level 4.5, Chloride Level 102, Carbon Dioxide Level 23, Anion Gap 10, Blood Urea Nitrogen 20H, Creatinine 0.76, Estimat Glomerular Filtration Rate 73, BUN/Creatinine Ratio 26, Glucose Level 84, Calcium Level 8.5, Corrected Calcium 9.2, Total Bilirubin 0.3, Aspartate Amino Transf (AST/SGOT) 25, Alanine Aminotransferase (ALT/SGPT) 15, Alkaline Phosphatase 79, Total Protein 6.3L, Albumin 3.1L Pending Labs Laboratory Tests 07/24/21 06:40: White Blood Count 4.6, Red Blood Count 3.62, Hemoglobin 11.1, Hematocrit 34, Mean Corpuscular Volume 93, Mean Corpuscular Hemoglobin 31, Mean Corpuscular Hemoglobin Concent 33, Red Cell Distribution Width 13.5, Platelet Count 194, Mean Platelet Volume 8.6, Immature Granulocyte % (Auto) 0, Neutrophils (%) (Auto) 60, Lymphocytes (%) (Auto) 25, Monocytes (%) (Auto) 15, Eosinophils (%) (Auto) 0, Basophils (%) (Auto) 0, Neutrophils # (Auto) 2.8, Lymphocytes # (Auto) 1.2, Monocytes # (Auto) 0.7, Eosinophils # (Auto) 0.0, Basophils # (Auto) 0.0, Immature Granulocyte # (Auto) 0.0, Sodium Level 136, Potassium Level 4.4, Chloride Level 104, Carbon Dioxide Level 23, Anion Gap 9, Blood Urea Nitrogen 16, Creatinine 0.64, Estimat Glomerular Filtration Rate 89, BUN/Creatinine Ratio 25, Glucose Level 90, Calcium Level 8.2, Corrected Calcium 9.1, Total Bilirubin 0.5, Aspartate Amino Transf (AST/SGOT) 23, Alanine Aminotransferase (ALT/SGPT) 10, Alkaline Phosphatase 60, Total Protein 5.8, Albumin 2.9 07/25/21 12:50: Urine Color YELLOW, Urine Clarity CLEAR, Urine pH 6.5, Urine Specific [place] 1.010, Urine Protein NEGATIVE, Urine Glucose (UA) NEGATIVE, Urine Ketones NEGATIVE, Urine Nitrite NEGATIVE, Urine Bilirubin NEGATIVE, Urine Urobilinogen 0.2, Urine Leukocyte Esterase NEGATIVE, Urine RBC (Auto) NEGATIVE, Urine RBC NONE, Urine WBC 0-2, Urine Squamous Epithelial Cells 0-2, Urine Crystals NONE, Urine Bacteria NEGATIVE, Urine Casts NONE, Urine Mucus NEGATIVE, Urine Culture Indicated NO 07/26/21 06:41: White Blood Count 5.9, Red Blood Count 3.84, Hemoglobin 11.8, Hematocrit 36, Mean Corpuscular Volume 92, Mean Corpuscular Hemoglobin 31, Mean Corpuscular Hemoglobin Concent 33, Red Cell Distribution Width 13.3, Platelet Count 210, Mean Platelet Volume 8.2, Immature Granulocyte % (Auto) 0, Neutrophils (%) (Auto) 65, Lymphocytes (%) (Auto) 20, Monocytes (%) (Auto) 13, Eosinophils (%) (Auto) 3, Basophils (%) (Auto) 0, Neutrophils # (Auto) 3.8, Lymphocytes # (Auto) 1.2, Monocytes # (Auto) 0.8, Eosinophils # (Auto) 0.2, Basophils # (Auto) 0.0, Immature Granulocyte # (Auto) 0.0, Sodium Level 136, Potassium Level 4.4, Chloride Level 101, Carbon Dioxide Level 24, Anion Gap 11, Blood Urea Nitrogen 18, Creatinine 0.68, Estimat Glomerular Filtration Rate 83, BUN/Creatinine Ratio 26, Glucose Level 93, Calcium Level 8.7, Corrected Calcium 9.5, Total Bilirubin 0.7, Aspartate Amino Transf (AST/SGOT) 25, Alanine Aminotransferase (ALT/SGPT) 13, Alkaline Phosphatase 59, Total Protein 6.4, Albumin 3.0 08/02/21 05:25: White Blood Count 4.5, Red Blood Count 3.68, Hemoglobin 11.2, Hematocrit 34, Mean Corpuscular Volume 93, Mean Corpuscular Hemoglobin 30, Mean Corpuscular Hemoglobin Concent 33, Red Cell Distribution Width 12.8, Platelet Count 272, Mean Platelet Volume 8.2, Immature Granulocyte % (Auto) 0, Neutrophils (%) (Auto) 62, Lymphocytes (%) (Auto) 22, Monocytes (%) (Auto) 15, Eosinophils (%) (Auto) 0, Basophils (%) (Auto) 0, Neutrophils # (Auto) 2.8, Lymphocytes # (Auto) 1.0, Monocytes # (Auto) 0.7, Eosinophils # (Auto) 0.0, Basophils # (Auto) 0.0, Immature Granulocyte # (Auto) 0.0, Sodium Level 133, Potassium Level 4.9, Chloride Level 101, Carbon Dioxide Level 22, Anion Gap 10, Blood Urea Nitrogen 21, Creatinine 0.71, Estimat Glomerular Filtration Rate 79, BUN/Creatinine Ratio 30, Glucose Level 83, Calcium Level 8.4, Corrected Calcium 9.1, Total Bilirubin 0.3, Aspartate Amino Transf (AST/SGOT) 26, Alanine Aminotransferase (ALT/SGPT) 15, Alkaline Phosphatase 72, Total Protein 6.2, Albumin 3.1 08/09/21 05:30: White Blood Count 4.2, Red Blood Count 3.96, Hemoglobin 12.1, Hematocrit 37, Mean Corpuscular Volume 94, Mean Corpuscular Hemoglobin 31, Mean Corpuscular Hemoglobin Concent 32, Red Cell Distribution Width 13.2, Platelet Count 273, Mean Platelet Volume 8.1, Immature Granulocyte % (Auto) 1, Neutrophils (%) (Auto) 54, Lymphocytes (%) (Auto) 29, Monocytes (%) (Auto) 16, Eosinophils (%) (Auto) 0, Basophils (%) (Auto) 1, Neutrophils # (Auto) 2.3, Lymphocytes # (Auto) 1.2, Monocytes # (Auto) 0.7, Eosinophils # (Auto) 0.0, Basophils # (Auto) 0.0, Immature Granulocyte # (Auto) 0.0, Sodium Level 135, Potassium Level 4.5, Chloride Level 102, Carbon Dioxide Level 23, Anion Gap 10, Blood Urea Nitrogen 20, Creatinine 0.76, Estimat Glomerular Filtration Rate 73, BUN/Creatinine Ratio 26, Glucose Level 84, Calcium Level 8.5, Corrected Calcium 9.2, Total Bilirubin 0.3, Aspartate Amino Transf (AST/SGOT) 25, Alanine Aminotransferase (ALT/SGPT) 15, Alkaline Phosphatase 79, Total Protein 6.3, Albumin 3.1 Discharge Home Medications: Active Scripts Active Detrol LA (Tolterodine Tartrate) 4 Mg Cap 4 Mg PO HS Tramadol HCl 50 Mg Tablet 50 Mg PO Q6H PRN Diclofenac Sodium 100 Gm Gel..gram. 0 Gm TOP QID Reported Flonase Allergy Relief (Fluticasone Propionate) 9.9 Ml Brewster.susp 2 Brewster NSEACH DAILY Amlodipine Besylate 5 Mg Tablet 10 Mg PO DAILY PRN TAKES 2 (5MG) TABS Azulfidine (Sulfasalazine) 500 Mg Tablet 500 Mg PO BID Preservision Areds 2 Softgel (Vit C/E/Zn/Coppr/Lutein/Zeaxan) 1 Each Capsule 1 Each PO BID Miralax (Polyethylene Glycol 3350) 17 Gm Powd.pack 17 Gm PO DAILY Pantoprazole Sodium 40 Mg Tablet.dr 40 Mg PO DAILY Loratadine 10 Mg Tablet 10 Mg PO DAILY PRN Lisinopril 20 Mg Tablet 20 Mg PO DAILY Levothyroxine Sodium 125 Mcg Tablet 125 Mcg PO DAILY Gabapentin 100 Mg Capsule 100 Mg PO TID Docusate Sodium 100 Mg Capsule 100 Mg PO BID Citalopram HBr (Citalopram Hydrobromide) 10 Mg Tablet 10 Mg PO DAILY Vitamin D3 (Cholecalciferol (Vitamin D3)) 10 Mcg Capsule 10 Mcg PO DAILY Refresh Celluvisc (Carboxymethylcellulose Sodium) 1 Each Droper.gel 1 Drop OU UD PRN Caltrate 600 + D Tablet (Calcium Carbonate/Vitamin D3) 1 Each Tablet 1 Each PO BID WITH MEALS Instructions to patient/family Please see electronic discharge instructions given to patient. Diagnosis/Problems Diagnosis/Problems (1) Ankle fracture, left (2) Pulmonary fibrosis (3) Rheumatoid arthritis (4) Hypothyroidism (5) Hypertension (6) Advanced age (7) Frail elderly (8) Risk for falls KYLAH DELGADILLO DO Aug 09, 2021 05:38
--- NOTE | 2021-08-09 05:38 | PM&R Progress Note ---
Subjective HPI/CC On Admission Date Seen by Provider: Aug 09, 2021 Time Seen by Provider: 09:00 Subjective/Events-last exam 08/09/2021: Delay of discharge Submitting for fpc benefits Denies any new issues 08/08/2021: No major issues Holding Norvasc due to diastolic less than 60 Denies pain 08/07/2021: Patient does not have many problems today Issues with discharge She is moving around a lot better and she thinks she may be able to go home I explained to her advantage plan rarely provides skilled benefits after maintaining inpatient rehab stay 08/06/21: Patient doing well No complaints today Going home with son appears to not be an option Skilled care likely will be required unsure of advantage plan coverage and they will likely deny 08/05/2021: Patient doing well Had me discuss kyphoplasty again and this is been discussed 6 times already 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 Stokes donated the shoe to help her right foot Very somatic Has a new complaint every day Needs to either go home with son or go to a detention 08/03/2021: Pt doing very well Podiatry consult requested Constipation will be resolved 08/02/2021: No major issues Pain is pretty well controlled Crackles from pulmonary fibrosis noted Nebulizer treatments ordered prn Checked meds and labs 08/01/21: Patient doing well No new pain issues Talked about kyphoplasty again her request Checked meds and labs 07/31/21: No major issues Pain reported "everywhere" Kyphoplasty not an option since she is mobilizing well 07/30/21: Patient feels better Moving more Back pain is less Told her compression fractures are still present and likely her increased activity has flared her old fractures No issues 07/29/2021: Patient doing well Having a lot of pain in her back after therapy She did report compression fractures 6 weeks ago so we will get x-rays K pad and diclofenac gel will be considered Patient very well may require detention placement due to now limiting back pain and left leg issue Patient did say they did discuss kyphoplasty at that time 07/28/21: Pt doing really well Incontinence will require urology consult Pt doing very well but self limiting 07/27/2021: Pt doing well No major issues Lisinopril given but not Norvasc due to hypotension Med alert will be needed when she goes home 07/26/2021: Patient doing well Feels like her ears are muffled Otoscope exam revealed no significant abnormality Patient doing well otherwise Labs reviewed 07/25/2021: Patient doing well Think she has a bladder infection Urinalysis and in and out cath ordered Transferring pretty well Pain is well controlled 07/24/2021: Patient doing very well Bowels are moving Change Claritin to daily since she takes it that way at home Pain is well controlled Participating in therapy Review of Systems General: Fatigue, Malaise Musculoskeletal: leg pain Objective Exam Vital Signs Vital Signs Date Time Temp Pulse Resp B/P (MAP) Pulse Ox O2 Delivery O2 Flow Rate FiO2 08/09/21 22:36 95 Room Air 08/09/21 20:02 36.9 81 16 103/73 (83) 08/08/21 07:27 21 Capillary Refill : General Appearance: No Apparent Distress, WD/WN, Chronically ill, Thin, Other (Frail) HEENT: PERRL/EOMI, Normal ENT Inspection, Pharynx Normal Neck: Full Range of Motion, Normal Inspection, Non Tender, Supple, Carotid Bruit Respiratory: Chest Non Tender, Lungs Clear, Normal Breath Sounds, No Accessory Muscle Use, No Respiratory Distress, Decreased Breath Sounds Cardiovascular: Regular Rate, Rhythm, No Edema, No Gallop, No JVD, No Murmur, Normal Peripheral Pulses Gastrointestinal: Normal Bowel Sounds, No Organomegaly, No Pulsatile Mass, Non Tender, Soft Back: Normal Inspection, No CVA Tenderness, No Vertebral Tenderness Extremity: Normal Capillary Refill, Normal Inspection, Normal Range of Motion, Non Tender, No Calf Tenderness, No Pedal Edema Neurologic/Psychiatric: Alert, Oriented x3, No Motor/Sensory Deficits, Normal Mood/Affect, director of diversity and inclusion II-XII Norm as Tested, Abnormal Gait (Nonweightbearing on the left), Motor Weakness (Generalized decreased strength 4/5) Skin: Normal Color, Warm/Dry Lymphatic: No Adenopathy Results/Procedures Lab Laboratory Tests 08/09/21 05:30 Patient resulted labs reviewed. FIM Transfers Therapy Code Descriptions/Definitions Functional Luna Measure: 0=Not Assessed/NA 4=Minimal Assistance 1=Total Assistance 5=Supervision or Setup 2=Maximal Assistance 6=Modified [place] 3=Moderate Assistance 7=Complete IndependenceSCALE: Activities may be completed with or without assistive devices. 5-Quvytgztlt-jnbiczg completes the activity by him/herself with no assistance from a helper. 5-Set-up or Clean-up Assistance-helper sets up or cleans up; patient completes activity. [place] assists only prior to or following the activity. 4-Supervision or Touching Assistance-helper provides verbal cues and/or touching/steadying and/or contact guard assistance as patient completes activity. Assistance may be provided throughout the activity or intermittently. 3-Partial/Moderate Assistance-helper does LESS THAN HALF the effort. [place] lifts, holds or supports trunk or limbs, but provides less than half the effort. 2-Substantial/Maximal Assistance-helper does MORE THAN HALF the effort. [place] lifts or holds trunk or limbs and provides more than half the effort. 4-Fbdxwhgsz-stmfrm does ALL the effort. Patient does none of the effort to complete the activity. Or, the assistance of 2 or more helpers is required for the patient to complete the activity. If activity was not attempted, code reason: 7-Patient Refused. 9-Not Applicable-not attempted and the patient did not perform the activity before the current illness, exacerbation or injury. 10-Not Attempted due to Environmental Limitations-(lack of equipment, weather restraints, etc.). 88-Not Attempted due to Medical Conditions or Safety Concerns. Roll Left to Right (QC): 5 Sit to Lying (QC): 4 Sit to Stand (QC): 4 Chair/Nbx-ds-Ugnij Xfer(QC): 4 Car Transfer (QC): 3 Gait Training Does the Patient Walk?: Yes Distance: 50' x 2 Walk 10 feet (QC): 5 Walk 50 ft with 2 Turns(QC): 5 Walk 150 ft (QC): 88 Walking 10ft/uneven surface-QC: 88 Gait Persons Needed: 1 Gait Assistive Device: FWW Wheelchair Training Does the Pt Use a Wheelchair?: Yes Wheel 50 ft with 2 turns (QC): 5 Wheel 150 ft (QC): 5 Type of Wheelchair: Manual Stair Training 1 Step (curb) (QC): 88 4 Steps (QC): 88 12 Steps (QC): 88 Balance Picking up an Object (QC): 88 ADL-Treatment Eating (QC): 6 (Pt able to open containers and use regular utensils.) Oral Hygiene (QC): 6 (Pt able to complete by self.) Bathing Location: L Arm, R Arm, L Upper Leg, R Upper Leg, L Lower Leg (including foot), R Lower Leg (including foot), Chest, Abdomen, Buttocks, Perineal Area Shower/Bathe Self (QC): 5 (Set up) Upper Body Dressing (QC): 5 (Pt able to don/dof UB clothing with supplies gathered.) Lower Body Dressing (QC): 3 (Pt threads over right foot, assist for threading over CAM while seated. 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 lifetime non-smoker Hypothyroidism Rheumatoid arthritis Seasonal allergies History of GI bleed History pneumonia Osteoporosis Recent compression fractures and new x-rays could confirm acute on chronic fractures Somatic complaints Plan: Inpatient rehab protocol Bowel regimen Pain control 07/24/2021: Continue pain control Aggressive rehab 07/25/2021: Check urinalysis Supportive care Pain control 07/26/2021: Ear exam normal Aggressive therapy 07/27/2021: Supportive care Pain control 07/28/21: Supportive care Pain control 07/29/2021: Spine x-rays reviewed Slow recovery 07/30/21: Monitor pain Kpad Diclofenac gel 07/31/21: Monitor closely Pain management 08/01/21: Improved transfers Monitor closely 08/02/2021: Improved status Evaluate disposition 08/03/2021: Supportive care Podiatry consult Constipation management 08/04/2021: Appreciate Dr. Stokes Somatic complaints Needs detention or go home with son 08/05/2021: Monitor somatic complaints Supportive care 08/06/21: Monitor pain 08/07/2020: Pain control 08/08/2021 Supportive care 08/09/2021: Await disposition (1) Ankle fracture, left (2) Pulmonary fibrosis (3) Rheumatoid arthritis (4) Hypothyroidism (5) Hypertension (6) Advanced age (7) Frail elderly (8) Risk for falls KYLAH DELGADILLO DO Aug 09, 2021 05:38
[2021-08-09 06:17] LABS: ALBUMIN 3.1 GM/DL (3.2-4.5); POTASSIUM 4.5 MMOL/L (3.6-5.0)
[2021-08-09 06:19] LABS: CALCIUM 8.5 MG/DL (8.5-10.1)
[2021-08-09 06:20] LABS: TOTAL PROTEIN 6.3 GM/DL (6.4-8.2)
[2021-08-09 06:22] LABS: BILIRUBIN,TOTAL 0.3 MG/DL (0.1-1.0)
[2021-08-09 06:23] LABS: CREATININE SERUM 0.76 MG/DL (0.60-1.30)
[2021-08-09 06:34] LABS: BASOPHILS % (AUTO) 1 % (0-10); EOSINOPHILS % (AUTO) 0 % (0-10); HEMATOCRIT 37 % (35-52); HEMOGLOBIN 12.1 g/dL (11.5-16.0); LYMPHOCYTES # (AUTO) 1.2 10^3/uL (1.0-4.0); LYMPHOCYTES % (AUTO) 29 % (12-44); MEAN CORPUSCULAR HEMOGLOBIN 31 pg (25-34); MEAN CORPUSCULAR HGB CONC 32 g/dL (32-36); MEAN CORPUSCULAR VOLUME 94 fL (80-99); MEAN PLATELET VOLUME 8.1 fL (9.0-12.2); MONOCYTES # (AUTO) 0.7 10^3/uL (0.0-1.0); MONOCYTES % (AUTO) 16 % (0-12); NEUTROPHILS # (AUTO) 2.3 10^3/uL (1.8-7.8); NEUTROPHILS % (AUTO) 54 % (42-75); PLATELET COUNT 273 10^3/uL (130-400); WHITE BLOOD COUNT 4.2 10^3/uL (4.3-11.0)
[2021-08-09] MEDS: LEVOTHYROXINE 125 MCG (LEVOTHROID) TABLET PO SCH (06:37)
[2021-08-09] MEDS: PANTOPRAZOLE 40 MG (PROTONIX) TAB PO SCH (06:37)
[2021-08-09] MEDS: MULTIVIT W/MINERALS TAB (THERAGRAN M) PO SCH (06:37)
[2021-08-09] MEDS: ENOXAPARIN 40 MG/0.4 ML (LOVENOX) SYR SC SCH (06:37)
[2021-08-09] MEDS: RT-BUDESONIDE NEBS 0.5 MG/2ML (PULMICORT) AMP IH SCH ×2 (07:15→22:36)
[2021-08-09] MEDS: polyethylene glycoL POWDER 17 GM (MIRALAX) PACK PO SCH (07:26)
[2021-08-09] MEDS: SENNOSIDES 8.6 MG (SENOKOT) TAB PO SCH (07:26)
[2021-08-09 07:46] VITALS: BP 163/77
[2021-08-09] MEDS: DOCUSATE SODIUM 100 MG (COLACE) CAP PO SCH ×2 (08:17→20:50)
[2021-08-09] MEDS: sulfaSALAzine 500 MG (AZULFIDINE) TAB PO SCH ×2 (08:17→20:50)
[2021-08-09] MEDS: VITAMIN D3 10 MCG (400 UNITS) TABLET PO SCH (08:18)
[2021-08-09] MEDS: amLODIPine 10 MG (NORVASC) TAB PO SCH (08:18)
[2021-08-09] MEDS: LORATADINE (CLARITIN) 10 MG TAB PO SCH (08:18)
[2021-08-09] MEDS: GABAPENTIN 100 MG (NEURONTIN) CAP PO SCH ×3 (08:18→20:50)
[2021-08-09] MEDS: lisINopril 20 MG (PRINIVIL) TABLET PO SCH ×2 (08:18→21:52)
[2021-08-09] MEDS: CALCIUM CARB + VIT D 600 MG (CALCARB + D) TAB PO SCH ×2 (08:18→17:07)
[2021-08-09] MEDS: DICLOFENAC 1% GEL 100 GM (VOLTAREN) TUBE TOP SCH ×4 (08:19→20:52)
[2021-08-09] MEDS: ARTIFICAL TEARS 0.4 ML UNIT DOSE (REFRESH PLUS) OU SCH ×2 (08:19→20:49)
[2021-08-09] MEDS: FLUTICASONE NASAL SPRAY (FLONASE) 16 GM BTL NS SCH (08:19)
--- NOTE | 2021-08-09 09:50 | Occupational Ther Daily Note ---
OT Current Status-Daily Note Subjective Pt sitting on BSC over toilet, alert. Pt reports some back pain. Nrsg notified. Pt agrees to therapy. Mental Status/Objective Patient Orientation: Person, Place, Time, Situation Attachments: Other-See Comments (CAM) ADL-Treatment Pt agrees to shower. Pt BSC->showerbench using FWW and grabbars for stabilization, SBA. CAM boot covered before shower. Shower bench-> w/c using grabbars and FWW for stability SBA. Pt propelled to recliner, w/c->recliner using FWW for stability CGA. Therapy Code Descriptions/Definitions Functional [place] Measure: 0=Not Assessed/NA 4=Minimal Assistance 1=Total Assistance 5=Supervision or Setup 2=Maximal Assistance 6=Modified [place] 3=Moderate Assistance 7=Complete IndependenceSCALE: Activities may be completed with or without assistive devices. 4-Ifqlleulpr-kijigoz completes the activity by him/herself with no assistance from a helper. 5-Set-up or Clean-up Assistance-helper sets up or cleans up; patient completes activity. [place] assists only prior to or following the activity. 4-Supervision or Touching Assistance-helper provides verbal cues and/or touching/steadying and/or contact guard assistance as patient completes activity. Assistance may be provided throughout the activity or intermittently. 3-Partial/Moderate Assistance-helper does LESS THAN HALF the effort. [place] lifts, holds or supports trunk or limbs, but provides less than half the effort. 2-Substantial/Maximal Assistance-helper does MORE THAN HALF the effort. [place] lifts or holds trunk or limbs and provides more than half the effort. 7-Lotrufium-xupaoc does ALL the effort. Patient does none of the effort to complete the activity. Or, the assistance of 2 or more helpers is required for the patient to complete the activity. If activity was not attempted, code reason: 7-Patient Refused. 9-Not Applicable-not attempted and the patient did not perform the activity before the current illness, exacerbation or injury. 10-Not Attempted due to Environmental Limitations-(lack of equipment, weather restraints, etc.). 88-Not Attempted due to Medical Conditions or Safety Concerns. Eating (QC): 6 (Per clinical judgment, pt able to complete independently.) Oral Hygiene (QC): 6 (Pt able to complete independently.) Bathing Location: L Arm, R Arm, L Upper Leg, R Upper Leg, L Lower Leg (including foot) (CAM boot prevents cleansing), R Lower Leg (including foot), Chest, Abdomen, Buttocks, Perineal Area Shower/Bathe Self (QC): 5 (Requires set up then sitting on shower bench to complete shower using grabbars, LHS and hand held shower.) Upper Body Dressing (QC): 5 (Setup then pt completes by self.) Lower Body Dressing (QC): 5 (After set up, pt able to don/doff by self.) On/Off Footwear: 5 (After set up, pt able to don/doff shoe and CAM boot by self.) Toileting Hygiene (QC): 4 (Pt able to cleanse buttocks while seated on BSC over toilet and manage clothing using grabbars and FWW for stability when hiking over hips with SBA.) Toilet Transfer (QC): 4 (SBA using FWW and grabbars for stability.) Other Treatment Pt participated in therapeutic exercise to strengthen B UE and increase activity tolerance. Skilled instruction required for correct technique. Pt engaged in 15 reps x2 sets each against gravity: B bicep curls, B internal/external rotation, arm presses. After session, pt sitting in recliner, pt complained of back pain. Nrsg notified and medication administered.Pt with call light/phone within reach. All needs met in room. OT Short Term Goals Short Term Goals Time Frame: Aug 04, 2021 Eatin Oral hygiene: 4 Toileting hygiene: 4 Shower/bathe self: 4 Upper body dressin Lower body dressin Putting on/taking off footwear: 3 OT Developer Support Engineer Goals Developer Support Engineer Goals Time Frame: Aug 14, 2021 Eating (QC): 5 Oral Hygiene (QC): 5 Toileting Hygiene (QC): 6 Shower/Bathe Self (QC): 5 Upper Body Dressing (QC): 5 Lower Body Dressing (QC): 5 On/Off Footwear (QC): 4 1=Demonstrate adherence to instructed precautions during ADL tasks. 2=Patient will verbalize/demonstrate understanding of assistive devices/modifications for ADL. 3=Patient will improve strength/tolerance for activity to enable patient to perform ADL's. OT Education/Plan Problem List/Assessment Assessment: Decreased Activ Tolerance, Impaired Funct Balance, Impaired Self- Care Skills Discharge Recommendations Plan/Recommendations: Continue POC Treatment Plan/Plan of Care Patient would benefit from OT for education, treatment and training to promote independence in ADL's, mobility, safety and/or upper extremity function for ADL's. Plan of Care: ADL Retraining, Functional Mobility, Group Exercise/Act as Ind, Orthotic Fitting/Training, UE Funct Exercise/Act Treatment Duration: Aug 14, 2021 Frequency: At least 5 of 7 days/Wk (IRF) Estimated Hrs Per Day: 1.5 hours per day Agreement: Yes Rehab Potential: Guarded Time/GCodes Start Time: 08:30 Stop Time: 10:00 Total Time Billed (hr/min): 90 Billed Treatment Time 1 Visit- ADL 5 (75 min) EX (15 min) SANTOS NOLASCO Aug 09, 2021 09:50
--- NOTE | 2021-08-09 12:09 | Physical Therapy Daily Note ---
PT Daily Note-Current Subjective Pt. agrees to Rx. States she is having back pain again today. Pt. feels her walking boot is not on straight. Pt. is crying today stating she feels she will have to go to a NH but is frightened of Covid. States her only child is currently hospitalized and unwell and unable to help her Pain Numeric Pain Scale: 6 Location: Medial Location Body Site: Back Pain Description: Pressure Mental Status Patient Orientation: Normal For Age Attachments: Other-See Comments (left walker boot , right evenup lift) Transfers SCALE: Activities may be completed with or without assistive devices. 4-Jfikmctlgm-qxvbatu completes the activity by him/herself with no assistance from a helper. 5-Set-up or Clean-up Assistance-helper sets up or cleans up; patient completes activity. [place] assists only prior to or following the activity. 4-Supervision or Touching Assistance-helper provides verbal cues and/or touching/steadying and/or contact guard assistance as patient completes activity. Assistance may be provided throughout the activity or intermittently. 3-Partial/Moderate Assistance-helper does LESS THAN HALF the effort. [place] lifts, holds or supports trunk or limbs, but provides less than half the effort. 2-Substantial/Maximal Assistance-helper does MORE THAN HALF the effort. [place] lifts or holds trunk or limbs and provides more than half the effort. 9-Vsjegcxxk-sgdpeg does ALL the effort. Patient does none of the effort to complete the activity. Or, the assistance of 2 or more helpers is required for the patient to complete the activity. If activity was not attempted, code reason: 7-Patient Refused. 9-Not Applicable-not attempted and the patient did not perform the activity before the current illness, exacerbation or injury. 10-Not Attempted due to Environmental Limitations-(lack of equipment, weather restraints, etc.). 88-Not Attempted due to Medical Conditions or Safety Concerns. Sit to Stand (QC): 6 Toilet Transfer (QC): 6 Weight Bearing Left Lower Extremity: Left Weight Bearing/Tolerated WBAT when wearing the cam boot Gait Training Does the Patient Walk?: Yes Walk 10 feet (QC): 5 Walk 50 ft with 2 Turns(QC): 5 Gait Persons Needed: 1 Gait Assistive Device: FWW pt. with c/o pain in her low back walked slowly with c/o increasing pain in her low back and needed rest breaks Exercises Seated Therapy Exercises: Ankle pumps, Sit to stand, Long arc quads, Hip flexion, Hip abd/add Seated Reps: 15 Treatments Pts. walking boot was doffed and donned again with better alignment and secured. in seated position massage was done to low back left and right paraspinals and focus on PSIS bilat with pt. stating this offered pain relief Assessment Current Status: Fair Progress pt. is emotional and anxious about DC plans. Pt is not indep with all function and would need assist if DCd at this time PT Short Term Goals Short Term Goals Time Frame: Jul 30, 2021 Roll Left & Right: 6 Sit to lyin Lying to sitting on side of be: 3 Sit to stand: 4 Chair/bmi-xp-snrvs transfer: 4 Walk 10 feet: 3 PT Surgical Appliance Fitter Goals Halfway Goals PT Surgical Appliance Fitter Goals Time Frame: Aug 13, 2021 Roll Left & Right (QC): 6 Sit to Lying (QC): 6 Lying-Sitting on Side/Bed(QC): 6 Sit to Stand (QC): 4 Chair/Sue-sc-Ojfnl Xfer(QC): 4 Toilet Transfer (QC): 4 Car Transfer (QC): 4 Does the Patient Walk: Yes Walk 10 feet (QC): 4 Walk 50ft with 2 Turns (QC): 4 Walk 150 ft (QC): 88 Walking 10ft on Uneven Surface: 4 1 Step (curb) (QC): 4 4 Steps (QC): 4 12 Steps (QC): 88 Picking up an Object (QC): 4 Wheel 50 feet with 2 turns (QC: 9 Wheel 150 feet: 9 PT Plan Treatment/Plan Treatment Plan: Continue Plan of Care Treatment Plan: Bed Mobility, Education, Functional Activity Dorothea, Functional Strength, Group Therapy, Gait, Safety, Therapeutic Exercise, Transfers Treatment Duration: Aug 13, 2021 Frequency: At least 5 of 7 days/Wk (IRF) Estimated Hrs Per Day: 1.5 hours per day Patient and/or Family Agrees t: Yes Safety Risks/Education Patient Education: Gait Training, Transfer Techniques, Correct Positioning, Disease Process, Safety Issues Teaching Recipient: Patient Teaching Methods: Demonstration, Discussion Response to Teaching: Verbalize Understanding, Return Demonstration, Reinforcement Needed Discharge Recommendations Therapy Discharge Recommendati: 24 Hour Supervision, Post Acute PT Time/GCodes Time In: 1115 Time Out: 1200 Total Billed Treatment Time: 45 Total Billed Treatment 1,GT20m,EX15m,MAS10m GIGI MARIE INDUSTRIAL METHODS CONSULTANT Aug 09, 2021 12:09
--- NOTE | 2021-08-09 14:13 | Physical Therapy Daily Note ---
PT Daily Note-Current Subjective Patient agrees to PT. Pain Numeric Pain Scale: 5-Moderate Pain Location: Lower Location Body Site: Back Pain Description: Ache Mental Status Patient Orientation: Normal For Age Transfers SCALE: Activities may be completed with or without assistive devices. 3-Uziyagdpsw-zfdoqyl completes the activity by him/herself with no assistance from a helper. 5-Set-up or Clean-up Assistance-helper sets up or cleans up; patient completes activity. [place] assists only prior to or following the activity. 4-Supervision or Touching Assistance-helper provides verbal cues and/or touching/steadying and/or contact guard assistance as patient completes activity. Assistance may be provided throughout the activity or intermittently. 3-Partial/Moderate Assistance-helper does LESS THAN HALF the effort. [place] lifts, holds or supports trunk or limbs, but provides less than half the effort. 2-Substantial/Maximal Assistance-helper does MORE THAN HALF the effort. [place] lifts or holds trunk or limbs and provides more than half the effort. 9-Nkvkfyfip-cgtbgy does ALL the effort. Patient does none of the effort to complete the activity. Or, the assistance of 2 or more helpers is required for the patient to complete the activity. If activity was not attempted, code reason: 7-Patient Refused. 9-Not Applicable-not attempted and the patient did not perform the activity before the current illness, exacerbation or injury. 10-Not Attempted due to Environmental Limitations-(lack of equipment, weather restraints, etc.). 88-Not Attempted due to Medical Conditions or Safety Concerns. Sit to Stand (QC): 4 Chair/Lty-be-Nhgcf Xfer(QC): 4 Toilet Transfer (QC): 4 SBA with mobility Weight Bearing Left Lower Extremity: Left Weight Bearing/Tolerated WBAT when wearing the cam boot Gait Training Does the Patient Walk?: Yes Distance: 125' x 2/50' x 2 Walk 10 feet (QC): 4 Walk 50 ft with 2 Turns(QC): 4 Gait Assistive Device: FWW very slow, step to gait sequence with frequent standing and seated recovery periods due to fatigue Exercises Seated Therapy Exercises: Long arc quads, Hip flexion Seated Reps: 12 (x 2 sets) Assessment Patient tolerated treatment well. Patient does fatigue with activity. Patient desires to return to home. PT voices safety concerns with patient and patient voices understanding. PT Short Term Goals Short Term Goals Time Frame: Jul 30, 2021 Roll Left & Right: 6 Sit to lyin Lying to sitting on side of be: 3 Sit to stand: 4 Chair/rrq-cx-qoufz transfer: 4 Walk 10 feet: 3 PT Clinical Psychology Professor Goals Mcfp Goals PT Clinical Psychology Professor Goals Time Frame: Aug 13, 2021 Roll Left & Right (QC): 6 Sit to Lying (QC): 6 Lying-Sitting on Side/Bed(QC): 6 Sit to Stand (QC): 4 Chair/Iqz-he-Lmuvr Xfer(QC): 4 Toilet Transfer (QC): 4 Car Transfer (QC): 4 Does the Patient Walk: Yes Walk 10 feet (QC): 4 Walk 50ft with 2 Turns (QC): 4 Walk 150 ft (QC): 88 Walking 10ft on Uneven Surface: 4 1 Step (curb) (QC): 4 4 Steps (QC): 4 12 Steps (QC): 88 Picking up an Object (QC): 4 Wheel 50 feet with 2 turns (QC: 9 Wheel 150 feet: 9 PT Plan Treatment/Plan Treatment Plan: Continue Plan of Care Treatment Plan: Bed Mobility, Education, Functional Activity Dorothea, Functional Strength, Group Therapy, Gait, Safety, Therapeutic Exercise, Transfers Treatment Duration: Aug 13, 2021 Frequency: At least 5 of 7 days/Wk (IRF) Estimated Hrs Per Day: 1.5 hours per day Patient and/or Family Agrees t: Yes Time/GCodes Time In: 1320 Time Out: 1405 Total Billed Treatment Time: 45 Total Billed Treatment 1 visit FA x 3 45 min CHEYENNE NOONAN PT Aug 09, 2021 14:13
[2021-08-09 20:02] VITALS: BP 103/73
[2021-08-09] MEDS: ESTROGENS CONJ. CREAM 30 GM (PREMARIN) TUBE VG SCH (20:49)
[2021-08-09] MEDS: TOLTERODINE LA 4 MG (DETROL) CAP PO SCH (20:50)
[2021-08-10] MEDS: PANTOPRAZOLE 40 MG (PROTONIX) TAB PO SCH (06:38)
[2021-08-10] MEDS: LEVOTHYROXINE 125 MCG (LEVOTHROID) TABLET PO SCH (06:38)
[2021-08-10] MEDS: MULTIVIT W/MINERALS TAB (THERAGRAN M) PO SCH (06:38)
[2021-08-10] MEDS: ENOXAPARIN 40 MG/0.4 ML (LOVENOX) SYR SC SCH (06:39)
--- NOTE | 2021-08-10 07:48 | Occupational Ther Daily Note ---
OT Current Status-Daily Note Subjective Pt supine in bed, alert. Pt reports 3/10 pain in lower back. Nrsg notified. Pt agrees to therapy. Mental Status/Objective Patient Orientation: Person, Place, Time, Situation Attachments: Other-See Comments (CAM) ADL-Treatment Pt EOB<->w/c using FWW for stability CGA. Due to pt's c/o back pain, pt used w/c to propelled to bathroom complete oral care and grooming. Re-directed x2 to complete oral care and grooming by self due to self limiting behavior. PT/OT cotreat ([id number]) 2 skilled clinicians required for skilled instruction to reduce fall risk and increase activity tolerance. Pt educated on role of PT and OT in rehabilitation setting and pt options after discharge. Pt made aware of self limiting behaviors and steps to becoming more independent with ADLs and functional mobility. Pt demonstrated good verbal return of skilled instructions given. After session, pt left with PT and all needs met in room. Therapy Code Descriptions/Definitions Functional [place] Measure: 0=Not Assessed/NA 4=Minimal Assistance 1=Total Assistance 5=Supervision or Setup 2=Maximal Assistance 6=Modified [place] 3=Moderate Assistance 7=Complete IndependenceSCALE: Activities may be completed with or without assistive devices. 8-Eyvbvnccyi-zhyjran completes the activity by him/herself with no assistance from a helper. 5-Set-up or Clean-up Assistance-helper sets up or cleans up; patient completes activity. [place] assists only prior to or following the activity. 4-Supervision or Touching Assistance-helper provides verbal cues and/or touching/steadying and/or contact guard assistance as patient completes activity. Assistance may be provided throughout the activity or intermittently. 3-Partial/Moderate Assistance-helper does LESS THAN HALF the effort. [place] lifts, holds or supports trunk or limbs, but provides less than half the effort. 2-Substantial/Maximal Assistance-helper does MORE THAN HALF the effort. [place] lifts or holds trunk or limbs and provides more than half the effort. 3-Htopwtagq-rrvcgx does ALL the effort. Patient does none of the effort to complete the activity. Or, the assistance of 2 or more helpers is required for the patient to complete the activity. If activity was not attempted, code reason: 7-Patient Refused. 9-Not Applicable-not attempted and the patient did not perform the activity before the current illness, exacerbation or injury. 10-Not Attempted due to Environmental Limitations-(lack of equipment, weather restraints, etc.). 88-Not Attempted due to Medical Conditions or Safety Concerns. Eating (QC): 5 (Pt required assist with gathering dentures due to self limiting behavior. Pt able to open containers and uses regular utensils independently.) Oral Hygiene (QC): 6 (Pt able to turn on water and complete oral care while seated in w/c by sink.) Upper Body Dressing (QC): 5 (After set up, pt completed by self.) Lower Body Dressing (QC): 3 (Pt unable problem solve while attempting to thread pants over CAM boot. Due to this pt requires assist to thread over CAM, pt able to hike over hips while seated EOB.) On/Off Footwear: 6 (Pt able to don/doff CAM, wrap, and shoe independent.) Increased time required to complete all tasks due to self limiting behaviors. Education OT Patient Education: Purpose of tx/functional activities, Rehab process Teaching Recipient: Patient Teaching Methods: Discussion Response to Teaching: Verbalize Understanding, Return Demonstration OT Short Term Goals Short Term Goals Time Frame: Aug 04, 2021 Eatin Oral hygiene: 4 Toileting hygiene: 4 Shower/bathe self: 4 Upper body dressin Lower body dressin Putting on/taking off footwear: 3 OT Senior Living Goals Rail Layer Goals Time Frame: Aug 14, 2021 Eating (QC): 5 Oral Hygiene (QC): 5 Toileting Hygiene (QC): 6 Shower/Bathe Self (QC): 5 Upper Body Dressing (QC): 5 Lower Body Dressing (QC): 5 On/Off Footwear (QC): 4 1=Demonstrate adherence to instructed precautions during ADL tasks. 2=Patient will verbalize/demonstrate understanding of assistive devices/modifications for ADL. 3=Patient will improve strength/tolerance for activity to enable patient to perform ADL's. OT Education/Plan Problem List/Assessment Assessment: Decreased Activ Tolerance, Impaired Funct Balance, Impaired Self- Care Skills Discharge Recommendations Plan/Recommendations: Continue POC Treatment Plan/Plan of Care Patient would benefit from OT for education, treatment and training to promote independence in ADL's, mobility, safety and/or upper extremity function for ADL's. Plan of Care: ADL Retraining, Functional Mobility, Group Exercise/Act as Ind, Orthotic Fitting/Training, UE Funct Exercise/Act Treatment Duration: Aug 14, 2021 Frequency: At least 5 of 7 days/Wk (IRF) Estimated Hrs Per Day: 1.5 hours per day Agreement: Yes Rehab Potential: Guarded Time/GCodes Start Time: 07:00 Stop Time: 08:30 Total Time Billed (hr/min): 90 Billed Treatment Time 1 Visit- ADL 6 (90 min) [facility] with PT ([id number]) Individual ([id number]) SANTOS NOLASCO Aug 10, 2021 07:48
[2021-08-10 07:56] VITALS: BP 147/88
--- NOTE | 2021-08-10 08:45 | PM&R Progress Note ---
Subjective HPI/CC On Admission Date Seen by Provider: Aug 10, 2021 Time Seen by Provider: 09:00 Subjective/Events-last exam 08/10/2021: Delay of discharge due to disposition No major issues 08/09/2021: Delay of discharge Submitting for intermediate benefits Denies any new issues 08/08/2021: No major issues Holding Norvasc due to diastolic less than 60 Denies pain 08/07/2021: Patient does not have many problems today Issues with discharge She is moving around a lot better and she thinks she may be able to go home I explained to her advantage plan rarely provides skilled benefits after maintaining inpatient rehab stay 08/06/21: Patient doing well No complaints today Going home with son appears to not be an option Skilled care likely will be required unsure of advantage plan coverage and they will likely deny 08/05/2021: Patient doing well Had me discuss kyphoplasty again and this is been discussed 6 times already 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 Stokes donated the shoe to help her right foot Very somatic Has a new complaint every day Needs to either go home with son or go to a skilled nursing 08/03/2021: Pt doing very well Podiatry consult requested Constipation will be resolved 08/02/2021: No major issues Pain is pretty well controlled Crackles from pulmonary fibrosis noted Nebulizer treatments ordered prn Checked meds and labs 08/01/21: Patient doing well No new pain issues Talked about kyphoplasty again her request Checked meds and labs 07/31/21: No major issues Pain reported "everywhere" Kyphoplasty not an option since she is mobilizing well 07/30/21: Patient feels better Moving more Back pain is less Told her compression fractures are still present and likely her increased activity has flared her old fractures No issues 07/29/2021: Patient doing well Having a lot of pain in her back after therapy She did report compression fractures 6 weeks ago so we will get x-rays K pad and diclofenac gel will be considered Patient very well may require skilled nursing placement due to now limiting back pain and left leg issue Patient did say they did discuss kyphoplasty at that time 07/28/21: Pt doing really well Incontinence will require urology consult Pt doing very well but self limiting 07/27/2021: Pt doing well No major issues Lisinopril given but not Norvasc due to hypotension Med alert will be needed when she goes home 07/26/2021: Patient doing well Feels like her ears are muffled Otoscope exam revealed no significant abnormality Patient doing well otherwise Labs reviewed 07/25/2021: Patient doing well Think she has a bladder infection Urinalysis and in and out cath ordered Transferring pretty well Pain is well controlled 07/24/2021: Patient doing very well Bowels are moving Change Claritin to daily since she takes it that way at home Pain is well controlled Participating in therapy Review of Systems General: Fatigue, Malaise Objective Exam Vital Signs Vital Signs Date Time Temp Pulse Resp B/P (MAP) Pulse Ox O2 Delivery O2 Flow Rate FiO2 08/10/21 21:05 96 Room Air 08/10/21 19:56 36.4 84 18 143/71 (95) 08/08/21 07:27 21 Capillary Refill : General Appearance: No Apparent Distress, WD/WN, Chronically ill, Thin, Other (Frail) HEENT: PERRL/EOMI, Normal ENT Inspection, Pharynx Normal Neck: Full Range of Motion, Normal Inspection, Non Tender, Supple, Carotid Bruit Respiratory: Chest Non Tender, Lungs Clear, Normal Breath Sounds, No Accessory Muscle Use, No Respiratory Distress, Decreased Breath Sounds Cardiovascular: Regular Rate, Rhythm, No Edema, No Gallop, No JVD, No Murmur, Normal Peripheral Pulses Gastrointestinal: Normal Bowel Sounds, No Organomegaly, No Pulsatile Mass, Non Tender, Soft Back: Normal Inspection, No CVA Tenderness, No Vertebral Tenderness Extremity: Normal Capillary Refill, Normal Inspection, Normal Range of Motion, Non Tender, No Calf Tenderness, No Pedal Edema Neurologic/Psychiatric: Alert, Oriented x3, No Motor/Sensory Deficits, Normal Mood/Affect, head of digital II-XII Norm as Tested, Abnormal Gait (Nonweightbearing on the left), Motor Weakness (Generalized decreased strength 4/5) Skin: Normal Color, Warm/Dry Lymphatic: No Adenopathy Results/Procedures Lab Patient resulted labs reviewed. FIM Transfers Therapy Code Descriptions/Definitions Functional [place] Measure: 0=Not Assessed/NA 4=Minimal Assistance 1=Total Assistance 5=Supervision or Setup 2=Maximal Assistance 6=Modified [place] 3=Moderate Assistance 7=Complete IndependenceSCALE: Activities may be completed with or without assistive devices. 9-Fjgyunzpxf-zxmkvzc completes the activity by him/herself with no assistance from a helper. 5-Set-up or Clean-up Assistance-helper sets up or cleans up; patient completes activity. [place] assists only prior to or following the activity. 4-Supervision or Touching Assistance-helper provides verbal cues and/or touching/steadying and/or contact guard assistance as patient completes activity. Assistance may be provided throughout the activity or intermittently. 3-Partial/Moderate Assistance-helper does LESS THAN HALF the effort. [place] lifts, holds or supports trunk or limbs, but provides less than half the effort. 2-Substantial/Maximal Assistance-helper does MORE THAN HALF the effort. [place] lifts or holds trunk or limbs and provides more than half the effort. 3-Fxxufjeav-xhdwtl does ALL the effort. Patient does none of the effort to complete the activity. Or, the assistance of 2 or more helpers is required for the patient to complete the activity. If activity was not attempted, code reason: 7-Patient Refused. 9-Not Applicable-not attempted and the patient did not perform the activity before the current illness, exacerbation or injury. 10-Not Attempted due to Environmental Limitations-(lack of equipment, weather restraints, etc.). 88-Not Attempted due to Medical Conditions or Safety Concerns. Roll Left to Right (QC): 5 Sit to Lying (QC): 4 Sit to Stand (QC): 4 Chair/Kwy-ot-Jicve Xfer(QC): 4 Car Transfer (QC): 3 Gait Training Does the Patient Walk?: Yes Distance: 125' x 2/50' x 2 Walk 10 feet (QC): 4 Walk 50 ft with 2 Turns(QC): 4 Walk 150 ft (QC): 88 Walking 10ft/uneven surface-QC: 88 Gait Persons Needed: 1 Gait Assistive Device: FWW Wheelchair Training Does the Pt Use a Wheelchair?: Yes Wheel 50 ft with 2 turns (QC): 5 Wheel 150 ft (QC): 5 Type of Wheelchair: Manual Stair Training 1 Step (curb) (QC): 88 4 Steps (QC): 88 12 Steps (QC): 88 Balance Picking up an Object (QC): 88 ADL-Treatment Eating (QC): 6 (Pt able to open containers and uses regular utensils seated in w/c.) Oral Hygiene (QC): 5 (Pt required assist with gathering dentures due to self limiting behavior. Pt able to turn on water and complete oral care while seated in w/c by sink.) Bathing Location: L Arm, R Arm, L Upper Leg, R Upper Leg, L Lower Leg (including foot) (CAM boot prevents cleansing), R Lower Leg (including foot), Chest, Abdomen, Buttocks, Perineal Area Shower/Bathe Self (QC): 5 (Requires set up then sitting on shower bench to complete shower using grabbars, LHS and hand held shower.) Upper Body Dressing (QC): 5 (Pt able to don/doff with supplies gathered while seated EOB.) Lower Body Dressing (QC): 3 (Pt needs assist to thread over CAM, pt able to hike over hips while seated EOB.) On/Off Footwear (QC): 6 (Pt able to don/doff CAM, wrap, and shoe independent.) Toileting Hygiene (QC): 4 (Pt able to cleanse buttocks while seated on BSC over toilet and manage clothing using grabbars and FWW for stability when hiking over hips with SBA.) Toilet Transfer (QC): 4 (SBA using FWW and grabbars for stability.) Assessment/Plan Assessment and Plan Assess & Plan/Chief Complaint Assessment: Left ankle fracture nonweightbearing Advanced age Pulmonary fibrosis 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 lifetime non-smoker Hypothyroidism Rheumatoid arthritis Seasonal allergies History of GI bleed History pneumonia Osteoporosis Recent compression fractures and new x-rays could confirm acute on chronic fractures Somatic complaints Plan: Inpatient rehab protocol Bowel regimen Pain control 07/24/2021: Continue pain control Aggressive rehab 07/25/2021: Check urinalysis Supportive care Pain control 07/26/2021: Ear exam normal Aggressive therapy 07/27/2021: Supportive care Pain control 07/28/21: Supportive care Pain control 07/29/2021: Spine x-rays reviewed Slow recovery 07/30/21: Monitor pain Kpad Diclofenac gel 07/31/21: Monitor closely Pain management 08/01/21: Improved transfers Monitor closely 08/02/2021: Improved status Evaluate disposition 08/03/2021: Supportive care Podiatry consult Constipation management 08/04/2021: Appreciate Dr. Stokes Somatic complaints Needs skilled nursing or go home with son 08/05/2021: Monitor somatic complaints Supportive care 08/06/21: Monitor pain 08/07/2020: Pain control 08/08/2021 Supportive care 08/09/2021: Await disposition 08/10/2021: Supportive care Await skilled nursing placement (1) Ankle fracture, left (2) Pulmonary fibrosis (3) Rheumatoid arthritis (4) Hypothyroidism (5) Hypertension (6) Advanced age (7) Frail elderly (8) Risk for falls KYLAH DELGADILLO DO Aug 10, 2021 08:45
[2021-08-10] MEDS: GABAPENTIN 100 MG (NEURONTIN) CAP PO SCH ×3 (08:52→21:14)
[2021-08-10] MEDS: sulfaSALAzine 500 MG (AZULFIDINE) TAB PO SCH ×2 (08:53→21:15)
[2021-08-10] MEDS: amLODIPine 10 MG (NORVASC) TAB PO SCH (08:53)
[2021-08-10] MEDS: lisINopril 20 MG (PRINIVIL) TABLET PO SCH ×2 (08:53→21:15)
[2021-08-10] MEDS: LORATADINE (CLARITIN) 10 MG TAB PO SCH (08:53)
[2021-08-10] MEDS: VITAMIN D3 10 MCG (400 UNITS) TABLET PO SCH (08:53)
[2021-08-10] MEDS: CALCIUM CARB + VIT D 600 MG (CALCARB + D) TAB PO SCH ×2 (08:54→17:27)
[2021-08-10] MEDS: ARTIFICAL TEARS 0.4 ML UNIT DOSE (REFRESH PLUS) OU SCH ×2 (08:55→21:14)
[2021-08-10] MEDS: DICLOFENAC 1% GEL 100 GM (VOLTAREN) TUBE TOP SCH ×4 (09:06→21:18)
[2021-08-10] MEDS: FLUTICASONE NASAL SPRAY (FLONASE) 16 GM BTL NS SCH (09:06)
[2021-08-10] MEDS: polyethylene glycoL POWDER 17 GM (MIRALAX) PACK PO SCH (09:08)
[2021-08-10] MEDS: SENNOSIDES 8.6 MG (SENOKOT) TAB PO SCH (09:15)
[2021-08-10] MEDS: RT-BUDESONIDE NEBS 0.5 MG/2ML (PULMICORT) AMP IH SCH ×2 (09:15→20:51)
[2021-08-10] MEDS: DOCUSATE SODIUM 100 MG (COLACE) CAP PO SCH ×2 (09:15→21:15)
--- NOTE | 2021-08-10 10:22 | Physical Therapy Daily Note ---
PT Daily Note-Current Subjective Pt working with OT upon arrival. Pt agrees to PT but reports just taking LOIS wrap and CAM boot off to let foot breathe a little. Pt again reports situation about wanting to stay until better citing financial hardship, lack of family support/new family situation and continued pain in low back as limited factors for tx and d/c to another facility. Pain Location: Lower Location Body Site: Back Pain Description: Ache Mental Status Patient Orientation: Person, Place, Time, Situation Attachments: Other-See Comments (LOIS wrap & CAM boot for R LE) Transfers SCALE: Activities may be completed with or without assistive devices. 3-Anlukzsykh-htwilac completes the activity by him/herself with no assistance from a helper. 5-Set-up or Clean-up Assistance-helper sets up or cleans up; patient completes activity. [place] assists only prior to or following the activity. 4-Supervision or Touching Assistance-helper provides verbal cues and/or touching/steadying and/or contact guard assistance as patient completes activity. Assistance may be provided throughout the activity or intermittently. 3-Partial/Moderate Assistance-helper does LESS THAN HALF the effort. [place] lifts, holds or supports trunk or limbs, but provides less than half the effort. 2-Substantial/Maximal Assistance-helper does MORE THAN HALF the effort. [place] lifts or holds trunk or limbs and provides more than half the effort. 6-Ijjrlmyty-nwngbn does ALL the effort. Patient does none of the effort to complete the activity. Or, the assistance of 2 or more helpers is required for the patient to complete the activity. If activity was not attempted, code reason: 7-Patient Refused. 9-Not Applicable-not attempted and the patient did not perform the activity before the current illness, exacerbation or injury. 10-Not Attempted due to Environmental Limitations-(lack of equipment, weather restraints, etc.). 88-Not Attempted due to Medical Conditions or Safety Concerns. Lying to Sitting/Side of Bed(Q: 5 Sit to Stand (QC): 5 Chair/Hae-pf-Bvzft Xfer(QC): 5 Weight Bearing Left Lower Extremity: Left Weight Bearing/Tolerated WBAT when wearing the cam boot Gait Training Does the Patient Walk?: Yes Distance: 125' x2 Walk 10 feet (QC): 5 Walk 50 ft with 2 Turns(QC): 5 Walk 150 ft (QC): 5 Gait Persons Needed: 1 Gait Assistive Device: FWW Exercises Seated Therapy Exercises: Ankle pumps, Long arc quads, Hip flexion, Glut set Seated Reps: 15 Treatments PT/OT cotreat ([id number]) 2 skilled clinicians required for skilled instruction to reduce fall risk and increase activity tolerance. Pt educated on role of PT and OT in rehabilitation setting and pt options after discharge. Pt made aware of self limiting behaviors and steps to becoming more independent with ADLs and functional mobility. Pt demonstrated good verbal return of skilled instructions given. OT departs and PT continues tx. ([id number]) Pt is able to LOIS wrap R LE and apply CAM boot. Pt stands and transfers to [facility] so pain gel can be applied. Pt stands and amb. in hallway to Therapy Gym. Pt completes Seated Ex before amb. back to room to rest in recliner at end of tx. All needs met, call light in hand. Assessment Current Status: Good Progress After SHEEPSKIN PICKLER & CASAREZ encourage pt and give pt educ. over what is needed to d/c home vs SNF, pt shows improvement. Less self limiting behavior demonstrated. PT Short Term Goals Short Term Goals Time Frame: Jul 30, 2021 Roll Left & Right: 6 Sit to lyin Lying to sitting on side of be: 3 Sit to stand: 4 Chair/afb-ho-wvwsk transfer: 4 Walk 10 feet: 3 PT Handle Maker Goals Nursing Home Goals PT Nursing Home Goals Time Frame: Aug 13, 2021 Roll Left & Right (QC): 6 Sit to Lying (QC): 6 Lying-Sitting on Side/Bed(QC): 6 Sit to Stand (QC): 4 Chair/Meg-kx-Qlzqg Xfer(QC): 4 Toilet Transfer (QC): 4 Car Transfer (QC): 4 Does the Patient Walk: Yes Walk 10 feet (QC): 4 Walk 50ft with 2 Turns (QC): 4 Walk 150 ft (QC): 88 Walking 10ft on Uneven Surface: 4 1 Step (curb) (QC): 4 4 Steps (QC): 4 12 Steps (QC): 88 Picking up an Object (QC): 4 Wheel 50 feet with 2 turns (QC: 9 Wheel 150 feet: 9 PT Plan Problem List Problem List: Activity Tolerance Treatment/Plan Treatment Plan: Continue Plan of Care Treatment Plan: Bed Mobility, Education, Functional Activity Dorothea, Functional Strength, Group Therapy, Gait, Safety, Therapeutic Exercise, Transfers Treatment Duration: Aug 13, 2021 Frequency: At least 5 of 7 days/Wk (IRF) Estimated Hrs Per Day: 1.5 hours per day Patient and/or Family Agrees t: Yes Safety Risks/Education Patient Education: Gait Training, Correct Positioning Teaching Recipient: Patient Teaching Methods: Discussion Response to Teaching: Verbalize Understanding Time/GCodes Time In: 800 Time Out: 900 Total Billed Treatment Time: 60 Total Billed Treatment Co-treat for 30m (800-830) 1, FA (20m), EX (15m) & GT x2 (25m) JEFF GUSTAFSON SHEEPSKIN PICKLER Aug 10, 2021 10:22
--- NOTE | 2021-08-10 13:39 | Physical Therapy Daily Note ---
PT Daily Note-Current Subjective Pt sitting in recliner upon arrival. Pt agrees to PT. Mental Status Patient Orientation: Person, Place, Time, Situation Attachments: Other-See Comments (LOIS wrap & CAM boot for R LE) Transfers SCALE: Activities may be completed with or without assistive devices. 0-Xmwhfutoyo-hqykjpv completes the activity by him/herself with no assistance from a helper. 5-Set-up or Clean-up Assistance-helper sets up or cleans up; patient completes activity. [place] assists only prior to or following the activity. 4-Supervision or Touching Assistance-helper provides verbal cues and/or touching/steadying and/or contact guard assistance as patient completes activity. Assistance may be provided throughout the activity or intermittently. 3-Partial/Moderate Assistance-helper does LESS THAN HALF the effort. [place] lifts, holds or supports trunk or limbs, but provides less than half the effort. 2-Substantial/Maximal Assistance-helper does MORE THAN HALF the effort. [place] lifts or holds trunk or limbs and provides more than half the effort. 9-Dnmlzcbmh-kqmigb does ALL the effort. Patient does none of the effort to comp lete the activity. Or, the assistance of 2 or more helpers is required for the patient to complete the activity. If activity was not attempted, code reason: 7-Patient Refused. 9-Not Applicable-not attempted and the patient did not perform the activity before the current illness, exacerbation or injury. 10-Not Attempted due to Environmental Limitations-(lack of equipment, weather restraints, etc.). 88-Not Attempted due to Medical Conditions or Safety Concerns. Sit to Stand (QC): 5 Toilet Transfer (QC): 5 Weight Bearing Left Lower Extremity: Left Weight Bearing/Tolerated WBAT when wearing the cam boot Gait Training Does the Patient Walk?: Yes Distance: 125' x2 Walk 10 feet (QC): 5 Walk 50 ft with 2 Turns(QC): 5 Walk 150 ft (QC): 5 Gait Persons Needed: 1 Gait Assistive Device: FWW Slow jina, step to gait pattern. Treatments TF to standing and amb. in hallway to Therapy Gym. Pt takes RB then returns to room to use BR and rest in recliner. HEP for Seated & Supine Ex is reviewed. All needs met, call light in hand. Assessment Current Status: Good Progress Pt needs occasional RB but has extended distance of ambulation and independence of task. PT Short Term Goals Short Term Goals Time Frame: Jul 30, 2021 Roll Left & Right: 6 Sit to lyin Lying to sitting on side of be: 3 Sit to stand: 4 Chair/yfs-vq-rwxog transfer: 4 Walk 10 feet: 3 PT [facility]ci Goals [facility]ci Goals PT [facility] Goals Time Frame: Aug 13, 2021 Roll Left & Right (QC): 6 Sit to Lying (QC): 6 Lying-Sitting on Side/Bed(QC): 6 Sit to Stand (QC): 4 Chair/Lgl-ns-Gctwe Xfer(QC): 4 Toilet Transfer (QC): 4 Car Transfer (QC): 4 Does the Patient Walk: Yes Walk 10 feet (QC): 4 Walk 50ft with 2 Turns (QC): 4 Walk 150 ft (QC): 88 Walking 10ft on Uneven Surface: 4 1 Step (curb) (QC): 4 4 Steps (QC): 4 12 Steps (QC): 88 Picking up an Object (QC): 4 Wheel 50 feet with 2 turns (QC: 9 Wheel 150 feet: 9 PT Plan Problem List Problem List: Activity Tolerance Treatment/Plan Treatment Plan: Continue Plan of Care Treatment Plan: Bed Mobility, Education, Functional Activity Dorothea, Functional Strength, Group Therapy, Gait, Safety, Therapeutic Exercise, Transfers Treatment Duration: Aug 13, 2021 Frequency: At least 5 of 7 days/Wk (IRF) Estimated Hrs Per Day: 1.5 hours per day Patient and/or Family Agrees t: Yes Safety Risks/Education Patient Education: Issued Written HEP Teaching Recipient: Patient Teaching Methods: Discussion Response to Teaching: Verbalize Understanding Time/GCodes Time In: 1300 Time Out: 1330 Total Billed Treatment Time: 30 Total Billed Treatment 1, GT (20m) & FA (10m) JEFF GUSTAFSON [employer] TAPER MACHINE Aug 10, 2021 13:39
[2021-08-10 19:56] VITALS: BP 143/71
[2021-08-10] MEDS: TOLTERODINE LA 4 MG (DETROL) CAP PO SCH (21:15)
[2021-08-11] MEDS: MULTIVIT W/MINERALS TAB (THERAGRAN M) PO SCH (06:13)
[2021-08-11] MEDS: ENOXAPARIN 40 MG/0.4 ML (LOVENOX) SYR SC SCH (06:13)
[2021-08-11] MEDS: PANTOPRAZOLE 40 MG (PROTONIX) TAB PO SCH (06:13)
[2021-08-11] MEDS: LEVOTHYROXINE 125 MCG (LEVOTHROID) TABLET PO SCH (06:13)
--- NOTE | 2021-08-11 07:14 | PM&R Progress Note ---
Subjective HPI/CC On Admission Date Seen by Provider: Aug 11, 2021 Time Seen by Provider: 11:00 Subjective/Events-last exam 08/11/2021: Awaiting jail placement No new problems Later in the afternoon jail obtain approval from insurance and will discharge home Monday08/10/2021: Delay of discharge due to disposition No major issues 08/09/2021: Delay of discharge Submitting for fdc benefits Denies any new issues 08/08/2021: No major issues Holding Norvasc due to diastolic less than 60 Denies pain 08/07/2021: Patient does not have many problems today Issues with discharge She is moving around a lot better and she thinks she may be able to go home I explained to her advantage plan rarely provides skilled benefits after maintaining inpatient rehab stay 08/06/21: Patient doing well No complaints today Going home with son appears to not be an option Skilled care likely will be required unsure of advantage plan coverage and they will likely deny 08/05/2021: Patient doing well Had me discuss kyphoplasty again and this is been discussed 6 times already 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 Stokes donated the shoe to help her right foot Very somatic Has a new complaint every day Needs to either go home with son or go to a jail 08/03/2021: Pt doing very well Podiatry consult requested Constipation will be resolved 08/02/2021: No major issues Pain is pretty well controlled Crackles from pulmonary fibrosis noted Nebulizer treatments ordered prn Checked meds and labs 08/01/21: Patient doing well No new pain issues Talked about kyphoplasty again her request Checked meds and labs 07/31/21: No major issues Pain reported "everywhere" Kyphoplasty not an option since she is mobilizing well 07/30/21: Patient feels better Moving more Back pain is less Told her compression fractures are still present and likely her increased activity has flared her old fractures No issues 07/29/2021: Patient doing well Having a lot of pain in her back after therapy She did report compression fractures 6 weeks ago so we will get x-rays K pad and diclofenac gel will be considered Patient very well may require jail placement due to now limiting back pain and left leg issue Patient did say they did discuss kyphoplasty at that time 07/28/21: Pt doing really well Incontinence will require urology consult Pt doing very well but self limiting 07/27/2021: Pt doing well No major issues Lisinopril given but not Norvasc due to hypotension Med alert will be needed when she goes home 07/26/2021: Patient doing well Feels like her ears are muffled Otoscope exam revealed no significant abnormality Patient doing well otherwise Labs reviewed 07/25/2021: Patient doing well Think she has a bladder infection Urinalysis and in and out cath ordered Transferring pretty well Pain is well controlled 07/24/2021: Patient doing very well Bowels are moving Change Claritin to daily since she takes it that way at home Pain is well controlled Participating in therapy Review of Systems General: Fatigue, Malaise Musculoskeletal: leg pain Objective Exam Vital Signs Vital Signs Date Time Temp Pulse Resp B/P (MAP) Pulse Ox O2 Delivery O2 Flow Rate FiO2 08/11/21 20:23 Room Air 08/11/21 19:39 36.6 78 18 136/67 (90) 96 08/08/21 07:27 21 Capillary Refill : General Appearance: No Apparent Distress, WD/WN, Chronically ill, Thin, Other (Frail) HEENT: PERRL/EOMI, Normal ENT Inspection, Pharynx Normal Neck: Full Range of Motion, Normal Inspection, Non Tender, Supple, Carotid Bruit Respiratory: Chest Non Tender, Lungs Clear, Normal Breath Sounds, No Accessory Muscle Use, No Respiratory Distress, Decreased Breath Sounds Cardiovascular: Regular Rate, Rhythm, No Edema, No Gallop, No JVD, No Murmur, Normal Peripheral Pulses Gastrointestinal: Normal Bowel Sounds, No Organomegaly, No Pulsatile Mass, Non Tender, Soft Back: Normal Inspection, No CVA Tenderness, No Vertebral Tenderness Extremity: Normal Capillary Refill, Normal Inspection, Normal Range of Motion, Non Tender, No Calf Tenderness, No Pedal Edema Neurologic/Psychiatric: Alert, Oriented x3, No Motor/Sensory Deficits, Normal Mood/Affect, roll bucker II-XII Norm as Tested, Abnormal Gait (Nonweightbearing on the left), Motor Weakness (Generalized decreased strength 4/5) Skin: Normal Color, Warm/Dry Lymphatic: No Adenopathy Results/Procedures Lab Patient resulted labs reviewed. FIM Transfers Therapy Code Descriptions/Definitions Functional [place] Measure: 0=Not Assessed/NA 4=Minimal Assistance 1=Total Assistance 5=Supervision or Setup 2=Maximal Assistance 6=Modified [place] 3=Moderate Assistance 7=Complete IndependenceSCALE: Activities may be completed with or without assistive devices. 4-Hcylogmunq-aerlhec completes the activity by him/herself with no assistance from a helper. 5-Set-up or Clean-up Assistance-helper sets up or cleans up; patient completes activity. [place] assists only prior to or following the activity. 4-Supervision or Touching Assistance-helper provides verbal cues and/or touching/steadying and/or contact guard assistance as patient completes activity. Assistance may be provided throughout the activity or intermittently. 3-Partial/Moderate Assistance-helper does LESS THAN HALF the effort. [place] lifts, holds or supports trunk or limbs, but provides less than half the effort. 2-Substantial/Maximal Assistance-helper does MORE THAN HALF the effort. [place] lifts or holds trunk or limbs and provides more than half the effort. 7-Deudvpijr-yprzla does ALL the effort. Patient does none of the effort to complete the activity. Or, the assistance of 2 or more helpers is required for the patient to complete the activity. If activity was not attempted, code reason: 7-Patient Refused. 9-Not Applicable-not attempted and the patient did not perform the activity before the current illness, exacerbation or injury. 10-Not Attempted due to Environmental Limitations-(lack of equipment, weather restraints, etc.). 88-Not Attempted due to Medical Conditions or Safety Concerns. Roll Left to Right (QC): 5 Sit to Lying (QC): 4 Sit to Stand (QC): 5 Chair/Rgl-kx-Asdrq Xfer(QC): 5 Car Transfer (QC): 3 Gait Training Does the Patient Walk?: Yes Distance: 125' x2 Walk 10 feet (QC): 5 Walk 50 ft with 2 Turns(QC): 5 Walk 150 ft (QC): 5 Walking 10ft/uneven surface-QC: 88 Gait Persons Needed: 1 Gait Assistive Device: FWW Wheelchair Training Does the Pt Use a Wheelchair?: Yes Wheel 50 ft with 2 turns (QC): 5 Wheel 150 ft (QC): 5 Type of Wheelchair: Manual Stair Training 1 Step (curb) (QC): 88 4 Steps (QC): 88 12 Steps (QC): 88 Balance Picking up an Object (QC): 88 ADL-Treatment Eating (QC): 5 (Pt required assist with gathering dentures due to self limiting behavior. Pt able to open containers and uses regular utensils independently.) Oral Hygiene (QC): 6 (Pt able to turn on water and complete oral care while seated in w/c by sink.) Bathing Location: L Arm, R Arm, L Upper Leg, R Upper Leg, L Lower Leg (including foot) (CAM boot prevents cleansing), R Lower Leg (including foot), Chest, Abdomen, Buttocks, Perineal Area Shower/Bathe Self (QC): 5 (Requires set up then sitting on shower bench to complete shower using grabbars, LHS and hand held shower.) Upper Body Dressing (QC): 5 (After set up, pt completed by self.) Lower Body Dressing (QC): 3 (Pt unable problem solve while attempting to thread pants over CAM boot. 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 lifetime non-smoker Hypothyroidism Rheumatoid arthritis Seasonal allergies History of GI bleed History pneumonia Osteoporosis Recent compression fractures and new x-rays could confirm acute on chronic fractures Somatic complaints Plan: Inpatient rehab protocol Bowel regimen Pain control 07/24/2021: Continue pain control Aggressive rehab 07/25/2021: Check urinalysis Supportive care Pain control 07/26/2021: Ear exam normal Aggressive therapy 07/27/2021: Supportive care Pain control 07/28/21: Supportive care Pain control 07/29/2021: Spine x-rays reviewed Slow recovery 07/30/21: Monitor pain Kpad Diclofenac gel 07/31/21: Monitor closely Pain management 08/01/21: Improved transfers Monitor closely 08/02/2021: Improved status Evaluate disposition 08/03/2021: Supportive care Podiatry consult Constipation management 08/04/2021: Appreciate Dr. Stokes Somatic complaints Needs jail or go home with son 08/05/2021: Monitor somatic complaints Supportive care 08/06/21: Monitor pain 08/07/2020: Pain control 08/08/2021 Supportive care 08/09/2021: Await disposition 08/10/2021: Supportive care Await jail placement 08/11/2021: Discharge home Monday (1) Ankle fracture, left (2) Pulmonary fibrosis (3) Rheumatoid arthritis (4) Hypothyroidism (5) Hypertension (6) Advanced age (7) Frail elderly (8) Risk for falls KYLAH DELGADILLO DO Aug 11, 2021 07:13
[2021-08-11 08:27] VITALS: BP 135/76
[2021-08-11] MEDS: VITAMIN D3 10 MCG (400 UNITS) TABLET PO SCH (08:30)
[2021-08-11] MEDS: LORATADINE (CLARITIN) 10 MG TAB PO SCH (08:30)
[2021-08-11] MEDS: lisINopril 20 MG (PRINIVIL) TABLET PO SCH ×2 (08:30→20:19)
[2021-08-11] MEDS: GABAPENTIN 100 MG (NEURONTIN) CAP PO SCH ×3 (08:30→20:19)
[2021-08-11] MEDS: CALCIUM CARB + VIT D 600 MG (CALCARB + D) TAB PO SCH ×2 (08:30→17:03)
[2021-08-11] MEDS: sulfaSALAzine 500 MG (AZULFIDINE) TAB PO SCH ×2 (08:30→20:18)
[2021-08-11] MEDS: amLODIPine 10 MG (NORVASC) TAB PO SCH ×2 (08:31→08:49)
[2021-08-11] MEDS: DICLOFENAC 1% GEL 100 GM (VOLTAREN) TUBE TOP SCH ×4 (08:32→20:20)
[2021-08-11] MEDS: ARTIFICAL TEARS 0.4 ML UNIT DOSE (REFRESH PLUS) OU SCH ×2 (08:32→20:18)
[2021-08-11] MEDS: DOCUSATE SODIUM 100 MG (COLACE) CAP PO SCH ×2 (08:33→20:19)
[2021-08-11] MEDS: SENNOSIDES 8.6 MG (SENOKOT) TAB PO SCH (08:33)
[2021-08-11] MEDS: polyethylene glycoL POWDER 17 GM (MIRALAX) PACK PO SCH (08:33)
[2021-08-11] MEDS: FLUTICASONE NASAL SPRAY (FLONASE) 16 GM BTL NS SCH (08:33)
--- NOTE | 2021-08-11 08:36 | Occupational Ther Daily Note ---
OT Current Status-Daily Note Subjective Pt sitting on BSC over toilet, alert. No c/o pain. Pt agrees to therapy. Mental Status/Objective Patient Orientation: Person, Place, Time, Situation Attachments: Other-See Comments (CAM) ADL-Treatment Pt agrees to shower. Pt FWW<-> recliner using FWW for stability. Pt ambulates to shower bench using FWW and grabbars for stability. Therapy Code Descriptions/Definitions Functional [place] Measure: 0=Not Assessed/NA 4=Minimal Assistance 1=Total Assistance 5=Supervision or Setup 2=Maximal Assistance 6=Modified [place] 3=Moderate Assistance 7=Complete IndependenceSCALE: Activities may be completed with or without assistive devices. 7-Ztxwjftffw-vqggwnj completes the activity by him/herself with no assistance from a helper. 5-Set-up or Clean-up Assistance-helper sets up or cleans up; patient completes activity. [place] assists only prior to or following the activity. 4-Supervision or Touching Assistance-helper provides verbal cues and/or touching/steadying and/or contact guard assistance as patient completes activity. Assistance may be provided throughout the activity or intermittently. 3-Partial/Moderate Assistance-helper does LESS THAN HALF the effort. [place] lifts, holds or supports trunk or limbs, but provides less than half the effort. 2-Substantial/Maximal Assistance-helper does MORE THAN HALF the effort. [place] lifts or holds trunk or limbs and provides more than half the effort. 7-Rbdnybvfx-hdbjbb does ALL the effort. Patient does none of the effort to complete the activity. Or, the assistance of 2 or more helpers is required for the patient to complete the activity. If activity was not attempted, code reason: 7-Patient Refused. 9-Not Applicable-not attempted and the patient did not perform the activity before the current illness, exacerbation or injury. 10-Not Attempted due to Environmental Limitations-(lack of equipment, weather restraints, etc.). 88-Not Attempted due to Medical Conditions or Safety Concerns. Eating (QC): 6 (Independent in opening containers and using regular utensils) Oral Hygiene (QC): 6 (Independent while standing at sink using FWW for stability.) Bathing Location: L Arm, R Arm, L Upper Leg, R Upper Leg, L Lower Leg (including foot), R Lower Leg (including foot), Chest, Abdomen, Buttocks, Perineal Area Shower/Bathe Self (QC): 5 (Set up to turn on water. Pt able to cleanse all areas using LHS and hand held shower while seated on shower bench.) Upper Body Dressing (QC): 5 (Set up, pt don/doffs while seated with supplies gathered.) Lower Body Dressing (QC): 5 (Set up, pt able to don/doff with supplies gathered using grabbars for stability.) On/Off Footwear: 5 (Set up, pt dons/doffs shoe and boot with supplies gathered while seated.) Toileting Hygiene (QC): 6 (Independent in managing clothing using grabbars and FWW for stability, cleanses self while seated on BSC over toilet.) Toilet Transfer (QC): 6 (Independent, pt uses grabbars and FWW for stability to complete by self.) Other Treatment Pt participated in therapeutic resistive exercise to strengthen B UE to improve ADLs and activity tolerance. Pt used light strength theraband to complete 20 reps x2 sets of B bicep curls and horizontal shoulder abductions. Pt given skilled instruction on proper technique with pt giving good return on skilled instruction. After session, pt sitting in recliner with call light/phone within reach. All needs met in room. Education OT Patient Education: Home exercise program Teaching Recipient: Patient Teaching Methods: Demonstration, Handout, Discussion Response to Teaching: Verbalize Understanding, Return Demonstration OT Short Term Goals Short Term Goals Time Frame: Aug 04, 2021 Eatin Oral hygiene: 4 Toileting hygiene: 4 Shower/bathe self: 4 Upper body dressin Lower body dressin Putting on/taking off footwear: 3 OT Alf Goals Alf Goals Time Frame: Aug 14, 2021 Eating (QC): 5 Oral Hygiene (QC): 5 Toileting Hygiene (QC): 6 Shower/Bathe Self (QC): 5 Upper Body Dressing (QC): 5 Lower Body Dressing (QC): 5 On/Off Footwear (QC): 4 1=Demonstrate adherence to instructed precautions during ADL tasks. 2=Patient will verbalize/demonstrate understanding of assistive devices/modifications for ADL. 3=Patient will improve strength/tolerance for activity to enable patient to perform ADL's. OT Education/Plan Problem List/Assessment Assessment: Decreased UE Strength, Impaired Funct Balance, Impaired Self-Care Skills Discharge Recommendations Plan/Recommendations: Continue POC Treatment Plan/Plan of Care Patient would benefit from OT for education, treatment and training to promote independence in ADL's, mobility, safety and/or upper extremity function for ADL's. Plan of Care: ADL Retraining, Functional Mobility, Group Exercise/Act as Ind, Orthotic Fitting/Training, UE Funct Exercise/Act Treatment Duration: Aug 14, 2021 Frequency: At least 5 of 7 days/Wk (IRF) Estimated Hrs Per Day: 1.5 hours per day Agreement: Yes Rehab Potential: Guarded Time/GCodes Start Time: 07:15 Stop Time: 08:45 Total Time Billed (hr/min): 90 Billed Treatment Time 1 Visit ADL 5 (75 min) EX (15 min) SANTOS NOLASCO Aug 11, 2021 08:36
[2021-08-11] MEDS: RT-BUDESONIDE NEBS 0.5 MG/2ML (PULMICORT) AMP IH SCH ×2 (11:04→18:46)
--- NOTE | 2021-08-11 12:21 | Physical Therapy Daily Note ---
PT Daily Note-Current Subjective Pt sitting in recliner upon arrival. Pt agrees to PT. Pt has questions about insurance changes and payor, referred to SW. Pain Location: Left Location Body Site: Ankle Pain Description: Ache Mental Status Patient Orientation: Person, Place, Time, Situation Attachments: Other-See Comments (LOIS wrap & CAM boot for L LE) Transfers SCALE: Activities may be completed with or without assistive devices. 1-Wsgwgcmcgg-sdnrjgm completes the activity by him/herself with no assistance from a helper. 5-Set-up or Clean-up Assistance-helper sets up or cleans up; patient completes activity. [place] assists only prior to or following the activity. 4-Supervision or Touching Assistance-helper provides verbal cues and/or touching/steadying and/or contact guard assistance as patient completes activity. Assistance may be provided throughout the activity or intermittently. 3-Partial/Moderate Assistance-helper does LESS THAN HALF the effort. [place] lifts, holds or supports trunk or limbs, but provides less than half the effort. 2-Substantial/Maximal Assistance-helper does MORE THAN HALF the effort. [place] lifts or holds trunk or limbs and provides more than half the effort. 3-Fpkiufxal-eivtkt does ALL the effort. Patient does none of the effort to complete the activity. Or, the assistance of 2 or more helpers is required for the patient to complete the activity. If activity was not attempted, code reason: 7-Patient Refused. 9-Not Applicable-not attempted and the patient did not perform the activity before the current illness, exacerbation or injury. 10-Not Attempted due to Environmental Limitations-(lack of equipment, weather restraints, etc.). 88-Not Attempted due to Medical Conditions or Safety Concerns. Sit to Stand (QC): 5 Weight Bearing Left Lower Extremity: Left Weight Bearing/Tolerated WBAT when wearing the cam boot Gait Training Does the Patient Walk?: Yes Distance: 150' Walk 10 feet (QC): 5 Walk 50 ft with 2 Turns(QC): 5 Walk 150 ft (QC): 5 Gait Persons Needed: 1 Gait Assistive Device: FWW Wheelchair Training Does the Pt Use a Wheelchair?: No Stair Training Stair Training: Handrails/: 2 handrails #of Steps: 4 1 Step (curb) (QC): 5 4 Steps (QC): 5 Stairs: Pattern: Step to Treatments Applied LOIS wrap & CAM boot by self then TF to standing. Pt amb. in hallway before needing to adjust LOIS wrap & boot. Pt again amb. in hallway. Pt completes 1 set of 4 steps before taking RB. Pt amb. in hallway before returning to room to rest in recliner at end of tx. All needs met, call light in hand and lunch in front of pt. Assessment Current Status: Good Progress [id number]: Pt is able to transfer at SBA as well as management LOIS wrap and CAM boot. Pt can amb. stairs but definitely uses hand rail for support. [id number]: Pt was concerned after discussion w/SW. Pt was upset that she was going to SNF due to financial hardship this would inflict. CLINICAL NURSE EDUCATOR visited w/pt and SW rep to see what could be done. Pt has improved after much encouragement and discussion of what would be needed to ensure pt safety for returning home. SW will visit w/pt again after plan is set. PT Short Term Goals Short Term Goals Time Frame: Jul 30, 2021 Roll Left & Right: 6 Sit to lyin Lying to sitting on side of be: 3 Sit to stand: 4 Chair/ylt-de-zmqbw transfer: 4 Walk 10 feet: 3 PT Tobacco Blender Goals Tobacco Blender Goals PT Tobacco Blender Goals Time Frame: Aug 13, 2021 Roll Left & Right (QC): 6 Sit to Lying (QC): 6 Lying-Sitting on Side/Bed(QC): 6 Sit to Stand (QC): 4 Chair/Ria-uo-Wlhah Xfer(QC): 4 Toilet Transfer (QC): 4 Car Transfer (QC): 4 Does the Patient Walk: Yes Walk 10 feet (QC): 4 Walk 50ft with 2 Turns (QC): 4 Walk 150 ft (QC): 88 Walking 10ft on Uneven Surface: 4 1 Step (curb) (QC): 4 4 Steps (QC): 4 12 Steps (QC): 88 Picking up an Object (QC): 4 Wheel 50 feet with 2 turns (QC: 9 Wheel 150 feet: 9 PT Plan Problem List Problem List: Activity Tolerance Treatment/Plan Treatment Plan: Continue Plan of Care Treatment Plan: Bed Mobility, Education, Functional Activity [place], Functional Strength, Group Therapy, Gait, Safety, Therapeutic Exercise, Transfers Treatment Duration: Aug 13, 2021 Frequency: At least 5 of 7 days/Wk (IRF) Estimated Hrs Per Day: 1.5 hours per day Patient and/or Family Agrees t: Yes Safety Risks/Education Patient Education: Steps, Safety Issues Teaching Recipient: Patient Teaching Methods: Discussion Response to Teaching: Verbalize Understanding Time/GCodes Time In: 1115 Time Out: 1215 Total Billed Treatment Time: 60 Total Billed Treatment [id number]: 1, FA x2 (30m) & GT x2 (30m) [id number]: 1, FA x2 (30m) JEFF GUSTAFSON CLINICAL NURSE EDUCATOR Aug 11, 2021 12:21
[2021-08-11 19:39] VITALS: BP 136/67
[2021-08-11] MEDS: TOLTERODINE LA 4 MG (DETROL) CAP PO SCH (20:19)
[2021-08-11] MEDS: ESTROGENS CONJ. CREAM 30 GM (PREMARIN) TUBE VG SCH (20:21)
[2021-08-12] MEDS: PANTOPRAZOLE 40 MG (PROTONIX) TAB PO SCH (06:13)
[2021-08-12] MEDS: MULTIVIT W/MINERALS TAB (THERAGRAN M) PO SCH (06:13)
[2021-08-12] MEDS: ENOXAPARIN 40 MG/0.4 ML (LOVENOX) SYR SC SCH (06:14)
[2021-08-12] MEDS: LEVOTHYROXINE 125 MCG (LEVOTHROID) TABLET PO SCH (06:14)
--- NOTE | 2021-08-12 06:50 | Occupational Ther Daily Note ---
OT Current Status-Daily Note Subjective Pt alert, in bathroom. Pt agrees to therapy. C/o back pain, did not rate, warm pack on back. Mental Status/Objective Patient Orientation: Person, Place, Time, Situation ADL-Treatment 1st session([id number]): Pt able to to complete toileting then standing at sink to complete grooming independently using FWW. Pt completes own set up and uses regular utensils to eat. After therapy, pt sitting in recliner with call light/phone in reach. All needs met in room. 2nd session(): After set up, pt able to complete donning/doffing briefs/pants by self. Standing at sink, pt completed oral care and grooming independently. Therapy Code Descriptions/Definitions Functional [place] Measure: 0=Not Assessed/NA 4=Minimal Assistance 1=Total Assistance 5=Supervision or Setup 2=Maximal Assistance 6=Modified [place] 3=Moderate Assistance 7=Complete IndependenceSCALE: Activities may be completed with or without assistive devices. 5-Retiqwfkke-ocazavu completes the activity by him/herself with no assistance from a helper. 5-Set-up or Clean-up Assistance-helper sets up or cleans up; patient completes activity. [place] assists only prior to or following the activity. 4-Supervision or Touching Assistance-helper provides verbal cues and/or touching/steadying and/or contact guard assistance as patient completes activity. Assistance may be provided throughout the activity or intermittently. 3-Partial/Moderate Assistance-helper does LESS THAN HALF the effort. [place] lifts, holds or supports trunk or limbs, but provides less than half the effort. 2-Substantial/Maximal Assistance-helper does MORE THAN HALF the effort. [place] lifts or holds trunk or limbs and provides more than half the effort. 2-Akejzbqts-uwdyrj does ALL the effort. Patient does none of the effort to complete the activity. Or, the assistance of 2 or more helpers is required for the patient to complete the activity. If activity was not attempted, code reason: 7-Patient Refused. 9-Not Applicable-not attempted and the patient did not perform the activity before the current illness, exacerbation or injury. 10-Not Attempted due to Environmental Limitations-(lack of equipment, weather restraints, etc.). 88-Not Attempted due to Medical Conditions or Safety Concerns. Eating (QC): 6 Oral Hygiene (QC): 6 Lower Body Dressing (QC): 5 On/Off Footwear: 6 Pt to discharge tomorrow 08/13/2021. QC's were completed 08/11/2021. Pain ointment applied to back, nrsg notified. Other Treatment Pt ambulated to<-->from therapy gym using FWW with only one recovery break. B UE dowel prosper exercises against gravity completed to increase strength and activity tolerance for daily functional tasks. Skilled instruction for correct technique required. 15 reps 2 sets of tricep ext, bicep curls, chest press and shldr flexion/extension. Pt tolerated well. After therapy, pt sitting in recliner with call light/phone in reach. OT Short Term Goals Short Term Goals Time Frame: Aug 04, 2021 Eatin Oral hygiene: 4 Toileting hygiene: 4 Shower/bathe self: 4 Upper body dressin Lower body dressin Putting on/taking off footwear: 3 OT Promotion Producer Goals Promotion Producer Goals Time Frame: Aug 14, 2021 Eating (QC): 5 (met) Oral Hygiene (QC): 5 (met) Toileting Hygiene (QC): 6 (met) Shower/Bathe Self (QC): 5 (met) Upper Body Dressing (QC): 5 (met) Lower Body Dressing (QC): 5 (met) On/Off Footwear (QC): 4 (met) 1=Demonstrate adherence to instructed precautions during ADL tasks. 2=Patient will verbalize/demonstrate understanding of assistive devices/modifications for ADL. 3=Patient will improve strength/tolerance for activity to enable patient to perform ADL's. OT Education/Plan Problem List/Assessment Assessment: Decreased Activ Tolerance, Impaired Self-Care Skills Discharge Recommendations Plan/Recommendations: Continue POC Treatment Plan/Plan of Care Patient would benefit from OT for education, treatment and training to promote independence in ADL's, mobility, safety and/or upper extremity function for ADL's. Plan of Care: ADL Retraining, Functional Mobility, Group Exercise/Act as Ind, Orthotic Fitting/Training, UE Funct Exercise/Act Treatment Duration: Aug 14, 2021 Frequency: At least 5 of 7 days/Wk (IRF) Estimated Hrs Per Day: 1.5 hours per day Agreement: Yes Rehab Potential: Guarded Time/GCodes Start Time: 06:30 (829) Stop Time: 07:00 (929) Total Time Billed (hr/min): 90 Billed Treatment Time 1 visit([id number])- ADL 2 (30 min) 1 visit-([id number])- ADL 2 (30 min) EX 2 (30 min) SANTOS NOLASCO Aug 12, 2021 06:50
[2021-08-12 07:57] VITALS: BP 149/67
--- NOTE | 2021-08-12 08:28 | Physical Therapy Daily Note ---
PT Daily Note-Current Subjective Pt. agrees to Rx. States she is DCing to [facility] tomorrow. Wants to adjust her boot. Pain Location: No Pain Reported Mental Status Patient Orientation: Normal For Age Attachments: Other-See Comments (boot, evenup and mask) Transfers SCALE: Activities may be completed with or without assistive devices. 8-Xiwiwifdnx-enfanzj completes the activity by him/herself with no assistance from a helper. 5-Set-up or Clean-up Assistance-helper sets up or cleans up; patient completes activity. [place] assists only prior to or following the activity. 4-Supervision or Touching Assistance-helper provides verbal cues and/or touching/steadying and/or contact guard assistance as patient completes activity. Assistance may be provided throughout the activity or intermittently. 3-Partial/Moderate Assistance-helper does LESS THAN HALF the effort. [place] lifts, holds or supports trunk or limbs, but provides less than half the effort. 2-Substantial/Maximal Assistance-helper does MORE THAN HALF the effort. [place] lifts or holds trunk or limbs and provides more than half the effort. 2-Ctdfqciey-gozfei does ALL the effort. Patient does none of the effort to complete the activity. Or, the assistance of 2 or more helpers is required for the patient to complete the activity. If activity was not attempted, code reason: 7-Patient Refused. 9-Not Applicable-not attempted and the patient did not perform the activity before the current illness, exacerbation or injury. 10-Not Attempted due to Environmental Limitations-(lack of equipment, weather restraints, etc.). 88-Not Attempted due to Medical Conditions or Safety Concerns. Roll Left & Right (QC): 6 Sit to Lying (QC): 6 Lying to Sitting/Side of Bed(Q: 6 Sit to Stand (QC): 6 Chair/Zpw-nh-Bzxpa Xfer(QC): 6 Toilet Transfer (QC): 6 Weight Bearing Left Lower Extremity: Left Weight Bearing/Tolerated WBAT when wearing the cam boot Gait Training Does the Patient Walk?: Yes Walk 10 feet (QC): 6 Walk 50 ft with 2 Turns(QC): 6 Walk 150 ft (QC): 6 Gait Persons Needed: 0 Exercises Seated Therapy Exercises: Ankle pumps, Sit to stand, Long arc quads, Hip flexion, Hip abd/add Seated Reps: 12 Assessment Current Status: Good Progress PT Short Term Goals Short Term Goals Time Frame: Jul 30, 2021 Roll Left & Right: 6 Sit to lyin Lying to sitting on side of be: 3 Sit to stand: 4 Chair/xkp-bo-iiidf transfer: 4 Walk 10 feet: 3 PT Custodial Goals Custodial Goals PT Custodial Goals Time Frame: Aug 13, 2021 Roll Left & Right (QC): 6 Sit to Lying (QC): 6 Lying-Sitting on Side/Bed(QC): 6 Sit to Stand (QC): 4 Chair/Cxw-qx-Htfcd Xfer(QC): 4 Toilet Transfer (QC): 4 Car Transfer (QC): 4 Does the Patient Walk: Yes Walk 10 feet (QC): 4 Walk 50ft with 2 Turns (QC): 4 Walk 150 ft (QC): 88 Walking 10ft on Uneven Surface: 4 1 Step (curb) (QC): 4 4 Steps (QC): 4 12 Steps (QC): 88 Picking up an Object (QC): 4 Wheel 50 feet with 2 turns (QC: 9 Wheel 150 feet: 9 PT Plan Treatment/Plan Treatment Plan: Continue Plan of Care Treatment Plan: Bed Mobility, Education, Functional Activity Dorothea, Functional Strength, Group Therapy, Gait, Safety, Therapeutic Exercise, Transfers Treatment Duration: Aug 13, 2021 Frequency: At least 5 of 7 days/Wk (IRF) Estimated Hrs Per Day: 1.5 hours per day Patient and/or Family Agrees t: Yes Safety Risks/Education Patient Education: Gait Training, Transfer Techniques Time/GCodes Time In: 800 Time Out: 830 Total Billed Treatment Time: 30 Total Billed Treatment 1,FA20m,EX10m GIGI MARIE PEDIATRIC SPORTS MEDICINE SPECIALIST Aug 12, 2021 08:28
[2021-08-12] MEDS: amLODIPine 10 MG (NORVASC) TAB PO SCH (08:49)
[2021-08-12] MEDS: VITAMIN D3 10 MCG (400 UNITS) TABLET PO SCH (08:49)
[2021-08-12] MEDS: lisINopril 20 MG (PRINIVIL) TABLET PO SCH ×2 (08:49→21:03)
[2021-08-12] MEDS: sulfaSALAzine 500 MG (AZULFIDINE) TAB PO SCH ×2 (08:49→21:01)
[2021-08-12] MEDS: LORATADINE (CLARITIN) 10 MG TAB PO SCH (08:49)
[2021-08-12] MEDS: GABAPENTIN 100 MG (NEURONTIN) CAP PO SCH ×3 (08:49→21:01)
[2021-08-12] MEDS: FLUTICASONE NASAL SPRAY (FLONASE) 16 GM BTL NS SCH (08:50)
[2021-08-12] MEDS: ARTIFICAL TEARS 0.4 ML UNIT DOSE (REFRESH PLUS) OU SCH ×2 (08:51→21:01)
[2021-08-12 08:53] VITALS: BP 143/69
[2021-08-12] MEDS: RT-BUDESONIDE NEBS 0.5 MG/2ML (PULMICORT) AMP IH SCH ×2 (09:34→22:06)
--- NOTE | 2021-08-12 10:22 | PM&R Progress Note ---
Subjective HPI/CC On Admission Date Seen by Provider: Aug 12, 2021 Time Seen by Provider: 10:20 Subjective/Events-last exam 08/12/2021: Discharge plan for tomorrow to residential No major issues 08/11/2021: Awaiting residential placement No new problems Later in the afternoon residential obtain approval from insurance and will discharge home Monday08/10/2021: Delay of discharge due to disposition No major issues 08/09/2021: Delay of discharge Submitting for [facility] benefits Denies any new issues 08/08/2021: No major issues Holding Norvasc due to diastolic less than 60 Denies pain 08/07/2021: Patient does not have many problems today Issues with discharge She is moving around a lot better and she thinks she may be able to go home I explained to her advantage plan rarely provides skilled benefits after maintaining inpatient rehab stay 08/06/21: Patient doing well No complaints today Going home with son appears to not be an option Skilled care likely will be required unsure of advantage plan coverage and they will likely deny 08/05/2021: Patient doing well Had me discuss kyphoplasty again and this is been discussed 6 times already 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 Stokes donated the shoe to help her right foot Very somatic Has a new complaint every day Needs to either go home with son or go to a residential 08/03/2021: Pt doing very well Podiatry consult requested Constipation will be resolved 08/02/2021: No major issues Pain is pretty well controlled Crackles from pulmonary fibrosis noted Nebulizer treatments ordered prn Checked meds and labs 08/01/21: Patient doing well No new pain issues Talked about kyphoplasty again her request Checked meds and labs 07/31/21: No major issues Pain reported "everywhere" Kyphoplasty not an option since she is mobilizing well 07/30/21: Patient feels better Moving more Back pain is less Told her compression fractures are still present and likely her increased activity has flared her old fractures No issues 07/29/2021: Patient doing well Having a lot of pain in her back after therapy She did report compression fractures 6 weeks ago so we will get x-rays K pad and diclofenac gel will be considered Patient very well may require residential placement due to now limiting back pain and left leg issue Patient did say they did discuss kyphoplasty at that time 07/28/21: Pt doing really well Incontinence will require urology consult Pt doing very well but self limiting 07/27/2021: Pt doing well No major issues Lisinopril given but not Norvasc due to hypotension Med alert will be needed when she goes home 07/26/2021: Patient doing well Feels like her ears are muffled Otoscope exam revealed no significant abnormality Patient doing well otherwise Labs reviewed 07/25/2021: Patient doing well Think she has a bladder infection Urinalysis and in and out cath ordered Transferring pretty well Pain is well controlled 07/24/2021: Patient doing very well Bowels are moving Change Claritin to daily since she takes it that way at home Pain is well controlled Participating in therapy Objective Exam Vital Signs Vital Signs Date Time Temp Pulse Resp B/P (MAP) Pulse Ox O2 Delivery O2 Flow Rate FiO2 08/12/21 20:39 92 Room Air 08/12/21 19:15 36.8 75 16 111/74 (86) 08/08/21 07:27 21 Capillary Refill : General Appearance: No Apparent Distress, WD/WN, Chronically ill, Thin, Other (Frail) HEENT: PERRL/EOMI, Normal ENT Inspection, Pharynx Normal Neck: Full Range of Motion, Normal Inspection, Non Tender, Supple, Carotid Bruit Respiratory: Chest Non Tender, Lungs Clear, Normal Breath Sounds, No Accessory Muscle Use, No Respiratory Distress, Decreased Breath Sounds Cardiovascular: Regular Rate, Rhythm, No Edema, No Gallop, No JVD, No Murmur, Normal Peripheral Pulses Gastrointestinal: Normal Bowel Sounds, No Organomegaly, No Pulsatile Mass, Non Tender, Soft Back: Normal Inspection, No CVA Tenderness, No Vertebral Tenderness Extremity: Normal Capillary Refill, Normal Inspection, Normal Range of Motion, Non Tender, No Calf Tenderness, No Pedal Edema Neurologic/Psychiatric: Alert, Oriented x3, No Motor/Sensory Deficits, Normal Mood/Affect, commercial census taker II-XII Norm as Tested, Abnormal Gait (Nonweightbearing on the left), Motor Weakness (Generalized decreased strength 4/5) Skin: Normal Color, Warm/Dry Lymphatic: No Adenopathy Results/Procedures Lab Patient resulted labs reviewed. FIM Transfers Therapy Code Descriptions/Definitions Functional [place] Measure: 0=Not Assessed/NA 4=Minimal Assistance 1=Total Assistance 5=Supervision or Setup 2=Maximal Assistance 6=Modified [place] 3=Moderate Assistance 7=Complete IndependenceSCALE: Activities may be completed with or without assistive devices. 5-Wukvnuqlyu-pbpauuh completes the activity by him/herself with no assistance from a helper. 5-Set-up or Clean-up Assistance-helper sets up or cleans up; patient completes activity. [place] assists only prior to or following the activity. 4-Supervision or Touching Assistance-helper provides verbal cues and/or touching/steadying and/or contact guard assistance as patient completes activity. Assistance may be provided throughout the activity or intermittently. 3-Partial/Moderate Assistance-helper does LESS THAN HALF the effort. [place] lifts, holds or supports trunk or limbs, but provides less than half the effort. 2-Substantial/Maximal Assistance-helper does MORE THAN HALF the effort. [place] lifts or holds trunk or limbs and provides more than half the effort. 5-Xcynbzcal-dmbflq does ALL the effort. Patient does none of the effort to complete the activity. Or, the assistance of 2 or more helpers is required for the patient to complete the activity. If activity was not attempted, code reason: 7-Patient Refused. 9-Not Applicable-not attempted and the patient did not perform the activity before the current illness, exacerbation or injury. 10-Not Attempted due to Environmental Limitations-(lack of equipment, weather restraints, etc.). 88-Not Attempted due to Medical Conditions or Safety Concerns. Roll Left to Right (QC): 6 Sit to Lying (QC): 6 Sit to Stand (QC): 6 Chair/Lpm-jm-Qrldc Xfer(QC): 6 Car Transfer (QC): 3 Gait Training Does the Patient Walk?: Yes Distance: 150' Walk 10 feet (QC): 6 Walk 50 ft with 2 Turns(QC): 6 Walk 150 ft (QC): 6 Walking 10ft/uneven surface-QC: 88 Gait Persons Needed: 0 Gait Assistive Device: FWW Wheelchair Training Does the Pt Use a Wheelchair?: No Wheel 50 ft with 2 turns (QC): 5 Wheel 150 ft (QC): 5 Type of Wheelchair: Manual Stair Training Stair Training: Handrails/: 2 handrails #of Steps: 4 1 Step (curb) (QC): 5 4 Steps (QC): 5 12 Steps (QC): 88 Stairs: Pattern: Step to Balance Picking up an Object (QC): 88 ADL-Treatment Eating (QC): 6 Oral Hygiene (QC): 6 Bathing Location: L Arm, R Arm, L Upper Leg, R Upper Leg, L Lower Leg (including foot), R Lower Leg (including foot), Chest, Abdomen, Buttocks, Perineal Area Shower/Bathe Self (QC): 5 (Set up to turn on water. Pt able to cleanse all areas using LHS and hand held shower while seated on shower bench.) Upper Body Dressing (QC): 5 (Set up, pt don/doffs while seated with supplies gathered.) Lower Body Dressing (QC): 5 On/Off Footwear (QC): 6 Toileting Hygiene (QC): 6 (Independent in managing clothing using grabbars and FWW for stability, cleanses self while seated on BSC over toilet.) Toilet Transfer (QC): 6 (Independent, pt uses grabbars and FWW for stability to complete by self.) Assessment/Plan Assessment and Plan Assess & Plan/Chief Complaint Assessment: Left ankle fracture nonweightbearing Advanced age Pulmonary fibrosis 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 [employer] 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 lifetime non-smoker Hypothyroidism Rheumatoid arthritis Seasonal allergies History of GI bleed History pneumonia Osteoporosis Recent compression fractures and new x-rays could confirm acute on chronic fractures Somatic complaints Plan: Inpatient rehab protocol Bowel regimen Pain control 07/24/2021: Continue pain control Aggressive rehab 07/25/2021: Check urinalysis Supportive care Pain control 07/26/2021: Ear exam normal Aggressive therapy 07/27/2021: Supportive care Pain control 07/28/21: Supportive care Pain control 07/29/2021: Spine x-rays reviewed Slow recovery 07/30/21: Monitor pain Kpad Diclofenac gel 07/31/21: Monitor closely Pain management 08/01/21: Improved transfers Monitor closely 08/02/2021: Improved status Evaluate disposition 08/03/2021: Supportive care Podiatry consult Constipation management 08/04/2021: Appreciate Dr. Stokes Somatic complaints Needs residential or go home with son 08/05/2021: Monitor somatic complaints Supportive care 08/06/21: Monitor pain 08/07/2020: Pain control 08/08/2021 Supportive care 08/09/2021: Await disposition 08/10/2021: Supportive care Await residential placement 08/11/2021: Discharge home Monday08/12/2021: Discharge to residential Monday (1) Ankle fracture, left (2) Pulmonary fibrosis (3) Rheumatoid arthritis (4) Hypothyroidism (5) Hypertension (6) Advanced age (7) Frail elderly (8) Risk for falls KYLAH DELGADILLO DO Aug 12, 2021 10:22
--- NOTE | 2021-08-12 10:25 | Physical Therapy Daily Note ---
PT Daily Note-Current Subjective Pt. c/o back pain at 6 but states it has improved by end of rx, pt. stating she feels the nustep helped loosen it up. Pt. c/o her boot was uncomfortable and "bunched up at heel" Boot was revamped during Rx and pt. states this matter was solved Pain Numeric Pain Scale: 4 Location: Medial Location Body Site: Back Pain Description: Ache Mental Status Patient Orientation: Normal For Age Attachments: Other-See Comments (boot and mask and evenup device) Transfers SCALE: Activities may be completed with or without assistive devices. 3-Egsiymwnqn-loojnym completes the activity by him/herself with no assistance from a helper. 5-Set-up or Clean-up Assistance-helper sets up or cleans up; patient completes activity. [place] assists only prior to or following the activity. 4-Supervision or Touching Assistance-helper provides verbal cues and/or touching/steadying and/or contact guard assistance as patient completes activity. Assistance may be provided throughout the activity or intermittently. 3-Partial/Moderate Assistance-helper does LESS THAN HALF the effort. [place] lifts, holds or supports trunk or limbs, but provides less than half the effort. 2-Substantial/Maximal Assistance-helper does MORE THAN HALF the effort. [place] lifts or holds trunk or limbs and provides more than half the effort. 1-Jjdtsxwjj-bsdexc does ALL the effort. Patient does none of the effort to complete the activity. Or, the assistance of 2 or more helpers is required for the patient to complete the activity. If activity was not attempted, code reason: 7-Patient Refused. 9-Not Applicable-not attempted and the patient did not perform the activity before the current illness, exacerbation or injury. 10-Not Attempted due to Environmental Limitations-(lack of equipment, weather restraints, etc.). 88-Not Attempted due to Medical Conditions or Safety Concerns. Roll Left & Right (QC): 6 Sit to Lying (QC): 6 Lying to Sitting/Side of Bed(Q: 6 Sit to Stand (QC): 6 Chair/Lxo-fk-Docpv Xfer(QC): 6 Toilet Transfer (QC): 6 Car Transfer (QC): 6 Weight Bearing Left Lower Extremity: Left Weight Bearing/Tolerated WBAT when wearing the cam boot Gait Training Does the Patient Walk?: Yes Walk 10 feet (QC): 6 Walk 50 ft with 2 Turns(QC): 6 Walk 150 ft (QC): 5 Walking 10ft/uneven surface-QC: 5 Gait Persons Needed: 1 (for longer dist as pt. fatigues and safety wanes) Gait Assistive Device: FWW Wheelchair Training Does the Pt Use a Wheelchair?: No Stair Training Stair Training: Handrails/: 2 handrails #of Steps: 4 1 Step (curb) (QC): 4 4 Steps (QC): 4 12 Steps (QC): 88 Stairs: Pattern: Step to needs cuing for hand placement and sequence at times Balance Picking up an Object (QC): 88 Exercises Supine Ex: Ankle pumps, Quad Set, Rolling, Glut sets, Heel Slides, Short Arc Quads, Scooting, Straight leg raise (assist), Hip abd/add Supine Reps: 10 NuStep Minutes: 10 NuStep Workload: 3 Assessment Current Status: Good Progress marked progress in past few days, increased indep PT Short Term Goals Short Term Goals Time Frame: Jul 30, 2021 Roll Left & Right: 6 Sit to lyin Lying to sitting on side of be: 3 Sit to stand: 4 Chair/nps-np-nhliq transfer: 4 Walk 10 feet: 3 PT Fpc Goals Bridge Ironworker Goals PT Bridge Ironworker Goals Time Frame: Aug 13, 2021 Roll Left & Right (QC): 6 Sit to Lying (QC): 6 Lying-Sitting on Side/Bed(QC): 6 Sit to Stand (QC): 4 Chair/Jyd-dn-Aosib Xfer(QC): 4 Toilet Transfer (QC): 4 Car Transfer (QC): 4 Does the Patient Walk: Yes Walk 10 feet (QC): 4 Walk 50ft with 2 Turns (QC): 4 Walk 150 ft (QC): 88 Walking 10ft on Uneven Surface: 4 1 Step (curb) (QC): 4 4 Steps (QC): 4 12 Steps (QC): 88 Picking up an Object (QC): 4 Wheel 50 feet with 2 turns (QC: 9 Wheel 150 feet: 9 PT Plan Treatment/Plan Treatment Plan: Continue Plan of Care Treatment Plan: Bed Mobility, Education, Functional Activity Dorothea, Functional Strength, Group Therapy, Gait, Safety, Therapeutic Exercise, Transfers Treatment Duration: Aug 13, 2021 Frequency: At least 5 of 7 days/Wk (IRF) Estimated Hrs Per Day: 1.5 hours per day Patient and/or Family Agrees t: Yes Safety Risks/Education Patient Education: Gait Training, Transfer Techniques, Steps, Correct Positioning, Disease Process, Safety Issues Teaching Recipient: Patient Teaching Methods: Demonstration, Discussion Response to Teaching: Verbalize Understanding, Return Demonstration, Reinforcement Needed Time/GCodes Time In: 930 Time Out: 1030 Total Billed Treatment Time: 60 Total Billed Treatment 1,GT15m,FA25m,EX20m GIGI MARIE LAST MODEL DEPARTMENT SUPERVISOR Aug 12, 2021 10:25
[2021-08-12] MEDS: DOCUSATE SODIUM 100 MG (COLACE) CAP PO SCH ×2 (11:24→21:03)
[2021-08-12] MEDS: SENNOSIDES 8.6 MG (SENOKOT) TAB PO SCH (11:25)
[2021-08-12] MEDS: polyethylene glycoL POWDER 17 GM (MIRALAX) PACK PO SCH (11:25)
[2021-08-12] MEDS: CALCIUM CARB + VIT D 600 MG (CALCARB + D) TAB PO SCH ×2 (12:05→18:06)
[2021-08-12] MEDS: DICLOFENAC 1% GEL 100 GM (VOLTAREN) TUBE TOP SCH ×4 (12:06→21:07)
[2021-08-12 19:15] VITALS: BP 111/74
[2021-08-12] MEDS: TOLTERODINE LA 4 MG (DETROL) CAP PO SCH (21:01)
[2021-08-13] MEDS: PANTOPRAZOLE 40 MG (PROTONIX) TAB PO SCH (06:47)
[2021-08-13] MEDS: LEVOTHYROXINE 125 MCG (LEVOTHROID) TABLET PO SCH (06:47)
[2021-08-13] MEDS: ENOXAPARIN 40 MG/0.4 ML (LOVENOX) SYR SC SCH (06:47)
[2021-08-13] MEDS: MULTIVIT W/MINERALS TAB (THERAGRAN M) PO SCH (06:47)
[2021-08-13] MEDS ORDERED: TRM50T PO (06:51)
--- NOTE | 2021-08-13 06:52 | Discharge Summary ---
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 lifetime non-smoker Hypothyroidism Rheumatoid arthritis Seasonal allergies History of GI bleed History pneumonia Osteoporosis Recent compression fractures and new x-rays could confirm acute on chronic fractures Somatic complaints Plan: Inpatient rehab protocol Bowel regimen Pain control 07/24/2021: Continue pain control Aggressive rehab 07/25/2021: Check urinalysis Supportive care Pain control 07/26/2021: Ear exam normal Aggressive therapy 07/27/2021: Supportive care Pain control 07/28/21: Supportive care Pain control 07/29/2021: Spine x-rays reviewed Slow recovery 07/30/21: Monitor pain Kpad Diclofenac gel 07/31/21: Monitor closely Pain management 08/01/21: Improved transfers Monitor closely 08/02/2021: Improved status Evaluate disposition 08/03/2021: Supportive care Podiatry consult Constipation management 08/04/2021: Appreciate Dr. Stokes Somatic complaints Needs care home or go home with son 08/05/2021: Monitor somatic complaints Supportive care 08/06/21: Monitor pain 08/07/2020: Pain control 08/08/2021 Supportive care 08/09/2021: Await disposition 08/10/2021: Supportive care Await care home placement 08/11/2021: Discharge home Monday08/12/2021: Discharge to care home Monday (1) Ankle fracture, left (2) Pulmonary fibrosis (3) Rheumatoid arthritis (4) Hypothyroidism (5) Hypertension (6) Advanced age (7) Frail elderly (8) Risk for falls Discharge Summary Discharge Physical Examination Allergies: Coded Allergies: adhesive tape (Verified Allergy, Unknown, 07/23/21) latex (Verified Allergy, Unknown, 07/23/21) morphine (Verified Allergy, Unknown, 07/23/21) moxifloxacin (Verified Allergy, Unknown, 07/23/21) Vitals & I&Os Vital Signs Date Time Temp Pulse Resp B/P (MAP) Pulse Ox O2 Delivery O2 Flow Rate FiO2 08/13/21 09:00 Room Air 08/13/21 07:56 36.7 91 16 150/81 (104) 95 08/08/21 07:27 21 General Appearance: Alert, Oriented X3, Cooperative Respiratory: Clear to Auscultation Cardiovascular: Regular Rate Psych/Mental Status: Mental Status NL Hospital Course Was the Problem List Reviewed?: Yes Long course after admitted from OSH due to left ankle fracture in need of rehab. Boot maintained and weight bearing as tolerated. Pain controlled on Ultram. Compression fractures acute on chronic caused pain. BM regimen maintained. 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 All meds evaluated at [place] and continued on urinary incontinence treatment to continue. Labs (last 24 hrs) Laboratory Tests 07/24/21 06:40: White Blood Count 4.6, Red Blood Count 3.62L, Hemoglobin 11.1L, Hematocrit 34L, Mean Corpuscular Volume 93, Mean Corpuscular Hemoglobin 31, Mean Corpuscular Hemoglobin Concent 33, Red Cell Distribution Width 13.5, Platelet Count 194, Mean Platelet Volume 8.6L, Immature Granulocyte % (Auto) 0, Neutrophils (%) (Auto) 60, Lymphocytes (%) (Auto) 25, Monocytes (%) (Auto) 15H, Eosinophils (%) (Auto) 0, Basophils (%) (Auto) 0, Neutrophils # (Auto) 2.8, Lymphocytes # (Auto) 1.2, Monocytes # (Auto) 0.7, Eosinophils # (Auto) 0.0, Basophils # (Auto) 0.0, Immature Granulocyte # (Auto) 0.0, Sodium Level 136, Potassium Level 4.4, Chloride Level 104, Carbon Dioxide Level 23, Anion Gap 9, Blood Urea Nitrogen 16, Creatinine 0.64, Estimat Glomerular Filtration Rate 89, BUN/Creatinine Ratio 25, Glucose Level 90, Calcium Level 8.2L, Corrected Calcium 9.1, Total Bilirubin 0.5, Aspartate Amino Transf (AST/SGOT) 23, Alanine Aminotransferase (ALT/SGPT) 10, Alkaline Phosphatase 60, Total Protein 5.8L, Albumin 2.9L 07/25/21 12:50: Urine Color YELLOW, Urine Clarity CLEAR, Urine pH 6.5, Urine Specific [place] 1.010L, Urine Protein NEGATIVE, Urine Glucose (UA) NEGATIVE, Urine Ketones NEGATIVE, Urine Nitrite NEGATIVE, Urine Bilirubin NEGATIVE, Urine Urobilinogen 0.2, Urine Leukocyte Esterase NEGATIVE, Urine RBC (Auto) NEGATIVE, Urine RBC NONE, Urine WBC 0-2, Urine Squamous Epithelial Cells 0-2, Urine Crystals NONE, Urine Bacteria NEGATIVE, Urine Casts NONE, Urine Mucus NEGATIVE, Urine Culture Indicated NO 07/26/21 06:41: White Blood Count 5.9, Red Blood Count 3.84, Hemoglobin 11.8, Hematocrit 36, Mean Corpuscular Volume 92, Mean Corpuscular Hemoglobin 31, Mean Corpuscular Hemoglobin Concent 33, Red Cell Distribution Width 13.3, Platelet Count 210, Mean Platelet Volume 8.2L, Immature Granulocyte % (Auto) 0, Neutrophils (%) (Auto) 65, Lymphocytes (%) (Auto) 20, Monocytes (%) (Auto) 13H, Eosinophils (%) (Auto) 3, Basophils (%) (Auto) 0, Neutrophils # (Auto) 3.8, Lymphocytes # (Auto) 1.2, Monocytes # (Auto) 0.8, Eosinophils # (Auto) 0.2, Basophils # (Auto) 0.0, Immature Granulocyte # (Auto) 0.0, Sodium Level 136, Potassium Level 4.4, Chloride Level 101, Carbon Dioxide Level 24, Anion Gap 11, Blood Urea Nitrogen 18, Creatinine 0.68, Estimat Glomerular Filtration Rate 83, BUN/Creatinine Ratio 26, Glucose Level 93, Calcium Level 8.7, Corrected Calcium 9.5, Total Bilirubin 0.7, Aspartate Amino Transf (AST/SGOT) 25, Alanine Aminotransferase (ALT/SGPT) 13, Alkaline Phosphatase 59, Total Protein 6.4, Albumin 3.0L 08/02/21 05:25: White Blood Count 4.5, Red Blood Count 3.68L, Hemoglobin 11.2L, Hematocrit 34L, Mean Corpuscular Volume 93, Mean Corpuscular Hemoglobin 30, Mean Corpuscular Hemoglobin Concent 33, Red Cell Distribution Width 12.8, Platelet Count 272, Mean Platelet Volume 8.2L, Immature Granulocyte % (Auto) 0, Neutrophils (%) (Auto) 62, Lymphocytes (%) (Auto) 22, Monocytes (%) (Auto) 15H, Eosinophils (%) (Auto) 0, Basophils (%) (Auto) 0, Neutrophils # (Auto) 2.8, Lymphocytes # (Auto) 1.0, Monocytes # (Auto) 0.7, Eosinophils # (Auto) 0.0, Basophils # (Auto) 0.0, Immature Granulocyte # (Auto) 0.0, Sodium Level 133L, Potassium Level 4.9, Chloride Level 101, Carbon Dioxide Level 22, Anion Gap 10, Blood Urea Nitrogen 21H, Creatinine 0.71, Estimat Glomerular Filtration Rate 79, BUN/Creatinine Ratio 30, Glucose Level 83, Calcium Level 8.4L, Corrected Calcium 9.1, Total Bilirubin 0.3, Aspartate Amino Transf (AST/SGOT) 26, Alanine Aminotransferase (ALT/SGPT) 15, Alkaline Phosphatase 72, Total Protein 6.2L, Albumin 3.1L 08/09/21 05:30: White Blood Count 4.2L, Red Blood Count 3.96, Hemoglobin 12.1, Hematocrit 37, Mean Corpuscular Volume 94, Mean Corpuscular Hemoglobin 31, Mean Corpuscular Hemoglobin Concent 32, Red Cell Distribution Width 13.2, Platelet Count 273, Mean Platelet Volume 8.1L, Immature Granulocyte % (Auto) 1, Neutrophils (%) (Auto) 54, Lymphocytes (%) (Auto) 29, Monocytes (%) (Auto) 16H, Eosinophils (%) (Auto) 0, Basophils (%) (Auto) 1, Neutrophils # (Auto) 2.3, Lymphocytes # (Auto) 1.2, Monocytes # (Auto) 0.7, Eosinophils # (Auto) 0.0, Basophils # (Auto) 0.0, Immature Granulocyte # (Auto) 0.0, Sodium Level 135, Potassium Level 4.5, Chloride Level 102, Carbon Dioxide Level 23, Anion Gap 10, Blood Urea Nitrogen 20H, Creatinine 0.76, Estimat Glomerular Filtration Rate 73, BUN/Creatinine Ratio 26, Glucose Level 84, Calcium Level 8.5, Corrected Calcium 9.2, Total Bili mcintosh 0.3, Aspartate Amino Transf (AST/SGOT) 25, Alanine Aminotransferase (ALT/SGPT) 15, Alkaline Phosphatase 79, Total Protein 6.3L, Albumin 3.1L 08/12/21 20:55: SARS-CoV-2 RNA (RT-PCR) Not Detected Pending Labs Laboratory Tests 07/24/21 06:40: White Blood Count 4.6, Red Blood Count 3.62, Hemoglobin 11.1, Hematocrit 34, Mean Corpuscular Volume 93, Mean Corpuscular Hemoglobin 31, Mean Corpuscular Hemoglobin Concent 33, Red Cell Distribution Width 13.5, Platelet Count 194, Mean Platelet Volume 8.6, Immature Granulocyte % (Auto) 0, Neutrophils (%) (Au to) 60, Lymphocytes (%) (Auto) 25, Monocytes (%) (Auto) 15, Eosinophils (%) (Auto) 0, Basophils (%) (Auto) 0, Neutrophils # (Auto) 2.8, Lymphocytes # (Auto) 1.2, Monocytes # (Auto) 0.7, Eosinophils # (Auto) 0.0, Basophils # (Auto) 0.0, Immature Granulocyte # (Auto) 0.0, Sodium Level 136, Potassium Level 4.4, Chloride Level 104, Carbon Dioxide Level 23, Anion Gap 9, Blood Urea Nitrogen 16, Creatinine 0.64, Estimat Glomerular Filtration Rate 89, BUN/Creatinine Ratio 25, Glucose Level 90, Calcium Level 8.2, Corrected Calcium 9.1, Total Bilirubin 0.5, Aspartate Amino Transf (AST/SGOT) 23, Alanine Aminotransferase (ALT/SGPT) 10, Alkaline Phosphatase 60, Total Protein 5.8, Albumin 2.9 07/25/21 12:50: Urine Color YELLOW, Urine Clarity CLEAR, Urine pH 6.5, Urine Specific [place] 1.010, Urine Protein NEGATIVE, Urine Glucose (UA) NEGATIVE, Urine Ketones NEGATIVE, Urine Nitrite NEGATIVE, Urine Bilirubin NEGATIVE, Urine Urobilinogen 0.2, Urine Leukocyte Esterase NEGATIVE, Urine RBC (Auto) NEGATIVE, Urine RBC NONE, Urine WBC 0-2, Urine Squamous Epithelial Cells 0-2, Urine Crystals NONE, Urine Bacteria NEGATIVE, Urine Casts NONE, Urine Mucus NEGATIVE, Urine Culture Indicated NO 07/26/21 06:41: White Blood Count 5.9, Red Blood Count 3.84, Hemoglobin 11.8, Hematocrit 36, Mean Corpuscular Volume 92, Mean Corpuscular Hemoglobin 31, Mean Corpuscular Hemoglobin Concent 33, Red Cell Distribution Width 13.3, Platelet Count 210, Mean Platelet Volume 8.2, Immature Granulocyte % (Auto) 0, Neutrophils (%) (Auto) 65, Lymphocytes (%) (Auto) 20, Monocytes (%) (Auto) 13, Eosinophils (%) (Auto) 3, Basophils (%) (Auto) 0, Neutrophils # (Auto) 3.8, Lymphocytes # (Auto) 1.2, Monocytes # (Auto) 0.8, Eosinophils # (Auto) 0.2, Basophils # (Auto) 0.0, Immature Granulocyte # (Auto) 0.0, Sodium Level 136, Potassium Level 4.4, Chloride Level 101, Carbon Dioxide Level 24, Anion Gap 11, Blood Urea Nitrogen 18, Creatinine 0.68, Estimat Glomerular Filtration Rate 83, BUN/Creatinine Ratio 26, Glucose Level 93, Calcium Level 8.7, Corrected Calcium 9.5, Total Bilirubin 0.7, Aspartate Amino Transf (AST/SGOT) 25, Alanine Aminotransferase (ALT/SGPT) 13, Alkaline Phosphatase 59, Total Protein 6.4, Albumin 3.0 08/02/21 05:25: White Blood Count 4.5, Red Blood Count 3.68, Hemoglobin 11.2, Hematocrit 34, Mean Corpuscular Volume 93, Mean Corpuscular Hemoglobin 30, Mean Corpuscular H emoglobin Concent 33, Red Cell Distribution Width 12.8, Platelet Count 272, Mean Platelet Volume 8.2, Immature Granulocyte % (Auto) 0, Neutrophils (%) (Auto) 62, Lymphocytes (%) (Auto) 22, Monocytes (%) (Auto) 15, Eosinophils (%) (Auto) 0, Basophils (%) (Auto) 0, Neutrophils # (Auto) 2.8, Lymphocytes # (Auto) 1.0, Monocytes # (Auto) 0.7, Eosinophils # (Auto) 0.0, Basophils # (Auto) 0.0, Immature Granulocyte # (Auto) 0.0, Sodium Level 133, Potassium Level 4.9, Chloride Level 101, Carbon Dioxide Level 22, Anion Gap 10, Blood Urea Nitrogen 21, Creatinine 0.71, Estimat Glomerular Filtration Rate 79, BUN/Creatinine Ratio 30, Glucose Level 83, Calcium Level 8.4, Corrected Calcium 9.1, Total Bilirubin 0.3, Aspartate Amino Transf (AST/SGOT) 26, Alanine Aminotransferase (ALT/SGPT) 15, Alkaline Phosphatase 72, Total Protein 6.2, Albumin 3.1 08/09/21 05:30: White Blood Count 4.2, Red Blood Count 3.96, Hemoglobin 12.1, Hematocrit 37, Mean Corpuscular Volume 94, Mean Corpuscular Hemoglobin 31, Mean Corpuscular Hemoglobin Concent 32, Red Cell Distribution Width 13.2, Platelet Count 273, Mean Platelet Volume 8.1, Immature Granulocyte % (Auto) 1, Neutrophils (%) (Auto) 54, Lymphocytes (%) (Auto) 29, Monocytes (%) (Auto) 16, Eosinophils (%) (Auto) 0, Basophils (%) (Auto) 1, Neutrophils # (Auto) 2.3, Lymphocytes # (Auto) 1.2, Monocytes # (Auto) 0.7, Eosinophils # (Auto) 0.0, Basophils # (Auto) 0.0, Immature Granulocyte # (Auto) 0.0, Sodium Level 135, Potassium Level 4.5, Chloride Level 102, Carbon Dioxide Level 23, Anion Gap 10, Blood Urea Nitrogen 20, Creatinine 0.76, Estimat Glomerular Filtration Rate 73, BUN/Creatinine Ratio 26, Glucose Level 84, Calcium Level 8.5, Corrected Calcium 9.2, Total Bilirubin 0.3, Aspartate Amino Transf (AST/SGOT) 25, Alanine Aminotransferase (ALT/SGPT) 15, Alkaline Phosphatase 79, Total Protein 6.3, Albumin 3.1 08/12/21 20:55: SARS-CoV-2 RNA (RT-PCR) Not Detected Discharge Home Medications: Active Scripts Active Tramadol HCl 50 Mg Tablet 50 Mg PO TID PRN Detrol LA (Tolterodine Tartrate) 4 Mg Cap 4 Mg PO HS Diclofenac Sodium 100 Gm Gel..gram. 0 Gm TOP QID Reported Flonase Allergy Relief (Fluticasone Propionate) 9.9 Ml [place].susp 2 [place] NSEACH DAILY Amlodipine Besylate 5 Mg Tablet 10 Mg PO DAILY PRN TAKES 2 (5MG) TABS Azulfidine (Sulfasalazine) 500 Mg Tablet 500 Mg PO BID Preservision Areds 2 Softgel (Vit C/E/Zn/Coppr/Lutein/Zeaxan) 1 Each Capsule 1 Each PO BID Miralax (Polyethylene Glycol 3350) 17 Gm Powd.pack 17 Gm PO DAILY Pantoprazole Sodium 40 Mg Tablet.dr 40 Mg PO DAILY Loratadine 10 Mg Tablet 10 Mg PO DAILY PRN Lisinopril 20 Mg Tablet 20 Mg PO DAILY Levothyroxine Sodium 125 Mcg Tablet 125 Mcg PO DAILY Gabapentin 100 Mg Capsule 100 Mg PO TID Docusate Sodium 100 Mg Capsule 100 Mg PO BID Citalopram HBr (Citalopram Hydrobromide) 10 Mg Tablet 10 Mg PO DAILY Vitamin D3 (Cholecalciferol (Vitamin D3)) 10 Mcg Capsule 10 Mcg PO DAILY Refresh Celluvisc (Carboxymethylcellulose Sodium) 1 Each Droper.gel 1 Drop OU UD PRN Caltrate 600 + D Tablet (Calcium Carbonate/Vitamin D3) 1 Each Tablet 1 Each PO BID WITH MEALS Instructions to patient/family Please see electronic discharge instructions given to patient. Diagnosis/Problems Diagnosis/Problems (1) Ankle fracture, left (2) Pulmonary fibrosis (3) Rheumatoid arthritis (4) Hypothyroidism (5) Hypertension (6) Advanced age (7) Frail elderly (8) Risk for falls KYLAH DELGADILLO DO Aug 13, 2021 06:52
--- NOTE | 2021-08-13 06:52 | Discharge Inst-Skilled Nursing ---
Discharge Inst-Skilled NF Reconcile Patient Problems Problems Reviewed?: Yes Patient Instructions Patient Problems: Left ankle fracture Goal: Return home Consult/Follow Up/Orders Follow Up Appt.: PCP 1 week Skilled NF Admit to: Certification (SNF) I certify that SNF services are required to be given on an inpatient basis because of the above named patient's need for half-way care on a continuing basis for the conditions(s) for which he/she was receiving inpatient hospital services prior to his/her transfer to the SNF. Care Home Facility Order: Nursing Services, Staff Psychiatrist-Evaluate & Treat, Physical Therapy-Evaluate & Treat Oxygen Delivery Method: Room Air Discharge Diet: No Restrictions Resuscitation Status: Full Code New & Resume Previous Orders New Medications: Tramadol HCl (Tramadol HCl) 50 Mg Tablet 50 MG PO TID PRN for PAIN-MODERATE (5-7), #30 TAB Diclofenac Sodium (Diclofenac Sodium) 100 Gm Gel..gram. 0 GM TOP QID, #1 TUBE Tolterodine Tartrate (Detrol LA) 4 Mg Cap 4 MG PO HS, #90 CAP Continued Medications: Amlodipine Besylate (Amlodipine Besylate) 5 Mg Tablet 10 MG PO DAILY PRN for BLOOD PRESSURE, TAB TAKES 2 (5MG) TABS Calcium Carbonate/Vitamin D3 (Caltrate 600 + D Tablet) 1 Each Tablet 1 EACH PO BID WITH MEALS, TAB Carboxymethylcellulose Sodium (Refresh Celluvisc) 1 Each Droper.gel 1 DROP OU UD PRN for DRY EYES, EA Cholecalciferol (Vitamin D3) (Vitamin D3) 10 Mcg Capsule 10 MCG PO DAILY, CAP Citalopram Hydrobromide (Citalopram HBr) 10 Mg Tablet 10 MG PO DAILY, TAB Docusate Sodium (Docusate Sodium) 100 Mg Capsule 100 MG PO BID, CAP Fluticasone Propionate (Flonase Allergy Relief) 9.9 Ml [place].susp 2 [place] NSEACH DAILY, EACH Gabapentin (Gabapentin) 100 Mg Capsule 100 MG PO TID, CAP Levothyroxine Sodium (Levothyroxine Sodium) 125 Mcg Tablet 125 MCG PO DAILY, TAB Lisinopril (Lisinopril) 20 Mg Tablet 20 MG PO DAILY, TAB Loratadine (Loratadine) 10 Mg Tablet 10 MG PO DAILY PRN for ALLERGY SYMPTOMS, TAB Pantoprazole Sodium (Pantoprazole Sodium) 40 Mg Tablet.dr 40 MG PO DAILY, TAB Polyethylene Glycol 3350 (Miralax) 17 Gm Powd.pack 17 GM PO DAILY, EACH Sulfasalazine (Azulfidine) 500 Mg Tablet 500 MG PO BID, TAB Vit C/E/Zn/Coppr/Lutein/Zeaxan (Preservision Areds 2 Softgel) 1 Each Capsule 1 EACH PO BID, FRANK Castro Aug 13, 2021 06:51 KYLAH CASTRO DO Aug 13, 2021 06:52
[2021-08-13] MEDS: RT-BUDESONIDE NEBS 0.5 MG/2ML (PULMICORT) AMP IH SCH (07:27)
[2021-08-13 07:56] VITALS: BP 150/81
[2021-08-13] MEDS: SENNOSIDES 8.6 MG (SENOKOT) TAB PO SCH (08:15)
[2021-08-13] MEDS: polyethylene glycoL POWDER 17 GM (MIRALAX) PACK PO SCH (08:15)
[2021-08-13] MEDS: DOCUSATE SODIUM 100 MG (COLACE) CAP PO SCH (08:15)
[2021-08-13] MEDS: sulfaSALAzine 500 MG (AZULFIDINE) TAB PO SCH (08:30)
[2021-08-13] MEDS: amLODIPine 10 MG (NORVASC) TAB PO SCH (08:30)
[2021-08-13] MEDS: CALCIUM CARB + VIT D 600 MG (CALCARB + D) TAB PO SCH (08:30)
[2021-08-13] MEDS: lisINopril 20 MG (PRINIVIL) TABLET PO SCH (08:30)
[2021-08-13] MEDS: LORATADINE (CLARITIN) 10 MG TAB PO SCH (08:30)
[2021-08-13] MEDS: GABAPENTIN 100 MG (NEURONTIN) CAP PO SCH ×2 (08:30→12:54)
[2021-08-13] MEDS: VITAMIN D3 10 MCG (400 UNITS) TABLET PO SCH (08:30)
[2021-08-13] MEDS: DICLOFENAC 1% GEL 100 GM (VOLTAREN) TUBE TOP SCH ×2 (08:31→12:55)
[2021-08-13] MEDS: FLUTICASONE NASAL SPRAY (FLONASE) 16 GM BTL NS SCH (08:31)
[2021-08-13] MEDS: ARTIFICAL TEARS 0.4 ML UNIT DOSE (REFRESH PLUS) OU SCH (08:32)
--- NOTE | 2021-08-13 11:03 | Therapy Team Discharge Summary ---
Therapy Discharge Summary Discharge Recommendations Date of Discharge 08/13/21 Therapy D/C Recommendations: Detention (TCU/NH) Occupational Therapy Pt direct admit from [facility] post fall resulting in L fibula fx. At time of Eval, pt was min-mod a for oral care, bathing, upper body dressing, lower body dressing, and toilet hygiene, Max a for for footwear. 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 Thus, pt will d/c to SNF until safe to return home. Pt is now set up for bathing, upper body dressing, lower body dressing, and footwear, and indep with toilet transfer, toilet hygiene, and oral care. Pt will be discharged from this facility and from OT. Decreased Activ Tolerance, Impaired Self-Care Skills PT Residential Goals Studio Model Goals PT Residential Goals Time Frame: Aug 13, 2021 Roll Left to Right (QC): 6 Sit to Lying (QC): 6 Lying-Sitting on Side/Bed(QC): 6 Sit to Stand (QC): 4 Chair/Mhn-ot-Jgbil Xfer(QC): 4 Car Transfer (QC): 4 Does the Patient Walk: Yes Walk 10 feet (QC): 4 Walk 10ft-Uneven Surface(QC): 4 Walk 50ft with 2 Turns (QC): 4 Walk 150 ft (QC): 88 Wheel 50 feet with 2 turns (QC: 9 1 Step (curb) (QC): 4 4 Steps (QC): 4 12 Steps (QC): 88 Picking up an Object (QC): 4 OT Studio Model Goals Studio Model Goals Time Frame: Aug 14, 2021 Eating (QC): 5 (met) Oral Hygiene (QC): 5 (met) Shower/Bathe Self (QC): 5 (met) Upper Body Dressing (QC): 5 (met) Lower Body Dressing (QC): 5 (met) On/Off Footwear (QC): 4 (met) Toileting Hygiene (QC): 6 (met) Toilet/Commode Transfer (QC): 4 1=Demonstrate adherence to instructed precautions during ADL tasks. 2=Patient will verbalize/demonstrate understanding of assistive devices/modifications for ADL. 3=Patient will improve strength/tolerance for activity to enable patient to perform ADL's. Chrissy Cutler OT Aug 13, 2021 11:03
[2021-08-13 14:01] VITALS: BP 150/81
--- NOTE | 2021-08-14 10:58 | Therapy Team Discharge Summary ---
Therapy Discharge Summary Discharge Recommendations Date of Discharge Aug 13, 2021 at 13:55 Therapy D/C Recommendations: Group Home (TCU/NH) Physical Therapy Patient performs all bed mobility and transfers with independence. She is able to ambulate 150 feet with SBA, with FWW, CAM boot and verbal cues for longer distance as pt. fatigues and safety wanes. Patient ascends/descends 4 steps with CGA. Unable to perform 12 steps. Overall has made good progress with marked progress in past few days and significant increased independence. Occupational Therapy Decreased Activ Tolerance, Impaired Self-Care Skills PT Manager Security Goals Manager Security Goals PT Manager Security Goals Time Frame: Aug 13, 2021 Roll Left to Right (QC): 6 (MET) Sit to Lying (QC): 6 (MET) Lying-Sitting on Side/Bed(QC): 6 (MET) Sit to Stand (QC): 4 (MET) Chair/Rwu-gx-Qrmrn Xfer(QC): 4 (MET) Car Transfer (QC): 4 (MET) Does the Patient Walk: Yes (MET) Walk 10 feet (QC): 4 (MET) Walk 10ft-Uneven Surface(QC): 4 (MET) Walk 50ft with 2 Turns (QC): 4 (MET) Walk 150 ft (QC): 88 Wheel 50 feet with 2 turns (QC: 9 1 Step (curb) (QC): 4 (MET) 4 Steps (QC): 4 (MET) 12 Steps (QC): 88 Picking up an Object (QC): 4 OT Manager Security Goals [facility] Goals Time Frame: Aug 14, 2021 Eating (QC): 5 (met) Oral Hygiene (QC): 5 (met) Shower/Bathe Self (QC): 5 (met) Upper Body Dressing (QC): 5 (met) Lower Body Dressing (QC): 5 (met) On/Off Footwear (QC): 4 (met) Toileting Hygiene (QC): 6 (met) Toilet/Commode Transfer (QC): 4 1=Demonstrate adherence to instructed precautions during ADL tasks. 2=Patient will verbalize/demonstrate understanding of assistive devices/modifications for ADL. 3=Patient will improve strength/tolerance for activity to enable patient to perform ADL's. DEX CRUZ PT Aug 14, 2021 10:58
== END 2021-08-13 13:55 | DRG 560 ==
PROVIDERS: ADMIT Internal Medicine; ATTEND Internal Medicine
DX: S82.832D Other fracture of upper and lower end of left fibula, subsequent encounter for closed fracture with routine healing (principal); M80.88XA Other osteoporosis with current pathological fracture, vertebra(e), initial encounter for fracture; J84.10 Pulmonary fibrosis, unspecified; T65.891S Toxic effect of other specified substances, accidental (unintentional), sequela; J70.8 Respiratory conditions due to other specified external agents; M06.9 Rheumatoid arthritis, unspecified; R32 Unspecified urinary incontinence; E78.00 Pure hypercholesterolemia, unspecified; Z20.822 Contact with and (suspected) exposure to COVID-19; I10 Essential (primary) hypertension; M19.91 Primary osteoarthritis, unspecified site; E03.9 Hypothyroidism, unspecified; N32.81 Overactive bladder; N76.0 Acute vaginitis; K59.00 Constipation, unspecified; G62.9 Polyneuropathy, unspecified; B35.1 Tinea unguium; L60.0 Ingrowing nail; M20.11 Hallux valgus (acquired), right foot; M20.41 Other hammer toe(s) (acquired), right foot; L85.9 Epidermal thickening, unspecified; Z99.81 Dependence on supplemental oxygen; Z79.899 Other long term (current) drug therapy; Z88.6 Allergy status to analgesic agent; Z88.1 Allergy status to other antibiotic agents; W10.9XXD Fall (on) (from) unspecified stairs and steps, subsequent encounter
CPT/HCPCS: 36415; 72070; 72100; 80053; 81000; 85025; 87636; 94640; 94760